=== PATIENT | female | born 1960 | race Caucasian/White ===

== ENCOUNTER 2024-08-03 14:23 | Inpatient (IN) | payer MEDICARE, SELFPAY ==
[2024-08-03] VITALS (33 sets, daily range): BP systolic 65–149; BP diastolic 38–115; PULSE 91–172; RESP 12–332; TEMP 35.8–37.2; O2SAT 78–95; BMI 38.1
--- NOTE | 2024-08-03 14:33 | EKG12_ITS ---
Test Reason : SOB Blood Pressure : */* mmHG Vent. Rate : 177 BPM Atrial Rate : * BPM P-R Int : * ms QRS Dur : 64 ms QT Int : 244 ms P-R-T Axes : * -12 1 degrees QTcB Int : 418 ms Critical Test Result: High HR Atrial fibrillation with rapid ventricular response Septal infarct , age undetermined Marked ST abnormality, possible inferior subendocardial injury Abnormal ECG Confirmed by CAMERON OSBORN, AVERY ([id number]), school photograph editor ANOOP BRONSON ([id number]) on 08/04/2024 8:51:37 AM Referred By: Katie Knott Confirmed By: AVERY BARNES MD
--- NOTE | 2024-08-03 14:47 | EX.ED.DYSGE1 ---
HPI History of Present Illness Chief Complaint: Shortness of Breath Narrative Narrative: Patient is a 64-year-old female past medical history of hypothyroidism on estradiol who presents to the emergency department with chief complaint of shortness of breath via EMS from her primary care physician. Patient states that she has been sick since the end of last week and her has been ill with similar symptoms. States that yesterday she had increasing shortness of breath therefore she called her family physician for an appointment today. She states that her oxygen level is low and they sent her here to the hospital via EMS. Patient denies any history of blood clots denies recent travel history denies any blood thinning medications. PFSH PFSH Medical History no medical history Home Medications ?Medication ?Instructions ?Recorded ?Last Taken ?Type cyclobenzaprine 10 mg tablet 10 mg PO TID PRN PRN muscle spasms 08/03/24 08/01/24 History ergocalciferol (vitamin D2) 1,250 1,250 mcg PO QWEEK 08/03/24 08/01/24 History mcg (50,000 unit) capsule estradiol 2 mg tablet 2 mg PO DAILY 08/03/24 08/01/24 History levothyroxine 100 mcg tablet 100 mcg PO DAILY disorder of 08/03/24 08/01/24 History thyroid gland meclizine 12.5 mg tablet 12.5 mg PO Q6H PRN PRN dizziness 08/03/24 08/01/24 History Allergy/AdvReac Type Severity Reaction Status Date / Time azithromycin Allergy Vomiting Verified 08/03/24 14:47 codeine Allergy Vomiting Verified 08/03/24 14:47 tramadol Allergy Vomiting Verified 08/03/24 14:47 Family History no significant family his Surgical History H/O: hysterectomy Social History Smoking Status: Heavy Smoker (>10/day) ROS ROS ED ROS Narrative Constitutional: Denies any fevers, chills, headaches, lightheadedness Eyes: Denies change in vision double vision blurry vision Cardiovascular: Complains of palpitations denies chest pain Respiratory: Complains of shortness of breath and cough Abdomen: Denies abdominal pain nausea vomit diarrhea : Denies any urinary symptoms Neurological: Denies any numbness, weakness, tingling Musculoskeletal: Denies any back pain Skin: Denies any rashes or lesions EXAM Physical Exam Narrative Exam Narrative: General: Patient lying in bed did appear to be short of breath Head: Atraumatic, normocephalic Eyes: PERRL bilaterally, EOMI bilaterally, no conjunctival injection noted Neck: Soft, supple, trachea midline Cardiovascular: Patient tachycardic with an irregular irregular rhythm no murmurs gallops rubs noted Respiratory: Diminished breath sounds bilaterally Abdomen: Soft, nondistended, nontender to palpation, bowel sounds present x 4 Extremities: +5/5 strength noted in the bilateral upper and lower extremities, radial pulses +2/4 in the bilateral extremities Neurological: Patient following commands knew that she was at [facility] year is 2024 Skin: Warm, dry, intact Const Vital Signs: 08/03/24 14:24 08/03/24 14:28 08/03/24 14:33 Temperature 96.5 F L 96.5 F L Temperature Source Temporal Temporal Pulse Rate 165 H 169 H Respiratory Rate 35 H 35 H Respiratory Pattern Blood Pressure 149/83 H 134/101 H Blood Pressure Mean 105 112 Pulse Ox 89 91 Oxygen Delivery Method Non-Rebreather Non-Rebreather Non-Rebreather Oxygen Flow Rate (L/min) 15 15 15 Fraction of Inspired Oxygen (FIO2) 08/03/24 14:35 08/03/24 14:36 08/03/24 15:21 Temperature Temperature Source Pulse Rate 172 H 148 H Respiratory Rate 38 H 32 H Respiratory Pattern Tachypnea Tachypnea Blood Pressure Blood Pressure Mean Pulse Ox 95 91 Oxygen Delivery Method Bi-pap Oxygen Flow Rate (L/min) Fraction of Inspired Oxygen (FIO2) 80 08/03/24 15:28 08/03/24 15:29 08/03/24 16:00 Temperature 97.4 F L 97.4 F L Temperature Source Axillary Axillary Pulse Rate 148 H 159 H 142 H Respiratory Rate 38 H 37 H Respiratory Pattern Blood Pressure 143/105 H 138/88 H 143/105 H Blood Pressure Mean 117 104 117 Pulse Ox 94 94 Oxygen Delivery Method Bi-pap Bi-pap Oxygen Flow Rate (L/min) Fraction of Inspired Oxygen (FIO2) 08/03/24 16:20 08/03/24 16:28 08/03/24 17:00 Temperature Temperature Source Pulse Rate 135 H 137 H 145 H Respiratory Rate 46 H 42 H Respiratory Pattern Tachypnea Blood Pressure 141/77 H 147/101 H Blood Pressure Mean 98 116 Pulse Ox 94 78 Oxygen Delivery Method High Flow Oxygen Flow Rate (L/min) Fraction of Inspired Oxygen (FIO2) 65 08/03/24 17:19 08/03/24 17:22 08/03/24 17:24 Temperature 97.8 F Temperature Source Pulse Rate 145 H 152 H 150 H Respiratory Rate 332 H 39 H Respiratory Pattern Blood Pressure 147/101 H 147/101 H Blood Pressure Mean 116 116 Pulse Ox 93 94 Oxygen Delivery Method Bi-pap Oxygen Flow Rate (L/min) Fraction of Inspired Oxygen (FIO2) 08/03/24 17:26 Temperature Temperature Source Pulse Rate 144 H Respiratory Rate 41 H Respiratory Pattern Tachypnea Blood Pressure Blood Pressure Mean Pulse Ox 94 Oxygen Delivery Method Oxygen Flow Rate (L/min) Fraction of Inspired Oxygen (FIO2) 80 MDM MDM MDM Narrative Medical decision making narrative: Patient is a 64-year-old female who presents to the emergency department via EMS from her primary care physician office with a chief complaint of hypoxia. Patient's primary care physician called in and I discussed with him and noted that her oxygen level on room air was 64% they placed her on nasal cannula and when EMS arrived they placed on a nonrebreather. They deny any history of COPD or CHF noted that she had been coughing some stuff up over the past week complaint of shortness of breath. On the differential diagnose includes but not limited to ACS, pneumonia, pneumothorax. Once workup is obtained reviewed she will be reevaluated. Patient does have a BMI of greater than 30 therefore she will be given 30 cc/kg bolus based on ideal body weight which was ordered at 1435. Patient be given 2 DuoNeb's to see if this helps with her work of breathing. Patient was tachypneic had increased work of breathing on nonrebreather therefore she will be placed on BiPAP. Patient be given Cardizem bolus followed by Cardizem drip for her A-fib RVR. Patient CBC reviewed and was significant leukocytosis of 25,000, hemoglobin 14.3, platelet count was noted be 342. Patient's INR was normal at 1.2, venous blood gas reviewed by myself which showed a pH 7.3. Patient sodium normal 141, potassium 3.4, creatinine normal at 0.83. Patient does have a lactic acidosis of 2.6, BNP elevated 171, troponin was noted to be 13. Patient TSH normal at 0.99 with a free T4 and free T3 of 2.19 and 1.1 respectively. Patient's urinalysis reviewed and showed no evidence of infection. Patient's CTA of the chest reviewed diffuse patchy consolidative opacity suspicious for infection follow-up to resolution is recommended enlarged mediastinal and perihilar lymph nodes which may be reactive in nature. Patient was given vancomycin and cefepime at 1504. Patient returned from radiology from her CT scan and she was doing well therefore I trialed her off BiPAP however she became tachypneic, tachycardic and hypoxic therefore she was transitioned back onto BiPAP. Patient heart rate has improved while on Cardizem drip however she is still tachycardic to the 120s 130s however we will allow her to receive further IV hydration as she is likely dehydrated as well. Did discuss case with hospitalist Dr. Knott who accept patient for admission to the intensive care unit. Critical care time 47 minutes Lab Data Labs: Laboratory Results - last 24 hr 08/03/24 08/03/24 14:35 15:48 WBC 25.1 H RBC 4.89 Hgb 14.3 Hct 43.8 MCV 89.6 MCH 29.2 MCHC 32.6 RDW Std Deviation 47.3 H RDW Coeff of Emmanuel 14.5 Plt Count 342 MPV 10.0 Immature Gran % (Auto) 0.800 Neut % (Auto) 84.4 H Lymph % (Auto) 7.6 L [place] % (Auto) 6.9 Eos % (Auto) 0.2 Baso % (Auto) 0.1 Absolute Neuts (auto) 21.2 H Absolute Lymphs (auto) 1.92 Nucleated RBC % 0 Differential Comment COMMENT Diff Path Review October foll PT 15.1 H INR 1.2 APTT 28.7 Sodium 141 Potassium 3.4 L Chloride 106 Carbon Dioxide 26.0 Anion Gap 9 BUN 15 Creatinine 0.83 Estim Creat Clear Calc 83.66 Est GFR (MDRD) Af Amer 88 Est GFR (MDRD) Non-Af 73 BUN/Creatinine Ratio 18.0 Glucose 125 H Lactic Acid 2.6 H* Calcium 9.8 Total Bilirubin 1.10 H AST 37 ALT 49 Alkaline Phosphatase 255 H Troponin I High Sens 13 B-Natriuretic Peptide 171.0 H Total Protein 7.5 Albumin 2.5 L Globulin 5.0 H Albumin/Globulin Ratio 0.5 L TSH 0.922 Free T4 2.19 H Free T3 pg/dL 1.1 L Urine Color Yellow Urine Clarity Sl. Cloudy Urine pH 6.0 Ur Specific [place] 1.010 Urine Protein 30 H Urine Glucose (UA) Normal Urine Ketones Negative Urine Occult Blood 10 H Urine Nitrite Negative Urine Bilirubin Negative Urine Urobilinogen 4 H Ur Leukocyte Esterase 25 H Urine RBC 0 SEEN Urine WBC 0-5 SEEN Ur Squamous Epith Cells 0 SEEN Urine Bacteria 1+ Urine Mucus 0 SEEN ABG Data ABG results: ABG 08/03/24 16:01 Specimen Type KASHIF Sample Site Not entered O2 % 80.0 VBG pH 7.30 L VBG pO2 45 H VBG HCO3 25 VBG Total CO2 27 VBG O2 Sat (Calc) 75 H VBG Base Excess -1 POC Mix VBG pCO2 Pt Tmp 51.4 H O2 Delivery Device BiPAP Tidal Volume 350.0 POC PEEP 10 Radiography Diagnostic Testing: Clinical Impression(s) from Imaging Studies Chest CTA 08/03/24 14:48 IMPRESSION: Diffuse patchy consolidative opacities suspicious for infection. Follow-up to resolution is recommended. Enlarged mediastinal and perihilar lymph nodes which may be reactive. One or more dose reduction techniques were used (e.g., Automated exposure control, adjustment of the mA and/or kV according to patient size, use of iterative reconstruction technique). Reading Location: [facility] Discharge Plan Triage Chief Complaint: Shortness of Breath ED Provider: Julio Sotomayor Dx/Rx/DC Orders Clinical Impression: Acute hypoxic respiratory failure, Pneumonia, Acidosis, lactic, Atrial fibrillation with RVR Prescriptions: No Action cyclobenzaprine 10 mg tablet 10 mg PO TID PRN PRN (Reason: muscle spasms) meclizine 12.5 mg tablet 12.5 mg PO Q6H PRN PRN (Reason: dizziness) levothyroxine 100 mcg tablet 100 mcg PO DAILY estradiol 2 mg tablet 2 mg PO DAILY ergocalciferol (vitamin D2) 1,250 mcg (50,000 unit) capsule 1,250 mcg PO QWEEK Primary Care Provider: Arnel Short Referrals: Arnel Short MD [Primary Care Provider] - Print Language: Mosotho Disposition Disposition: Acute Care Hospital [facility]
--- NOTE | 2024-08-03 14:48 | CT_ITS ---
PROCEDURE: CTA CHEST W/WO CONTRAST REASON FOR EXAM: Shortness of breath started yesterday. TECHNIQUE: CTA imaging of the chest with intravenous contrast. 3D reconstructions. COMPARISON: None. FINDINGS: Hardware: None. Lymph nodes: Enlarged mediastinal and perihilar lymph nodes. Heart: Normal heart size. No pericardial effusion. RV/LV Diameter Ratio: N/A Thoracic Aorta: Mild atherosclerosis of a normal caliber thoracic aorta Pulmonary Vessels: No evidence of acute pulmonary emboli through the major subsegmental branches. Most Proximal Level of Embolus (if embolus present): N/A Lungs and Airways: Diffuse patchy consolidative opacities suspicious for infection. Pleura: No pleural effusion. No pneumothorax. Upper Abdomen: Visualized portions of the upper abdominal viscera are unremarkable. Bones: Degenerative changes of the spine. CT/CTA Chest W/WO Contrast IMPRESSION: Diffuse patchy consolidative opacities suspicious for infection. Follow-up to resolution is recommended. Enlarged mediastinal and perihilar lymph nodes which may be reactive. One or more dose reduction techniques were used (e.g., Automated exposure contr ol, adjustment of the mA and/or kV according to patient size, use of iterative reconstruction technique). Reading Location: [id number]
[2024-08-03 14:49] LABS: Absolute Lymphocyte Count 1.92 X10^3/uL (0.83-4.51); Absolute Neutrophil Count 21.2 X10^3/uL (2.0-7.7); Basophil# 0.02 X10^3/uL; Basophil% 0.1 % (0-1); Eosinophil# 0.06 X10^3/uL; Eosinophils% 0.2 % (0-5); Hematocrit 43.8 % (37-47); Hemoglobin 14.3 g/dL (12.0-15.0); Lymphocyte # 1.92 X10^3/ul (0.83-4.51); Lymphocyte % 7.6 % (19-41); Mean Corp Hgb Conc 32.6 g/dL (32-36); Mean Corpuscular Hgb 29.2 pg (27.0-32.0); Mean Corpuscular Volume 89.6 fL (81-99); Monocyte# 1.74 X10^3/uL; Monocyte% 6.9 % (0-10); NRBC Flagged by Analyzer 0 % (0-5); Neutrophil % 84.4 % (47-70); POSITIVE DIFFERENTIAL YES; POSITIVE MORPHOLOGY YES; Platelet Count 342 K/mm3 (150-450); RBC Distribution Width CV 14.5 % (11.6-14.6); RBC Distribution Width SD 47.3 fl (35.1-43.9); Red Blood Count 4.89 M/mm3 (4.2-5.4); White Blood Count 25.1 K/mm3 (4.4-11.0)
[2024-08-03] MEDS: 0.9% Normal Saline (1000mL) 1,000 ML 999 ML IV ×3 (14:49→18:28)
[2024-08-03 14:54] LABS: Differential Indicated SCAN CRITERIA MET
[2024-08-03 14:57] LABS: International Normalized Ratio 1.2; Partial Thromboplast Time 28.7 Seconds (24.1-36.2); Prothrombin Time (Protime)PT. 15.1 SECONDS (11.7-14.9)
[2024-08-03] MEDS: Ipratropium/Albuterol Sulfate 3 ML AMPUL.NEB INHALATION ×2 (15:21)
[2024-08-03 15:27] LABS: ALB/GLOB Ratio 0.5 RATIO (0.9-2.4); AST(SGOT) 37 U/L (15-37); Alanine Aminotransfer ALT/SGPT 49 U/L (13-56); Albumin, Serum 2.5 g/dL (3.2-5.0); Alkaline Phosphatase 255 U/L (45-117); Anion Gap 9 (5-15); BUN 15 mg/dL (7-18); Calcium,Total 9.8 mg/dL (8.5-10.1); Chloride 106 mmol/L (98-107); Creatinine, Serum 0.83 mg/dL (0.55-1.02); EST Glomerular Filtration Rate 73 mL/min (>60); Est Glom Filt Rate - Afr Amer 88 mL/min (>60); Estimated Creatinine Clearance 83.66 ml/min; Glucose 125 mg/dL (74-106); Potassium 3.4 mmol/L (3.5-5.1); Protein, Total 7.5 g/dL (6.4-8.2); Sodium Level 141 mmol/L (136-145); Troponin-I HS 13 pg/mL (3.0-54.0)
[2024-08-03] MEDS: dilTIAZem 25 MG/5 ML Vial IV BOLUS (15:28)
[2024-08-03] MEDS: Diltiazem 125 MG in Dextrose 5%-Water (100mL Bag) 100 ML IV (15:29)
[2024-08-03] MEDS: Cefepime HCl 1 GM in 0.9% Normal Saline (50mL MB+) 50 ML IV (15:29)
[2024-08-03 15:47] LABS: Free T3 1.1 pg/mL (2.18-3.98); T4 Free Direct 2.19 ng/dL (0.76-1.46); Thyroid Stim Hormone (TSH) 0.922 uIU/mL (0.358-3.740)
[2024-08-03 16:00] LABS: Mucous, Urine 0 SEEN /hpf (<or=2+); Red Blood Cells-Urine 0 SEEN /hpf (0-5); Squamous Epithelial Cells - UA 0 SEEN /hpf (5-10)
[2024-08-03 16:05] LABS: Color, Urine Yellow (Yellow); Glucose, Dipstick Normal (Normal); Ketone-Dipstick Negative (Negative); Leukocyte Esterase-Dipstick 25 /ul (Negative); Nitrite-Dipstick Negative (Negative); Occult Blood-Urine 10 /ul (Negative); Protein-Dipstick 30 mg/dl (Negative); Urine Bilirubin Dipstick Negative (Negative); Urine Clarity Sl. Cloudy (Clear); Urine Urobilinogen 4 mg/dl (Normal)
[2024-08-03 16:17] LABS: Blood Gas Specimen Type VEN; O2 Delivery Device BiPAP; PEEP 10; SITE Not entered; VBG BASE EXCESS -1 mmol/L (-1.0-3.5); VBG Bicarbonate 25 mmol/L (22-26); VBG PO2 45 mmHg (25-40); VBG SO2 75 % (50-70); VBG TCO2 27 mmol/L (23-33); VBG pCO2 51.4 mmHg (41-51)
[2024-08-03] MEDS: Vancomycin HCl 1,500 MG in 0.9% Normal Saline (500mL Bag) 500 ML 250 MG IV (16:17)
[2024-08-03 16:24] LABS: Bacteria 1+ /hpf (None Seen); White Blood Cells 0-5 SEEN /hpf (0-5)
[2024-08-03] MEDS: Potassium Chloride 10mEq/100mL 10 MEQ/100 ML IV.SOLN. 100 MEQ IV BOLUS ×4 (16:30→19:48)
[2024-08-03 16:59] LABS: Lactic Acid 2.6 mmol/L (0.4-1.9)
--- NOTE | 2024-08-03 16:59 | ED.RN ---
Critical Lactic Acid 2.6. Dr. Sotomayor notified
--- NOTE | 2024-08-03 17:23 | ED.RN ---
Pt unable to tolerate hi flow, SpO2 dropped to 77%, respiratory rate 44. MD and RT at bedside, pt put back on bipap
[2024-08-03] MEDS: LORazepam 2 MG/ML Syringe 0.5 MG IV (18:41)
[2024-08-03] MEDS: Heparin Injection (Vial) 5,000 UNIT/ML VIAL 4000 UNIT IV (18:42)
[2024-08-03 18:44] LABS: Reflex Lactate? Y
[2024-08-03] MEDS: HEPARIN/D5w 25,000 UNITS 25,000 UNITS/250 ML IV.SOLN. 10 UNITS CONT INF (18:46)
[2024-08-03 19:01] LABS: International Normalized Ratio 1.5; Prothrombin Time (Protime)PT. 18.4 SECONDS (11.7-14.9)
[2024-08-03 19:02] LABS: Partial Thromboplast Time 33.9 Seconds (24.1-36.2)
--- NOTE | 2024-08-03 19:10 | HP.PCM.HOS_ITS ---
HPI - General General Date of Admission: 08/03/24 Date of Service: 08/03/24 Chief Complaint: Shortness of breath HPI Narrative KOBE ALFARO, is a 64-year-old female history of hypothyroidism and on estradiol who presented [facility] ED 08/03/2024 from primary care physician due to increased shortness of breath and hypoxia. She had increased shortness of breath for a week and similarly had been ill, yesterday it worsened further prompting her to call her PCPs office for appointment today, there she was hypoxic so she was sent to ED via EMS. In the ED patient placed on nonrebreather and then ultimately BiPAP due to continued hypoxia, CTA with no PE but did reveal multifocal pneumonia, she is given broad-spectrum antibiotics and is attempted to wean to high flow O2 however patient dropped to 77% was placed back on BiPAP. Additionally patient A-fib with RVR, heart rate 150s to 170s initially and recently started on Cardizem and heparin drip. Hospitalist contacted for admission. Patient evaluated at bedside but patient on BiPAP and having difficulty answering questions, family does report that 2 weeks ago she had some nausea and diarrhea that resolved but then she began to have shortness of breath 1 week ago that is progressed and also has cough with thick sputum. Patient difficulty answering any further focal questions given her distress and that she is on BiPAP, family denies any other specific complaints that had been voiced. PFSH Medical History no medical history Home Medications ?Medication ?Instructions ?Recorded ?Last Taken ?Type cyclobenzaprine 10 mg tablet 10 mg PO TID PRN PRN musc le spasms 08/03/24 08/01/24 History ergocalciferol (vitamin D2) 1,250 1,250 mcg PO QWEEK 0 08/03/24 08/01/24 History mcg (50,000 unit) capsule estradiol 2 mg tablet 2 mg PO DAILY 08/03/2408/01 History levothyroxine 100 mcg tablet 100 mcg PO DAILY disorder of 08/03/24 08/01/24 History thyroid gland meclizine 12.5 mg tablet 12.5 mg PO Q6H PRN PRN dizzi ness 08/03/24 08/01/24 History Allergy/AdvReac Type Severity Reaction Status Date / Time azithromycin Allergy Vomiting Verified 08/03/24 14:47 codeine Allergy Vomiting Verified 08/03/24 14:47 tramadol Allergy Vomiting Verified 08/03/24 14:47 Family History no significant family his Surgical History H/O: hysterectomy Social History Smoking Status: Heavy Smoker (>10/day) ROS ROS Narrative Unable to obtain full ROS given patient's distress and that she is on BiPAP but has had increased productive cough and shortness of breath, did have some nausea and diarrhea 2 weeks ago that resolved 1 week ago. No fevers that have been recorded Vital Signs Vital Signs Vital Signs: 08/03/24 14:24 08/03/24 14:28 08/03/24 14:33 Temperature 96.5 F L 96.5 F L Temperature Source Temporal Temporal Pulse Rate 165 H 169 H Respiratory Rate 35 H 35 H Respiratory Pattern Blood Pressure 149/83 H 134/101 H Blood Pressure Mean 105 112 Pulse Ox 89 91 Oxygen Delivery Method Non-Rebreather Non-Rebreather Non-Rebreather Oxygen Flow Rate (L/min) 15 15 15 Fraction of Inspired Oxygen (FIO2) 08/03/24 14:35 08/03/24 14:36 08/03/24 15:21 Temperature Temperature Source Pulse Rate 172 H 148 H Respiratory Rate 38 H 32 H Respiratory Pattern Tachypnea Tachypnea Blood Pressure Blood Pressure Mean Pulse Ox 95 91 Oxygen Delivery Method Bi-pap Oxygen Flow Rate (L/min) Fraction of Inspired Oxygen (FIO2) 80 08/03/24 15:28 08/03/24 15:29 08/03/24 16:00 Temperature 97.4 F L 97.4 F L Temperature Source Axillary Axillary Pulse Rate 148 H 159 H 142 H Respiratory Rate 38 H 37 H Respiratory Pattern Blood Pressure 143/105 H 138/88 H 143/105 H Blood Pressure Mean 117 104 117 Pulse Ox 94 94 Oxygen Delivery Method Bi-pap Bi-pap Oxygen Flow Rate (L/min) Fraction of Inspired Oxygen (FIO2) 08/03/24 16:20 08/03/24 16:28 08/03/24 17:00 Temperature Temperature Source Pulse Rate 135 H 137 H 145 H Respiratory Rate 46 H 42 H Respiratory Pattern Tachypnea Blood Pressure 141/77 H 147/101 H Blood Pressure Mean 98 116 Pulse Ox 94 78 Oxygen Delivery Method High Flow Oxygen Flow Rate (L/min) Fraction of Inspired Oxygen (FIO2) 65 08/03/24 17:19 08/03/24 17:22 08/03/24 17:24 Temperature 97.8 F Temperature Source Pulse Rate 145 H 152 H 150 H Respiratory Rate 332 H 39 H Respiratory Pattern Blood Pressure 147/101 H 147/101 H Blood Pressure Mean 116 116 Pulse Ox 93 94 Oxygen Delivery Method Bi-pap Oxygen Flow Rate (L/min) Fraction of Inspired Oxygen (FIO2) 08/03/24 17:26 08/03/24 18:00 Temperature 99 F Temperature Source Axillary Pulse Rate 144 H 142 H Respiratory Rate 41 H 35 H Respiratory Pattern Tachypnea Blood Pressure 131/93 H Blood Pressure Mean 105 Pulse Ox 94 93 Oxygen Delivery Method Bi-pap Oxygen Flow Rate (L/min) Fraction of Inspired Oxygen (FIO2) 80 Weight Weight: 107.1 kg Body Mass Index (BMI) 38.1 Physical Exam Narrative General: Alert, appears to be distressed HEENT: Atraumatic, normocephalic Eyes: Anicteric, normal conjunctiva, extraocular movements grossly intact Neck: Supple Respiratory: Increased respiratory effort, diminished bilaterally with poor airflow Cardiovascular: Irregularly irregular, still appears to be A-fib on monitor and is still tachycardic GI: Soft, nontender, nondistended Extremities: No significant pitting edema Musculoskeletal: Moving all extremities Neuro: No overt focal neurological deficits Skin: No rashes appreciated Psych: Attempts to be cooperative Results Lab / Micro Data 08/03/24 14:35 08/03/24 14:35 Labs: Laboratory Results - last 24 hr 08/03/24 14:35: WBC 25.1 H, RBC 4.89, Hgb 14.3, Hct 43.8, MCV 89.6, MCH 29.2, MCHC 32.6, RDW Std Deviation 47.3 H, RDW Coeff of Emmanuel 14.5, Plt Count 342, MPV 10.0, Immature Gran % (Auto) 0.800, Neut % (Auto) 84.4 H, Lymph % (Auto) 7.6 L, [place] % (Auto) 6.9, Eos % (Auto) 0.2, Baso % (Auto) 0.1, Absolute Neuts (auto) 21.2 H, Absolute Lymphs (auto) 1.92, Nucleated RBC % 0, Differential Comment COMMENT, Diff Path Review October foll, PT 15.1 H, INR 1.2, APTT 28.7, Sodium 141, P otassium 3.4 L, Chloride 106, Carbon Dioxide 26.0, Anion Gap 9, BUN 15, Creatinine 0.83, Estim Creat Clear Calc 83.66, Est GFR (MDRD) Af Amer 88, Est GFR (MDRD) Non-Af 73, BUN/Creatinine Ratio 18.0, Glucose 125 H, Lactic Acid 2.6 H*, Calcium 9.8, Total Bilirubin 1.10 H, AST 37, ALT 49, Alkaline Phosphatase 255 H, Troponin I High Sens 13, B-Natriuretic Peptide 171.0 H, Total Protein 7.5, Albumin 2.5 L, Globulin 5.0 H, Albumin/Globulin Ratio 0.5 L, TSH 0.922, F ree T4 2.19 H, Free T3 pg/dL 1.1 L 08/03/24 15:48: Urine Color Yellow, Urine Clarity Sl. Cloudy, Urine pH 6.0, Ur Specific [place] 1.010, Urine Protein 30 H, Urine Glucose (UA) Normal, Urine Ketones Negative, Urine Occult Blood 10 H, Urine Nitrite Negative, Urine Bilirubin Negative, Urine Urobilinogen 4 H, Ur Leukocyte Esterase 25 H, Urine RBC 0 SEEN, Urine WBC 0-5 SEEN, Ur Squamous Epith Cells 0 SEEN, Urine Bacteria 1+, Urine Mucus 0 SEEN 08/03/24 18:20: PT 18.4 H, INR 1.5, APTT 33.9 Micro: Microbiology 08/03/24 14:40 Mucosa - Nose SARS-CoV-2, Influenza & RSV (PCR) - Final ABG Data ABG results: ABG 08/03/24 16:01 Specimen Type KASHIF Sample Site Not entered O2 % 80.0 VBG pH 7.30 L VBG pO2 45 H VBG HCO3 25 VBG Total CO2 27 VBG O2 Sat (Calc) 75 H VBG Base Excess -1 POC Mix VBG pCO2 Pt Tmp 51.4 H O2 Delivery Device BiPAP Tidal Volume 350.0 POC PEEP 10 Imaging Radiology Impression Chest CTA 08/03/24 14:48 IMPRESSION: Diffuse patchy consolidative opacities suspicious for infection. Follow-up to resolution is recommended. Enlarged mediastinal and perihilar lymph nodes which may be reactive. One or more dose reduction techniques were used (e.g., Automated exposure control, adjustment of the mA and/or kV according to patient size, use of iterative reconstruction technique). Reading Location: [id number] Assessment & Plan Assessment/Plan (1) Acute hypoxic respiratory failure: (2) Pneumonia: (3) Atrial fibrillation with RVR: (4) Hypothyroidism: PLAN: Plan # Acute hypoxic respiratory failure secondary to multifocal pneumonia -Patient hypoxic in the ED and was 91% on rebreather with respiratory rate in the 30s, she was placed on BiPAP with sats in mid 90s though does remain tachypneic, trialed off BiPAP and desaturated and patient back on BiPAP -Imaging: CTA with diffuse patchy consolidative opacity suspicious for infection who recommends follow-up resolution, additionally enlarged mediastinal and perihilar lymph nodes which may be reactive in nature -Additionally patient with white blood cell count of 25 with left shift and increased shortness of breath with cough productive sputum -Duonebs -Sputum culture, COVID negative, respiratory panel ordered -Urine antigens -Mucinex, I/S -Given severity will cover with broad-spectrum antibiotics and de-escalate as able -Will consult pulmonology/critical care -BNP elevated at 171 but this is of unclear significance, could be secondary to A-fib RVR, does not appear overtly fluid overloaded at this time -Echo ordered as below # A-fib with RVR -Initial EKG with A-fib with rapid rate of 177, placed on Cardizem drip with heart rate in 140s to 150s -Patient to be admitted to the ICU, additionally started on heparin drip in the ED -Continue Cardizem drip, will add oral beta-nina to work on transitioning to an oral regimen -Check 0.99 with a free T4 of 2.19 -Check magnesium -Order echo #Hypokalemia -Replace -Repeat in the AM #Hypothyroidism -Continue Synthroid -TSH WNL #Tobacco use -Advise cessation -Nicotine replacement available if desired #DVT ppx: Heparin drip Katie Knott MD Charges/Coding Visit Charges Inpatient E&M: 71036 Init Hosp L2
--- NOTE | 2024-08-03 19:36 | CASEMGMT ---
Care Management Face to Face with patient for initial transition planning/care coordination assessment in the ED. This script writer introduced self and role at [facility]. Patient alert and oriented; on BiPAP during assessment. Patient's , Sky, and patient's daughter, Caryn, bedside. Patient's family members helped with answering questions. Care providers, pharmacy, and demographics verified. Admitting Diagnosis: Acute hypoxic respiratory failure, Pneumonia, Atrial fibrillation with RVR, Hypothyroidism Other diagnosis history: hypothyroidism PCP: Arnel Short Specialists: none Preferred Pharmacy: [facility] in [place] Insurance: Medicare A B Prescription Benefit: yes Living Will/HPOA: none and denies needing information LNOK: , Sky. Daughter, Caryn. Living Arrangements: lives with in 2 story home with 2 steps to enter. Bedroom and bathroom upstairs (full flight of stairs). Independent with all ADLs at baseline. Transportation: patient drives. DME: none HHC: none SNF/Rehab: none Community Resources: none Patient goals: Patient wishes to discharge home; patient and patient's both deny need for home health care at this time. Patient states she has no further needs or concerns at this time. Patient's daughter reports patient is stubborn and wants to go home right now. Patient's daughter states that patient will not ask for help despite patient's current condition. Disposition Plan: admission to acute; RN CM/SW to follow for discharge planning needs that may arise. [place], [employer], [employer]
[2024-08-03] MEDS: Etomidate 20 MG/10 ML Vial IV (20:41)
[2024-08-03] MEDS: Succinylcholine Chloride 200 MG/10 ML SYRINGE 100 MG IV (20:42)
[2024-08-03] MEDS: Midazolam 2 MG/2 ML Syringe 4 MG IV (20:51)
[2024-08-03] MEDS: fentaNYL 100 MCG/2 ML Ampul IV (20:51)
--- NOTE | 2024-08-03 20:55 | RAD_ITS ---
PROCEDURE: CHEST 1 VIEW (PORTABLE) REASON FOR EXAM: Post intubation. TECHNIQUE: Frontal view of the chest. COMPARISON: CT chest from 08/03/2024. FINDINGS: There is interval placement of an endotracheal tube and enteric tube. Endotracheal tube tip is 2.7 cm above the preethi. Enteric tube tip is below the diaphragm. Cardiac size is stable. Extensive bilateral pulmonary airspace opacities are identified. No pneumothorax is present. RAD/Chest 1 View (Portable) IMPRESSION: 1. Interval placement of an endotracheal tube and enteric tube. 2. Redemonstration of extensive bilateral airspace opacities likely on an infec tious basis. Reading Location: [facility]
--- NOTE | 2024-08-03 20:55 | RAD_ITS ---
PROCEDURE: ABDOMEN SINGLE VIEW REASON FOR EXAM: Status post nasogastric tube placement. TECHNIQUE: Single view of the upper abdomen. COMPARISON: None FINDINGS: Enteric tube tip is identified within the body of the stomach. No free air seen. Extensive bilateral pulmonary airspace opacities are identified. RAD/Abdomen Single View IMPRESSION: Enteric tube tip within the stomach. Reading Location: [place]
[2024-08-03] MEDS: Propofol 10MG/Ml 1,000 MG/100 ML Bottle 6.4 MG CONT INF (21:01)
--- NOTE | 2024-08-03 21:15 | PN.HOSP_ITS ---
Hospitalist Note Discussed with ED physician as patient continued to be tachycardic and tachypneic and hypoxic in the ED and was worsening and not improving, ED ph ysician discussed with patient and family and ultimately decision was to intubate patient prior to transfer up to the ICU. Patient intubated in the ED prior to transfer up to ICU
--- NOTE | 2024-08-03 21:18 | ED.RN ---
Patient moving arms and attempting to pull at lines. Dr. Sotomayor notified. Bilateral soft restraints to be applied
--- NOTE | 2024-08-03 21:18 | CM.ED ---
Social work During RNCM initial assessment, patient denied having advance directives and denied needing information at this time. [place], [employer], [employer]ING WORKER
[2024-08-03] MEDS: fentaNYL drip 100 ML 5 MCG CONT INF (22:01)
--- NOTE | 2024-08-03 22:57 | ECHOD_ITS ---
Reason For Study: ATRIAL FIBRILLATION Procedure This was a 2D Doppler, Color Flow transthoracic echocardiogram. The study was technically difficult. Limited views were obtained. The patient was scanned supine. Patient was on a ventillator during exam. Exam performed portable in ICU/CCU. Left Ventricle Normal LV size. Left ventricular systolic function is normal. The left ventricular ejection fraction is 55 %. No regional wall motion abnormalities noted. Right Ventricle Normal RV size. Normal systolic function. Atria Normal left atrium. Normal right atrium. Mitral Valve Normal mitral valve. Tricuspid Valve Normal tricuspid valve. Aortic Valve Trisinus/trileaflet aortic valve. Pulmonic Valve The pulmonic valve is not well visualized. Great Vessels Normal aortic root. The pulmonary artery is normal size. Inferior vena cava collapse with respiration. Pericardium/Pleural No pericardial effusion. MMode/2D Measurements & Calculations LVIDd: 4.1 cm IVSd: 1.1 cm LVOT diam: 1.9 cm LVIDs: 2.4 cm LVPWd: 0.97 cm LVOT area: 2.9 cm2 RVDd: 3.7 cm FS: 39.9 % _ LAV(MOD-bp): 38.6 ml LVAd ap4: 22.2 cm2 LVAd ap2: 15.9 cm2 LAV(MOD-bp) Indexed: 18.1 ml/m2 LVLd ap4: 7.0 cm LVLd ap2: 6.2 cm LAV(MOD-sp2): 40.2 ml EDV(MOD-sp4): 58.8 ml EDV(MOD- sp2): 35.1 ml LAV(MOD-sp4): 31.8 ml EDV(sp4-el): 59.8 ml EDV(sp2- el): 34.2 ml LVAs ap4: 11.7 cm2 LVAs ap2: 9.6 cm2 LVLs ap4: 6.0 cm LVLs ap2: 5.4 cm ESV(MOD-sp4): 20.2 ml ESV(MOD- sp2): 15.3 ml ESV(sp4-el): 19.5 ml ESV(sp2- el): 14.5 ml EF(MOD-sp4): 65.6 % EF(MOD- sp2): 56.4 % EF(sp4-el): 67.4 % _ SV(MOD-sp4): 38.6 ml SV(MOD-sp2): 19.8 ml SV(sp4-el): 40.3 ml SI(MOD-sp4): 18.1 ml/m2 SI(MOD-sp2): 9.3 ml/m2 _ Ao sinus diam: 3.0 cm LA A4 area: 14.3 cm2 LA dimension(2D): 3.0 cm _ TAPSE: 1.3 cm RA A4 area: 14.0 cm2 Time Measurements MV dec time: 0.14 sec Doppler Measurements & Calculations MV E max nitish: 90.5 cm/sec Ao V2 max: 139.5 cm/sec LV V1 max: 97.4 cm/sec Ao max P.9 mmHg LV V1 max P.8 mmHg Ao V2 mean: 89.8 cm/sec LV V1 mean P.9 mmHg Ao mean P.8 mmHg LV V1 mean: 63.4 cm/sec Ao V2 VTI: 23.2 cm LV V1 VTI: 14.7 cm AV (velocity ratio): 0.63 LUANNE(I,D): 1.8 cm2 LUANNE(V,D): 2.0 cm2 _ SV(LVOT): 42.9 ml TR max nitish: 245.2 cm/sec TR max P.1 mmHg ECHO/Echo Complete Interpretation Summary Normal LV size. Left ventricular systolic function is normal. The left ventricular ejection fraction is 55 %. Ordering Physician: Katie Knott Referring Physician: MD Deja Arnel Performed By: Chelsea Gresham RDCS
[2024-08-03 23:11] LABS: Magnesium 2.2 mg/dL (1.6-2.6)
--- NOTE | 2024-08-03 23:17 | PCM.HOSP.N ---
Hospitalist Note Patient with recent transition from ED to ICU with persistently low blood pressures with systolics 60s to 70s with maps less than 65 status post 3 L of fluids in the ED. Will initiate on norepinephrine.
[2024-08-03 23:22] LABS: Allen Test Positive; Base Excess -5 mmol/L (-2 to +2); Bicarbonate 22.2 mmol/L (22-26); Blood Gas Specimen Type ART; Mode AC; O2 Delivery Device Adult Vent; PEEP 10; PO2 109 mmHG (75-100); RR 16; SITE L Radial; SO2 97 % (95-99); Total Carbon Dioxide 24 mmol/L; pCO2 51.2 mmHg (35-45); pH 7.25 (7.35-7.45)
[2024-08-03] MEDS: Norepinephrine 8 MG in 0.9% Normal Saline (250mL Bag) 242 ML 9.4 MG CONT INF (23:59)
[2024-08-04] VITALS (53 sets, daily range): BP systolic 61–134; BP diastolic 41–91; PULSE 83–125; RESP 16–28; TEMP 37.6–38.1; O2SAT 94–98; BMI 37.5
[2024-08-04] MEDS: levoFLOXacin IV 750 MG/150 ML BAG 100 MG IV (00:06)
--- NOTE | 2024-08-04 00:16 | PCM.HOSP.N ---
Hospitalist Note Patient with hypotension, as noted started on NEP but was also noted to be on cardizem. Will d/c and transition to amiodarone drip.
--- NOTE | 2024-08-04 00:25 | PCM.RX.CS ---
Consult Antibiotic Management Pharmacy has been consulted to manage selected antibiotic: Vancomycin Type of Intervention Type of Consult: New start Suspected Infection Suspected Infection: Pneumonia Labs Labs: Sodium 141 mmol/L (136-145) 08/03/24 14:35 Potassium 3.4 mmol/L (3.5-5.1) L 08/03/24 14:35 Chloride 106 mmol/L (98-107) 08/03/24 14:35 Carbon Dioxide 26.0 mmol/L (21.0-32.0) 08/03/24 14:35 Anion Gap 9 (5-15) 08/03/24 14:35 BUN 15 mg/dL (7-18) 08/03/24 14:35 Creatinine 0.83 mg/dL (0.55-1.02) 08/03/24 14:35 Est GFR (MDRD) Af Amer 88 mL/min (>60) 08/03/24 14:35 Est GFR (MDRD) Non-Af 73 mL/min (>60) 08/03/24 14:35 BUN/Creatinine Ratio 18.0 RATIO (10-20) 08/03/24 14:35 Glucose 125 mg/dL (74-106) H 08/03/24 14:35 Microbiology Microbiology: Microbiology 08/03/24 14:40 Mucosa - Nose SARS-CoV-2, Influenza & RSV (PCR) - Final Dosing Weight Weight used for dosin kg Estimated Creatinine Clearance Estimated Creatinine Clearance: 84 Goal Trough Goal Trough: 15-20 mcg/mL Pharmacy Plan for Drug Dosing Pharmacy Plan for Drug Dosing: Pharmacy Service will continue to monitor and adjust dosing as required. Follow-Up Labs Follow-Up Labs: Trough: Vancomycin Date/Time Labs Ordered Labs to be done on [date and time ordered]: 08/05/24 @1991
[2024-08-04] MEDS: guaiFENesin 1,200 MG Tablet 1200 MG PO ×2 (00:32→09:27)
[2024-08-04] MEDS: Metoprolol Tartrate 25 MG Tablet PO ×3 (00:32→23:00)
[2024-08-04] MEDS: Chlorhexidine 15 ML PO ×3 (00:33→23:22)
[2024-08-04] MEDS: Ipratropium/Albuterol Sulfate 3 ML AMPUL.NEB INHALATION ×6 (02:35→22:55)
--- NOTE | 2024-08-04 03:25 | RAD_ITS ---
PROCEDURE: AP PORTABLE SEMI ERECT REASON FOR EXAM: Chest x-ray for line placement. TECHNIQUE: Frontal view(s) of chest. COMPARISON: 08/03/2024, 2105 hours. FINDINGS: Tip of a right central venous catheter projects just proximal to the cavoatrial junction. Tip of an endotracheal tube approximately 3 cm above the preethi. Nasogastric tube courses through the stomach. Bilateral lung airspace opacities are again noted with improved aeration of the bilateral lungs. Heart and mediastinum are stable. Atherosclerotic aorta. No pleural effusions or pneumothorax. Bones and soft tissues are unremarkable. RAD/CXR for Line Placement IMPRESSION: 1. Decrease in the bilateral lung airspace opacities since the previous study. Improved aeration in the bilateral lungs. 2. Interval insertion of a right central venous catheter. 3. Endotracheal and nasogastric tubes maintain their positions. Reading Location: [facility]
[2024-08-04] MEDS: Propofol 10MG/Ml 1,000 MG/100 ML Bottle 12.9 MG CONT INF (03:40)
--- NOTE | 2024-08-04 04:08 | PCM.HOSP.N ---
Hospitalist Note Central Line note: Patient with ongoing hypotension despite aggressive IVF administration attempts, maxed out on norepinephrine peripherally, per ICU staff report. Consent obtained for placement of central line. R neck region prepped and draped in standard fashion. US guidance used to obtain access to the R IJ, guidewire threaded without issue, central line catheter placed over guidewire and wire removed w/ cap placed. Lines again drawn and flushed without difficulty. Central line sutured in place. CXR ordered and preliminary appearance in appropriate position but awaiting final read. Procedures Hospitalists Procedures: [id number] Insert Non-tunnel CV Cath
[2024-08-04 04:25] LABS: Absolute Lymphocyte Count 2.18 X10^3/uL (0.83-4.51); Absolute Neutrophil Count 18.3 X10^3/uL (2.0-7.7); Basophil# 0.19 X10^3/uL; Basophil% 0.8 % (0-1); Eosinophil# 0.07 X10^3/uL; Eosinophils% 0.3 % (0-5); Hematocrit 35.7 % (37-47); Hemoglobin 11.2 g/dL (12.0-15.0); Lymphocyte # 2.18 X10^3/ul (0.83-4.51); Lymphocyte % 9.6 % (19-41); Mean Corp Hgb Conc 31.4 g/dL (32-36); Mean Corpuscular Hgb 28.8 pg (27.0-32.0); Mean Corpuscular Volume 91.8 fL (81-99); Mean Platelet Vol. 9.9 fl (6.2-12.0); Monocyte# 1.64 X10^3/uL; Monocyte% 7.3 % (0-10); NRBC Flagged by Analyzer 0.1 % (0-5); Neutrophil # 18.34 X10^3/uL (2.7-7.7); Neutrophil % 81.2 % (47-70); POSITIVE DIFFERENTIAL YES; POSITIVE MORPHOLOGY YES; Platelet Count 273 K/mm3 (150-450); RBC Distribution Width CV 14.9 % (11.6-14.6); RBC Distribution Width SD 49.8 fl (35.1-43.9); Red Blood Count 3.89 M/mm3 (4.2-5.4); White Blood Count 22.6 K/mm3 (4.4-11.0)
[2024-08-04 04:43] LABS: Anion Gap 7 (5-15); BUN 19 mg/dL (7-18); BUN/Creat Ratio 15.7 RATIO (10-20); Chloride 112 mmol/L (98-107); Cholesterol 52 mg/dL (200); Creatinine, Serum 1.21 mg/dL (0.55-1.02); EST Glomerular Filtration Rate 47 mL/min (>60); Est Glom Filt Rate - Afr Amer 57 mL/min (>60); Estimated Creatinine Clearance 56.84 ml/min; Glucose 127 mg/dL (74-106); High Density Lipoprotein 22 mg/dL; Potassium 4.6 mmol/L (3.5-5.1); Sodium Level 141 mmol/L (136-145); Triglycerides 115 mg/dL; Very Low Density Lipoprotein 23 mg/dL (5-40)
[2024-08-04 04:48] LABS: Differential Indicated SCAN CRITERIA MET
[2024-08-04 04:51] LABS: Partial Thromboplast Time 35.8 Seconds (24.1-36.2)
[2024-08-04] MEDS: Vancomycin HCl 1,750 MG in 0.9% Normal Saline (500mL Bag) 500 ML 250 MG IV ×2 (05:13→17:10)
[2024-08-04] MEDS: Heparin Injection (Vial) 5,000 UNIT/ML VIAL IV (05:13)
[2024-08-04] MEDS: Levothyroxine 100 MCG Tablet PO (05:14)
[2024-08-04] MEDS: Vasopressin 20 UNITS in 0.9% Normal Saline (50mL Bag) 24 ML 3 UNITS CONT INF ×2 (05:59→09:24)
[2024-08-04 06:38] LABS: Differential Comment SCANNED
--- NOTE | 2024-08-04 07:16 | PN.HOSP_ITS ---
Reason for Visit Reason for Visit: Diagnoses Hypothyroidism, unspecified (08/03/24) Unspecified atrial fibrillation (08/03/24) Pneumonia, unspecified organism (08/03/24) Acute respiratory failure with hypoxia (08/03/24) Subjective Subjective Patient is a 64-year-old lady who presented with shortness of breath diagnosed with acute hypoxic respiratory failure and sepsis secondary to multifocal pneumonia patient clinical condition deteriorated while in the emergency department necessitating patient being intubated and admitted to the intensive care unit Objective Data Objective Data Vital Signs: Vital Signs Temp Pulse Resp BP Pulse Ox O2 Del Method O2 Flow Rate 99 F 94 21 H 82/56 L 95 Mechanical Ventilator 15 08/03/24 22:57 08/04/24 04:45 08/04/24 04:45 08/04/24 06:00 08/04/24 04:45 08/04/24 02:00 08/03/24 14:33 FiO2 70 08/04/24 02:00 Oxygen Flow Rate (L/min) 15 Oxygen Delivery Method Mechanical Ventilator Weight: 105.415 kg Body Mass Index (BMI) 37.5 Intake & Output: Intake and Output for Last 24 Hours 08/02/24 08/03/24 08/04/24 23:59 23:59 23:59 Intake Total 4021.49 / 4031.13 627.65 / 627.65 Balance 4021.49 / 4031.13 627.65 / 627.65 Lab / Micro Data 08/04/24 04:15 08/04/24 04:15 Labs: Laboratory Results - last 24 hr 08/03/24 14:35: WBC 25.1 H, RBC 4.89, Hgb 14.3, Hct 43.8, MCV 89.6, MCH 29.2, MCHC 32.6, RDW Std Deviation 47.3 H, RDW Coeff of Emmanuel 14.5, Plt Count 342, MPV 10.0, Immature Gran % (Auto) 0.800, Neut % (Auto) 84.4 H, Lymph % (Auto) 7.6 L, [place] % (Auto) 6.9, Eos % (Auto) 0.2, Baso % (Auto) 0.1, Absolute Neuts (auto) 21.2 H, Absolute Lymphs (auto) 1.92, Nucleated RBC % 0, Differential Comment COMMENT, Diff Path Review May foll, PT 15.1 H, INR 1.2, APTT 28.7, Sodium 141, P otassium 3.4 L, Chloride 106, Carbon Dioxide 26.0, Anion Gap 9, BUN 15, Creatinine 0.83, Estim Creat Clear Calc 83.66, Est GFR (MDRD) Af Amer 88, Est GFR (MDRD) Non-Af 73, BUN/Creatinine Ratio 18.0, Glucose 125 H, Lactic Acid 2.6 H*, Calcium 9.8, Magnesium 2.2, Total Bilirubin 1.10 H, AST 37, ALT 49, Alkaline Phosphatase 255 H, Troponin I High Sens 13, B-Natriuretic Peptide 171.0 H, Total Protein 7.5, Albumin 2.5 L, Globulin 5.0 H, Albumin/Globulin Ratio 0.5 L, TSH 0.922, Free T4 2.19 H, Free T3 pg/dL 1.1 L 08/03/24 15:48: Urine Color Yellow, Urine Clarity Sl. Cloudy, Urine pH 6.0, Ur Specific [place] 1.010, Urine Protein 30 H, Urine Glucose (UA) Normal, Urine Ketones Negative, Urine Occult Blood 10 H, Urine Nitrite Negative, Urine Bilirubin Negative, Urine Urobilinogen 4 H, Ur Leukocyte Esterase 25 H, Urine RBC 0 SEEN, Urine WBC 0-5 SEEN, Ur Squamous Epith Cells 0 SEEN, Urine Bacteria 1+, Urine Mucus 0 SEEN 08/03/24 18:20: PT 18.4 H, INR 1.5, APTT 33.9 08/04/24 04:15: WBC 22.6 H, RBC 3.89 L, Hgb 11.2 L, Hct 35.7 L, MCV 91.8, MCH 28.8, MCHC 31.4 L, RDW Std Deviation 49.8 H, RDW Coeff of Emmanuel 14.9 H, Plt Count 273, MPV 9.9, Immature Gran % (Auto) 0.800, Neut % (Auto) 81.2 H, Lymph % (Auto) 9.6 L, [place] % (Auto) 7.3, Eos % (Auto) 0.3, Baso % (Auto) 0.8, Absolute Neuts (auto) 18.3 H, Absolute Lymphs (auto) 2.18, Nucleated RBC % 0.1, Differential Comment SCANNED, Diff Path Review May foll, APTT 35.8, Sodium 141, Potassium 4.6, Chloride 112 H, Carbon Dioxide 22.0, Anion Gap 7, BUN 19 H, Creatinine 1.21 H, Estim Creat Clear Calc 56.84, Est GFR (MDRD) Af Amer 57 L, Est GFR (MDRD) Non-Af 47 L, BUN/Creatinine Ratio 15.7, Glucose 127 H, Calcium 8.0 L, Triglycerides 115, Cholesterol 52, LDL Cholesterol 7, VLDL Cholesterol 23, HDL Cholesterol 22 L Micro: Microbiology 08/03/24 23:20 Mucosa - Nasopharyngeal Respiratory Panel (PCR) - Final 08/03/24 14:40 Mucosa - Nose SARS-CoV-2, Influenza & RSV (PCR) - Final ABG Data ABG results: ABG 08/03/24 08/03/24 16:01 23:15 Specimen Type KASHIF ART Sample Site Not entered L Radial pH 7.25 L Bicarbonate Actual 22.2 Total CO2 24 Base Excess -5 L O2 Saturation 97 O2 % 80.0 100.0 ABG pCO2 51.2 H ABG pO2 109 H Manoj Test Positive VBG pH 7.30 L VBG pO2 45 H VBG HCO3 25 VBG Total CO2 27 VBG O2 Sat (Calc) 75 H VBG Base Excess -1 POC Mix VBG pCO2 Pt Tmp 51.4 H Respiration Rate 16 O2 Delivery Device BiPAP Adult Vent Vent Mode AC Tidal Volume 350.0 450.0 POC PEEP 10 10 Radiography Diagnostic Testing: Radiology Impression Chest CTA 08/03/24 14:48 IMPRESSION: Diffuse patchy consolidative opacities suspicious for infection. Follow-up to resolution is recommended. Enlarged mediastinal and perihilar lymph nodes which may be reactive. One or more dose reduction techniques were used (e.g., Automated exposure control, adjustment of the mA and/or kV according to patient size, use of iterative reconstruction technique). Reading Location: [id number] Chest X-Ray 08/03/24 20:55 IMPRESSION: 1. Interval placement of an endotracheal tube and enteric tube. 2. Redemonstration of extensive bilateral airspace opacities likely on an infectious basis. Reading Location: [facility] X-Ray 08/03/24 20:55 IMPRESSION: Enteric tube tip within the stomach. Reading Location: [place] Chest X-Ray 08/04/24 03:25 IMPRESSION: 1. Decrease in the bilateral lung airspace opacities since the previous study. Improved aeration in the bilateral lungs. 2. Interval insertion of a right central venous catheter. 3. Endotracheal and nasogastric tubes maintain their positions. Reading Location: [facility] Physical Exam Narrative GENERAL: Patient on the vent HEENT: Atraumatic; normocephalic EYES; Anicteric, Normal Conjunctiva NECK; supple, normal thyroid, RESPIRATORY: Diminished to auscultation CARDIOVASCULAR: Regular S1 S2, GI: soft, normoactive bowel sounds, : No Renal angle tenderness; EXTREMITIES: No edema, no clubbing, MUSCULOSKELETAL: no muscle wasting NEURO: Patient on the vent SKIN: No Rash Assessment & Plan Assessment/Plan (1) Acute hypoxic respiratory failure: (2) Pneumonia: (3) Atrial fibrillation with RVR: (4) Hypothyroidism: PLAN: Plan Patient is a 64-year-old lady who presented with shortness of breath diagnosed with acute hypoxic respiratory failure and sepsis secondary to multifocal pneumonia patient clinical condition deteriorated while in the emergency department necessitating patient being intubated and admitted to the intensive care unit 1. Acute hypoxic respiratory failure secondary to multifocal pneumonia ? Treatment was initiated with BiPAP patient clinical condition however deteriorated resulting in patient being intubated and admitted to the intensive care unit. Patient was started on broad-spectrum antibiotic therapy with Zosyn and vancomycin cultures sent 2. Septic shock ? Patient did receive IV fluid resuscitation per protocol she however did not respond to fluid necessitating patient being started on pressors 3. A-fib with RVR ? Patient heart rate upon presentation was 177 patient was started on Cardizem drip which had to be discontinued given her persistent hypotension patient was subsequently started on amiodarone drip 4. Hypokalemia ? Corrected for protocol repeat labs ordered for monitoring 5. Hypothyroidism ? Patient is on levothyroxine home dose continued 6. Acute kidney injury ? Suspected to be secondary to ATN from sepsis monitoring with daily BMPs 7 DVT prophylaxis ? Patient is on heparin drip Time spent in the patient's overall evaluation,decision-making process, review of diagnostic data, adjustment of management, discussion with other providers, nursing nursing and ancillary staff involved in patient's care documentation, 50 Minutes Charges/Coding Visit Charges Inpatient E&M: 52588 Subs Hosp L3
--- NOTE | 2024-08-04 07:46 | CON.PCM.CC_ITS ---
Assessment & Plan Assessment/Plan (1) Acute hypoxic respiratory failure: PLAN: Plan RECOMMENDATIONS: 1. Continue assist-control mode of mechanical ventilation. Wean FiO2 and PEEP as tolerated. 2. Obtain follow-up ABG. 3. Amiodarone for rate/rhythm control. 4. Continue empiric broad-spectrum antimicrobials. 5. Continue scheduled bronchodilators. 6. Continue Levophed. Plan to initiate vasopressin and stress dose steroids. 7. Continue appropriate DVT and GI prophylaxis. 8. Await results of echocardiogram. IMPRESSIONS: 1. Septic shock The patient presented to the hospital with sepsis due to suspected pneumonia with acute sepsis related organ dysfunction as evidenced by lactic acidemia, fluid refractory hypotension requiring vasopressor support and acute respiratory failure requiring invasive mechanical ventilation. The patient has been adequately volume resuscitated. She will be continued on Levophed, with plans to initiate vasopressin and stress dose steroids, given ongoing hypotension. Plan to continue empiric broad-spectrum antimicrobials as ordered. 2. Atrial fibrillation with RVR Continue amiodarone as ordered. Await results of echocardiogram. 3. Acute hypoxemic respiratory failure Clinical suspicion for possible underlying obstructive lung disease in a state of exacerbation due to multifocal pneumonia. The patient was subsequently intubated in the emergency department. Plan to continue assist-control mode of mechanical ventilation. FiO2 and PEEP will be weaned as tolerated. Antimicrobials and scheduled bronchodilators will be continued. 4. History of hypothyroidism/chronic tobacco dependency/anemia Complicates care, management, recovery and prognosis. Continue home Synthroid regimen as ordered. Tube feeding can be initiated tomorrow. TIME: 37 minutes of critical care time, independent of procedures, was spent addressing the patient's septic shock, atrial fibrillation with RVR, acute hypoxemic respiratory failure, review of all data and collaboration with the care team. HPI Consult Data Date of Consult: 08/04/24 HPI Narrative Reason for Consultation: Respiratory failure HPI Narrative: The patient is a 64-year-old female, with a history as outlined below, who presented to the emergency department via EMS on August 03 with progressive shortness of breath. History was obtained from the patient's , who was present at the bedside. Although the patient does have a current smoking history, he reported that she has never been formally diagnosed with COPD. She does have a history of hypothyroidism. She is not currently on supplemental oxygen at her baseline. He did report that she has been struggling with the aforementioned symptoms for approximately 2 to 3 weeks. On presentation to the emergency department, the patient was documented to be afebrile but was notably tachycardic and tachypneic. Laboratory evaluation was notable for an elevated white blood cell count of 25,000. Chemistry profile was notable for a potassium of 3.4. Creatinine was within normal limits. Lactate was elevated at 2.6. Total bilirubin was increased to 1.1. BNP was elevated at 171. TSH was within normal limits. CTA chest showed no evidence for pulmonary embolism, but did demonstrate diffuse bilateral airspace opacities. In the emergency department, the patient was noted to be in atrial fibrillation with RVR. During her emergency department course, the patient developed worsening tachycardia and tachypnea and was subsequently intubated. She was placed on antimicrobial therapy and admitted to the hospital for further management. Overnight, the patient developed refractory hypotension, for which a central line was placed and Levophed was initiated. The patient has been maintained on scheduled bronchodilators. This morning, the patient's hypotension continued to worsen. Therefore, she was placed on vasopressin and stress dose steroids. Amiodarone was utilized for rate control of her atrial fibrillation. [facility] Medical History no medical history Home Medications ?Medication ?Instructions ?Recorded ?Last Taken ?Type cyclobenzaprine 10 mg tablet 10 mg PO TID PRN PRN musc le spasms 08/03/24 08/01/24 History ergocalciferol (vitamin D2) 1,250 1,250 mcg PO QWEEK 0 08/03/24 08/01/24 History mcg (50,000 unit) capsule estradiol 2 mg tablet 2 mg PO DAILY 08/03/2408/01 History levothyroxine 100 mcg tablet 100 mcg PO DAILY disorder of 08/03/24 08/01/24 History thyroid gland meclizine 12.5 mg tablet 12.5 mg PO Q6H PRN PRN dizzi ness 08/03/24 08/01/24 History Allergy/AdvReac Type Severity Reaction Status Date / Time azithromycin Allergy Vomiting Verified 08/03/24 14:47 codeine Allergy Vomiting Verified 08/03/24 14:47 tramadol Allergy Vomiting Verified 08/03/24 14:47 Family History no significant family his Surgical History H/O: hysterectomy Social History Smoking Status: Heavy Smoker (>10/day) ROS Review of Systems ROS Unobtainable: due to endotracheal tube Physical Exam Const Constitutional Narrative: Intubated, sedated and mechanically ventilated. General Appearance: ill appearing and patient mechanically ventilated HEENT normocephalic and head/scalp atraumatic Mouth: endotracheal tube in place and OG tube in place Eyes PERRL, EOMs intact bilaterally and conjunctivae normal Neck supple General: trachea midline Chest inspection of chest normal Resp Effort and Inspection: tachypneic Auscultation: rhonchi and diminished lung sounds Cardio S1 normal heart sound and S2 normal heart sound Rate: tachycardic Rhythm: abnormal rhythm GI normal to inspection, nondistended, normoactive bowel sounds Extremity General Extremity: edema; Negative for clubbing Skin No no rashes or lesions noted Neuro Sensorium / Orientation: sedated on vent Lab / Micro Data 08/04/24 04:15 08/04/24 04:15 Labs: Laboratory Results - last 24 hr 08/03/24 14:35: WBC 25.1 H, RBC 4.89, Hgb 14.3, Hct 43.8, MCV 89.6, MCH 29.2, MCHC 32.6, RDW Std Deviation 47.3 H, RDW Coeff of Emmanuel 14.5, Plt Count 342, MPV 10.0, Immature Gran % (Auto) 0.800, Neut % (Auto) 84.4 H, Lymph % (Auto) 7.6 L, [place] % (Auto) 6.9, Eos % (Auto) 0.2, Baso % (Auto) 0.1, Absolute Neuts (auto) 21.2 H, Absolute Lymphs (auto) 1.92, Nucleated RBC % 0, Differential Comment COMMENT, Diff Path Review October foll, PT 15.1 H, INR 1.2, APTT 28.7, Sodium 141, P otassium 3.4 L, Chloride 106, Carbon Dioxide 26.0, Anion Gap 9, BUN 15, Creatinine 0.83, Estim Creat Clear Calc 83.66, Est GFR (MDRD) Af Amer 88, Est GFR (MDRD) Non-Af 73, BUN/Creatinine Ratio 18.0, Glucose 125 H, Lactic Acid 2.6 H*, Calcium 9.8, Magnesium 2.2, Total Bilirubin 1.10 H, AST 37, ALT 49, Alkaline Phosphatase 255 H, Troponin I High Sens 13, B-Natriuretic Peptide 171.0 H, Total Protein 7.5, Albumin 2.5 L, Globulin 5.0 H, Albumin/Globulin Ratio 0.5 L, TSH 0.922, Free T4 2.19 H, Free T3 pg/dL 1.1 L 08/03/24 15:48: Urine Color Yellow, Urine Clarity Sl. Cloudy, Urine pH 6.0, Ur Specific [place] 1.010, Urine Protein 30 H, Urine Glucose (UA) Normal, Urine Ketones Negative, Urine Occult Blood 10 H, Urine Nitrite Negative, Urine Bilirubin Negative, Urine Urobilinogen 4 H, Ur Leukocyte Esterase 25 H, Urine RBC 0 SEEN, Urine WBC 0-5 SEEN, Ur Squamous Epith Cells 0 SEEN, Urine Bacteria 1+, Urine Mucus 0 SEEN 08/03/24 18:20: PT 18.4 H, INR 1.5, APTT 33.9 08/04/24 04:15: WBC 22.6 H, RBC 3.89 L, Hgb 11.2 L, Hct 35.7 L, MCV 91.8, MCH 28.8, MCHC 31.4 L, RDW Std Deviation 49.8 H, RDW Coeff of Emmanuel 14.9 H, Plt Count 273, MPV 9.9, Immature Gran % (Auto) 0.800, Neut % (Auto) 81.2 H, Lymph % (Auto) 9.6 L, [place] % (Auto) 7.3, Eos % (Auto) 0.3, Baso % (Auto) 0.8, Absolute Neuts (auto) 18.3 H, Absolute Lymphs (auto) 2.18, Nucleated RBC % 0.1, Differential Comment SCANNED, Diff Path Review October, APTT 35.8, Sodium 141, Potassium 4.6, Chloride 112 H, Carbon Dioxide 22.0, Anion Gap 7, BUN 19 H, Creatinine 1.21 H, Estim Creat Clear Calc 56.84, Est GFR (MDRD) Af Amer 57 L, Est GFR (MDRD) Non-Af 47 L, BUN/Creatinine Ratio 15.7, Glucose 127 H, Calcium 8.0 L, Triglycerides 115, Cholesterol 52, LDL Cholesterol 7, VLDL Cholesterol 23, HDL Cholesterol 22 L Micro: Microbiology 08/03/24 23:20 Mucosa - Nasopharyngeal Respiratory Panel (PCR) - Final 08/03/24 14:40 Mucosa - Nose SARS-CoV-2, Influenza & RSV (PCR) - Final ABG Data ABG results: ABG 08/03/24 08/03/24 16:01 23:15 Specimen Type KASHIF ART Sample Site Not entered L Radial pH 7.25 L Bicarbonate Actual 22.2 Total CO2 24 Base Excess -5 L O2 Saturation 97 O2 % 80.0 100.0 ABG pCO2 51.2 H ABG pO2 109 H Manoj Test Positive VBG pH 7.30 L VBG pO2 45 H VBG HCO3 25 VBG Total CO2 27 VBG O2 Sat (Calc) 75 H VBG Base Excess -1 POC Mix VBG pCO2 Pt Tmp 51.4 H Respiration Rate 16 O2 Delivery Device BiPAP Adult Vent Vent Mode AC Tidal Volume 350.0 450.0 POC PEEP 10 10 Imaging Radiology Impression Chest CTA 08/03/24 14:48 IMPRESSION: Diffuse patchy consolidative opacities suspicious for infection. Follow-up to resolution is recommended. Enlarged mediastinal and perihilar lymph nodes which may be reactive. One or more dose reduction techniques were used (e.g., Automated exposure control, adjustment of the mA and/or kV according to patient size, use of iterative reconstruction technique). Reading Location: [facility] Chest X-Ray 08/03/24 20:55 IMPRESSION: 1. Interval placement of an endotracheal tube and enteric tube. 2. Redemonstration of extensive bilateral airspace opacities likely on an infectious basis. Reading Location: [facility] X-Ray 08/03/24 20:55 IMPRESSION: Enteric tube tip within the stomach. Reading Location[facility] Chest X-Ray 08/04/24 03:25 IMPRESSION: 1. Decrease in the bilateral lung airspace opacities since the previous study. Improved aeration in the bilateral lungs. 2. Interval insertion of a right central venous catheter. 3. Endotracheal and nasogastric tubes maintain their positions. Reading Location: [facility] Charges/Coding Procedures Hospitalists Procedures: 79774 Critical Care 1st Hr
[2024-08-04] MEDS: fentaNYL drip 100 ML 10 MCG CONT INF ×2 (08:23→17:07)
[2024-08-04] MEDS: Norepinephrine 8 MG in 0.9% Normal Saline (250mL Bag) 242 ML 56.3 MG CONT INF ×2 (08:23→13:59)
[2024-08-04] MEDS: Amiodarone 150 MG in Dextrose 5%-Water (100mL Bag) 100 ML 600 MG IV BOLUS (08:55)
[2024-08-04 09:09] LABS: Allen Test Positive; Base Excess -6 mmol/L (-2 to +2); Bicarbonate 21.1 mmol/L (22-26); Blood Gas Specimen Type ART; Mode SIMV(PRVC)+PS; O2 Delivery Device Adult Vent; PEEP 10; PO2 74 mmHG (75-100); RR 16; SITE R Radial; SO2 92 % (95-99); Total Carbon Dioxide 23 mmol/L; pCO2 49.6 mmHg (35-45); pH 7.24 (7.35-7.45)
[2024-08-04] MEDS: Amiodarone 360 MG in Dextrose 5% Viaflo Bag 192.8 ML 16.7 MG CONT INF ×2 (09:11→21:07)
[2024-08-04] MEDS: Pantoprazole Sodium 40 MG in 0.9% Normal Saline (100mL MB+) 100 ML 330 MG IV (09:24)
[2024-08-04] MEDS: Estradiol 1 MG Tablet 2 MG PO (09:27)
[2024-08-04 09:31] LABS: CPK Total, Creatine Kinase 26 U/L (26-192); Triglycerides 114 mg/dL
[2024-08-04] MEDS: Piperacil/Tazobactam 3.375 GM in 0.9% Normal Saline (50mL MB+) 50 ML IV ×3 (10:39→21:35)
[2024-08-04] MEDS: Hydrocortisone Sod Succinate 100 MG/2 ML Vial 50 MG IV ×3 (11:42→23:46)
[2024-08-04] MEDS: Propofol 10MG/Ml 1,000 MG/100 ML Bottle 6.4 MG CONT INF (12:01)
[2024-08-04 14:17] LABS: Pathologist Review Reviewed
[2024-08-04 14:20] LABS: Pathologist Review Reviewed
[2024-08-04] MEDS: HEPARIN/D5w 25,000 UNITS 25,000 UNITS/250 ML IV.SOLN. 13 UNITS CONT INF (17:04)
[2024-08-04 19:21] LABS: Partial Thromboplast Time 43.8 Seconds (24.1-36.2)
[2024-08-04] MEDS: Propofol 10MG/Ml 1,000 MG/100 ML Bottle 9.6 MG CONT INF (22:23)
[2024-08-05] VITALS (48 sets, daily range): BP systolic 77–148; BP diastolic 53–99; PULSE 85–130; RESP 16–23; TEMP 37–37.4; O2SAT 84–98; BMI 37.7
[2024-08-05] MEDS: Propofol 10MG/Ml 1,000 MG/100 ML Bottle 9.6 MG CONT INF (01:00)
[2024-08-05] MEDS: fentaNYL drip 100 ML 10 MCG CONT INF ×3 (02:35→21:58)
[2024-08-05 03:04] LABS: Partial Thromboplast Time 52.3 Seconds (24.1-36.2)
[2024-08-05] MEDS: Ipratropium/Albuterol Sulfate 3 ML AMPUL.NEB INHALATION ×4 (03:15→15:44)
[2024-08-05] MEDS: Vancomycin Trough/Random Due 1 LAB MC (04:35)
[2024-08-05] MEDS: Vancomycin HCl 1,750 MG in 0.9% Normal Saline (500mL Bag) 500 ML 250 MG IV ×2 (05:06→16:02)
--- NOTE | 2024-08-05 05:07 | PCM.RX.CS ---
Consult Antibiotic Management Pharmacy has been consulted to manage selected antibiotic: Vancomycin Type of Intervention Type of Consult: Follow-up Suspected Infection Suspected Infection: Pneumonia Labs Labs: Sodium 141 mmol/L (136-145) 08/04/24 04:15 Potassium 4.6 mmol/L (3.5-5.1) 08/04/24 04:15 Chloride 112 mmol/L (98-107) H 08/04/24 04:15 Carbon Dioxide 22.0 mmol/L (21.0-32.0) 08/04/24 04:15 Anion Gap 7 (5-15) 08/04/24 04:15 BUN 19 mg/dL (7-18) H 08/04/24 04:15 Creatinine 1.21 mg/dL (0.55-1.02) H 08/04/24 04:15 Est GFR (MDRD) Af Amer 57 mL/min (>60) L 08/04/24 04:15 Est GFR (MDRD) Non-Af 47 mL/min (>60) L 08/04/24 04:15 BUN/Creatinine Ratio 15.7 RATIO (10-20) 08/04/24 04:15 Glucose 127 mg/dL (74-106) H 08/04/24 04:15 Vancomycin Trough 20.0 ug/mL (5.0-15.0) H 08/05/24 04:10 Microbiology Microbiology: Microbiology 08/03/24 22:43 Sputum, Induced/Lukens Gram Stain - Final 08/03/24 15:48 Urine Catheter - Catheter Urine Culture - Preliminary Culture exhibits no growth. 08/04/24 07:45 Urine Catheter - Erickson Legionella Antigen - Final 08/04/24 07:45 Urine Catheter - Erickson Streptococcus pneumoniae Antigen (M - Final 08/03/24 23:20 Mucosa - Nasopharyngeal Respiratory Panel (PCR) - Final 08/03/24 14:40 Mucosa - Nose SARS-CoV-2, Influenza & RSV (PCR) - Final Dosing Weight Weight used for dosin kg Estimated Creatinine Clearance Estimated Creatinine Clearance: 57 Goal Trough Goal Trough: 15-20 mcg/mL Pharmacy Plan for Drug Dosing Pharmacy Plan for Drug Dosing: Vancomycin trough level of 20.0, drawn 11hrs post-dose, was within the target range of 15-20. Will continue dosing at 1750mg q12h, and will draw another trough level in two days. Pharmacy Service will continue to monitor and adjust dosing as required. Follow-Up Labs Follow-Up Labs: Trough: Vancomycin Date/Time Labs Ordered Labs to be done on [date and time ordered]: 08/07/24 @7926
[2024-08-05] MEDS: Hydrocortisone Sod Succinate 100 MG/2 ML Vial 50 MG IV ×3 (06:26→18:07)
[2024-08-05] MEDS: Levothyroxine 100 MCG Tablet PO (06:26)
[2024-08-05] MEDS: Piperacil/Tazobactam 3.375 GM in 0.9% Normal Saline (50mL MB+) 50 ML IV ×3 (06:26→21:58)
--- NOTE | 2024-08-05 07:06 | PN.HOSP_ITS ---
Reason for Visit Reason for Visit: Diagnoses Hypothyroidism, unspecified (08/03/24) Unspecified atrial fibrillation (08/03/24) Pneumonia, unspecified organism (08/03/24) Acute respiratory failure with hypoxia (08/03/24) Subjective Subjective Patient seen remains on the vent Tmax over the past 24 hours 100.4. Objective Data Objective Data Vital Signs: Vital Signs Temp Pulse Resp BP Pulse Ox O2 Del Method O2 Flow Rate 98.6 F 90 16 95/71 95 Mechanical Ventilator 7 08/05/24 07:00 08/05/24 07:00 08/05/24 07:00 08/05/24 07:00 08/05/24 07:00 08/05/24 07:00 08/05/24 05:00 FiO2 50 08/05/24 07:00 Oxygen Flow Rate (L/min) 7 Oxygen Delivery Method Mechanical Ventilator Weight: 106.005 kg Body Mass Index (BMI) 37.7 Intake & Output: Intake and Output for Last 24 Hours 08/03/24 08/04/24 08/05/24 23:59 23:59 23:59 Intake Total 4021.49 / 4031.13 3192.56 / 3260.31 620.36 / 620.36 Output Total 1500 / 1575 400 / 400 Balance 4021.49 / 4031.13 1692.56 / 1685.31 220.36 / 220.36 Lab / Micro Data 08/05/24 07:41 08/05/24 07:41 Labs: Laboratory Results - last 24 hr 08/03/24 14:35: Diff Path Review Reviewed 08/04/24 04:15: Diff Path Review Reviewed, Total Creatine Kinase 26, Triglycerides 114 08/04/24 12:15: APTT 48.0 H 08/04/24 18:20: APTT 43.8 H 08/05/24 02:46: APTT 52.3 H 08/05/24 04:10: Vancomycin Trough 20.0 H Micro: Microbiology 08/03/24 22:43 Sputum, Induced/Lukens Gram Stain - Final 08/03/24 15:48 Urine Catheter - Catheter Urine Culture - Preliminary Culture exhibits no growth. 08/04/24 07:45 Urine Catheter - Erickson Legionella Antigen - Final 08/04/24 07:45 Urine Catheter - Erickson Streptococcus pneumoniae Antigen (M - Final 08/03/24 23:20 Mucosa - Nasopharyngeal Respiratory Panel (PCR) - Final 08/03/24 14:40 Mucosa - Nose SARS-CoV-2, Influenza & RSV (PCR) - Final ABG Data ABG results: ABG 08/04/24 09:06 Specimen Type ART Sample Site R Radial pH 7.24 L Bicarbonate Actual 21.1 L Total CO2 23 Base Excess -6 L O2 Saturation 92 L O2 % 70.0 ABG pCO2 49.6 H ABG pO2 74 L Manoj Test Positive Respiration Rate 16 O2 Delivery Device Adult Vent Vent Mode SIMV(PRVC)+PS Tidal Volume 450.0 POC PEEP 10 Radiography Diagnostic Testing: Radiology Impression Echocardiogram 08/03/24 22:57 Interpretation Summary Normal LV size. Left ventricular systolic function is normal. The left ventricular ejection fraction is 55 %. Ordering Physician: Katie Knott Referring Physician: MD Deja Arnel Performed By: Chelsea Gresham RDCS Physical Exam Narrative GENERAL: Patient on the vent HEENT: Atraumatic; normocephalic EYES; Anicteric, Normal Conjunctiva NECK; supple, normal thyroid, RESPIRATORY: Diminished to auscultation CARDIOVASCULAR: Regular S1 S2, GI: soft, normoactive bowel sounds, : No Renal angle tenderness; EXTREMITIES: No edema, no clubbing, MUSCULOSKELETAL: no muscle wasting NEURO: Patient on the vent SKIN: No Rash Assessment & Plan Assessment/Plan (1) Acute hypoxic respiratory failure: (2) Pneumonia: (3) Atrial fibrillation with RVR: (4) Hypothyroidism: PLAN: Plan Patient is a 64-year-old lady who presented with shortness of breath diagnosed with acute hypoxic respiratory failure and sepsis secondary to multifocal pneumonia patient clinical condition deteriorated while in the emergency department necessitating patient being intubated and admitted to the intensive care unit 1. Acute hypoxic respiratory failure secondary to multifocal pneumonia ? Treatment was initiated with BiPAP patient clinical condition however deteriorated resulting in patient being intubated and admitted to the intensive care unit. Patient was started on broad-spectrum antibiotic therapy with Zosyn and vancomycin cultures sent ? 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 Septic shock ? Patient did receive IV fluid resuscitation per protocol she however did not respond to fluid necessitating patient being started on pressors -08/05/2024; patient seen remains on the vent Tmax over the past 24 hours 100.4. WBC count remains elevated 3. A-fib with RVR ? Patient heart rate upon presentation was 177 patient was started on Cardizem drip which had to be discontinued given her persistent hypotension patient was subsequently started on amiodarone drip ? 08/05/2024; heart rate control still not optimal patient remains on amiodarone drip 4. Hypokalemia ? Corrected for protocol repeat labs ordered for monitoring ? 08/05/2024 hypokalemia corrected 5. Hypothyroidism ? Patient is on levothyroxine home dose continued 6. Acute kidney injury ? Suspected to be secondary to ATN from sepsis monitoring with daily BMPs 7 DVT prophylaxis ? Patient is on heparin drip Time spent in the patient's overall evaluation,decision-making process, review of diagnostic data, adjustment of management, discussion with other providers, nursing nursing and ancillary staff involved in patient's care documentation, 50 Minutes Charges/Coding Visit Charges Inpatient E&M: [id number] [place] [id number]
--- NOTE | 2024-08-05 07:44 | PCM.PN.INT ---
Assessment & Plan Assessment/Plan (1) Acute hypoxic respiratory failure: PLAN: Plan RECOMMENDATIONS: 1. Continue assist-control mode of mechanical ventilation. Wean FiO2 and PEEP as tolerated. 2. Continue empiric broad-spectrum antimicrobials. 3. Continue scheduled bronchodilators. 4. Continue Levophed along with stress dose steroids. 5. Continue appropriate DVT and GI prophylaxis. 6. Okay to initiate tube feeding today from my perspective. IMPRESSIONS: 1. Septic shock The patient presented to the hospital with sepsis due to suspected pneumonia with acute sepsis related organ dysfunction as evidenced by lactic acidemia, fluid refractory hypotension requiring vasopressor support and acute respiratory failure requiring invasive mechanical ventilation. The patient has been adequately volume resuscitated. She will be continued on Levophed and stress dose steroids, as ordered. Empiric antibiotics will be continued. 2. Atrial fibrillation with RVR Continue amiodarone as ordered. Echocardiogram revealed intact systolic function. 3. Acute hypoxemic respiratory failure Clinical suspicion for possible underlying obstructive lung disease in a state of exacerbation due to multifocal pneumonia. The patient was subsequently intubated in the emergency department. Plan to continue assist-control mode of mechanical ventilation. FiO2 and PEEP will be weaned as tolerated. Antimicrobials and bronchodilators will be continued. 4. History of hypothyroidism/chronic tobacco dependency/anemia Complicates care, management, recovery and prognosis. Continue home Synthroid regimen as ordered. Tube feeding can be initiated today from my perspective. TIME: 33 minutes of critical care time, independent of procedures, was spent addressing the patient's septic shock, atrial fibrillation with RVR, acute hypoxemic respiratory failure, review of all data and collaboration with the care team. Subjective Subjective The patient was seen and examined at the bedside this morning. Events from the last 24 hours have been reviewed. The patient is afebrile and remains on assist-control mode of mechanical ventilation with an FiO2 requirement of 50% and PEEP of 8. The patient remains on Levophed to maintain hemodynamic stability. She is currently documented to be overall net +6.4 L for the hospitalization. White blood cell count is elevated to 21,000. Creatinine is stable at 1.14. The patient remains on propofol and fentanyl for sedation. She continues to receive stress dose steroids. Objective Data Objective Data The patient's most recent lab work, culture data and imaging studies have all been personally reviewed. Surface echocardiogram demonstrated normal LV size and function with an ejection fraction of 55%. Blood, urine and sputum cultures are pending. Vital Signs: Vital Signs Temp Pulse Resp BP Pulse Ox O2 Del Method O2 Flow Rate 98.6 F 90 16 95/71 95 Mechanical Ventilator 7 08/05/24 07:00 08/05/24 07:00 08/05/24 07:00 08/05/24 07:00 08/05/24 07:00 08/05/24 07:00 08/05/24 05:00 FiO2 50 08/05/24 07:00 Oxygen Flow Rate (L/min) 7 Oxygen Delivery Method Mechanical Ventilator Weight: 233 lb 11.2 oz Body Mass Index (BMI) 37.7 Intake & Output: Intake and Output for Last 24 Hours 08/03/24 08/04/24 08/05/24 23:59 23:59 23:59 Intake Total 4021.49 / 4031.13 3192.56 / 3260.31 1155.36 / 1155.36 Output Total 1500 / 1575 400 / 400 Balance 4021.49 / 4031.13 1692.56 / 1685.31 755.36 / 755.36 Lab / Micro Data Attestation: I reviewed the patient's lab results. 08/05/24 07:41 08/05/24 07:41 Labs: Laboratory Results - last 24 hr 08/03/24 14:35: Diff Path Review Reviewed 08/04/24 04:15: Diff Path Review Reviewed, Total Creatine Kinase 26, Triglycerides 114 08/04/24 12:15: APTT 48.0 H 08/04/24 18:20: APTT 43.8 H 08/05/24 02:46: APTT 52.3 H 08/05/24 04:10: Vancomycin Trough 20.0 H Micro: Microbiology 08/03/24 22:43 Sputum, Induced/Lukens Gram Stain - Final 08/03/24 15:48 Urine Catheter - Catheter Urine Culture - Preliminary Culture exhibits no growth. 08/04/24 07:45 Urine Catheter - Erickson Legionella Antigen - Final 08/04/24 07:45 Urine Catheter - Erickson Streptococcus pneumoniae Antigen (M - Final 08/03/24 23:20 Mucosa - Nasopharyngeal Respiratory Panel (PCR) - Final 08/03/24 14:40 Mucosa - Nose SARS-CoV-2, Influenza & RSV (PCR) - Final ABG Data ABG results: ABG 08/04/24 09:06 Specimen Type ART Sample Site R Radial pH 7.24 L Bicarbonate Actual 21.1 L Total CO2 23 Base Excess -6 L O2 Saturation 92 L O2 % 70.0 ABG pCO2 49.6 H ABG pO2 74 L Manoj Test Positive Respiration Rate 16 O2 Delivery Device Adult Vent Vent Mode SIMV(PRVC)+PS Tidal Volume 450.0 POC PEEP 10 Radiography Diagnostic Testing: Radiology Impression Echocardiogram 08/03/24 22:57 Interpretation Summary Normal LV size. Left ventricular systolic function is normal. The left ventricular ejection fraction is 55 %. Ordering Physician: Katie Knott Referring Physician: MD Deja Arnel Performed By: Chelsea Gresham RDCS Physical Exam Const Constitutional Narrative: Intubated, sedated and mechanically ventilated. Family is present at the bedside. General Appearance: ill appearing and patient mechanically ventilated HEENT normocephalic and head/scalp atraumatic Mouth: endotracheal tube in place and OG tube in place Eyes PERRL, EOMs intact bilaterally and conjunctivae normal Neck supple General: trachea midline Chest inspection of chest normal Resp no use of accessory muscles Auscultation: wheezes and diminished lung sounds Cardio regular rate, regular rhythm, S1 normal heart sound and S2 normal heart sound GI normal to inspection, nondistended, normoactive bowel sounds Extremity General Extremity: edema; Negative for clubbing Skin No no rashes or lesions noted Neuro Sensorium / Orientation: sedated on vent Charges/Coding Procedures Hospitalists Procedures: 54151 Critical Care 1st Hr
[2024-08-05 07:49] LABS: Absolute Lymphocyte Count 2.49 X10^3/uL (0.83-4.51); Absolute Neutrophil Count 16.2 X10^3/uL (2.0-7.7); Basophil# 0.15 X10^3/uL; Basophil% 0.7 % (0-1); Eosinophil# 0.05 X10^3/uL; Eosinophils% 0.2 % (0-5); Hematocrit 34.3 % (37-47); Hemoglobin 10.7 g/dL (12.0-15.0); Lymphocyte # 2.49 X10^3/ul (0.83-4.51); Mean Corp Hgb Conc 31.2 g/dL (32-36); Mean Corpuscular Hgb 29.1 pg (27.0-32.0); Mean Corpuscular Volume 93.2 fL (81-99); Mean Platelet Vol. 9.7 fl (6.2-12.0); Monocyte# 1.17 X10^3/uL; Monocyte% 5.6 % (0-10); NRBC Flagged by Analyzer 0 % (0-5); Neutrophil # 16.22 X10^3/uL (2.7-7.7); Neutrophil % 78.2 % (47-70); Platelet Count 323 K/mm3 (150-450); RBC Distribution Width CV 15.2 % (11.6-14.6); RBC Distribution Width SD 52.4 fl (35.1-43.9); Red Blood Count 3.68 M/mm3 (4.2-5.4); White Blood Count 20.8 K/mm3 (4.4-11.0)
[2024-08-05] MEDS: Propofol 10MG/Ml 1,000 MG/100 ML Bottle 12.9 MG CONT INF (07:55)
[2024-08-05 08:10] LABS: AST(SGOT) 23 U/L (15-37); Alanine Aminotransfer ALT/SGPT 31 U/L (13-56); Albumin, Serum 1.7 g/dL (3.2-5.0); Alkaline Phosphatase 172 U/L (45-117); Anion Gap 6 (5-15); BUN 40 mg/dL (7-18); BUN/Creat Ratio 35.1 RATIO (10-20); Bilirubin, Direct 0.58 mg/dL (0.00-0.30); Calcium,Total 8.3 mg/dL (8.5-10.1); Chloride 112 mmol/L (98-107); Creatinine, Serum 1.14 mg/dL (0.55-1.02); EST Glomerular Filtration Rate 51 mL/min (>60); Est Glom Filt Rate - Afr Amer 62 mL/min (>60); Estimated Creatinine Clearance 60.57 ml/min; Globulin 4.4 g/dL (2.2-4.2); Glucose 157 mg/dL (74-106); Magnesium 2.5 mg/dL (1.6-2.6); Phosphorus 4.7 mg/dL (2.5-4.9); Potassium 4.6 mmol/L (3.5-5.1); Protein, Total 6.1 g/dL (6.4-8.2); Sodium Level 140 mmol/L (136-145)
[2024-08-05] MEDS: Amiodarone 360 MG in Dextrose 5% Viaflo Bag 192.8 ML 16.7 MG CONT INF ×2 (09:08→21:57)
[2024-08-05] MEDS: Norepinephrine 8 MG in 0.9% Normal Saline (250mL Bag) 242 ML 18.8 MG CONT INF (09:08)
[2024-08-05] MEDS: Chlorhexidine 15 ML PO ×2 (09:11→22:00)
[2024-08-05 09:46] LABS: Partial Thromboplast Time 48.2 Seconds (24.1-36.2)
[2024-08-05] MEDS: HEPARIN/D5w 25,000 UNITS 25,000 UNITS/250 ML IV.SOLN. 16 UNITS CONT INF (10:42)
[2024-08-05] MEDS: Pantoprazole Sodium 40 MG in 0.9% Normal Saline (100mL MB+) 100 ML 330 MG IV (10:46)
[2024-08-05] MEDS: Vital AF 1.2 Cal Liquid 1,000 ML 20 ML GT (13:19)
[2024-08-05] MEDS: Propofol 10MG/Ml 1,000 MG/100 ML Bottle 6.4 MG CONT INF (14:10)
[2024-08-05] MEDS: guaiFENesin 1,200 MG Tablet 1200 MG PO (21:59)
[2024-08-05 23:51] LABS: Partial Thromboplast Time 56.7 Seconds (24.1-36.2)
[2024-08-06] VITALS (37 sets, daily range): BP systolic 87–130; BP diastolic 58–84; PULSE 87–130; RESP 15–31; TEMP 37.1–37.8; O2SAT 91–98; BMI 38.3
[2024-08-06] MEDS: Hydrocortisone Sod Succinate 100 MG/2 ML Vial 50 MG IV ×3 (00:06→22:02)
[2024-08-06] MEDS: CHLORHEXIDINE GLUC 2% CLOTH 1 EACH TOWELETTE TOPICAL (02:15)
[2024-08-06] MEDS: HEPARIN/D5w 25,000 UNITS 25,000 UNITS/250 ML IV.SOLN. 17 UNITS CONT INF ×2 (02:17→16:14)
[2024-08-06] MEDS: Propofol 10MG/Ml 1,000 MG/100 ML Bottle 9.6 MG CONT INF (02:17)
[2024-08-06] MEDS: Ipratropium/Albuterol Sulfate 3 ML AMPUL.NEB INHALATION ×5 (04:03→22:35)
[2024-08-06] MEDS: Vancomycin HCl 1,750 MG in 0.9% Normal Saline (500mL Bag) 500 ML 250 MG IV ×2 (04:08→16:28)
[2024-08-06] MEDS: Piperacil/Tazobactam 3.375 GM in 0.9% Normal Saline (50mL MB+) 50 ML IV ×3 (06:00→22:03)
[2024-08-06] MEDS: Levothyroxine 100 MCG Tablet PO (06:01)
[2024-08-06 06:20] LABS: Absolute Lymphocyte Count 1.82 X10^3/uL (0.83-4.51); Absolute Neutrophil Count 11.6 X10^3/uL (2.0-7.7); Basophil# 0.07 X10^3/uL; Basophil% 0.5 % (0-1); Eosinophil# 0.02 X10^3/uL; Eosinophils% 0.1 % (0-5); Hematocrit 30.9 % (37-47); Hemoglobin 9.6 g/dL (12.0-15.0); Lymphocyte # 1.82 X10^3/ul (0.83-4.51); Mean Corp Hgb Conc 31.1 g/dL (32-36); Mean Corpuscular Hgb 28.7 pg (27.0-32.0); Mean Corpuscular Volume 92.2 fL (81-99); Mean Platelet Vol. 9.9 fl (6.2-12.0); Monocyte# 0.89 X10^3/uL; Monocyte% 5.9 % (0-10); NRBC Flagged by Analyzer 0.2 % (0-5); Neutrophil # 11.58 X10^3/uL (2.7-7.7); Neutrophil % 76.7 % (47-70); Platelet Count 236 K/mm3 (150-450); RBC Distribution Width CV 15.4 % (11.6-14.6); RBC Distribution Width SD 51.8 fl (35.1-43.9); Red Blood Count 3.35 M/mm3 (4.2-5.4); White Blood Count 15.1 K/mm3 (4.4-11.0)
[2024-08-06 06:36] LABS: ALB/GLOB Ratio 0.4 RATIO (0.9-2.4); AST(SGOT) 26 U/L (15-37); Alanine Aminotransfer ALT/SGPT 28 U/L (13-56); Albumin, Serum 1.7 g/dL (3.2-5.0); Alkaline Phosphatase 159 U/L (45-117); Anion Gap 4 (5-15); BUN 49 mg/dL (7-18); BUN/Creat Ratio 42.2 RATIO (10-20); Calcium,Total 8.4 mg/dL (8.5-10.1); Chloride 112 mmol/L (98-107); Creatinine, Serum 1.16 mg/dL (0.55-1.02); EST Glomerular Filtration Rate 50 mL/min (>60); Est Glom Filt Rate - Afr Amer 60 mL/min (>60); Estimated Creatinine Clearance 60.19 ml/min; Glucose 171 mg/dL (74-106); Magnesium 3.1 mg/dL (1.6-2.6); Phosphorus 3.9 mg/dL (2.5-4.9); Potassium 4.6 mmol/L (3.5-5.1); Protein, Total 5.7 g/dL (6.4-8.2); Sodium Level 142 mmol/L (136-145)
[2024-08-06 06:52] LABS: Partial Thromboplast Time 63.3 Seconds (24.1-36.2)
--- NOTE | 2024-08-06 07:35 | PCM.PN.INT ---
Assessment & Plan Assessment/Plan (1) Acute hypoxic respiratory failure: PLAN: Plan RECOMMENDATIONS: 1. Continue assist-control mode of mechanical ventilation. Wean FiO2 and PEEP as tolerated. 2. Start scheduled diuretics today as tolerated by hemodynamics and renal function. 3. Continue antibiotics to complete 7 days of therapy. 4. Continue scheduled bronchodilators. 5. Decrease stress dose steroids dosing to twice daily. 6. Continue tube feeding as tolerated. 7. Continue appropriate DVT and GI prophylaxis. IMPRESSIONS: 1. Septic shock The patient presented to the hospital with sepsis due to suspected pneumonia with acute sepsis related organ dysfunction as evidenced by lactic acidemia, fluid refractory hypotension requiring vasopressor support and acute respiratory failure requiring invasive mechanical ventilation. The patient has been adequately volume resuscitated. The patient has been successfully weaned from vasopressor support and remains hemodynamically stable. Will plan to decrease stress dose steroid dosing to twice daily today. Antimicrobials will be continued to complete 7 days of therapy. 2. Atrial fibrillation with RVR Continue amiodarone as ordered. Echocardiogram revealed intact systolic function. 3. Acute hypoxemic respiratory failure Clinical suspicion for possible underlying obstructive lung disease in a state of exacerbation due to multifocal pneumonia. The patient was subsequently intubated in the emergency department. Plan to continue assist-control mode of mechanical ventilation. FiO2 and PEEP will be weaned as tolerated. Antimicrobials and bronchodilators will be continued. Will attempt gentle diuresis today, as tolerated by hemodynamics and renal function. 4. History of hypothyroidism/chronic tobacco dependency/anemia Complicates care, management, recovery and prognosis. Continue home Synthroid regimen as ordered. Continue tube feeding as tolerated. TIME: 35 minutes of critical care time, independent of procedures, was spent addressing the patient's septic shock, atrial fibrillation with RVR, acute hypoxemic respiratory failure, review of all data and collaboration with the care team. Subjective Subjective The patient was seen and examined at the bedside this morning. Events from the last 24 hours have been reviewed. The patient is currently afebrile, hemodynamically stable and maintaining appropriate oxygen saturations on assist-control mode mechanical ventilation with an FiO2 requirement of 50% and PEEP of 5. The patient is currently documented to be overall net +7.8 L for the hospitalization. White blood cell count is elevated at 15,000 with a hemoglobin of 9.6 g/dL. Creatinine is stable at 1.16. The patient has been tolerant of tube feeding. Objective Data Objective Data The patient's most recent lab work, culture data and imaging studies have all been personally reviewed. Surface echocardiogram demonstrated normal LV size and function with an ejection fraction of 55%. Blood, urine and sputum cultures have not demonstrated any growth to date. Vital Signs: Vital Signs Temp Pulse Resp BP Pulse Ox O2 Del Method O2 Flow Rate 98.9 F 106 H 16 109/60 91 Mechanical Ventilator 7 08/06/24 07:00 08/06/24 07:00 08/06/24 07:00 08/06/24 07:00 08/06/24 07:00 08/06/24 07:00 08/05/24 05:00 FiO2 50 08/06/24 07:00 Oxygen Flow Rate (L/min) 7 Oxygen Delivery Method Mechanical Ventilator Weight: 238 lb 8 oz Body Mass Index (BMI) 38.3 Intake & Output: Intake and Output for Last 24 Hours 08/04/24 08/05/24 08/06/24 23:59 23:59 23:59 Intake Total 3192.56 / 3260.31 3159.26 / 3263.86 1030.22 / 1030.22 Output Total 1500 / 1575 1440 / 1740 750 / 750 Balance 1692.56 / 1685.31 1719.26 / 1523.86 280.22 / 280.22 Lab / Micro Data Attestation: I reviewed the patient's lab results. 08/06/24 05:55 08/06/24 05:55 Labs: Laboratory Results - last 24 hr 08/05/24 07:41: WBC 20.8 H, RBC 3.68 L, Hgb 10.7 L, Hct 34.3 L, MCV 93.2, MCH 29.1, MCHC 31.2 L, RDW Std Deviation 52.4 H, RDW Coeff of Emmanuel 15.2 H, Plt Count 323, MPV 9.7, Immature Gran % (Auto) 3.300 H, Neut % (Auto) 78.2 H, Lymph % (Auto) 12.0 L, [place] % (Auto) 5.6, Eos % (Auto) 0.2, Baso % (Auto) 0.7, Absolute Neuts (auto) 16.2 H, Absolute Lymphs (auto) 2.49, Nucleated RBC % 0, Sodium 140, Potassium 4.6, Chloride 112 H, Carbon Dioxide 23.0, Anion Gap 6, BUN 40 H, Creatinine 1.14 H, Estim Creat Clear Calc 60.57, Est GFR (MDRD) Af Amer 62, Est GFR (MDRD) Non-Af 51 L, BUN/Creatinine Ratio 35.1 H, Glucose 157 H, Calcium 8.3 L, Phosphorus 4.7, Magnesium 2.5, Total Bilirubin 0.80, Direct Bilirubin 0.58 H, AST 23, ALT 31, Alkaline Phosphatase 172 H, Total Protein 6.1 L, Albumin 1.7 L, Globulin 4.4 H 08/05/24 09:20: APTT 48.2 H 08/05/24 16:10: APTT 45.0 H 08/05/24 23:33: APTT 56.7 H 08/06/24 05:55: WBC 15.1 H, RBC 3.35 L, Hgb 9.6 L, Hct 30.9 L, MCV 92.2, MCH 28.7, MCHC 31.1 L, RDW Std Deviation 51.8 H, RDW Coeff of Emmanuel 15.4 H, Plt Count 236, MPV 9.9, Immature Gran % (Auto) 4.800 H, Neut % (Auto) 76.7 H, Lymph % (Auto) 12.0 L, [place] % (Auto) 5.9, Eos % (Auto) 0.1, Baso % (Auto) 0.5, Absolute Neuts (auto) 11.6 H, Absolute Lymphs (auto) 1.82, Nucleated RBC % 0.2, APTT 63.3 H, Sodium 142, Potassium 4.6, Chloride 112 H, Carbon Dioxide 25.0, Anion Gap 4 L, BUN 49 H, Creatinine 1.16 H, Estim Creat Clear Calc 60.19, Est GFR (MDRD) Af Amer 60, Est GFR (MDRD) Non-Af 50 L, BUN/Creatinine Ratio 42.2 H, Glucose 171 H, Calcium 8.4 L, Phosphorus 3.9, Magnesium 3.1 H, Total Bilirubin 0.60, AST 26, ALT 28, Alkaline Phosphatase 159 H, Total Protein 5.7 L, Albumin 1.7 L, Globulin 4.0, Albumin/Globulin Ratio 0.4 L Micro: Microbiology 08/03/24 15:30 Blood Culture (Wb) - Anticubital Right Blood Culture - Preliminary No growth in 48 hours. 08/03/24 14:35 Blood Culture (Wb) - Right Forearm Blood Culture - Preliminary No growth in 48 hours. 08/03/24 22:43 Sputum, Induced/Lukens Gram Stain - Final 08/03/24 15:48 Urine Catheter - Catheter Urine Culture - Preliminary Culture exhibits no growth. 08/04/24 07:45 Urine Catheter - Erickson Legionella Antigen - Final 08/04/24 07:45 Urine Catheter - Erickson Streptococcus pneumoniae Antigen (M - Final 08/03/24 23:20 Mucosa - Nasopharyngeal Respiratory Panel (PCR) - Final 08/03/24 14:40 Mucosa - Nose SARS-CoV-2, Influenza & RSV (PCR) - Final ABG Data ABG results: ABG 08/04/24 09:06 Specimen Type ART Sample Site R Radial pH 7.24 L Bicarbonate Actual 21.1 L Total CO2 23 Base Excess -6 L O2 Saturation 92 L O2 % 70.0 ABG pCO2 49.6 H ABG pO2 74 L Manoj Test Positive Respiration Rate 16 O2 Delivery Device Adult Vent Vent Mode SIMV(PRVC)+PS Tidal Volume 450.0 POC PEEP 10 Radiography Diagnostic Testing: Radiology Impression Echocardiogram 08/03/24 22:57 Interpretation Summary Normal LV size. Left ventricular systolic function is normal. The left ventricular ejection fraction is 55 %. Ordering Physician: Katie Knott Referring Physician: MD Deja Arnel Performed By: Chelsea Gresham RDCS Physical Exam Const Constitutional Narrative: Intubated, sedated and mechanically ventilated. Family is present at the bedside. General Appearance: ill appearing and patient mechanically ventilated HEENT normocephalic and head/scalp atraumatic Mouth: endotracheal tube in place and OG tube in place Eyes PERRL, EOMs intact bilaterally and conjunctivae normal Neck supple General: trachea midline Chest inspection of chest normal Resp no use of accessory muscles Auscultation: rhonchi, wheezes and diminished lung sounds Cardio regular rate, regular rhythm, S1 normal heart sound and S2 normal heart sound GI normal to inspection, nondistended, normoactive bowel sounds Extremity General Extremity: edema; Negative for clubbing Skin No no rashes or lesions noted Neuro Sensorium / Orientation: sedated on vent Charges/Coding Procedures Hospitalists Procedures: 71241 Critical Care 1st Hr
[2024-08-06] MEDS: fentaNYL drip 100 ML 10 MCG CONT INF ×2 (08:27→18:42)
[2024-08-06] MEDS: 0.9% Saline Lock 10 ML Syringe IV ×4 (08:33→18:42)
--- NOTE | 2024-08-06 10:06 | PCM.PN.HOSP ---
Reason for Visit Reason for Visit: Diagnoses Hypothyroidism, unspecified (08/03/24) Unspecified atrial fibrillation (08/03/24) Pneumonia, unspecified organism (08/03/24) Acute respiratory failure with hypoxia (08/03/24) Subjective Subjective Patient seen remains sedated on the vent. Patient not a candidate for weaning this a.m. Case discussed with Dr. Aquino with intensive care plan is have a trial of diuretic therapy. Objective Data Objective Data Vital Signs: Vital Signs Temp Pulse Resp BP Pulse Ox O2 Del Method O2 Flow Rate 99.1 F 120 H 17 115/80 98 Mechanical Ventilator 7 08/06/24 09:00 08/06/24 09:17 08/06/24 09:17 08/06/24 09:00 08/06/24 09:17 08/06/24 09:00 08/05/24 05:00 FiO2 50 08/06/24 09:00 Oxygen Flow Rate (L/min) 7 Oxygen Delivery Method Mechanical Ventilator Weight: 108.182 kg Body Mass Index (BMI) 38.3 Intake & Output: Intake and Output for Last 24 Hours 08/04/24 08/05/24 08/06/24 23:59 23:59 23:59 Intake Total 3192.56 / 3260.31 3159.26 / 3263.86 1134.59 / 1134.59 Output Total 1500 / 1575 1440 / 1740 750 / 750 Balance 1692.56 / 1685.31 1719.26 / 1523.86 384.59 / 384.59 Lab / Micro Data 08/06/24 05:55 08/06/24 05:55 Labs: Laboratory Results - last 24 hr 08/05/24 16:10: APTT 45.0 H 08/05/24 23:33: APTT 56.7 H 08/06/24 05:55: WBC 15.1 H, RBC 3.35 L, Hgb 9.6 L, Hct 30.9 L, MCV 92.2, MCH 28.7, MCHC 31.1 L, RDW Std Deviation 51.8 H, RDW Coeff of Emmanuel 15.4 H, Plt Count 236, MPV 9.9, Immature Gran % (Auto) 4.800 H, Neut % (Auto) 76.7 H, Lymph % (Auto) 12.0 L, [place] % (Auto) 5.9, Eos % (Auto) 0.1, Baso % (Auto) 0.5, Absolute Neuts (auto) 11.6 H, Absolute Lymphs (auto) 1.82, Nucleated RBC % 0.2, APTT 63.3 H, Sodium 142, Potassium 4.6, Chloride 112 H, Carbon Dioxide 25.0, Anion Gap 4 L, BUN 49 H, Creatinine 1.16 H, Estim Creat Clear Calc 60.19, Est GFR (MDRD) Af Amer 60, Est GFR (MDRD) Non-Af 50 L, BUN/Creatinine Ratio 42.2 H, Glucose 171 H, Calcium 8.4 L, Phosphorus 3.9, Magnesium 3.1 H, Total Bilirubin 0.60, AST 26, ALT 28, Alkaline Phosphatase 159 H, Total Protein 5.7 L, Albumin 1.7 L, Globulin 4.0, Albumin/Globulin Ratio 0.4 L Micro: Microbiology 08/03/24 15:48 Urine Catheter - Catheter Urine Culture - Final Culture exhibits no growth. 08/03/24 15:30 Blood Culture (Wb) - Anticubital Right Blood Culture - Preliminary No growth in 48 hours. 08/03/24 14:35 Blood Culture (Wb) - Right Forearm Blood Culture - Preliminary No growth in 48 hours. 08/03/24 22:43 Sputum, Induced/Lukens Gram Stain - Final 08/04/24 07:45 Urine Catheter - Erickson Legionella Antigen - Final 08/04/24 07:45 Urine Catheter - Erickson Streptococcus pneumoniae Antigen (M - Final 08/03/24 23:20 Mucosa - Nasopharyngeal Respiratory Panel (PCR) - Final 08/03/24 14:40 Mucosa - Nose SARS-CoV-2, Influenza & RSV (PCR) - Final Physical Exam Narrative GENERAL: Patient on the vent HEENT: Atraumatic; normocephalic EYES; Anicteric, Normal Conjunctiva NECK; supple, normal thyroid, RESPIRATORY: Diminished to auscultation CARDIOVASCULAR: Regular S1 S2, GI: soft, normoactive bowel sounds, : No Renal angle tenderness; EXTREMITIES: No edema, no clubbing, MUSCULOSKELETAL: no muscle wasting NEURO: Patient on the vent SKIN: No Rash Assessment & Plan Assessment/Plan (1) Acute hypoxic respiratory failure: (2) Pneumonia: (3) Atrial fibrillation with RVR: (4) Hypothyroidism: PLAN: Plan Patient is a 64-year-old lady who presented with shortness of breath diagnosed with acute hypoxic respiratory failure and sepsis secondary to multifocal pneumonia patient clinical condition deteriorated while in the emergency department necessitating patient being intubated and admitted to the intensive care unit 1. Acute hypoxic respiratory failure secondary to multifocal pneumonia ? Treatment was initiated with BiPAP patient clinical condition however deteriorated resulting in patient being intubated and admitted to the intensive care unit. Patient was started on broad-spectrum antibiotic therapy with Zosyn and vancomycin cultures sent ? 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 08/06/2024;Patient seen remains sedated on the vent. Patient not a candidate for weaning this a.m. Case discussed with Dr. Aquino with intensive care plan is have a trial of diuretic therapy. 2. Septic shock ? Patient did receive IV fluid resuscitation per protocol she however did not respond to fluid necessitating patient being started on pressors -08/05/2024; patient seen remains on the vent Tmax over the past 24 hours 100.4. WBC count remains elevated 3. A-fib with RVR ? Patient heart rate upon presentation was 177 patient was started on Cardizem drip which had to be discontinued given her persistent hypotension patient was subsequently started on amiodarone drip ? 08/05/2024; heart rate control still not optimal patient remains on amiodarone drip 4. Hypokalemia ? Corrected for protocol repeat labs ordered for monitoring ? 08/05/2024 hypokalemia corrected 5. Hypothyroidism ? Patient is on levothyroxine home dose continued 6. Acute kidney injury ? Suspected to be secondary to ATN from sepsis monitoring with daily BMPs 7 DVT prophylaxis ? Patient is on heparin drip Time spent in the patient's overall evaluation,decision-making process, review of diagnostic data, adjustment of management, discussion with other providers, nursing nursing and ancillary staff involved in patient's care documentation, 50 Minutes Charges/Coding Visit Charges Inpatient E&M: [id number] [place] [id number]
[2024-08-06] MEDS: Estradiol 1 MG Tablet 2 MG GT (10:10)
[2024-08-06] MEDS: Chlorhexidine 15 ML PO ×2 (10:11→22:00)
[2024-08-06] MEDS: Senna/Docusate Sodium 1 Tablet 2 TABLET GT ×2 (10:17→22:01)
[2024-08-06] MEDS: Pantoprazole Sodium 40 MG in 0.9% Normal Saline (100mL MB+) 100 ML 330 MG IV (10:17)
[2024-08-06] MEDS: Amiodarone 360 MG in Dextrose 5% Viaflo Bag 192.8 ML 16.7 MG CONT INF ×2 (10:48→22:57)
[2024-08-06] MEDS: Furosemide 40 MG/4 ML Vial IV ×2 (10:48→18:42)
[2024-08-06] MEDS: Propofol 10MG/Ml 1,000 MG/100 ML Bottle 9.7 MG CONT INF ×2 (11:55→21:57)
[2024-08-06] MEDS: Metoprolol Tartrate 25 MG Tablet GT ×2 (13:03→22:01)
[2024-08-06] MEDS: Vital AF 1.2 Cal Liquid 1,000 ML 45 ML GT (17:11)
[2024-08-07] VITALS (40 sets, daily range): BP systolic 103–157; BP diastolic 46–78; PULSE 18–122; RESP 16–22; TEMP 37.1–37.8; O2SAT 90–97; BMI 38.3
[2024-08-07] MEDS: Ipratropium/Albuterol Sulfate 3 ML AMPUL.NEB INHALATION ×6 (03:55→23:25)
[2024-08-07] MEDS: CHLORHEXIDINE GLUC 2% CLOTH 1 EACH TOWELETTE TOPICAL (04:07)
[2024-08-07 04:11] LABS: Hematocrit 33.1 % (37-47); Hemoglobin 10.5 g/dL (12.0-15.0); Mean Corp Hgb Conc 31.7 g/dL (32-36); Mean Corpuscular Hgb 29.1 pg (27.0-32.0); Mean Corpuscular Volume 91.7 fL (81-99); Mean Platelet Vol. 10.3 fl (6.2-12.0); POSITIVE COUNT YES; POSITIVE MORPHOLOGY YES; Platelet Count 286 K/mm3 (150-450); RBC Distribution Width CV 15.4 % (11.6-14.6); RBC Distribution Width SD 51.6 fl (35.1-43.9); Red Blood Count 3.61 M/mm3 (4.2-5.4); White Blood Count 19.1 K/mm3 (4.4-11.0)
[2024-08-07 04:35] LABS: Vancomycin, Trough Level 35.5 ug/mL (5.0-15.0)
[2024-08-07 04:37] LABS: ALB/GLOB Ratio 0.4 RATIO (0.9-2.4); AST(SGOT) 82 U/L (15-37); Alanine Aminotransfer ALT/SGPT 59 U/L (13-56); Albumin, Serum 1.8 g/dL (3.2-5.0); Alkaline Phosphatase 189 U/L (45-117); Anion Gap 4 (5-15); BUN 58 mg/dL (7-18); BUN/Creat Ratio 39.2 RATIO (10-20); Calcium,Total 8.6 mg/dL (8.5-10.1); Chloride 109 mmol/L (98-107); Creatinine, Serum 1.48 mg/dL (0.55-1.02); EST Glomerular Filtration Rate 38 mL/min (>60); Est Glom Filt Rate - Afr Amer 46 mL/min (>60); Estimated Creatinine Clearance 47.17 ml/min; Globulin 4.3 g/dL (2.2-4.2); Glucose 175 mg/dL (74-106); Potassium 4.4 mmol/L (3.5-5.1); Protein, Total 6.1 g/dL (6.4-8.2); Sodium Level 142 mmol/L (136-145)
[2024-08-07] MEDS: Piperacil/Tazobactam 3.375 GM in 0.9% Normal Saline (50mL MB+) 50 ML IV ×3 (04:47→20:55)
[2024-08-07] MEDS: 0.9% Saline Lock 10 ML Syringe IV ×4 (04:47→23:10)
[2024-08-07 04:48] LABS: Partial Thromboplast Time 51.5 Seconds (24.1-36.2)
[2024-08-07] MEDS: fentaNYL drip 100 ML 10 MCG CONT INF ×2 (04:51→15:57)
[2024-08-07] MEDS: Levothyroxine 100 MCG Tablet GT (04:52)
--- NOTE | 2024-08-07 04:56 | PCM.RX.CS ---
Consult Antibiotic Management Pharmacy has been consulted to manage selected antibiotic: Vancomycin Type of Intervention Type of Consult: Follow-up Labs Labs: Sodium 142 mmol/L (136-145) 08/07/24 04:03 Potassium 4.4 mmol/L (3.5-5.1) 08/07/24 04:03 Chloride 109 mmol/L (98-107) H 08/07/24 04:03 Carbon Dioxide 29.0 mmol/L (21.0-32.0) 08/07/24 04:03 Anion Gap 4 (5-15) L 08/07/24 04:03 BUN 58 mg/dL (7-18) H 08/07/24 04:03 Creatinine 1.48 mg/dL (0.55-1.02) H 08/07/24 04:03 Est GFR (MDRD) Af Amer 46 mL/min (>60) L 08/07/24 04:03 Est GFR (MDRD) Non-Af 38 mL/min (>60) L 08/07/24 04:03 BUN/Creatinine Ratio 39.2 RATIO (10-20) H 08/07/24 04:03 Glucose 175 mg/dL (74-106) H 08/07/24 04:03 Vancomycin Trough 35.5 ug/mL (5.0-15.0) H 08/07/24 04:03 Microbiology Microbiology: Microbiology 08/03/24 22:43 Sputum, Induced/Lukens Gram Stain - Final 08/03/24 22:43 Sputum, Induced/Lukens Respiratory Culture - Final Haemophilus influenzae 08/03/24 15:48 Urine Catheter - Catheter Urine Culture - Final Culture exhibits no growth. 08/03/24 15:30 Blood Culture (Wb) - Anticubital Right Blood Culture - Preliminary No growth in 48 hours. 08/03/24 14:35 Blood Culture (Wb) - Right Forearm Blood Culture - Preliminary No growth in 48 hours. 08/04/24 07:45 Urine Catheter - Erickson Legionella Antigen - Final 08/04/24 07:45 Urine Catheter - Erickson Streptococcus pneumoniae Antigen (M - Final 08/03/24 23:20 Mucosa - Nasopharyngeal Respiratory Panel (PCR) - Final 08/03/24 14:40 Mucosa - Nose SARS-CoV-2, Influenza & RSV (PCR) - Final Goal Trough Goal Trough: 15-20 mcg/mL Pharmacy Plan for Drug Dosing Pharmacy Plan for Drug Dosing: Pharmacy Service will continue to monitor and adjust dosing as required. TROUGH 35.5 @ 11.5 HOURS. SCr INCREASED FROM 1.16 TO 1.48. HOLD DOSE AND DRAW RANDOM LEVEL IN 18 HOURS Follow-Up Labs Follow-Up Labs: Trough: Vancomycin Date/Time Labs Ordered Labs to be done on [date and time ordered]: 08/07 @ 2200
[2024-08-07 05:29] LABS: Differential Indicated MANUAL DIFF
[2024-08-07] MEDS: HEPARIN/D5w 25,000 UNITS 25,000 UNITS/250 ML IV.SOLN. 18 UNITS CONT INF (06:55)
[2024-08-07] MEDS: Propofol 10MG/Ml 1,000 MG/100 ML Bottle 9.7 MG CONT INF ×2 (06:56→22:36)
--- NOTE | 2024-08-07 07:07 | PN.CC_ITS ---
Assessment & Plan Assessment/Plan (1) Acute hypoxic respiratory failure: PLAN: Plan RECOMMENDATIONS: 1. Continue assist-control mode of mechanical ventilation. Wean FiO2 and PEEP as tolerated. 2. Hold diuretics today, given interval increase in creatinine. 3. Continue antibiotics to complete 7 days of therapy. 4. Continue scheduled bronchodilators. 5. Decrease stress dose steroids dosing to once daily. 6. Continue tube feeding as tolerated. 7. Continue appropriate DVT and GI prophylaxis. IMPRESSIONS: 1. Septic shock The patient presented to the hospital with sepsis due to haemophilus influenza pneumonia with acute sepsis related organ dysfunction as evidenced by lactic acidemia, fluid refractory hypotension requiring vasopressor support and acute respiratory failure requiring invasive mechanical ventilation. The patient has been adequately volume resuscitated. The patient has been successfully weaned from vasopressor support and remains hemodynamically stable. Will plan to decrease stress dose steroid dosing to once daily today. Antimicrobials will be continued to complete 7 days of therapy. 2. Atrial fibrillation with RVR Continue amiodarone as ordered. Echocardiogram revealed intact systolic function. 3. Acute hypoxemic respiratory failure Clinical suspicion for possible underlying obstructive lung disease in a state of exacerbation due to multifocal pneumonia. The patient was subsequently intubated in the emergency department. Plan to continue assist-control mode of mechanical ventilation. FiO2 and PEEP will be weaned as tolerated. Antimicrobials and bronchodilators will be continued. Plan to hold diuretics today, given interval increasing creatinine. 4. History of hypothyroidism/chronic tobacco dependency/anemia Complicates care, management, recovery and prognosis. Continue home Synthroid regimen as ordered. Continue tube feeding as tolerated. TIME: 33 minutes of critical care time, independent of procedures, was spent addressing the patient's septic shock, atrial fibrillation with RVR, acute hypoxemic respiratory failure, review of all data and collaboration with the care team. Subjective Subjective The patient was seen and examined at the bedside this morning. Events from the last 24 hours have been reviewed. The patient currently has a low-grade fever, but remains otherwise hemodynamically stable on assist-control mode of mechanical ventilation with an FiO2 requirement of 50% and PEEP of 5. The patient is currently documented to be overall net +6.9 L for the hospitalization. She was diuresed yesterday, with an increase in creatinine noted this morning to 1.48. She has been tolerant of tube feeding. Objective Data Objective Data The patient's most recent lab work, culture data and imaging studies have all been personally reviewed. Surface echocardiogram demonstrated normal LV size and function with an ejection fraction of 55%. Sputum culture was positive for haemophilus influenza. Vital Signs: Vital Signs Temp Pulse Resp BP Pulse Ox O2 Del Method O2 Flow Rate 99.4 F H 100 16 104/53 L 94 Mechanical Ventilator 7 08/07/24 06:00 08/07/24 06:00 08/07/24 06:00 08/07/24 06:00 08/07/24 06:00 08/07/24 06:00 08/05/24 05:00 FiO2 50 08/07/24 06:00 Oxygen Flow Rate (L/min) 7 Oxygen Delivery Method Mechanical Ventilator Weight: 238 lb 12.8 oz Body Mass Index (BMI) 38.3 Intake & Output: Intake and Output for Last 24 Hours 08/05/24 08/06/24 08/07/24 23:59 23:59 23:59 Intake Total 3159.26 / 3477.53 3676.26 / 3780.96 365.45 / 365.45 Output Total 1440 / 1740 4225 / 4225 500 / 500 Balance 1719.26 / 1737.53 -548.74 / -444.04 -134.55 / -134.55 Lab / Micro Data Attestation: I reviewed the patient's lab results. 08/07/24 04:03 08/07/24 04:03 Labs: Laboratory Results - last 24 hr 08/07/24 04:03: WBC 19.1 H, RBC 3.61 L, Hgb 10.5 L, Hct 33.1 L, MCV 91.7, MCH 29.1, MCHC 31.7 L, RDW Std Deviation 51.6 H, RDW Coeff of Emmanuel 15.4 H, Plt Count 286, MPV 10.3, Neut % (Auto) Not Reportable, APTT 51.5 H, Sodium 142, Potassium 4.4, Chloride 109 H, Carbon Dioxide 29.0, Anion Gap 4 L, BUN 58 H, Creatinine 1.48 H, Estim Creat Clear Calc 47.17, Est GFR (MDRD) Af Amer 46 L, Est GFR (MDRD) Non-Af 38 L, BUN/Creatinine Ratio 39.2 H, Glucose 175 H, Calcium 8.6, Total Bilirubin 0.70, AST 82 H, ALT 59 H, Alkaline Phosphatase 189 H, Total Protein 6.1 L, Albumin 1.8 L, Globulin 4.3 H, Albumin/Globulin Ratio 0.4 L, V ancomycin Trough 35.5 H Micro: Microbiology 08/03/24 22:43 Sputum, Induced/Lukens Gram Stain - Final 08/03/24 22:43 Sputum, Induced/Lukens Respiratory Culture - Final Haemophilus influenzae 08/03/24 15:48 Urine Catheter - Catheter Urine Culture - Final Culture exhibits no growth. 08/03/24 15:30 Blood Culture (Wb) - Anticubital Right Blood Culture - Preliminary No growth in 48 hours. 08/03/24 14:35 Blood Culture (Wb) - Right Forearm Blood Culture - Preliminary No growth in 48 hours. 08/04/24 07:45 Urine Catheter - Erickson Legionella Antigen - Final 08/04/24 07:45 Urine Catheter - Erickson Streptococcus pneumoniae Antigen (M - Final 08/03/24 23:20 Mucosa - Nasopharyngeal Respiratory Panel (PCR) - Final 08/03/24 14:40 Mucosa - Nose SARS-CoV-2, Influenza & RSV (PCR) - Final ABG Data ABG results: ABG 08/04/24 09:06 Specimen Type ART Sample Site R Radial pH 7.24 L Bicarbonate Actual 21.1 L Total CO2 23 Base Excess -6 L O2 Saturation 92 L O2 % 70.0 ABG pCO2 49.6 H ABG pO2 74 L Manoj Test Positive Respiration Rate 16 O2 Delivery Device Adult Vent Vent Mode SIMV(PRVC)+PS Tidal Volume 450.0 POC PEEP 10 Radiography Diagnostic Testing: Radiology Impression Echocardiogram 08/03/24 22:57 Interpretation Summary Normal LV size. Left ventricular systolic function is normal. The left ventricular ejection fraction is 55 %. Ordering Physician: Katie Knott Referring Physician: MD Deja Arnel Performed By: Chelsea Gresham RDCS Physical Exam Const Constitutional Narrative: Intubated, sedated and mechanically ventilated. Obese. General Appearance: ill appearing and patient mechanically ventilated HEENT normocephalic and head/scalp atraumatic Mouth: endotracheal tube in place and OG tube in place Eyes PERRL, EOMs intact bilaterally and conjunctivae normal Neck supple General: trachea midline Chest inspection of chest normal Resp no use of accessory muscles Auscultation: rales, wheezes and diminished lung sounds Cardio regular rate, regular rhythm, S1 normal heart sound and S2 normal heart sound GI normal to inspection, nondistended, normoactive bowel sounds Extremity General Extremity: edema; Negative for clubbing Skin No no rashes or lesions noted Neuro Sensorium / Orientation: sedated on vent Charges/Coding Procedures Hospitalists Procedures: [id number] Critical Care 1st Hr
--- NOTE | 2024-08-07 07:51 | PN.HOSP_ITS ---
Reason for Visit Reason for Visit: Diagnoses Hypothyroidism, unspecified (08/03/24) Unspecified atrial fibrillation (08/03/24) Pneumonia, unspecified organism (08/03/24) Acute respiratory failure with hypoxia (08/03/24) Subjective Subjective Patient seen remains on the vent. Sedation has been turned off. Patient still has copious secretions. Patient had a good response to diuretic therapy administered the day prior. Objective Data Objective Data Vital Signs: Vital Signs Temp Pulse Resp BP Pulse Ox O2 Del Method O2 Flow Rate 99.4 F H 107 H 16 124/66 H 97 Mechanical Ventilator 7 08/07/24 07:00 08/07/24 07:00 08/07/24 07:00 08/07/24 07:00 08/07/24 07:00 08/07/24 07:00 08/05/24 05:00 FiO2 50 08/07/24 07:00 Oxygen Flow Rate (L/min) 7 Oxygen Delivery Method Mechanical Ventilator Weight: 108.318 kg Body Mass Index (BMI) 38.3 Intake & Output: Intake and Output for Last 24 Hours 08/05/24 08/06/24 08/07/24 23:59 23:59 23:59 Intake Total 3159.26 / 3477.53 3676.26 / 3780.96 385.95 / 385.95 Output Total 1440 / 1740 4225 / 4225 500 / 500 Balance 1719.26 / 1737.53 -548.74 / -444.04 -114.05 / -114.05 Lab / Micro Data 08/07/24 04:03 08/07/24 04:03 Labs: Laboratory Results - last 24 hr 08/07/24 04:03: WBC 19.1 H, RBC 3.61 L, Hgb 10.5 L, Hct 33.1 L, MCV 91.7, MCH 29.1, MCHC 31.7 L, RDW Std Deviation 51.6 H, RDW Coeff of Emmanuel 15.4 H, Plt Count 286, MPV 10.3, Neut % (Auto) Not Reportable, APTT 51.5 H, Sodium 142, Potassium 4.4, Chloride 109 H, Carbon Dioxide 29.0, Anion Gap 4 L, BUN 58 H, Creatinine 1.48 H, Estim Creat Clear Calc 47.17, Est GFR (MDRD) Af Amer 46 L, Est GFR (MDRD) Non-Af 38 L, BUN/Creatinine Ratio 39.2 H, Glucose 175 H, Calcium 8.6, Total Bilirubin 0.70, AST 82 H, ALT 59 H, Alkaline Phosphatase 189 H, Total Protein 6.1 L, Albumin 1.8 L, Globulin 4.3 H, Albumin/Globulin Ratio 0.4 L, V ancomycin Trough 35.5 H Micro: Microbiology 08/03/24 22:43 Sputum, Induced/Lukens Gram Stain - Final 08/03/24 22:43 Sputum, Induced/Lukens Respiratory Culture - Final Haemophilus influenzae 08/03/24 15:48 Urine Catheter - Catheter Urine Culture - Final Culture exhibits no growth. 08/03/24 15:30 Blood Culture (Wb) - Anticubital Right Blood Culture - Preliminary No growth in 48 hours. 08/03/24 14:35 Blood Culture (Wb) - Right Forearm Blood Culture - Preliminary No growth in 48 hours. 08/04/24 07:45 Urine Catheter - Erickson Legionella Antigen - Final 08/04/24 07:45 Urine Catheter - Erickson Streptococcus pneumoniae Antigen (M - Final 08/03/24 23:20 Mucosa - Nasopharyngeal Respiratory Panel (PCR) - Final 08/03/24 14:40 Mucosa - Nose SARS-CoV-2, Influenza & RSV (PCR) - Final Physical Exam Narrative GENERAL: Patient on the vent HEENT: Atraumatic; normocephalic EYES; Anicteric, Normal Conjunctiva NECK; supple, normal thyroid, RESPIRATORY: Diminished to auscultation CARDIOVASCULAR: Regular S1 S2, GI: soft, normoactive bowel sounds, : No Renal angle tenderness; EXTREMITIES: No edema, no clubbing, MUSCULOSKELETAL: no muscle wasting NEURO: Patient on the vent SKIN: No Rash Assessment & Plan Assessment/Plan (1) Acute hypoxic respiratory failure: (2) Pneumonia: (3) Atrial fibrillation with RVR: (4) Hypothyroidism: PLAN: Plan Patient is a 64-year-old lady who presented with shortness of breath diagnosed with acute hypoxic respiratory failure and sepsis secondary to multifocal pneumonia patient clinical condition deteriorated while in the emergency department necessitating patient being intubated and admitted to the intensive care unit 1. Acute hypoxic respiratory failure secondary to multifocal pneumonia with haemophilus influenza ? Treatment was initiated with BiPAP patient clinical condition however deteriorated resulting in patient being intubated and admitted to the intensive care unit. Patient was started on broad-spectrum antibiotic therapy with Zosyn and vancomycin cultures sent ? 08/05/2024; patient remains on the vent; vent management as per [employer] ? 08/06/2024;Patient seen remains sedated on the vent. Patient not a candidate for weaning this a.m. Case discussed with Dr. Aquino with intensive care plan is have a trial of diuretic therapy. ? 08/07/2023;Patient seen remains on the vent. Sedation has been turned off. Patient still has copious secretions. Patient had a good response to diuretic therapy administered the day prior. 2. Septic shock ? Patient did receive IV fluid resuscitation per protocol she however did not respond to fluid necessitating patient being started on pressors -08/05/2024; patient seen remains on the vent Tmax over the past 24 hours 100.4. WBC count remains elevated ? 08/07/2024; patient presents to the end of the day prior. Patient sputum cultures came back positive for haemophilus influenza 3. A-fib with RVR ? Patient heart rate upon presentation was 177 patient was started on Cardizem drip which had to be discontinued given her persistent hypotension patient was subsequently started on amiodarone drip ? 08/05/2024; heart rate control still not optimal patient remains on amiodarone drip 4. Hypokalemia ? Corrected for protocol repeat labs ordered for monitoring ? 08/05/2024 hypokalemia corrected 5. Hypothyroidism ? Patient is on levothyroxine home dose continued 6. Acute kidney injury ? Suspected to be secondary to ATN from sepsis monitoring with daily BMPs ? 08/07/2024; patient kidney function continues to worsen will monitor 7 DVT prophylaxis ? Patient is on heparin drip Time spent in the patient's overall evaluation,decision-making process, review of diagnostic data, adjustment of management, discussion with other providers, nursing nursing and ancillary staff involved in patient's care documentation, 50 Minutes Charges/Coding Visit Charges Inpatient E&M: 12349 [facility] L3
[2024-08-07 09:23] LABS: Lymphocyte 10 % (19-41); Metamyelocyte 3 % (0-1); Monocyte 4 % (0-10); Myelocyte 1 % (0-0); Neutrophil-Segmented 82 % (47-70); Total Cells Counted 100 (MANUAL DIFF)
[2024-08-07 09:24] LABS: Platelet Estimate ADEQUATE (ADEQ); Polychromasia 1+; Schistocytes RARE; Toxic Granulation 1+; Vacuolated Cells 1+
[2024-08-07 09:25] LABS: Absolute Lymphocyte Count 1.91 X10^3/uL (0.83-4.51); Absolute Neutrophil Count 15.7 X10^3/uL (2.0-7.7)
[2024-08-07] MEDS: Chlorhexidine 15 ML PO ×2 (09:38→20:56)
[2024-08-07] MEDS: guaiFENesin 1,200 MG Tablet 1200 MG PO (09:52)
[2024-08-07] MEDS: Senna/Docusate Sodium 1 Tablet 2 TABLET GT ×2 (09:53→20:56)
[2024-08-07] MEDS: Metoprolol Tartrate 25 MG Tablet GT ×2 (09:53→20:56)
[2024-08-07] MEDS: Estradiol 1 MG Tablet 2 MG GT (09:54)
[2024-08-07] MEDS: Pantoprazole Sodium 40 MG in 0.9% Normal Saline (100mL MB+) 100 ML 330 MG IV (10:15)
[2024-08-07] MEDS: Hydrocortisone Sod Succinate 100 MG/2 ML Vial 50 MG IV (10:17)
[2024-08-07] MEDS: Amiodarone 360 MG in Dextrose 5% Viaflo Bag 192.8 ML 16.7 MG CONT INF ×2 (11:22→23:10)
[2024-08-07] MEDS: Propofol 10MG/Ml 1,000 MG/100 ML Bottle 6.5 MG CONT INF (11:32)
[2024-08-07 12:32] LABS: Partial Thromboplast Time 53.5 Seconds (24.1-36.2)
[2024-08-07] MEDS: Vital AF 1.2 Cal Liquid 1,000 ML 45 ML GT (13:58)
[2024-08-07] MEDS: HEPARIN/D5w 25,000 UNITS 25,000 UNITS/250 ML IV.SOLN. 19 UNITS CONT INF (20:55)
[2024-08-07 22:29] LABS: Vancomycin, Random Level 20.4 ug/mL (0.0-15.0)
--- NOTE | 2024-08-07 22:43 | PCM.RX.CS ---
Consult Antibiotic Management Pharmacy has been consulted to manage selected antibiotic: Vancomycin Type of Intervention Type of Consult: Follow-up Labs Labs: Sodium 142 mmol/L (136-145) 08/07/24 04:03 Potassium 4.4 mmol/L (3.5-5.1) 08/07/24 04:03 Chloride 109 mmol/L (98-107) H 08/07/24 04:03 Carbon Dioxide 29.0 mmol/L (21.0-32.0) 08/07/24 04:03 Anion Gap 4 (5-15) L 08/07/24 04:03 BUN 58 mg/dL (7-18) H 08/07/24 04:03 Creatinine 1.48 mg/dL (0.55-1.02) H 08/07/24 04:03 Est GFR (MDRD) Af Amer 46 mL/min (>60) L 08/07/24 04:03 Est GFR (MDRD) Non-Af 38 mL/min (>60) L 08/07/24 04:03 BUN/Creatinine Ratio 39.2 RATIO (10-20) H 08/07/24 04:03 Glucose 175 mg/dL (74-106) H 08/07/24 04:03 Vancomycin Trough 35.5 ug/mL (5.0-15.0) H 08/07/24 04:03 Random Vancomycin 20.4 ug/mL (0.0-15.0) H 08/07/24 22:09 Microbiology Microbiology: Microbiology 08/03/24 22:43 Sputum, Induced/Lukens Gram Stain - Final 08/03/24 22:43 Sputum, Induced/Lukens Respiratory Culture - Final Haemophilus influenzae 08/03/24 15:48 Urine Catheter - Catheter Urine Culture - Final Culture exhibits no growth. 08/03/24 15:30 Blood Culture (Wb) - Anticubital Right Blood Culture - Preliminary No growth in 48 hours. 08/03/24 14:35 Blood Culture (Wb) - Right Forearm Blood Culture - Preliminary No growth in 48 hours. 08/04/24 07:45 Urine Catheter - Erickson Legionella Antigen - Final 08/04/24 07:45 Urine Catheter - Erickson Streptococcus pneumoniae Antigen (M - Final 08/03/24 23:20 Mucosa - Nasopharyngeal Respiratory Panel (PCR) - Final 08/03/24 14:40 Mucosa - Nose SARS-CoV-2, Influenza & RSV (PCR) - Final Pharmacy Plan for Drug Dosing Pharmacy Plan for Drug Dosing: Pharmacy Service will continue to monitor and adjust dosing as required. RANDOM LEVEL 20.4. CONTINUE TO HOLD AND DRAW RANDOM LEVEL IN 6 HOURS Follow-Up Labs Follow-Up Labs: Trough: Vancomycin Date/Time Labs Ordered Labs to be done on [date and time ordered]: 08/08 @ 0500
[2024-08-08] VITALS (41 sets, daily range): BP systolic 109–178; BP diastolic 54–114; PULSE 86–135; RESP 16–22; TEMP 37.7–38.4; O2SAT 88–96; BMI 38.0
[2024-08-08 00:42] LABS: Partial Thromboplast Time 60.3 Seconds (24.1-36.2)
[2024-08-08] MEDS: fentaNYL drip 100 ML 10 MCG CONT INF (02:00)
[2024-08-08] MEDS: Ipratropium/Albuterol Sulfate 3 ML AMPUL.NEB INHALATION ×4 (03:25→14:29)
[2024-08-08] MEDS: Levothyroxine 100 MCG Tablet GT (04:58)
[2024-08-08] MEDS: Piperacil/Tazobactam 3.375 GM in 0.9% Normal Saline (50mL MB+) 50 ML IV ×3 (04:59→20:33)
[2024-08-08 05:16] LABS: Hematocrit 34.5 % (37-47); Hemoglobin 10.9 g/dL (12.0-15.0); Mean Corp Hgb Conc 31.6 g/dL (32-36); Mean Corpuscular Hgb 28.7 pg (27.0-32.0); Mean Corpuscular Volume 90.8 fL (81-99); Mean Platelet Vol. 10.1 fl (6.2-12.0); POSITIVE COUNT YES; POSITIVE MORPHOLOGY YES; Platelet Count 271 K/mm3 (150-450); RBC Distribution Width CV 15.5 % (11.6-14.6); RBC Distribution Width SD 50.9 fl (35.1-43.9); White Blood Count 20.6 K/mm3 (4.4-11.0)
[2024-08-08] MEDS: Metoprolol Tartrate 25 MG Tablet GT ×2 (05:18→20:37)
[2024-08-08 05:21] LABS: Differential Indicated MANUAL DIFF
[2024-08-08 05:28] LABS: Partial Thromboplast Time 55.5 Seconds (24.1-36.2)
[2024-08-08 05:38] LABS: ALB/GLOB Ratio 0.4 RATIO (0.9-2.4); AST(SGOT) 72 U/L (15-37); Alanine Aminotransfer ALT/SGPT 70 U/L (13-56); Albumin, Serum 1.9 g/dL (3.2-5.0); Alkaline Phosphatase 169 U/L (45-117); Anion Gap 5 (5-15); BUN 52 mg/dL (7-18); BUN/Creat Ratio 48.6 RATIO (10-20); Calcium,Total 8.9 mg/dL (8.5-10.1); Chloride 109 mmol/L (98-107); Creatinine, Serum 1.07 mg/dL (0.55-1.02); EST Glomerular Filtration Rate 55 mL/min (>60); Est Glom Filt Rate - Afr Amer 66 mL/min (>60); Estimated Creatinine Clearance 64.92 ml/min; Globulin 4.3 g/dL (2.2-4.2); Glucose 140 mg/dL (74-106); Protein, Total 6.2 g/dL (6.4-8.2); Sodium Level 145 mmol/L (136-145)
[2024-08-08 05:40] LABS: Vancomycin, Random Level 16.7 ug/mL (0.0-15.0)
--- NOTE | 2024-08-08 06:30 | PCM.RX.CS ---
Consult Antibiotic Management Pharmacy has been consulted to manage selected antibiotic: Vancomycin Type of Intervention Type of Consult: Follow-up Labs Labs: Sodium 145 mmol/L (136-145) 08/08/24 05:04 Potassium 4.0 mmol/L (3.5-5.1) 08/08/24 05:04 Chloride 109 mmol/L (98-107) H 08/08/24 05:04 Carbon Dioxide 31.0 mmol/L (21.0-32.0) 08/08/24 05:04 Anion Gap 5 (5-15) 08/08/24 05:04 BUN 52 mg/dL (7-18) H 08/08/24 05:04 Creatinine 1.07 mg/dL (0.55-1.02) H 08/08/24 05:04 Est GFR (MDRD) Af Amer 66 mL/min (>60) 08/08/24 05:04 Est GFR (MDRD) Non-Af 55 mL/min (>60) L 08/08/24 05:04 BUN/Creatinine Ratio 48.6 RATIO (10-20) H 08/08/24 05:04 Glucose 140 mg/dL (74-106) H 08/08/24 05:04 Vancomycin Trough 35.5 ug/mL (5.0-15.0) H 08/07/24 04:03 Random Vancomycin 16.7 ug/mL (0.0-15.0) H 08/08/24 05:04 Microbiology Microbiology: Microbiology 08/03/24 22:43 Sputum, Induced/Lukens Gram Stain - Final 08/03/24 22:43 Sputum, Induced/Lukens Respiratory Culture - Final Haemophilus influenzae 08/03/24 15:48 Urine Catheter - Catheter Urine Culture - Final Culture exhibits no growth. 08/03/24 15:30 Blood Culture (Wb) - Anticubital Right Blood Culture - Preliminary No growth in 48 hours. 08/03/24 14:35 Blood Culture (Wb) - Right Forearm Blood Culture - Preliminary No growth in 48 hours. 08/04/24 07:45 Urine Catheter - Erickson Legionella Antigen - Final 08/04/24 07:45 Urine Catheter - Erickson Streptococcus pneumoniae Antigen (M - Final 08/03/24 23:20 Mucosa - Nasopharyngeal Respiratory Panel (PCR) - Final 08/03/24 14:40 Mucosa - Nose SARS-CoV-2, Influenza & RSV (PCR) - Final Pharmacy Plan for Drug Dosing Pharmacy Plan for Drug Dosing: Pharmacy Service will continue to monitor and adjust dosing as required. RANDOM LEVEL 16.7. SCr DECREASED TO 1.07. 1GM Q12H TROUGH PRIOR TO 4TH DOSE Follow-Up Labs Follow-Up Labs: Trough: Vancomycin Date/Time Labs Ordered Labs to be done on [date and time ordered]: 08/09 @ 7344
[2024-08-08] MEDS: Propofol 10MG/Ml 1,000 MG/100 ML Bottle 9.6 MG CONT INF (06:45)
[2024-08-08] MEDS: Vancomycin IV 1,000 MG/200 ML BAG 200 MG IV ×2 (06:47→18:26)
[2024-08-08 07:02] LABS: Eosinophil 2 % (0-5); Lymphocyte 23 % (19-41); Monocyte 6 % (0-10); Myelocyte 1 % (0-0); Neutrophil-Band 11 % (0-5); Neutrophil-Segmented 56 % (47-70); Promyelocyte 1 % (0-0); Total Cells Counted 100 (MANUAL DIFF)
[2024-08-08 07:04] LABS: Absolute Lymphocyte Count 4.74 X10^3/uL (0.83-4.51); Absolute Neutrophil Count 11.6 X10^3/uL (2.0-7.7)
--- NOTE | 2024-08-08 07:19 | PCM.PN.HOSP ---
Reason for Visit Reason for Visit: Diagnoses Hypothyroidism, unspecified (08/03/24) Unspecified atrial fibrillation (08/03/24) Pneumonia, unspecified organism (08/03/24) Acute respiratory failure with hypoxia (08/03/24) Subjective Subjective Patient seen remains on the vent. FiO2 was increased to 55%. Objective Data Objective Data Vital Signs: Vital Signs Temp Pulse Resp BP Pulse Ox O2 Del Method O2 Flow Rate 100.2 F H 114 H 18 118/67 93 Mechanical Ventilator 7 08/08/24 07:00 08/08/24 07:00 08/08/24 07:00 08/08/24 07:00 08/08/24 07:00 08/08/24 07:00 08/05/24 05:00 FiO2 55 08/08/24 07:00 Oxygen Flow Rate (L/min) 7 Oxygen Delivery Method Mechanical Ventilator Weight: 107.184 kg Body Mass Index (BMI) 38.0 Intake & Output: Intake and Output for Last 24 Hours 08/06/24 08/07/24 08/08/24 23:59 23:59 23:59 Intake Total 3676.26 / 3780.96 3104.29 / 3208.99 548.89 / 548.89 Output Total 4225 / 4225 2225 / 2225 550 / 550 Balance -548.74 / -444.04 879.29 / 983.99 -1.11 / -1.11 Lab / Micro Data 08/08/24 05:04 08/08/24 05:04 Labs: Laboratory Results - last 24 hr 08/07/24 04:03: Absolute Neuts (auto) 15.7 H, Absolute Lymphs (auto) 1.91, Total Counted 100, Neutrophils % (Manual) 82 H, Lymphocytes % (Manual) 10 L, Monocytes % (Manual) 4, Metamyelocytes % 3 H, Myelocytes % 1 H, Diff Path Review May foll, Toxic Granulation 1+, Toxic Vacuolation 1+, Platelet Estimate ADEQUATE, Polychromasia 1+, Schistocytes RARE 08/07/24 11:30: APTT 53.5 H 08/07/24 18:38: APTT 61.0 H 08/07/24 22:09: Random Vancomycin 20.4 H 08/08/24 00:26: APTT 60.3 H 08/08/24 05:04: WBC 20.6 H, RBC 3.80 L, Hgb 10.9 L, Hct 34.5 L, MCV 90.8, MCH 28.7, MCHC 31.6 L, RDW Std Deviation 50.9 H, RDW Coeff of Emmanuel 15.5 H, Plt Count 271, MPV 10.1, Neut % (Auto) Not Reportable, Absolute Neuts (auto) 11.6 H, Absolute Lymphs (auto) 4.74 H, Total Counted 100, Neutrophils % (Manual) 56, Band Neutrophils % 11 H, Lymphocytes % (Manual) 23, Monocytes % (Manual) 6, Eosinophils % (Manual) 2, Myelocytes % 1 H, Promyelocytes % 1 H, Diff Path Review October, APTT 55.5 H, Sodium 145, Potassium 4.0, Chloride 109 H, Carbon Dioxide 31.0, Anion Gap 5, BUN 52 H, Creatinine 1.07 H, Estim Creat Clear Calc 64.92, Est GFR (MDRD) Af Amer 66, Est GFR (MDRD) Non-Af 55 L, BUN/Creatinine Ratio 48.6 H, Glucose 140 H, Calcium 8.9, Total Bilirubin 0.90, AST 72 H, ALT 70 H, Alkaline Phosphatase 169 H, Total Protein 6.2 L, Albumin 1.9 L, Globulin 4.3 H, Albumin/Globulin Ratio 0.4 L, Random Vancomycin 16.7 H Micro: Microbiology 08/03/24 22:43 Sputum, Induced/Lukens Gram Stain - Final 08/03/24 22:43 Sputum, Induced/Lukens Respiratory Culture - Final Haemophilus influenzae 08/03/24 15:48 Urine Catheter - Catheter Urine Culture - Final Culture exhibits no growth. 08/03/24 15:30 Blood Culture (Wb) - Anticubital Right Blood Culture - Preliminary No growth in 48 hours. 08/03/24 14:35 Blood Culture (Wb) - Right Forearm Blood Culture - Preliminary No growth in 48 hours. 08/04/24 07:45 Urine Catheter - Erickson Legionella Antigen - Final 08/04/24 07:45 Urine Catheter - Erickson Streptococcus pneumoniae Antigen (M - Final 08/03/24 23:20 Mucosa - Nasopharyngeal Respiratory Panel (PCR) - Final 08/03/24 14:40 Mucosa - Nose SARS-CoV-2, Influenza & RSV (PCR) - Final Physical Exam Narrative GENERAL: Patient on the vent HEENT: Atraumatic; normocephalic EYES; Anicteric, Normal Conjunctiva NECK; supple, normal thyroid, RESPIRATORY: Diminished to auscultation CARDIOVASCULAR: Regular S1 S2, GI: soft, normoactive bowel sounds, : No Renal angle tenderness; EXTREMITIES: edema, no clubbing, MUSCULOSKELETAL: no muscle wasting NEURO: Patient on the vent SKIN: No Rash Assessment & Plan Assessment/Plan (1) Acute hypoxic respiratory failure: (2) Pneumonia: (3) Atrial fibrillation with RVR: (4) Hypothyroidism: PLAN: Plan Patient is a 64-year-old lady who presented with shortness of breath diagnosed with acute hypoxic respiratory failure and sepsis secondary to multifocal pneumonia patient clinical condition deteriorated while in the emergency department necessitating patient being intubated and admitted to the intensive care unit 1. Acute hypoxic respiratory failure secondary to multifocal pneumonia with haemophilus influenza ? Treatment was initiated with BiPAP patient clinical condition however deteriorated resulting in patient being intubated and admitted to the intensive care unit. Patient was started on broad-spectrum antibiotic therapy with Zosyn and vancomycin cultures sent ? 08/05/2024; patient remains on the vent; vent management as per [employer] ? 08/06/2024;Patient seen remains sedated on the vent. Patient not a candidate for weaning this a.m. Case discussed with Dr. Aquino with intensive care plan is have a trial of diuretic therapy. ? 08/07/2023;Patient seen remains on the vent. Sedation has been turned off. Patient still has copious secretions. Patient had a good response to diuretic therapy administered the day prior. ? 08/08/2027 ; Patient seen remains on the vent. FiO2 was increased to 55%. 2. Septic shock ? Patient did receive IV fluid resuscitation per protocol she however did not respond to fluid necessitating patient being started on pressors -08/05/2024; patient seen remains on the vent Tmax over the past 24 hours 100.4. WBC count remains elevated ? 08/07/2024; patient presents to the end of the day prior. Patient sputum cultures came back positive for haemophilus influenza 3. A-fib with RVR ? Patient heart rate upon presentation was 177 patient was started on Cardizem drip which had to be discontinued given her persistent hypotension patient was subsequently started on amiodarone drip ? 08/05/2024; heart rate control still not optimal patient remains on amiodarone drip 4. Hypokalemia ? Corrected for protocol repeat labs ordered for monitoring ? 08/05/2024 hypokalemia corrected 5. Hypothyroidism ? Patient is on levothyroxine home dose continued 6. Acute kidney injury ? Suspected to be secondary to ATN from sepsis monitoring with daily BMPs ? 08/07/2024; patient kidney function continues to worsen will monitor 7 DVT prophylaxis ? Patient is on heparin drip Time spent in the patient's overall evaluation,decision-making process, review of diagnostic data, adjustment of management, discussion with other providers, nursing nursing and ancillary staff involved in patient's care documentation, 50 Minutes Charges/Coding Visit Charges Inpatient E&M: [id number] [place] [id number]
[2024-08-08] MEDS: CHLORHEXIDINE GLUC 2% CLOTH 1 EACH TOWELETTE TOPICAL (09:57)
[2024-08-08] MEDS: Estradiol 1 MG Tablet 2 MG GT (09:57)
[2024-08-08] MEDS: guaiFENesin 1,200 MG Tablet 1200 MG PO ×2 (09:59→20:36)
[2024-08-08] MEDS: Senna/Docusate Sodium 1 Tablet 2 TABLET GT ×2 (10:00→20:37)
[2024-08-08] MEDS: HEPARIN/D5w 25,000 UNITS 25,000 UNITS/250 ML IV.SOLN. 19 UNITS CONT INF (10:02)
[2024-08-08] MEDS: Hydrocortisone Sod Succinate 100 MG/2 ML Vial 50 MG IV (10:03)
[2024-08-08] MEDS: Pantoprazole Sodium 40 MG in 0.9% Normal Saline (100mL MB+) 100 ML 330 MG IV (10:32)
[2024-08-08] MEDS: Chlorhexidine 15 ML PO ×2 (10:36→20:35)
[2024-08-08] MEDS: fentaNYL drip 100 ML 7.5 MCG CONT INF (12:56)
[2024-08-08] MEDS: Amiodarone 360 MG in Dextrose 5% Viaflo Bag 192.8 ML 16.7 MG CONT INF (12:56)
--- NOTE | 2024-08-08 13:17 | PCM.PN.TICU ---
Objective Data Objective Data Vital Signs: Vital Signs Last response Temperature 37.9 C H 08/08/24 08:00 Temperature Source Core 08/08/24 08:00 Pulse Rate 122 H 08/08/24 12:56 Pulse Strength Normal (2+) 08/07/24 20:05 Respiratory Rate 19 H 08/08/24 11:44 Respiratory Effort Mechanically Ventilated 08/08/24 08:00 Respiratory Depth Normal 08/08/24 08:00 Respiratory Pattern Normal 08/08/24 11:44 Blood Pressure 122/76 H 08/08/24 12:56 Blood Pressure Mean 91 08/08/24 12:56 Blood Pressure Source Monitor 08/08/24 11:00 Blood Pressure Position Semi-Fowlers 08/08/24 11:00 Blood Pressure Location Left Arm 08/08/24 11:00 Pulse Ox 94 08/08/24 11:44 Oxygen Delivery Method Mechanical Ventilator 08/08/24 11:00 Oxygen Flow Rate (L/min) 7 08/05/24 05:00 Fraction of Inspired Oxygen (FIO2) 55 08/08/24 11:00 I&O: I&O Last 24 Hours 08/07/24 08/08/24 08/08/24 23:59 11:59 23:59 Intake Total 1380.02 / 3208.99 1918.43 / 1930.78 12.35 / 1930.78 Output Total 1725 / 2225 550 / 550 Balance -344.98 / 983.99 1368.43 / 1380.78 12.35 / 1380.78 I&O: Total Stay 08/03/24 14:23 thru 08/08/24 12:56 Intake Total 30395.64 Output Total 9940 Balance 9144.64 Current Meds Ordered / Administered: Current meds ordered / Administered Generic Name Dose Route Start Last Admin Trade Name Freq PRN Reason Stop Dose Admin Acetaminophen 650 mg 08/03/24 22:57 Acetaminophen 325 Mg Tablet PO Q6H PRN PRN Pain 1-10 Or Fever >100.7 Acetaminophen 650 mg 08/06/24 10:32 Acetaminophen 650 Mg/20 Ml Udc GT Q6H PRN PRN Pain 1-10 Or Fever >100.7 Albuterol Sulfate 2.5 mg 08/03/24 22:57 Albuterol 2.5 Mg/3 Ml Vial.Neb. INHALATION Q2H PRN PRN SOB &/OR WHEEZING Albuterol/Ipratropium 3 ml 08/04/24 00:00 08/08/24 11:44 Ipratropium/Albuterol Sulfate 3 Ml Ampul.Neb INHALATION 3 ml Q4H.RT TIMMY Administration Chlorhexidine Gluconate 15 ml 08/03/24 22:57 08/08/24 10:36 Chlorhexidine 15 Ml PO 15 ml BID TIMMY Administration Chlorhexidine Gluconate 1 each 08/06/24 10:00 08/08/24 09:57 Chlorhexidine Gluc 2% Cloth 1 Each Towelette TOPICAL 1 each DAILY TIMMY Administration Estradiol 2 mg 08/06/24 10:00 08/08/24 09:57 Estradiol 1 Mg Tablet GT 2 mg DAILY TIMMY Administration Guaifenesin 1,200 mg 08/03/24 22:57 08/08/24 09:59 Guaifenesin 1,200 Mg Tablet PO 1,200 mg BID TIMMY Administration Heparin Sodium (Porcine) 0 unit 08/03/24 18:00 08/04/24 05:13 Heparin Injection (Vial) 5,000 Unit/Ml Vial IV 1,000 unit UD PRN Administration dose adjustment Protocol Hydrocortisone Sodium Succinate 50 mg 08/08/24 10:00 08/08/24 10:03 Hydrocortisone Sod Succinate 100 Mg/2 Ml Vial IV 50 mg DAILY TIMMY Administration Heparin Sodium/Dextrose 25,000 units in 250 mls @ 10 mls/hr 08/03/24 17:55 08/08/24 10:02 CONT INF 1,900 units/hr .Q25H TIMMY 19 mls/hr Administration Protocol As Directed Propofol 1,000 mg in 100 mls @ 6.426 mls/hr 08/03/24 20:25 08/08/24 12:00 Diprivan CONT INF 10 mcg/kg/min .Q12H TIMMY 6.4 mls/hr Titration Protocol 10 MCG/KG/MIN Fentanyl 100 mls @ 5 mls/hr 08/03/24 21:55 08/08/24 12:56 CONT INF 75 mcg/hr UD TIMMY 7.5 mls/hr Administration Protocol 50 MCG/HR Vancomycin IV-PHARMACY TO DOSE 500 mls @ 250 mls/hr 08/03/24 22:57 1 each/ Sodium Chloride IV PRN PRN Rx to Dose Protocol Pantoprazole Sodium 40 mg/ 110 mls @ 330 mls/hr 08/04/24 10:00 08/08/24 11:03 Sodium Chloride IV Infused Q24 TIMMY Infusion Amiodarone HCl 360 mg/ 200 mls @ 16.667 mls/hr 08/04/24 00:30 08/08/24 12:56 Dextrose CONT INF 0.5 mg/min .Q12H TIMMY 16.7 mls/hr Administration 0.5 MG/MIN Piperacillin Sod/Tazobactam 50 mls @ 12.5 mls/hr 08/04/24 09:00 08/08/24 12:57 Sod 3.375 gm/ Sodium Chloride IV 12.5 mls/hr Q8 TIMMY Administration Enteral Nutritional Formula 1,000 mls @ 45 mls/hr 08/05/24 12:15 08/08/24 07:59 Vital Af 1.2 Tera Liquid GT 45 mls/hr .[id number] TIMMY Infusion Sodium Chloride 100 mls @ 15 mls/hr 08/06/24 06:30 IV .Q6H40M PRN Saline Flush Sodium Chloride 100 mls @ 15 mls/hr 08/06/24 06:30 IV .Q6H40M PRN Additional IVPB Infusion Vancomycin HCl 1,000 mg in 200 mls @ 200 mls/hr 08/08/24 06:00 08/08/24 07:58 Vancomycin IV Infused Q12H TIMMY Infusion Levothyroxine Sodium 100 mcg 08/07/24 06:00 08/08/24 04:58 Levothyroxine 100 Mcg Tablet GT 100 mcg DAILY@0600 TIMMY Administration Metoprolol Tartrate 25 mg 08/06/24 10:00 08/08/24 05:18 Metoprolol Tartrate 25 Mg Tablet GT 25 mg BID TIMMY Administration Ondansetron HCl 4 mg 08/03/24 22:57 Ondansetron 4 Mg/2 Ml Vial IV Q8H PRN PRN NAUSEA/VOMITING Senna/Docusate Sodium 2 tablet 08/06/24 10:00 08/08/24 10:00 Senna/Docusate Sodium 1 Tablet GT 2 tablet BID TIMMY Administration Senna/Docusate Sodium 2 tablet 08/06/24 09:41 Senna/Docusate Sodium 1 Tablet GT BID PRN PRN Constipation Sodium Chloride 10 - 40 ml 08/06/24 06:30 08/07/24 23:10 0.9% Saline Lock 10 Ml Syringe IV 10 ml UD PRN Administration SALINE FLUSH Vancomycin Protocol 1 lab 08/09/24 15:30 Vancomycin Trough/Random Due [facility] 08/09/24 19:30 DAILY [facility] Lab / Micro Data Attestation: I reviewed the patient's lab results. 08/08/24 05:04 08/08/24 05:04 Labs: Laboratory Results - last 24 hr 08/07/24 18:38: APTT 61.0 H 08/07/24 22:09: Random Vancomycin 20.4 H 08/08/24 00:26: APTT 60.3 H 08/08/24 05:04: WBC 20.6 H, RBC 3.80 L, Hgb 10.9 L, Hct 34.5 L, MCV 90.8, MCH 28.7, MCHC 31.6 L, RDW Std Deviation 50.9 H, RDW Coeff of Emmanuel 15.5 H, Plt Count 271, MPV 10.1, Neut % (Auto) Not Reportable, Absolute Neuts (auto) 11.6 H, Absolute Lymphs (auto) 4.74 H, Total Counted 100, Neutrophils % (Manual) 56, Band Neutrophils % 11 H, Lymphocytes % (Manual) 23, Monocytes % (Manual) 6, Eosinophils % (Manual) 2, Myelocytes % 1 H, Promyelocytes % 1 H, Diff Path Review October, APTT 55.5 H, Sodium 145, Potassium 4.0, Chloride 109 H, Carbon Dioxide 31.0, Anion Gap 5, BUN 52 H, Creatinine 1.07 H, Estim Creat Clear Calc 64.92, Est GFR (MDRD) Af Amer 66, Est GFR (MDRD) Non-Af 55 L, BUN/Creatinine Ratio 48.6 H, Glucose 140 H, Calcium 8.9, Total Bilirubin 0.90, AST 72 H, ALT 70 H, Alkaline Phosphatase 169 H, Total Protein 6.2 L, Albumin 1.9 L, Globulin 4.3 H, Albumin/Globulin Ratio 0.4 L, Random Vancomycin 16.7 H Assessment and Plan . Assessment and plan: IMPRESSIONS: 1. Septic shock The patient presented to the hospital with sepsis due to suspected pneumonia with acute sepsis related organ dysfunction as evidenced by lactic acidemia, fluid refractory hypotension requiring vasopressor support and acute respiratory failure requiring invasive mechanical ventilation. The patient has been adequately volume resuscitated. She will be continued on Levophed and stress dose steroids, as ordered. Empiric antibiotics will be continued. 2. Atrial fibrillation with RVR Continue amiodarone and IV heparin. 3. Acute hypoxemic respiratory failure pneumonia plus underlying COPD, not ready for weaning based on high Fi)2 55% plus mental status not yet appropriate. Continue full support in AC mode 4. History of hypothyroidism/chronic tobacco dependency/anemia Complicates care, management, recovery and prognosis. Continue home Synthroid regimen as ordered. Tube feeding can be initiated today from my perspective. RECOMMENDATIONS: 1. Continue assist-control mode of mechanical ventilation. Wean FiO2 and PEEP as tolerated. 2. Continue empiric broad-spectrum antimicrobials. 3. Continue scheduled bronchodilators. 4. Continue Levophed along with stress dose steroids. 5. Continue appropriate DVT and GI prophylaxis. 6. Continue tube feeding. Critical Care Time:50 minutes The entirety of this encounter was done via Telemedicine Physical Exam Const General Appearance: lethargic and patient mechanically ventilated Orientation / Consciousness: obtunded Exam Limitations: behavioral limitations HEENT normocephalic Nose: external nose normal Eyes PERRL Neck full ROM Resp Effort and Inspection: symmetric chest movement and mechanically ventilated Cardio Rhythm: abnormal rhythm GI normal to inspection, nondistended, normoactive bowel sounds Subjective Subjective Events reviewed, smooth interface with vent. Not following or responding to commands
[2024-08-08] MEDS: Vital AF 1.2 Cal Liquid 1,000 ML 45 ML GT (14:24)
[2024-08-08] MEDS: Furosemide 20 MG/2 ML VIAL IV (14:24)
[2024-08-08] MEDS: 0.9% Saline Lock 10 ML Syringe IV (16:12)
[2024-08-08] MEDS: dilTIAZem 25 MG/5 ML Vial 20 MG IV BOLUS (16:12)
[2024-08-08] MEDS: Acetaminophen 650 MG/20 ML UDC GT (18:26)
[2024-08-08] MEDS: Propofol 10MG/Ml 1,000 MG/100 ML Bottle 6.4 MG CONT INF (20:35)
[2024-08-08] MEDS: Ipratropium 0.5 MG/2.5 ML SOLUTION INHALATION (23:19)
[2024-08-09] VITALS (38 sets, daily range): BP systolic 104–145; BP diastolic 61–89; PULSE 100–140; RESP 17–28; TEMP 38.1–38.4; O2SAT 90–96; BMI 38.5
[2024-08-09] MEDS: Acetaminophen 650 MG/20 ML UDC GT ×2 (00:39→15:03)
[2024-08-09] MEDS: Amiodarone 360 MG in Dextrose 5% Viaflo Bag 192.8 ML 16.7 MG CONT INF ×2 (00:40→13:45)
[2024-08-09] MEDS: CHLORHEXIDINE GLUC 2% CLOTH 1 EACH TOWELETTE TOPICAL (00:40)
[2024-08-09] MEDS: HEPARIN/D5w 25,000 UNITS 25,000 UNITS/250 ML IV.SOLN. 19 UNITS CONT INF (00:40)
[2024-08-09] MEDS: fentaNYL drip 100 ML 7.5 MCG CONT INF ×2 (03:33→17:27)
[2024-08-09 03:36] LABS: Hematocrit 32.1 % (37-47); Hemoglobin 10.2 g/dL (12.0-15.0); Mean Corp Hgb Conc 31.8 g/dL (32-36); Mean Corpuscular Hgb 28.8 pg (27.0-32.0); Mean Corpuscular Volume 90.7 fL (81-99); Mean Platelet Vol. 10.2 fl (6.2-12.0); POSITIVE COUNT YES; POSITIVE MORPHOLOGY YES; Platelet Count 207 K/mm3 (150-450); RBC Distribution Width CV 15.3 % (11.6-14.6); RBC Distribution Width SD 50.7 fl (35.1-43.9); Red Blood Count 3.54 M/mm3 (4.2-5.4); White Blood Count 20.4 K/mm3 (4.4-11.0)
[2024-08-09 03:39] LABS: Differential Indicated MANUAL DIFF
[2024-08-09 03:49] LABS: Partial Thromboplast Time 77.9 Seconds (24.1-36.2)
[2024-08-09 03:56] LABS: Anion Gap 5 (5-15); BUN 51 mg/dL (7-18); BUN/Creat Ratio 45.1 RATIO (10-20); Calcium,Total 9.1 mg/dL (8.5-10.1); Chloride 109 mmol/L (98-107); Creatinine, Serum 1.13 mg/dL (0.55-1.02); EST Glomerular Filtration Rate 51 mL/min (>60); Est Glom Filt Rate - Afr Amer 62 mL/min (>60); Estimated Creatinine Clearance 61.47 ml/min; Glucose 167 mg/dL (74-106); Potassium 3.5 mmol/L (3.5-5.1); Sodium Level 146 mmol/L (136-145)
[2024-08-09 04:30] LABS: Lymphocyte 22 % (19-41); Metamyelocyte 2 % (0-1); Monocyte 4 % (0-10); Myelocyte 7 % (0-0); Neutrophil-Segmented 65 % (47-70); Total Cells Counted 100 (MANUAL DIFF)
[2024-08-09 04:31] LABS: Absolute Neutrophil Count 13.3 X10^3/uL (2.0-7.7)
[2024-08-09 04:32] LABS: Platelet Estimate ADEQUATE (ADEQ)
[2024-08-09 04:34] LABS: Macrocytosis RARE; Polychromasia RARE; Red Cell Morphology N CHROM NORMAL (NORM C&C); Tear Drop Cell RARE
[2024-08-09] MEDS: Piperacil/Tazobactam 3.375 GM in 0.9% Normal Saline (50mL MB+) 50 ML IV ×3 (05:32→21:55)
[2024-08-09] MEDS: Vancomycin IV 1,000 MG/200 ML BAG 200 MG IV (05:33)
[2024-08-09] MEDS: Propofol 10MG/Ml 1,000 MG/100 ML Bottle 9.6 MG CONT INF ×2 (05:34→15:02)
[2024-08-09] MEDS: Levothyroxine 100 MCG Tablet GT (05:36)
[2024-08-09] MEDS: Ipratropium 0.5 MG/2.5 ML SOLUTION INHALATION ×5 (07:20→23:23)
--- NOTE | 2024-08-09 07:23 | PN.HOSP_ITS ---
Reason for Visit Reason for Visit: Diagnoses Hypothyroidism, unspecified (08/03/24) Unspecified atrial fibrillation (08/03/24) Pneumonia, unspecified organism (08/03/24) Acute respiratory failure with hypoxia (08/03/24) Subjective Subjective Patient seen remains on the vent FiO2 down to 45%. With patient remaining persistently hypoxic and tachycardic repeated CTA of the chest to rule out pulmonary emboli Objective Data Objective Data Vital Signs: Vital Signs Temp Pulse Resp BP Pulse Ox O2 Del Method O2 Flow Rate 100.6 F H 114 H 20 H 135/72 H 94 Mechanical Ventilator 7 08/09/24 04:00 08/09/24 07:00 08/09/24 07:00 08/09/24 07:00 08/09/24 07:00 08/09/24 07:00 08/05/24 05:00 FiO2 45 08/09/24 07:00 Oxygen Flow Rate (L/min) 7 Oxygen Delivery Method Mechanical Ventilator Weight: 108.59 kg Body Mass Index (BMI) 38.5 Intake & Output: Intake and Output for Last 24 Hours 08/07/24 08/08/24 08/09/24 23:59 23:59 23:59 Intake Total 3104.29 / 3208.99 2850.50 / 2944.40 852.16 / 852.16 Output Total 2225 / 2225 2225 / 2675 900 / 900 Balance 879.29 / 983.99 625.50 / 269.40 -47.84 / -47.84 Lab / Micro Data 08/09/24 03:30 08/09/24 03:30 Labs: Laboratory Results - last 24 hr 08/09/24 03:30: WBC 20.4 H, RBC 3.54 L, Hgb 10.2 L, Hct 32.1 L, MCV 90.7, MCH 28.8, MCHC 31.8 L, RDW Std Deviation 50.7 H, RDW Coeff of Emmanuel 15.3 H, Plt Count 207, MPV 10.2, Neut % (Auto) Not Reportable, Absolute Neuts (auto) 13.3 H, Absolute Lymphs (auto) 4.50, Total Counted 100, Neutrophils % (Manual) 65, Lymphocytes % (Manual) 22, Monocytes % (Manual) 4, Metamyelocytes % 2 H, M yelocytes % 7 H, Diff Path Review October, Platelet Estimate ADEQUATE, RBC Morphology N CHROM, Polychromasia RARE, Macrocytosis RARE, Tear Drop Cells RARE, APTT 77.9 H, Sodium 146 H, Potassium 3.5, Chloride 109 H, Carbon Dioxide 32.0, Anion Gap 5, BUN 51 H, Creatinine 1.13 H, Estim Creat Clear Calc 61.47, Est GFR (MDRD) Af Amer 62, Est GFR (MDRD) Non-Af 51 L, BUN/Creatinine Ratio 45.1 H, G lucose 167 H, Calcium 9.1 Micro: Microbiology 08/03/24 15:30 Blood Culture (Wb) - Anticubital Right Blood Culture - Final No growth in 5 days. 08/03/24 14:35 Blood Culture (Wb) - Right Forearm Blood Culture - Final No growth in 5 days. 08/03/24 22:43 Sputum, Induced/Lukens Gram Stain - Final 08/03/24 22:43 Sputum, Induced/Lukens Respiratory Culture - Final Haemophilus influenzae 08/03/24 15:48 Urine Catheter - Catheter Urine Culture - Final Culture exhibits no growth. 08/04/24 07:45 Urine Catheter - Erickson Legionella Antigen - Final 08/04/24 07:45 Urine Catheter - Erickson Streptococcus pneumoniae Antigen (M - Final 08/03/24 23:20 Mucosa - Nasopharyngeal Respiratory Panel (PCR) - Final 08/03/24 14:40 Mucosa - Nose SARS-CoV-2, Influenza & RSV (PCR) - Final Physical Exam Narrative GENERAL: Patient on the vent HEENT: Atraumatic; normocephalic EYES; Anicteric, Normal Conjunctiva NECK; supple, normal thyroid, RESPIRATORY: Diminished to auscultation CARDIOVASCULAR: Regular S1 S2, GI: soft, normoactive bowel sounds, : No Renal angle tenderness; EXTREMITIES: edema, no clubbing, MUSCULOSKELETAL: no muscle wasting NEURO: Patient on the vent SKIN: No Rash Assessment & Plan Assessment/Plan (1) Acute hypoxic respiratory failure: (2) Pneumonia: (3) Atrial fibrillation with RVR: (4) Hypothyroidism: PLAN: Plan Patient is a 64-year-old lady who presented with shortness of breath diagnosed with acute hypoxic respiratory failure and sepsis secondary to multifocal pneumonia patient clinical condition deteriorated while in the emergency department necessitating patient being intubated and admitted to the intensive care unit 1. Acute hypoxic respiratory failure secondary to multifocal pneumonia with haemophilus influenza ? Treatment was initiated with BiPAP patient clinical condition however deteriorated resulting in patient being intubated and admitted to the intensive care unit. Patient was started on broad-spectrum antibiotic therapy with Zosyn and vancomycin cultures sent ? 08/05/2024; patient remains on the vent; vent management as per Food And Bever[employer] Order Clerk ? 08/06/2024;Patient seen remains sedated on the vent. Patient not a candidate for weaning this a.m. Case discussed with Dr. Aquino with intensive care plan is have a trial of diuretic therapy. ? 08/07/2023;Patient seen remains on the vent. Sedation has been turned off. Patient still has copious secretions. Patient had a good response to diuretic therapy administered the day prior. ? 08/08/2027 ; Patient seen remains on the vent. FiO2 was increased to 55%. ? 08/09/2027;Patient seen remains on the vent FiO2 down to 45%. With patient remaining persistently hypoxic and tachycardic repeated CTA of the chest to rule out pulmonary emboli 2. Septic shock ? Patient did receive IV fluid resuscitation per protocol she however did not respond to fluid necessitating patient being started on pressors -08/05/2024; patient seen remains on the vent Tmax over the past 24 hours 100.4. WBC count remains elevated ? 08/07/2024; patient presents to the end of the day prior. Patient sputum cultures came back positive for haemophilus influenza 3. A-fib with RVR ? Patient heart rate upon presentation was 177 patient was started on Cardizem drip which had to be discontinued given her persistent hypotension patient was subsequently started on amiodarone drip ? 08/05/2024; heart rate control still not optimal patient remains on amiodarone drip ? 08/05/2024; remains on amiodarone drip and heparin 4. Hypokalemia ? Corrected for protocol repeat labs ordered for monitoring ? 08/05/2024 hypokalemia corrected 5. Hypothyroidism ? Patient is on levothyroxine home dose continued 6. Acute kidney injury ? Suspected to be secondary to ATN from sepsis monitoring with daily BMPs ? 08/07/2024; patient kidney function continues to worsen will monitor 7 DVT prophylaxis ? Patient is on heparin drip Time spent in the patient's overall evaluation,decision-making process, review of diagnostic data, adjustment of management, discussion with other providers, nursing nursing and ancillary staff involved in patient's care documentation, 50 Minutes
--- NOTE | 2024-08-09 07:23 | CT_ITS ---
PROCEDURE: CTA CHEST W/WO CONTRAST REASON FOR EXAM: Short of breath TECHNIQUE: CTA imaging of the chest with intravenous contrast. 3D reconstructions. COMPARISON: None. FINDINGS: Hardware: None. Heart: Normal heart size. No pericardial effusion. Moderate coronary artery calcifications are seen. RV/LV Diameter Ratio: N/A Thoracic Aorta: No thoracic aortic aneurysm or dissection. Pulmonary Vessels: No evidence of acute pulmonary emboli through the major subsegmental branches. Most Proximal Level of Embolus (if embolus present): N/A Patient is intubated. Mildly prominent mediastinal Lymph nodes. Patchy multifocal bilateral airspace consolidations with small underlying pleural effusions. Airspace disease extent to the biapical lung sarmiento. Upper Abdomen: Visualized portions of the upper abdominal viscera are unremarkable. Bones: Bone windows are unremarkable. CT/CTA Chest W/WO Contrast IMPRESSION: No acute thromboembolic disease. Extensive multifocal bilateral parenchymal airspace opacities with mildly promi nent mediastinal lymphadenopathy. One or more dose reduction techniques were used (e.g., Automated exposure contr ol, adjustment of the mA and/or kV according to patient size, use of iterative reconstruction technique). Reading Location: [facility]
[2024-08-09] MEDS: Pantoprazole Sodium 40 MG in 0.9% Normal Saline (100mL MB+) 100 ML 330 MG IV (10:52)
[2024-08-09] MEDS: Estradiol 1 MG Tablet 2 MG GT (10:53)
[2024-08-09] MEDS: Furosemide 20 MG/2 ML VIAL IV ×2 (10:53→18:43)
[2024-08-09] MEDS: Metoprolol Tartrate 25 MG Tablet GT ×4 (10:53→21:52)
[2024-08-09] MEDS: guaiFENesin 1,200 MG Tablet 1200 MG PO ×2 (10:54→21:52)
[2024-08-09] MEDS: Hydrocortisone Sod Succinate 100 MG/2 ML Vial 50 MG IV (10:54)
[2024-08-09] MEDS: Senna/Docusate Sodium 1 Tablet 2 TABLET GT ×2 (10:54→21:52)
[2024-08-09] MEDS: Chlorhexidine 15 ML PO ×2 (10:55→22:13)
[2024-08-09] MEDS: 0.9% Saline Lock 10 ML Syringe IV (11:15)
[2024-08-09 11:47] LABS: Partial Thromboplast Time 87.2 Seconds (24.1-36.2)
--- NOTE | 2024-08-09 13:02 | PCM.PN.TICU ---
Objective Data Objective Data Vital Signs: Vital Signs Last response Temperature 38.2 C H 08/09/24 10:00 Temperature Source Core 08/09/24 10:00 Pulse Rate 105 H 08/09/24 12:00 Pulse Strength Normal (2+) 08/07/24 20:05 Respiratory Rate 19 H 08/09/24 12:00 Respiratory Effort Normal, Non-Labored, Mechanically Ventilated 08/09/24 04:00 Respiratory Depth Normal 08/09/24 04:00 Respiratory Pattern Normal 08/09/24 11:36 Blood Pressure 124/82 H 08/09/24 12:00 Blood Pressure Mean 96 08/09/24 12:00 Blood Pressure Source Monitor 08/09/24 12:00 Blood Pressure Position Semi-Fowlers 08/09/24 12:00 Blood Pressure Location Left Arm 08/09/24 12:00 Pulse Ox 93 08/09/24 12:15 Oxygen Delivery Method Mechanical Ventilator 08/09/24 12:00 Oxygen Flow Rate (L/min) 7 08/05/24 05:00 Fraction of Inspired Oxygen (FIO2) 45 08/09/24 12:00 I&O: I&O Last 24 Hours 08/08/24 08/09/24 08/09/24 23:59 11:59 23:59 Intake Total 932.07 / 2944.40 1849.76 / 2116.96 267.2 / 2116.96 Output Total 1675 / 2675 900 / 900 Balance -742.93 / 269.40 949.76 / 1216.96 267.2 / 1216.96 I&O: Total Stay 08/03/24 14:23 thru 08/09/24 12:15 Intake Total 17369.32 Output Total 24919 Balance 9606.32 Current Meds Ordered / Administered: Current meds ordered / Administered Generic Name Dose Route Start Last Admin Trade Name Freq PRN Reason Stop Dose Admin Acetaminophen 650 mg 08/03/24 22:57 Acetaminophen 325 Mg Tablet PO Q6H PRN PRN Pain 1-10 Or Fever >100.7 Acetaminophen 650 mg 08/06/24 10:32 08/09/24 00:39 Acetaminophen 650 Mg/20 Ml Udc GT 650 mg Q6H PRN PRN Administration Pain 1-10 Or Fever >100.7 Albuterol Sulfate 2.5 mg 08/03/24 22:57 Albuterol 2.5 Mg/3 Ml Vial.Neb. INHALATION Q2H PRN PRN SOB &/OR WHEEZING Chlorhexidine Gluconate 15 ml 08/03/24 22:57 08/09/24 10:55 Chlorhexidine 15 Ml PO 15 ml BID TIMMY Administration Chlorhexidine Gluconate 1 each 08/06/24 10:00 08/09/24 00:40 Chlorhexidine Gluc 2% Cloth 1 Each Towelette TOPICAL 1 each DAILY TIMMY Administration Estradiol 2 mg 08/06/24 10:00 08/09/24 10:53 Estradiol 1 Mg Tablet GT 2 mg DAILY TIMMY Administration Furosemide 20 mg 08/08/24 18:00 08/09/24 10:53 Furosemide 20 Mg/2 Ml Vial IV 20 mg BIDLX TIMMY Administration Protocol Guaifenesin 1,200 mg 08/03/24 22:57 08/09/24 10:54 Guaifenesin 1,200 Mg Tablet PO 1,200 mg BID TIMMY Administration Heparin Sodium (Porcine) 0 unit 08/03/24 18:00 08/04/24 05:13 Heparin Injection (Vial) 5,000 Unit/Ml Vial IV 1,000 unit UD PRN Administration dose adjustment Protocol Hydrocortisone Sodium Succinate 50 mg 08/08/24 10:00 08/09/24 10:54 Hydrocortisone Sod Succinate 100 Mg/2 Ml Vial IV 50 mg DAILY TIMMY Administration Heparin Sodium/Dextrose 25,000 units in 250 mls @ 10 mls/hr 08/03/24 17:55 08/09/24 12:14 CONT INF 0 units/hr .Q25H TIMMY 0 mls/hr Titration Protocol As Directed Propofol 1,000 mg in 100 mls @ 6.426 mls/hr 08/03/24 20:25 08/09/24 10:11 Diprivan CONT INF Not Given .Q12H TIMMY Protocol 10 MCG/KG/MIN Fentanyl 100 mls @ 5 mls/hr 08/03/24 21:55 08/09/24 10:00 CONT INF 75 mcg/hr UD TIMMY 7.5 mls/hr Titration Protocol 50 MCG/HR Vancomycin IV-PHARMACY TO DOSE 500 mls @ 250 mls/hr 08/03/24 22:57 1 each/ Sodium Chloride IV PRN PRN Rx to Dose Protocol Pantoprazole Sodium 40 mg/ 110 mls @ 330 mls/hr 08/04/24 10:00 08/09/24 12:15 Sodium Chloride IV Infused Q24 TIMMY Infusion Amiodarone HCl 360 mg/ 200 mls @ 16.667 mls/hr 08/04/24 00:30 08/09/24 11:18 Dextrose CONT INF Not Given .Q12H TIMMY 0.5 MG/MIN Piperacillin Sod/Tazobactam 50 mls @ 12.5 mls/hr 08/04/24 09:00 08/09/24 10:12 Sod 3.375 gm/ Sodium Chloride IV Infused Q8 TIMMY Infusion Enteral Nutritional Formula 1,000 mls @ 45 mls/hr 08/05/24 12:15 08/09/24 08:00 Vital Af 1.2 Tera Liquid GT 45 mls/hr .[id number] TIMMY Infusion Sodium Chloride 100 mls @ 15 mls/hr 08/06/24 06:30 IV .Q6H40M PRN Saline Flush Sodium Chloride 100 mls @ 15 mls/hr 08/06/24 06:30 IV .Q6H40M PRN Additional IVPB Infusion Vancomycin HCl 1,000 mg in 200 mls @ 200 mls/hr 08/08/24 06:00 08/09/24 06:33 Vancomycin IV Infused Q12H TIMMY Infusion Ipratropium Prosser 0.5 mg 08/08/24 16:00 08/09/24 11:35 Ipratropium 0.5 Mg/2.5 Ml Solution INHALATION 0.5 mg Q4H.RT TIMMY Administration Levothyroxine Sodium 100 mcg 08/07/24 06:00 08/09/24 05:36 Levothyroxine 100 Mcg Tablet GT 100 mcg DAILY@0600 TIMMY Administration Metoprolol Tartrate 25 mg 08/09/24 10:00 08/09/24 10:53 Metoprolol Tartrate 25 Mg Tablet GT 25 mg 4X/DAY TIMMY Administration Ondansetron HCl 4 mg 08/03/24 22:57 Ondansetron 4 Mg/2 Ml Vial IV Q8H PRN PRN NAUSEA/VOMITING Senna/Docusate Sodium 2 tablet 08/06/24 10:00 08/09/24 10:54 Senna/Docusate Sodium 1 Tablet GT 2 tablet BID TIMMY Administration Senna/Docusate Sodium 2 tablet 08/06/24 09:41 Senna/Docusate Sodium 1 Tablet GT BID PRN PRN Constipation Sodium Chloride 10 - 40 ml 08/06/24 06:30 08/09/24 11:15 0.9% Saline Lock 10 Ml Syringe IV 20 ml UD PRN Administration SALINE FLUSH Vancomycin Protocol 1 lab 08/09/24 15:30 Vancomycin Trough/Random Due MC 08/09/24 19:30 DAILY [facility] Lab / Micro Data Attestation: I reviewed the patient's lab results. 08/09/24 03:30 08/09/24 03:30 Labs: Laboratory Results - last 24 hr 08/09/24 03:30: WBC 20.4 H, RBC 3.54 L, Hgb 10.2 L, Hct 32.1 L, MCV 90.7, MCH 28.8, MCHC 31.8 L, RDW Std Deviation 50.7 H, RDW Coeff of Emmanuel 15.3 H, Plt Count 207, MPV 10.2, Neut % (Auto) Not Reportable, Absolute Neuts (auto) 13.3 H, Absolute Lymphs (auto) 4.50, Total Counted 100, Neutrophils % (Manual) 65, Lymphocytes % (Manual) 22, Monocytes % (Manual) 4, Metamyelocytes % 2 H, Myelocytes % 7 H, Diff Path Review May foll, Platelet Estimate ADEQUATE, RBC Morphology N CHROM, Polychromasia RARE, Macrocytosis RARE, Tear Drop Cells RARE, APTT 77.9 H, Sodium 146 H, Potassium 3.5, Chloride 109 H, Carbon Dioxide 32.0, Anion Gap 5, BUN 51 H, Creatinine 1.13 H, Estim Creat Clear Calc 61.47, Est GFR (MDRD) Af Amer 62, Est GFR (MDRD) Non-Af 51 L, BUN/Creatinine Ratio 45.1 H, Glucose 167 H, Calcium 9.1 08/09/24 11:20: APTT 87.2 H Micro: Microbiology 08/03/24 15:30 Blood Culture (Wb) - Anticubital Right Blood Culture - Final No growth in 5 days. 08/03/24 14:35 Blood Culture (Wb) - Right Forearm Blood Culture - Final No growth in 5 days. Imaging Radiology Impression Chest CTA 08/09/24 07:23 IMPRESSION: No acute thromboembolic disease. Extensive multifocal bilateral parenchymal airspace opacities with mildly prominent mediastinal lymphadenopathy. One or more dose reduction techniques were used (e.g., Automated exposure control, adjustment of the mA and/or kV according to patient size, use of iterative reconstruction technique). [facility] Assessment and Plan . Assessment and plan: IMPRESSIONS: 1. Septic shock The patient presented to the hospital with sepsis due to suspected pneumonia with acute sepsis related organ dysfunction as evidenced by lactic acidemia, fluid refractory hypotension requiring vasopressor support and acute respiratory failure requiring invasive mechanical ventilation. The patient has been adequately volume resuscitated. She will be continued on Levophed and stress dose steroids, as ordered. Empiric antibiotics will be continued. 2. Atrial fibrillation with RVR Continue amiodarone and IV heparin. 3. Acute hypoxemic respiratory failure pneumonia plus underlying COPD, not ready for weaning based on high Fi)2 55% plus mental status not yet appropriate. Continue full support in AC mode 4. History of hypothyroidism/chronic tobacco dependency/anemia Complicates care, management, recovery and prognosis. Continue home Synthroid regimen as ordered. Tube feeding can be initiated today from my perspective. RECOMMENDATIONS: 1. Continue assist-control mode of mechanical ventilation. Not yet ready for SAT/ SBT but hopefully soon. 2. Continue empiric broad-spectrum antimicrobials. 3. Continue scheduled bronchodilators. 4. Continue Levophed along with stress dose steroids. 5. Continue appropriate DVT and GI prophylaxis. 6. Continue tube feeding. Critical Care Time: 50 minutes The entirety of this encounter was done via Telemedicine Physical Exam Const General Appearance: lethargic, intubated and patient mechanically ventilated HEENT Mouth: endotracheal tube in place and OG tube in place Eyes PERRL and EOMs intact bilaterally Neck full ROM Subjective Subjective Reportedly sat EOOB with PT yesterday, still not following commands. Troubles with RVR noted.
[2024-08-09] MEDS: Vital AF 1.2 Cal Liquid 1,000 ML 45 ML GT (15:02)
[2024-08-09] MEDS: HEPARIN/D5w 25,000 UNITS 25,000 UNITS/250 ML IV.SOLN. 17 UNITS CONT INF (15:24)
--- NOTE | 2024-08-09 18:41 | PCM.RX.CS ---
Consult Antibiotic Management Pharmacy has been consulted to manage selected antibiotic: Vancomycin Type of Intervention Type of Consult: Follow-up Suspected Infection Suspected Infection: Pneumonia Labs Labs: Sodium 146 mmol/L (136-145) H 08/09/24 03:30 Potassium 3.5 mmol/L (3.5-5.1) 08/09/24 03:30 Chloride 109 mmol/L (98-107) H 08/09/24 03:30 Carbon Dioxide 32.0 mmol/L (21.0-32.0) 08/09/24 03:30 Anion Gap 5 (5-15) 08/09/24 03:30 BUN 51 mg/dL (7-18) H 08/09/24 03:30 Creatinine 1.13 mg/dL (0.55-1.02) H 08/09/24 03:30 Est GFR (MDRD) Af Amer 62 mL/min (>60) 08/09/24 03:30 Est GFR (MDRD) Non-Af 51 mL/min (>60) L 08/09/24 03:30 BUN/Creatinine Ratio 45.1 RATIO (10-20) H 08/09/24 03:30 Glucose 167 mg/dL (74-106) H 08/09/24 03:30 Vancomycin Trough 20.0 ug/mL (5.0-15.0) H 08/09/24 17:00 Random Vancomycin 16.7 ug/mL (0.0-15.0) H 08/08/24 05:04 Microbiology Microbiology: Microbiology 08/03/24 15:30 Blood Culture (Wb) - Anticubital Right Blood Culture - Final No growth in 5 days. 08/03/24 14:35 Blood Culture (Wb) - Right Forearm Blood Culture - Final No growth in 5 days. 08/03/24 22:43 Sputum, Induced/Lukens Gram Stain - Final 08/03/24 22:43 Sputum, Induced/Lukens Respiratory Culture - Final Haemophilus influenzae 08/03/24 15:48 Urine Catheter - Catheter Urine Culture - Final Culture exhibits no growth. 08/04/24 07:45 Urine Catheter - Erickson Legionella Antigen - Final 08/04/24 07:45 Urine Catheter - Erickson Streptococcus pneumoniae Antigen (M - Final 08/03/24 23:20 Mucosa - Nasopharyngeal Respiratory Panel (PCR) - Final 08/03/24 14:40 Mucosa - Nose SARS-CoV-2, Influenza & RSV (PCR) - Final Pharmacy Plan for Drug Dosing Pharmacy Plan for Drug Dosing: VANCOMYCIN LEVEL RECEIVED Current Vancomycin Dose: 1000mg q12h () Number of Doses Received: x3 of current dose Vancomycin Level: 20.0 (drawn 08/09 at 1700) Hours Since Last Dose: 11.5 hours since last 1000mg dose Renal Function: SrCr 1.13 Renal Function Trend: SrCr increasing from 08/07 when it was 1.07 Lab/Micro: Vancomycin Plan/Comments: recommend holding dose for approx 3 hours to allow more of the previous dose to clear. re-start at a dose of 750mg q12h () Pending Level: 08/11/24 at 0830 Pharmacy Service will continue to monitor and adjust dosing as required. Follow-Up Labs Follow-Up Labs: Trough: Vancomycin (08/11/24 at 0830)
[2024-08-09 19:18] LABS: Partial Thromboplast Time 81.4 Seconds (24.1-36.2)
[2024-08-09] MEDS: Acetaminophen 325 MG Tablet 650 MG PO (21:52)
[2024-08-09] MEDS: Vancomycin HCl 750 MG in 0.9% Normal Saline (250mL Bag) 250 ML 250 MG IV (21:53)
[2024-08-10] VITALS (39 sets, daily range): BP systolic 106–170; BP diastolic 65–108; PULSE 90–146; RESP 16–30; TEMP 37.9–38.8; O2SAT 87–98; BMI 84.9; BMI 38.5
[2024-08-10] MEDS: Propofol 10MG/Ml 1,000 MG/100 ML Bottle 6.4 MG CONT INF ×2 (00:35→19:37)
[2024-08-10] MEDS: Amiodarone 360 MG in Dextrose 5% Viaflo Bag 192.8 ML 16.7 MG CONT INF ×2 (02:45→15:40)
[2024-08-10] MEDS: Ipratropium 0.5 MG/2.5 ML SOLUTION INHALATION ×6 (02:50→23:15)
[2024-08-10 03:07] LABS: Partial Thromboplast Time 54.2 Seconds (24.1-36.2)
[2024-08-10] MEDS: Piperacil/Tazobactam 3.375 GM in 0.9% Normal Saline (50mL MB+) 50 ML IV (05:24)
[2024-08-10] MEDS: Levothyroxine 100 MCG Tablet GT (05:25)
[2024-08-10] MEDS: fentaNYL drip 100 ML 5 MCG CONT INF (05:27)
[2024-08-10] MEDS: HEPARIN/D5w 25,000 UNITS 25,000 UNITS/250 ML IV.SOLN. 17 UNITS CONT INF ×2 (05:28→19:48)
[2024-08-10] MEDS: Chlorhexidine 15 ML PO ×2 (07:49→21:00)
[2024-08-10] MEDS: CHLORHEXIDINE GLUC 2% CLOTH 1 EACH TOWELETTE TOPICAL ×2 (07:49→22:39)
[2024-08-10] MEDS: Furosemide 20 MG/2 ML VIAL IV ×2 (07:50→15:49)
[2024-08-10] MEDS: Estradiol 1 MG Tablet 2 MG GT (07:50)
[2024-08-10] MEDS: Metoprolol Tartrate 25 MG Tablet GT (07:50)
[2024-08-10] MEDS: Senna/Docusate Sodium 1 Tablet 2 TABLET GT (07:51)
[2024-08-10] MEDS: guaiFENesin 1,200 MG Tablet 1200 MG PO (07:51)
[2024-08-10] MEDS: Hydrocortisone Sod Succinate 100 MG/2 ML Vial 50 MG IV (07:52)
[2024-08-10] MEDS: Pantoprazole Sodium 40 MG in 0.9% Normal Saline (100mL MB+) 100 ML 330 MG IV (08:07)
--- NOTE | 2024-08-10 08:16 | PCM.PN.INT ---
Assessment & Plan Assessment/Plan (1) Acute hypoxic respiratory failure: PLAN: Plan RECOMMENDATIONS: 1. Continue assist-control mode of mechanical ventilation. Wean FiO2 and PEEP as tolerated. 2. Attempt repeat spontaneous breathing trial tomorrow. 3. Increase beta-nina dosing. 4. Continue antimicrobials to complete 7 days of therapy. 5. Continue amiodarone as ordered. 6. Propofol and fentanyl for sedation. 7. Gentle diuresis as tolerated by hemodynamics and renal function. 8. Continue tube feeding as tolerated. 9. Stop stress dose steroids. 10. Continue appropriate DVT and GI prophylaxis. IMPRESSIONS: 1. Septic shock The patient presented to the hospital with sepsis due to haemophilus influenza pneumonia with acute sepsis related organ dysfunction as evidenced by lactic acidemia, fluid refractory hypotension requiring vasopressor support and acute respiratory failure requiring invasive mechanical ventilation. The patient has been adequately volume resuscitated. The patient has been successfully weaned from vasopressor support and remains hemodynamically stable. Stress dose steroids will be discontinued today. Antimicrobials will be continued to complete 7 days of therapy. Given elevated white blood cell count this morning, will obtain repeat blood cultures. 2. Atrial fibrillation with RVR Continue amiodarone as ordered. Echocardiogram revealed intact systolic function. Plan to increase beta-nina regimen, as ordered. 3. Acute hypoxemic respiratory failure Clinical suspicion for possible underlying obstructive lung disease in a state of exacerbation due to multifocal pneumonia. The patient was subsequently intubated in the emergency department. Plan to continue assist-control mode of mechanical ventilation. FiO2 and PEEP will be weaned as tolerated. Antimicrobials and bronchodilators will be continued. Continue ongoing attempts of gentle diuresis as tolerated by hemodynamics and renal function. 4. History of hypothyroidism/chronic tobacco dependency/anemia Complicates care, management, recovery and prognosis. Continue home Synthroid regimen as ordered. Continue tube feeding as tolerated. TIME: 36 minutes of critical care time, independent of procedures, was spent addressing the patient's septic shock, atrial fibrillation with RVR, acute hypoxemic respiratory failure, review of all data and collaboration with the care team. Subjective Subjective The patient was seen and examined at the bedside this morning. Events from the last 24 hours have been reviewed. The patient currently has low-grade fevers and remains tachycardic. She is otherwise hemodynamically stable on assist-control mode of mechanical ventilation with an FiO2 requirement of 45% and PEEP of 5. The patient is currently documented to be overall net positive a liter for the hospitalization. She remains on a continuous amiodarone infusion and has been tolerant of tube feeding. She is currently sedated on low-dose propofol and fentanyl. White blood cell count is elevated at 32,000. Creatinine is stable at 1.19. The patient was only able to tolerate approximately 30 minutes of a spontaneous breathing trial this morning. Objective Data Objective Data The patient's most recent lab work, culture data and imaging studies have all been personally reviewed. Surface echocardiogram demonstrated normal LV size and function with an ejection fraction of 55%. Sputum culture was positive for haemophilus influenza. Vital Signs: Vital Signs Temp Pulse Resp BP Pulse Ox O2 Del Method O2 Flow Rate 100.6 F H 142 H 20 H 143/86 H 90 Mechanical Ventilator 7 08/10/24 06:00 08/10/24 07:50 08/10/24 07:00 08/10/24 07:50 08/10/24 07:00 08/10/24 07:00 08/05/24 05:00 FiO2 45 08/10/24 07:00 Oxygen Flow Rate (L/min) 7 Oxygen Delivery Method Mechanical Ventilator Weight: 528 lb 3.641 oz Body Mass Index (BMI) 84.9 Intake & Output: Intake and Output for Last 24 Hours 08/08/24 08/09/24 08/10/24 23:59 23:59 23:59 Intake Total 2850.50 / 2944.40 3299.41 / 3310.11 391.80 / 391.80 Output Total 2225 / 2675 3400 / 3400 600 / 600 Balance 625.50 / 269.40 -100.59 / -89.89 -208.20 / -208.20 Lab / Micro Data Attestation: I reviewed the patient's lab results. 08/10/24 08:45 08/10/24 08:45 Labs: Laboratory Results - last 24 hr 08/09/24 11:20: APTT 87.2 H 08/09/24 17:00: Vancomycin Trough 20.0 H 08/09/24 18:45: APTT 81.4 H 08/10/24 02:45: APTT 54.2 H Micro: Microbiology 08/03/24 15:30 Blood Culture (Wb) - Anticubital Right Blood Culture - Final No growth in 5 days. 08/03/24 14:35 Blood Culture (Wb) - Right Forearm Blood Culture - Final No growth in 5 days. 08/03/24 22:43 Sputum, Induced/Lukens Gram Stain - Final 08/03/24 22:43 Sputum, Induced/Lukens Respiratory Culture - Final Haemophilus influenzae 08/03/24 15:48 Urine Catheter - Catheter Urine Culture - Final Culture exhibits no growth. 08/04/24 07:45 Urine Catheter - Erickson Legionella Antigen - Final 08/04/24 07:45 Urine Catheter - Erickson Streptococcus pneumoniae Antigen (M - Final 08/03/24 23:20 Mucosa - Nasopharyngeal Respiratory Panel (PCR) - Final 08/03/24 14:40 Mucosa - Nose SARS-CoV-2, Influenza & RSV (PCR) - Final ABG Data ABG results: ABG 08/04/24 09:06 Specimen Type ART Sample Site R Radial pH 7.24 L Bicarbonate Actual 21.1 L Total CO2 23 Base Excess -6 L O2 Saturation 92 L O2 % 70.0 ABG pCO2 49.6 H ABG pO2 74 L Manoj Test Positive Respiration Rate 16 O2 Delivery Device Adult Vent Vent Mode SIMV(PRVC)+PS Tidal Volume 450.0 POC PEEP 10 Radiography Diagnostic Testing: Radiology Impression Chest CTA 08/09/24 07:23 IMPRESSION: No acute thromboembolic disease. Extensive multifocal bilateral parenchymal airspace opacities with mildly prominent mediastinal lymphadenopathy. One or more dose reduction techniques were used (e.g., Automated exposure control, adjustment of the mA and/or kV according to patient size, use of iterative reconstruction technique). Reading Location: [facility] [place] Physical Exam Const Constitutional Narrative: Intubated, sedated and mechanically ventilated. Obese. General Appearance: ill appearing and patient mechanically ventilated HEENT normocephalic and head/scalp atraumatic Mouth: endotracheal tube in place and OG tube in place Eyes PERRL, EOMs intact bilaterally and conjunctivae normal Neck supple General: trachea midline Chest inspection of chest normal Resp no use of accessory muscles Auscultation: rhonchi and diminished lung sounds Cardio S1 normal heart sound and S2 normal heart sound Rate: tachycardic Rhythm: abnormal rhythm GI normal to inspection, nondistended, normoactive bowel sounds Extremity General Extremity: edema; Negative for clubbing Skin No no rashes or lesions noted Neuro Sensorium / Orientation: sedated on vent Charges/Coding Procedures Hospitalists Procedures: 45701 Critical Care 1st Hr
[2024-08-10 09:12] LABS: Hematocrit 37.4 % (37-47); Hemoglobin 11.8 g/dL (12.0-15.0); Mean Corp Hgb Conc 31.6 g/dL (32-36); Mean Corpuscular Volume 91.9 fL (81-99); Mean Platelet Vol. 10.9 fl (6.2-12.0); POSITIVE COUNT YES; POSITIVE DIFFERENTIAL YES; POSITIVE MORPHOLOGY YES; Platelet Count 310 K/mm3 (150-450); RBC Distribution Width CV 15.6 % (11.6-14.6); RBC Distribution Width SD 49.8 fl (35.1-43.9); Red Blood Count 4.07 M/mm3 (4.2-5.4); White Blood Count 31.8 K/mm3 (4.4-11.0)
[2024-08-10 09:14] LABS: Differential Indicated MANUAL DIFF
[2024-08-10 09:31] LABS: ALB/GLOB Ratio 0.4 RATIO (0.9-2.4); AST(SGOT) 43 U/L (15-37); Alanine Aminotransfer ALT/SGPT 61 U/L (13-56); Albumin, Serum 1.9 g/dL (3.2-5.0); Alkaline Phosphatase 139 U/L (45-117); Anion Gap 7 (5-15); BUN 47 mg/dL (7-18); BUN/Creat Ratio 39.5 RATIO (10-20); Calcium,Total 9.3 mg/dL (8.5-10.1); Chloride 106 mmol/L (98-107); Creatinine, Serum 1.19 mg/dL (0.55-1.02); EST Glomerular Filtration Rate 48 mL/min (>60); Est Glom Filt Rate - Afr Amer 59 mL/min (>60); Estimated Creatinine Clearance 97.78 ml/min; Globulin 5.2 g/dL (2.2-4.2); Glucose 181 mg/dL (74-106); Magnesium 2.4 mg/dL (1.6-2.6); Phosphorus 4.6 mg/dL (2.5-4.9); Potassium 3.6 mmol/L (3.5-5.1); Protein, Total 7.1 g/dL (6.4-8.2); Sodium Level 146 mmol/L (136-145)
[2024-08-10 10:17] LABS: Eosinophil 2 % (0-5); Lymphocyte 26 % (19-41); Metamyelocyte 4 % (0-1); Monocyte 3 % (0-10); Neutrophil-Band 2 % (0-5); Neutrophil-Segmented 63 % (47-70); Total Cells Counted 100 (MANUAL DIFF)
[2024-08-10 10:22] LABS: Platelet Estimate ADEQUATE (ADEQ)
[2024-08-10 10:23] LABS: Red Cell Morphology NORM C+C NORMAL (NORM C&C)
[2024-08-10 10:24] LABS: Absolute Neutrophil Count 20.6 X10^3/uL (2.0-7.7)
[2024-08-10 10:25] LABS: Absolute Lymphocyte Count 8.27 X10^3/uL (0.83-4.51)
[2024-08-10] MEDS: Ceftriaxone 2 GM in 0.9% Normal Saline (50mL MB+) 50 ML IV (11:11)
[2024-08-10] MEDS: Metoprolol Tartrate 50 MG Tablet GT ×2 (11:12→20:59)
[2024-08-10 13:29] LABS: Pathologist Review Reviewed
[2024-08-10 13:38] LABS: Pathologist Review Reviewed
[2024-08-10 13:42] LABS: Pathologist Review Reviewed
[2024-08-10] MEDS: Vital AF 1.2 Cal Liquid 1,000 ML 45 ML GT (15:40)
[2024-08-10 18:17] LABS: Partial Thromboplast Time 72.8 Seconds (24.1-36.2)
--- NOTE | 2024-08-10 18:22 | PCM.PN.HOSP ---
Reason for Visit Reason for Visit: Diagnoses Hypothyroidism, unspecified (08/03/24) Unspecified atrial fibrillation (08/03/24) Pneumonia, unspecified organism (08/03/24) Acute respiratory failure with hypoxia (08/03/24) Subjective Subjective Patient was seen and examined today, I talked briefly with her who is at the bedside today. Patient remains on the ventilator, she failed a weaning trial today. I talked briefly with pulmonary medicine about her care Objective Data Objective Data Vital Signs: Vital Signs Temp Pulse Resp BP Pulse Ox O2 Del Method O2 Flow Rate 101.1 F H 126 H 18 141/81 H 88 Mechanical Ventilator 7 08/10/24 17:00 08/10/24 17:30 08/10/24 17:30 08/10/24 17:00 08/10/24 17:30 08/10/24 17:00 08/05/24 05:00 FiO2 45 08/10/24 17:00 Oxygen Flow Rate (L/min) 7 Oxygen Delivery Method Mechanical Ventilator Weight: 108.9 kg Body Mass Index (BMI) 38.5 Intake & Output: Intake and Output for Last 24 Hours 08/08/24 08/09/24 08/10/24 23:59 23:59 23:59 Intake Total 2850.50 / 2944.40 3299.41 / 3310.11 1701.74 / 1701.74 Output Total 2225 / 2675 3400 / 3400 2600 / 2600 Balance 625.50 / 269.40 -100.59 / -89.89 -898.26 / -898.26 Lab / Micro Data 08/10/24 08:45 08/10/24 08:45 Labs: Laboratory Results - last 24 hr 08/07/24 04:03: Diff Path Review Reviewed 08/08/24 05:04: Diff Path Review Reviewed 08/09/24 03:30: Diff Path Review Reviewed 08/09/24 18:45: APTT 81.4 H 08/10/24 02:45: APTT 54.2 H 08/10/24 08:45: WBC 31.8 H*, RBC 4.07 L, Hgb 11.8 L, Hct 37.4, MCV 91.9, MCH 29.0, MCHC 31.6 L, RDW Std Deviation 49.8 H, RDW Coeff of Emmanuel 15.6 H, Plt Count 310, MPV 10.9, Neut % (Auto) Not Reportable, Absolute Neuts (auto) 20.6 H, Absolute Lymphs (auto) 8.27 H, Total Counted 100, Neutrophils % (Manual) 63, Band Neutrophils % 2, Lymphocytes % (Manual) 26, Monocytes % (Manual) 3, Eosinophils % (Manual) 2, Metamyelocytes % 4 H, Diff Path Review October, Platelet Estimate ADEQUATE, RBC Morphology NORM C+C, APTT 50.0 H, Sodium 146 H, Potassium 3.6, Chloride 106, Carbon Dioxide 33.0 H, Anion Gap 7, BUN 47 H, Creatinine 1.19 H, Estim Creat Clear Calc 97.78, Est GFR (MDRD) Af Amer 59 L, Est GFR (MDRD) Non-Af 48 L, BUN/Creatinine Ratio 39.5 H, Glucose 181 H, Calcium 9.3, Phosphorus 4.6, Magnesium 2.4, Total Bilirubin 0.80, AST 43 H, ALT 61 H, Alkaline Phosphatase 139 H, Total Protein 7.1, Albumin 1.9 L, Globulin 5.2 H, Albumin/Globulin Ratio 0.4 L 08/10/24 17:25: APTT 72.8 H Micro: Microbiology 08/03/24 15:30 Blood Culture (Wb) - Anticubital Right Blood Culture - Final No growth in 5 days. 08/03/24 14:35 Blood Culture (Wb) - Right Forearm Blood Culture - Final No growth in 5 days. 08/03/24 22:43 Sputum, Induced/Lukens Gram Stain - Final 08/03/24 22:43 Sputum, Induced/Lukens Respiratory Culture - Final Haemophilus influenzae 08/03/24 15:48 Urine Catheter - Catheter Urine Culture - Final Culture exhibits no growth. 08/04/24 07:45 Urine Catheter - Erickson Legionella Antigen - Final 08/04/24 07:45 Urine Catheter - Erickson Streptococcus pneumoniae Antigen (M - Final 08/03/24 23:20 Mucosa - Nasopharyngeal Respiratory Panel (PCR) - Final 08/03/24 14:40 Mucosa - Nose SARS-CoV-2, Influenza & RSV (PCR) - Final Physical Exam Const Constitutional Narrative: Patient is sedated and on the ventilator HEENT normocephalic, head/scalp atraumatic and moist oral mucous membranes Eyes conjunctivae normal Neck supple, no JVD and thyroid normal General: trachea midline Resp clear to auscultation bilaterally Resp Narrative: Scattered expiratory rhonchi are noted bilaterally Auscultation: rhonchi; Negative for rales or wheezes Cardio S1 normal heart sound, S2 normal heart sound, no murmurs, no rub and no gallops Cardio Narrative: Heart rate and rhythm is irregular GI normal to inspection, nondistended, normoactive bowel sounds, soft to palpation, non-tender and non-distended Extremity no clubbing, cyanosis or edema Skin no rashes or lesions noted Neuro CN's II-XII intact bilaterally Neuro Narrative: Patient is sedated and on the ventilator Psych Psych Narrative: Patient is sedated and on a ventilator Assessment & Plan Assessment/Plan (1) Acute hypoxic respiratory failure: PLAN: Plan 1. Septic shock-secondary to haemophilus influenza pneumonia, patient is currently off pressor agents at this time, critical care discontinued her corticosteroids today, she remains on IV antibiotics at this time #2 acute hypoxic respiratory failure-again patient failed her weaning trial today, critical care will likely try another trial tomorrow #3 atrial fibrillation with RVR-patient is currently on amiodarone and a beta-nina #4 hypothyroidism-patient is currently on Synthroid Total clinical time spent by myself addressing the patient's medical issues, reviewing all of her data, and collaborating with patient's care team: 35 minutes Charges/Coding Visit Charges Inpatient E&M: 31344 Subs Hosp L2
[2024-08-10] MEDS: fentaNYL drip 100 ML 7.5 MCG CONT INF (19:49)
[2024-08-10] MEDS: Acetaminophen 650 MG/20 ML UDC GT (21:02)
[2024-08-11] VITALS (37 sets, daily range): BP systolic 106–182; BP diastolic 57–103; PULSE 62–144; RESP 16–91; TEMP 36.6–38.8; O2SAT 20–99; BMI 37.5
[2024-08-11 00:28] LABS: Partial Thromboplast Time 77.5 Seconds (24.1-36.2)
[2024-08-11] MEDS: Ipratropium 0.5 MG/2.5 ML SOLUTION INHALATION ×6 (03:35→23:13)
[2024-08-11] MEDS: Amiodarone 360 MG in Dextrose 5% Viaflo Bag 192.8 ML 16.7 MG CONT INF ×2 (04:00→16:35)
[2024-08-11] MEDS: 0.9% Saline Lock 10 ML Syringe IV ×2 (04:01→20:41)
[2024-08-11] MEDS: Levothyroxine 100 MCG Tablet GT (05:03)
[2024-08-11 06:23] LABS: Hematocrit 33.1 % (37-47); Hemoglobin 10.6 g/dL (12.0-15.0); Mean Corpuscular Volume 90.4 fL (81-99); Mean Platelet Vol. 10.6 fl (6.2-12.0); POSITIVE COUNT YES; POSITIVE MORPHOLOGY YES; Platelet Count 201 K/mm3 (150-450); RBC Distribution Width CV 15.7 % (11.6-14.6); RBC Distribution Width SD 50.3 fl (35.1-43.9); Red Blood Count 3.66 M/mm3 (4.2-5.4); White Blood Count 18.2 K/mm3 (4.4-11.0)
[2024-08-11 06:47] LABS: Anion Gap 5 (5-15); BUN 46 mg/dL (7-18); Calcium,Total 8.8 mg/dL (8.5-10.1); Chloride 106 mmol/L (98-107); Creatinine, Serum 1.07 mg/dL (0.55-1.02); EST Glomerular Filtration Rate 55 mL/min (>60); Est Glom Filt Rate - Afr Amer 66 mL/min (>60); Estimated Creatinine Clearance 64.45 ml/min; Glucose 160 mg/dL (74-106); Sodium Level 147 mmol/L (136-145)
[2024-08-11 06:55] LABS: Triglycerides 240 mg/dL
[2024-08-11 06:56] LABS: CPK Total, Creatine Kinase 48 U/L (26-192)
[2024-08-11 07:10] LABS: Partial Thromboplast Time 62.1 Seconds (24.1-36.2)
[2024-08-11 07:12] LABS: Differential Indicated MANUAL DIFF
--- NOTE | 2024-08-11 07:56 | PN.CC_ITS ---
Assessment & Plan Assessment/Plan (1) Acute hypoxic respiratory failure: PLAN: Plan RECOMMENDATIONS: 1. Continue assist-control mode of mechanical ventilation. Wean FiO2 and PEEP as tolerated. 2. Reattempt pressure support trial today. 3. Increase beta-nina regimen as ordered. 4. Continue attempts at diuresis as tolerated by hemodynamics and renal function. 5. Continue antimicrobial therapy. 6. Continue amiodarone and weight-based heparin infusion. 7. Continue propofol and fentanyl for sedation. 8. Continue tube feeding as tolerated. 9. Continue appropriate ICU prophylaxis. IMPRESSIONS: 1. Septic shock The patient presented to the hospital with sepsis due to haemophilus influenza pneumonia with acute sepsis related organ dysfunction as evidenced by lactic acidemia, fluid refractory hypotension requiring vasopressor support and acute respiratory failure requiring invasive mechanical ventilation. The patient has been adequately volume resuscitated. The patient has been successfully weaned from vasopressor support and remains hemodynamically stable. The patient was subsequently weaned from stress dose steroids. Antimicrobials will be continued. Repeat blood cultures are currently pending. 2. Atrial fibrillation with RVR Continue amiodarone as ordered. Echocardiogram revealed intact systolic function. Plan to increase beta-nina regimen, as ordered. Continue aggressive electrolyte repletion. 3. Acute hypoxemic respiratory failure Clinical suspicion for possible underlying obstructive lung disease in a state of exacerbation due to multifocal pneumonia. The patient was subsequently intubated in the emergency department. Plan to continue assist-control mode of mechanical ventilation. FiO2 and PEEP will be weaned as tolerated. Antimicrobials and bronchodilators will be continued. Continue ongoing attempts of gentle diuresis as tolerated by hemodynamics and renal function. 4. History of hypothyroidism/chronic tobacco dependency/anemia Complicates care, management, recovery and prognosis. Continue home Synthroid regimen as ordered. Continue tube feeding as tolerated. Physical therapy to work with the patient. TIME: 34 minutes of critical care time, independent of procedures, was spent addressing the patient's septic shock, atrial fibrillation with RVR, acute hypoxemic respiratory failure, review of all data and collaboration with the care team. Subjective Subjective The patient was seen and examined at the bedside this morning. Events from the last 24 hours have been reviewed. The patient continues to have low-grade fevers and remains tachycardic. She is otherwise hemodynamically stable. The patient remains on assist-control mode mechanical ventilation with an FiO2 requirement of 50% and PEEP of 5. She is currently documented to be overall net +7 L for the hospitalization. White blood cell count has improved to 18,000 with a hemoglobin of 10.6 g/dL and platelet count of 201,000. Sodium this morning was noted to be 147 with a potassium of 3.0, bicarbonate of 36 and creatinine of 1.07. Objective Data Objective Data The patient's most recent lab work, culture data and imaging studies have all been personally reviewed. Surface echocardiogram demonstrated normal LV size and function with an ejection fraction of 55%. Sputum culture was positive for haemophilus influenza. Repeat blood cultures are currently pending. Vital Signs: Vital Signs Temp Pulse Resp BP Pulse Ox O2 Del Method O2 Flow Rate 100.5 F H 120 H 18 140/71 H 91 Mechanical Ventilator 7 08/11/24 07:00 08/11/24 07:00 08/11/24 07:00 08/11/24 07:00 08/11/24 07:00 08/11/24 07:00 08/05/24 05:00 FiO2 50 08/11/24 07:00 Oxygen Flow Rate (L/min) 7 Oxygen Delivery Method Mechanical Ventilator Weight: 233 lb 3.2 oz Body Mass Index (BMI) 37.5 Intake & Output: Intake and Output for Last 24 Hours 08/09/24 08/10/24 08/11/24 23:59 23:59 23:59 Intake Total 3299.41 / 3310.11 2039.82 / 2133.72 552.98 / 552.98 Output Total 3400 / 3400 3350 / 3350 500 / 500 Balance -100.59 / -89.89 -1310.18 / -1216.28 52.98 / 52.98 Lab / Micro Data Attestation: I reviewed the patient's lab results. 08/11/24 06:16 08/11/24 06:16 Labs: Laboratory Results - last 24 hr 08/07/24 04:03: Diff Path Review Reviewed 08/08/24 05:04: Diff Path Review Reviewed 08/09/24 03:30: Diff Path Review Reviewed 08/10/24 08:45: WBC 31.8 H*, RBC 4.07 L, Hgb 11.8 L, Hct 37.4, MCV 91.9, MCH 29.0, MCHC 31.6 L, RDW Std Deviation 49.8 H, RDW Coeff of Emmanuel 15.6 H, Plt Count 310, MPV 10.9, Neut % (Auto) Not Reportable, Absolute Neuts (auto) 20.6 H, A bsolute Lymphs (auto) 8.27 H, Total Counted 100, Neutrophils % (Manual) 63, Band Neutrophils % 2, Lymphocytes % (Manual) 26, Monocytes % (Manual) 3, Eosinophils % (Manual) 2, Metamyelocytes % 4 H, Diff Path Review October, Platelet Estimate ADEQUATE, RBC Morphology NORM C+C, APTT 50.0 H, Sodium 146 H, Potassium 3.6, Chloride 106, Carbon Dioxide 33.0 H, Anion Gap 7, BUN 47 H, Creatinine 1.19 H, Estim Creat Clear Calc 97.78, Est GFR (MDRD) Af Amer 59 L, Est GFR (MDRD) Non-Af 48 L, BUN/Creatinine Ratio 39.5 H, Glucose 181 H, Calcium 9.3, Phosphorus 4.6, Magnesium 2.4, Total Bilirubin 0.80, AST 43 H, ALT 61 H, Alkaline Phosphatase 139 H, Total Protein 7.1, Albumin 1.9 L, Globulin 5.2 H, Albumin/Globulin Ratio 0.4 L 08/10/24 17:25: APTT 72.8 H 08/11/24 00:00: APTT 77.5 H 08/11/24 06:16: WBC 18.2 H, RBC 3.66 L, Hgb 10.6 L, Hct 33.1 L, MCV 90.4, MCH 29.0, MCHC 32.0, RDW Std Deviation 50.3 H, RDW Coeff of Emmanuel 15.7 H, Plt Count 201, MPV 10.6, Neut % (Auto) Not Reportable, APTT 62.1 H, Sodium 147 H, P otassium 3.0 L, Chloride 106, Carbon Dioxide 36.0 H, Anion Gap 5, BUN 46 H, C reatinine 1.07 H, Estim Creat Clear Calc 64.45, Est GFR (MDRD) Af Amer 66, Est GFR (MDRD) Non-Af 55 L, BUN/Creatinine Ratio 43.0 H, Glucose 160 H, Calcium 8.8, Total Creatine Kinase 48, Triglycerides 240 H Micro: Microbiology 08/03/24 15:30 Blood Culture (Wb) - Anticubital Right Blood Culture - Final No growth in 5 days. 08/03/24 14:35 Blood Culture (Wb) - Right Forearm Blood Culture - Final No growth in 5 days. 08/03/24 22:43 Sputum, Induced/Lukens Gram Stain - Final 08/03/24 22:43 Sputum, Induced/Lukens Respiratory Culture - Final Haemophilus influenzae 08/03/24 15:48 Urine Catheter - Catheter Urine Culture - Final Culture exhibits no growth. 08/04/24 07:45 Urine Catheter - Erickson Legionella Antigen - Final 08/04/24 07:45 Urine Catheter - Erickson Streptococcus pneumoniae Antigen (M - Final 08/03/24 23:20 Mucosa - Nasopharyngeal Respiratory Panel (PCR) - Final 08/03/24 14:40 Mucosa - Nose SARS-CoV-2, Influenza & RSV (PCR) - Final ABG Data ABG results: ABG 08/04/24 09:06 Specimen Type ART Sample Site R Radial pH 7.24 L Bicarbonate Actual 21.1 L Total CO2 23 Base Excess -6 L O2 Saturation 92 L O2 % 70.0 ABG pCO2 49.6 H ABG pO2 74 L Manoj Test Positive Respiration Rate 16 O2 Delivery Device Adult Vent Vent Mode SIMV(PRVC)+PS Tidal Volume 450.0 POC PEEP 10 Radiography Diagnostic Testing: Radiology Impression Chest CTA 08/09/24 07:23 IMPRESSION: No acute thromboembolic disease. Extensive multifocal bilateral parenchymal airspace opacities with mildly prominent mediastinal lymphadenopathy. One or more dose reduction techniques were used (e.g., Automated exposure control, adjustment of the mA and/or kV according to patient size, use of iterative reconstruction technique). Reading Location: [facility] Physical Exam Const Constitutional Narrative: Intubated, sedated and mechanically ventilated. Obese. General Appearance: ill appearing and patient mechanically ventilated HEENT normocephalic and head/scalp atraumatic Mouth: endotracheal tube in place and OG tube in place Eyes PERRL, EOMs intact bilaterally and conjunctivae normal Neck supple General: trachea midline Chest inspection of chest normal Resp no use of accessory muscles Auscultation: diminished lung sounds; Negative for rales, rhonchi or wheezes Cardio S1 normal heart sound and S2 normal heart sound Rate: tachycardic Rhythm: abnormal rhythm GI normal to inspection, nondistended, normoactive bowel sounds Extremity General Extremity: edema; Negative for clubbing Skin No no rashes or lesions noted Neuro Sensorium / Orientation: sedated on vent Charges/Coding Procedures Hospitalists Procedures: [id number] Critical Care 1st Hr
[2024-08-11] MEDS: Propofol 10MG/Ml 1,000 MG/100 ML Bottle 6.3 MG CONT INF (08:10)
[2024-08-11 08:27] LABS: Lymphocyte 18 % (19-41); Monocyte 6 % (0-10); Myelocyte 1 % (0-0); Neutrophil-Segmented 75 % (47-70); Nucleated Red Bld Cells,Manual 2 % (0-5); Total Cells Counted 100 (MANUAL DIFF)
[2024-08-11 08:30] LABS: Absolute Neutrophil Count 13.6 X10^3/uL (2.0-7.7)
[2024-08-11] MEDS: Furosemide 40 MG/4 ML Vial IV ×2 (08:56→16:36)
[2024-08-11] MEDS: Metoprolol Tartrate 100 MG Tablet GT ×2 (08:56→20:33)
[2024-08-11] MEDS: guaiFENesin 1,200 MG Tablet 1200 MG PO ×2 (08:57→20:33)
[2024-08-11] MEDS: Estradiol 1 MG Tablet 2 MG GT (08:57)
[2024-08-11] MEDS: Potassium Chloride 20mEq/100mL 20 MEQ/100 ML IV.SOLN. 100 MEQ IV BOLUS ×2 (09:20→12:01)
[2024-08-11] MEDS: fentaNYL drip 100 ML 7.5 MCG CONT INF ×2 (09:20→23:37)
[2024-08-11] MEDS: Ceftriaxone 2 GM in 0.9% Normal Saline (50mL MB+) 50 ML IV (09:21)
[2024-08-11] MEDS: Chlorhexidine 15 ML PO ×2 (09:22→20:34)
[2024-08-11] MEDS: Pantoprazole Sodium 40 MG in 0.9% Normal Saline (100mL MB+) 100 ML 330 MG IV (09:23)
[2024-08-11] MEDS: AcetaZOLAMIDE 500 MG/10 ML Vial 250 MG IV (10:10)
[2024-08-11] MEDS: HEPARIN/D5w 25,000 UNITS 25,000 UNITS/250 ML IV.SOLN. 16 UNITS CONT INF (11:59)
[2024-08-11 12:46] LABS: Partial Thromboplast Time 56.5 Seconds (24.1-36.2)
[2024-08-11] MEDS: Vital AF 1.2 Cal Liquid 1,000 ML 50 ML GT (13:41)
[2024-08-11 14:44] LABS: Pathologist Review Reviewed
[2024-08-11] MEDS: Digoxin 250 MCG/ML Ampul 500 MCG IV (14:49)
[2024-08-11] MEDS: Acetaminophen 650 MG/20 ML UDC GT (18:18)
--- NOTE | 2024-08-11 19:58 | PN.HOSP_ITS ---
Reason for Visit Reason for Visit: Diagnoses Hypothyroidism, unspecified (08/03/24) Unspecified atrial fibrillation (08/03/24) Pneumonia, unspecified organism (08/03/24) Acute respiratory failure with hypoxia (08/03/24) Subjective Subjective Patient was seen and examined today, she remains on the ventilator at this time under light sedation. Patient is still in atrial fibrillation with a rapid ventricular response, elected to place the patient on digoxin today, she is already on a beta-nina. Objective Data Objective Data Vital Signs: Vital Signs Temp Pulse Resp BP Pulse Ox O2 Del Method O2 Flow Rate 102 F H 112 H 19 H 150/71 H 94 Mechanical Ventilator 7 08/11/24 19:00 08/11/24 19:00 08/11/24 19:00 08/11/24 19:00 08/11/24 19:00 08/11/24 19:40 08/05/24 05:00 FiO2 50 08/11/24 19:40 Oxygen Flow Rate (L/min) 7 Oxygen Delivery Method Mechanical Ventilator Weight: 105.778 kg Body Mass Index (BMI) 37.5 Intake & Output: Intake and Output for Last 24 Hours 08/09/24 08/10/24 08/11/24 23:59 23:59 23:59 Intake Total 3299.41 / 3310.11 2039.82 / 2133.72 2672.59 / 2672.59 Output Total 3400 / 3400 3350 / 3350 4300 / 4300 Balance -100.59 / -89.89 -1310.18 / -1216.28 -1627.41 / -1627.41 Lab / Micro Data 08/11/24 06:16 08/11/24 06:16 Labs: Laboratory Results - last 24 hr 08/10/24 08:45: Diff Path Review Reviewed 08/11/24 00:00: APTT 77.5 H 08/11/24 06:16: WBC 18.2 H, RBC 3.66 L, Hgb 10.6 L, Hct 33.1 L, MCV 90.4, MCH 29.0, MCHC 32.0, RDW Std Deviation 50.3 H, RDW Coeff of Emmanuel 15.7 H, Plt Count 201, MPV 10.6, Neut % (Auto) Not Reportable, Absolute Neuts (auto) 13.6 H, Absolute Lymphs (auto) 3.30, Total Counted 100, Neutrophils % (Manual) 75 H, L ymphocytes % (Manual) 18 L, Monocytes % (Manual) 6, Myelocytes % 1 H, Nucleated RBCs/100 WBC 2, Diff Path Review October, APTT 62.1 H, Sodium 147 H, Potassium 3.0 L, Chloride 106, Carbon Dioxide 36.0 H, Anion Gap 5, BUN 46 H, Creatinine 1.07 H, Estim Creat Clear Calc 64.45, Est GFR (MDRD) Af Amer 66, Est GFR (MDRD) Non-Af 55 L, BUN/Creatinine Ratio 43.0 H, Glucose 160 H, Calcium 8.8, Total Creatine Kinase 48, Triglycerides 240 H 08/11/24 12:05: APTT 56.5 H Micro: Microbiology 08/03/24 15:30 Blood Culture (Wb) - Anticubital Right Blood Culture - Final No growth in 5 days. 08/03/24 14:35 Blood Culture (Wb) - Right Forearm Blood Culture - Final No growth in 5 days. 08/03/24 22:43 Sputum, Induced/Lukens Gram Stain - Final 08/03/24 22:43 Sputum, Induced/Lukens Respiratory Culture - Final Haemophilus influenzae 08/03/24 15:48 Urine Catheter - Catheter Urine Culture - Final Culture exhibits no growth. 08/04/24 07:45 Urine Catheter - Erickson Legionella Antigen - Final 08/04/24 07:45 Urine Catheter - Erickson Streptococcus pneumoniae Antigen (M - Final 08/03/24 23:20 Mucosa - Nasopharyngeal Respiratory Panel (PCR) - Final 08/03/24 14:40 Mucosa - Nose SARS-CoV-2, Influenza & RSV (PCR) - Final Physical Exam Narrative Constitutional Narrative: Patient is sedated and on the ventilator HEENT normocephalic, head/scalp atraumatic and moist oral mucous membranes Eyes conjunctivae normal Neck supple, no JVD and thyroid normal General: trachea midline Resp clear to auscultation bilaterally Resp Narrative: Scattered expiratory rhonchi are noted bilaterally Auscultation: rhonchi; Negative for rales or wheezes Cardio S1 normal heart sound, S2 normal heart sound, no murmurs, no rub and no gallops Cardio Narrative: Heart rate and rhythm is irregular GI normal to inspection, nondistended, normoactive bowel sounds, soft to palpation, non-tender and non-distended Extremity no clubbing, cyanosis or edema Skin no rashes or lesions noted Neuro CN's II-XII intact bilaterally Neuro Narrative: Patient is sedated and on the ventilator Psych Psych Narrative: Patient is sedated and on a ventilator Assessment & Plan Assessment/Plan (1) Pneumonia: (2) Acute hypoxic respiratory failure: PLAN: Plan 1. Septic shock-secondary to haemophilus influenza pneumonia, patient is currently off pressor agents at this time, critical care discontinued her corticosteroids , she remains on IV antibiotics at this time #2 acute hypoxic respiratory failure-again patient failed her weaning trial today, critical care will likely try another trial tomorrow #3 atrial fibrillation with RVR-patient is currently on amiodarone and a beta- nina, I have added digoxin to her medications today #4 hypothyroidism-patient is currently on Synthroid Total clinical time spent by myself addressing the patient's medical issues, reviewing all of her data, and collaborating with patient's care team: 35 minutes Charges/Coding Visit Charges Inpatient E&M: 33557 Subs Hosp L2
[2024-08-11] MEDS: Digoxin 250 MCG/ML Ampul IV (20:39)
[2024-08-12] VITALS (42 sets, daily range): BP systolic 97–185; BP diastolic 58–91; PULSE 84–137; RESP 17–30; TEMP 38–38.7; O2SAT 90–99; BMI 37.0
[2024-08-12] MEDS: HEPARIN/D5w 25,000 UNITS 25,000 UNITS/250 ML IV.SOLN. 16 UNITS CONT INF (04:13)
[2024-08-12] MEDS: Propofol 10MG/Ml 1,000 MG/100 ML Bottle 3.2 MG CONT INF ×2 (04:24→18:49)
[2024-08-12 04:45] LABS: Absolute Lymphocyte Count 4.03 X10^3/uL (0.83-4.51); Basophil# 0.06 X10^3/uL; Basophil% 0.3 % (0-1); Eosinophil# 0.23 X10^3/uL; Eosinophils% 1.2 % (0-5); Hematocrit 34.9 % (37-47); Hemoglobin 10.7 g/dL (12.0-15.0); Lymphocyte # 4.03 X10^3/ul (0.83-4.51); Lymphocyte % 20.9 % (19-41); Mean Corp Hgb Conc 30.7 g/dL (32-36); Mean Corpuscular Hgb 28.3 pg (27.0-32.0); Mean Corpuscular Volume 92.3 fL (81-99); Mean Platelet Vol. 11.3 fl (6.2-12.0); Monocyte# 1.07 X10^3/uL; Monocyte% 5.6 % (0-10); NRBC Flagged by Analyzer 0 % (0-5); Neutrophil # 13.01 X10^3/uL (2.7-7.7); Neutrophil % 67.6 % (47-70); Platelet Count 219 K/mm3 (150-450); RBC Distribution Width CV 15.7 % (11.6-14.6); RBC Distribution Width SD 51.6 fl (35.1-43.9); Red Blood Count 3.78 M/mm3 (4.2-5.4); White Blood Count 19.2 K/mm3 (4.4-11.0)
[2024-08-12 05:00] LABS: Anion Gap 5 (5-15); BUN 47 mg/dL (7-18); BUN/Creat Ratio 40.5 RATIO (10-20); Calcium,Total 8.9 mg/dL (8.5-10.1); Chloride 104 mmol/L (98-107); Creatinine, Serum 1.16 mg/dL (0.55-1.02); EST Glomerular Filtration Rate 50 mL/min (>60); Est Glom Filt Rate - Afr Amer 60 mL/min (>60); Estimated Creatinine Clearance 59.45 ml/min; Glucose 140 mg/dL (74-106); Potassium 3.1 mmol/L (3.5-5.1); Sodium Level 145 mmol/L (136-145)
[2024-08-12 05:02] LABS: Partial Thromboplast Time 53.6 Seconds (24.1-36.2)
[2024-08-12] MEDS: Levothyroxine 100 MCG Tablet GT (06:10)
[2024-08-12] MEDS: Ipratropium 0.5 MG/2.5 ML SOLUTION INHALATION ×5 (07:35→23:45)
--- NOTE | 2024-08-12 07:49 | PN.CC_ITS ---
Assessment & Plan Assessment/Plan (1) Acute hypoxic respiratory failure: PLAN: Plan RECOMMENDATIONS: 1. Continue assist-control mode of mechanical ventilation. Wean FiO2 and PEEP as tolerated. 2. Continue pressure support trial as tolerated throughout the day and placed back on full ventilatory support for night. 3. Awaiting improvement in endotracheal tube secretions prior to possible extubation. 4. Continue amiodarone, digoxin and beta-nina. 5. Diuresis as tolerated. 6. Continue antimicrobial therapy. 7. Attempt to minimize sedation as tolerated. 8. Continue tube feeding as tolerated. 9. Continue appropriate ICU prophylaxis. IMPRESSIONS: 1. Septic shock The patient presented to the hospital with sepsis due to haemophilus influenza pneumonia with acute sepsis related organ dysfunction as evidenced by lactic acidemia, fluid refractory hypotension requiring vasopressor support and acute respiratory failure requiring invasive mechanical ventilation. The patient has been adequately volume resuscitated. The patient has been successfully weaned from vasopressor support and remains hemodynamically stable. The patient was subsequently weaned from stress dose steroids. Antimicrobials will be continued. Repeat blood cultures are currently pending. 2. Atrial fibrillation with RVR Continue amiodarone as ordered. Echocardiogram revealed intact systolic function. Continue amiodarone, digoxin and beta-nina as ordered. 3. Acute hypoxemic respiratory failure Clinical suspicion for possible underlying obstructive lung disease in a state of exacerbation due to multifocal pneumonia. The patient was subsequently intubated in the emergency department. Plan to continue assist-control mode of mechanical ventilation. FiO2 and PEEP will be weaned as tolerated. Antimicrobials and bronchodilators will be continued. Continue ongoing attempts of gentle diuresis as tolerated by hemodynamics and renal function. Awaiting improvement in endotracheal tube secretion output prior to consideration for extubation. 4. History of hypothyroidism/chronic tobacco dependency/anemia Complicates care, management, recovery and prognosis. Continue home Synthroid regimen as ordered. Continue tube feeding as tolerated. Physical therapy to work with the patient. TIME: 38 minutes of critical care time, independent of procedures, was spent addressing the patient's septic shock, atrial fibrillation with RVR, acute hypoxemic respiratory failure, review of all data and collaboration with the care team. Subjective Subjective The patient was seen and examined at the bedside this morning. Events from the last 24 hours have been reviewed. The patient continues to have a low-grade fever but remains otherwise hemodynamically stable on assist-control mode of mechanical ventilation with an FiO2 requirement of 40% and PEEP of 5. Unfortunately, the patient continues to have thick endotracheal tube secretions. In addition, she remains in atrial fibrillation with RVR. The patient did receive digoxin yesterday. She is documented to be overall net +4.3 L for the hospitalization. White blood cell count remains elevated at 19,000 with a hemoglobin of 10.7 g/dL and platelet count of 219,000. Potassium is low at 3.1 with a bicarbonate of 36 and creatinine of 1.16. She continues to tolerate tube feeding. Objective Data Objective Data The patient's most recent lab work, culture data and imaging studies have all been personally reviewed. Surface echocardiogram demonstrated normal LV size and function with an ejection fraction of 55%. Sputum culture was positive for haemophilus influenza. Repeat blood cultures are currently pending. Vital Signs: Vital Signs Temp Pulse Resp BP Pulse Ox O2 Del Method O2 Flow Rate 100.7 F H 113 H 20 H 165/84 H 99 Mechanical Ventilator 7 08/12/24 04:00 08/12/24 07:37 08/12/24 07:37 08/12/24 07:00 08/12/24 07:37 08/12/24 07:00 08/05/24 05:00 FiO2 50 08/12/24 07:00 Oxygen Flow Rate (L/min) 7 Oxygen Delivery Method Mechanical Ventilator Weight: 230 lb 12.8 oz Body Mass Index (BMI) 37.0 Intake & Output: Intake and Output for Last 24 Hours 08/10/24 08/11/24 08/12/24 23:59 23:59 23:59 Intake Total 2039.82 / 2133.72 2712.89 / 2798.96 301.64 / 301.64 Output Total 3350 / 3350 4300 / 4800 850 / 850 Balance -1310.18 / -1216.28 -1587.11 / -2001.04 -548.36 / -548.36 Lab / Micro Data Attestation: I reviewed the patient's lab results. 08/12/24 03:20 08/12/24 03:20 Labs: Laboratory Results - last 24 hr 08/10/24 08:45: Diff Path Review Reviewed 08/11/24 06:16: Absolute Neuts (auto) 13.6 H, Absolute Lymphs (auto) 3.30, Total Counted 100, Neutrophils % (Manual) 75 H, Lymphocytes % (Manual) 18 L, Monocytes % (Manual) 6, Myelocytes % 1 H, Nucleated RBCs/100 WBC 2, Diff Path Review October08/11/24 12:05: APTT 56.5 H 08/12/24 03:20: WBC 19.2 H, RBC 3.78 L, Hgb 10.7 L, Hct 34.9 L, MCV 92.3, MCH 28.3, MCHC 30.7 L, RDW Std Deviation 51.6 H, RDW Coeff of Emmanuel 15.7 H, Plt Count 219, MPV 11.3, Immature Gran % (Auto) 4.400 H, Neut % (Auto) 67.6, Lymph % (Auto) 20.9, [place] % (Auto) 5.6, Eos % (Auto) 1.2, Baso % (Auto) 0.3, Absolute Neuts (auto) 13.0 H, Absolute Lymphs (auto) 4.03, Nucleated RBC % 0, APTT 53.6 H , Sodium 145, Potassium 3.1 L, Chloride 104, Carbon Dioxide 36.0 H, Anion Gap 5, BUN 47 H, Creatinine 1.16 H, Estim Creat Clear Calc 59.45, Est GFR (MDRD) Af Amer 60, Est GFR (MDRD) Non-Af 50 L, BUN/Creatinine Ratio 40.5 H, Glucose 140 H, Calcium 8.9 Micro: Microbiology 08/03/24 15:30 Blood Culture (Wb) - Anticubital Right Blood Culture - Final No growth in 5 days. 08/03/24 14:35 Blood Culture (Wb) - Right Forearm Blood Culture - Final No growth in 5 days. 08/03/24 22:43 Sputum, Induced/Lukens Gram Stain - Final 08/03/24 22:43 Sputum, Induced/Lukens Respiratory Culture - Final Haemophilus influenzae 08/03/24 15:48 Urine Catheter - Catheter Urine Culture - Final Culture exhibits no growth. 08/04/24 07:45 Urine Catheter - Erickson Legionella Antigen - Final 08/04/24 07:45 Urine Catheter - Erickson Streptococcus pneumoniae Antigen (M - Final 08/03/24 23:20 Mucosa - Nasopharyngeal Respiratory Panel (PCR) - Final 08/03/24 14:40 Mucosa - Nose SARS-CoV-2, Influenza & RSV (PCR) - Final ABG Data ABG results: ABG 08/04/24 09:06 Specimen Type ART Sample Site R Radial pH 7.24 L Bicarbonate Actual 21.1 L Total CO2 23 Base Excess -6 L O2 Saturation 92 L O2 % 70.0 ABG pCO2 49.6 H ABG pO2 74 L Manoj Test Positive Respiration Rate 16 O2 Delivery Device Adult Vent Vent Mode SIMV(PRVC)+PS Tidal Volume 450.0 POC PEEP 10 Radiography Diagnostic Testing: Radiology Impression Chest CTA 08/09/24 07:23 IMPRESSION: No acute thromboembolic disease. Extensive multifocal bilateral parenchymal airspace opacities with mildly prominent mediastinal lymphadenopathy. One or more dose reduction techniques were used (e.g., Automated exposure control, adjustment of the mA and/or kV according to patient size, use of iterative reconstruction technique). Reading Location: [facility] Physical Exam Const alert Constitutional Narrative: Intubated, sedated and mechanically ventilated. Obese. General Appearance: ill appearing and patient mechanically ventilated HEENT normocephalic and head/scalp atraumatic Mouth: endotracheal tube in place and OG tube in place Eyes PERRL, EOMs intact bilaterally and conjunctivae normal Neck supple General: trachea midline Chest inspection of chest normal Resp no use of accessory muscles Auscultation: diminished lung sounds; Negative for rales, rhonchi or wheezes Cardio S1 normal heart sound and S2 normal heart sound Rate: tachycardic Rhythm: abnormal rhythm GI normal to inspection, nondistended, normoactive bowel sounds Extremity General Extremity: edema; Negative for clubbing Skin No no rashes or lesions noted Neuro Neuro Narrative: The patient is able to follow simple commands. Sensorium / Orientation: sedated on vent Charges/Coding Procedures Hospitalists Procedures: [id number] Critical Care 1st Hr
[2024-08-12] MEDS: Pantoprazole Sodium 40 MG in 0.9% Normal Saline (100mL MB+) 100 ML 330 MG IV (07:51)
[2024-08-12] MEDS: Furosemide 40 MG/4 ML Vial IV ×2 (07:52→16:31)
[2024-08-12] MEDS: Chlorhexidine 15 ML PO ×2 (07:52→20:44)
[2024-08-12] MEDS: Amiodarone 360 MG in Dextrose 5% Viaflo Bag 192.8 ML 16.7 MG CONT INF ×2 (07:52→20:43)
[2024-08-12] MEDS: guaiFENesin 1,200 MG Tablet 1200 MG PO ×2 (07:52→20:45)
[2024-08-12] MEDS: Estradiol 1 MG Tablet 2 MG GT (07:53)
[2024-08-12] MEDS: Ceftriaxone 2 GM in 0.9% Normal Saline (50mL MB+) 50 ML IV (07:53)
[2024-08-12] MEDS: Vital AF 1.2 Cal Liquid 1,000 ML 50 ML GT (07:53)
[2024-08-12] MEDS: 0.9% Saline Lock 10 ML Syringe IV ×3 (08:21→20:51)
[2024-08-12] MEDS: Digoxin 250 MCG/ML Ampul IV (08:21)
[2024-08-12] MEDS: Potassium Chloride 20mEq/100mL 20 MEQ/100 ML IV.SOLN. 100 MEQ IV BOLUS ×2 (08:22→10:02)
[2024-08-12] MEDS: CHLORHEXIDINE GLUC 2% CLOTH 1 EACH TOWELETTE TOPICAL (08:22)
[2024-08-12] MEDS: Metoprolol Tartrate 100 MG Tablet GT ×2 (10:03→20:45)
--- NOTE | 2024-08-12 10:38 | CASEMGMT ---
Social Work SW met with pt's spouse Ryan and dgt Caryn. Introduced self and role of SW and offered support as pt continues on vent at this time. SW also explained discharge process and that SW/RNCM will assist with dc planning when time is appropriate. GITA Wadsworth
[2024-08-12] MEDS: AcetaZOLAMIDE 500 MG/10 ML Vial 250 MG IV (11:13)
[2024-08-12] MEDS: Acetaminophen 650 MG/20 ML UDC GT ×2 (13:49→20:50)
[2024-08-12] MEDS: dilTIAZem 30 MG Tablet NG ×2 (14:57→20:45)
[2024-08-12] MEDS: fentaNYL drip 100 ML 5 MCG CONT INF (14:57)
[2024-08-12 15:29] LABS: Pathologist Review Reviewed
--- NOTE | 2024-08-12 16:25 | PN.HOSP_ITS ---
Reason for Visit Reason for Visit: Diagnoses Hypothyroidism, unspecified (08/03/24) Unspecified atrial fibrillation (08/03/24) Pneumonia, unspecified organism (08/03/24) Acute respiratory failure with hypoxia (08/03/24) Subjective Subjective Patient was seen and examined today, I gave her another dose of Lanoxin earlier this morning, due to elevated blood pressure have decided to place her on Cardizem-I will hold further doses of Lanoxin at this time. Patient remains on the ventilator, pulse rate is better. Objective Data Objective Data Vital Signs: Vital Signs Temp Pulse Resp BP Pulse Ox O2 Del Method O2 Flow Rate 101.0 F H 99 26 H 133/75 H 92 Mechanical Ventilator 7 08/12/24 16:00 08/12/24 16:00 08/12/24 16:00 08/12/24 16:00 08/12/24 16:00 08/12/24 16:00 08/05/24 05:00 FiO2 40 08/12/24 16:00 Oxygen Flow Rate (L/min) 7 Oxygen Delivery Method Mechanical Ventilator Weight: 104.689 kg Body Mass Index (BMI) 37.0 Intake & Output: Intake and Output for Last 24 Hours 08/10/24 08/11/24 08/12/24 23:59 23:59 23:59 Intake Total 2039.82 / 2133.72 2712.89 / 2798.96 1980.62 / 1980.62 Output Total 3350 / 3350 4300 / 4800 2650 / 2650 Balance -1310.18 / -1216.28 -1587.11 / -2001.04 -669.38 / -669.38 Lab / Micro Data 08/12/24 03:20 08/12/24 03:20 Labs: Laboratory Results - last 24 hr 08/11/24 06:16: Diff Path Review Reviewed 08/12/24 03:20: WBC 19.2 H, RBC 3.78 L, Hgb 10.7 L, Hct 34.9 L, MCV 92.3, MCH 28.3, MCHC 30.7 L, RDW Std Deviation 51.6 H, RDW Coeff of Emmanuel 15.7 H, Plt Count 219, MPV 11.3, Immature Gran % (Auto) 4.400 H, Neut % (Auto) 67.6, Lymph % (Auto) 20.9, [place] % (Auto) 5.6, Eos % (Auto) 1.2, Baso % (Auto) 0.3, Absolute Neuts (auto) 13.0 H, Absolute Lymphs (auto) 4.03, Nucleated RBC % 0, APTT 53.6 H , Sodium 145, Potassium 3.1 L, Chloride 104, Carbon Dioxide 36.0 H, Anion Gap 5, BUN 47 H, Creatinine 1.16 H, Estim Creat Clear Calc 59.45, Est GFR (MDRD) Af Amer 60, Est GFR (MDRD) Non-Af 50 L, BUN/Creatinine Ratio 40.5 H, Glucose 140 H, Calcium 8.9 08/12/24 13:50: APTT 56.0 H Micro: Microbiology 08/10/24 14:30 Blood Culture (Wb) - Central Line Blood Culture - Preliminary No growth in 48 hours. 08/03/24 15:30 Blood Culture (Wb) - Anticubital Right Blood Culture - Final No growth in 5 days. 08/03/24 14:35 Blood Culture (Wb) - Right Forearm Blood Culture - Final No growth in 5 days. 08/03/24 22:43 Sputum, Induced/Lukens Gram Stain - Final 08/03/24 22:43 Sputum, Induced/Lukens Respiratory Culture - Final Haemophilus influenzae 08/03/24 15:48 Urine Catheter - Catheter Urine Culture - Final Culture exhibits no growth. 08/04/24 07:45 Urine Catheter - Erickson Legionella Antigen - Final 08/04/24 07:45 Urine Catheter - Erickson Streptococcus pneumoniae Antigen (M - Final 08/03/24 23:20 Mucosa - Nasopharyngeal Respiratory Panel (PCR) - Final 08/03/24 14:40 Mucosa - Nose SARS-CoV-2, Influenza & RSV (PCR) - Final Physical Exam Narrative Constitutional Narrative: Patient is sedated and on the ventilator HEENT normocephalic, head/scalp atraumatic and moist oral mucous membranes Eyes conjunctivae normal Neck supple, no JVD and thyroid normal General: trachea midline Resp clear to auscultation bilaterally Resp Narrative: Scattered expiratory rhonchi are noted bilaterally Auscultation: rhonchi; Negative for rales or wheezes Cardio S1 normal heart sound, S2 normal heart sound, no murmurs, no rub and no gallops Cardio Narrative: Heart rate and rhythm is irregular GI normal to inspection, nondistended, normoactive bowel sounds, soft to palpation, non-tender and non-distended Extremity no clubbing, cyanosis or edema Skin no rashes or lesions noted Neuro CN's II-XII intact bilaterally Neuro Narrative: Patient is sedated and on the ventilator Psych Psych Narrative: Patient is sedated and on a ventilator Assessment & Plan Assessment/Plan (1) Pneumonia: (2) Acute hypoxic respiratory failure: PLAN: Plan 1. Septic shock-secondary to haemophilus influenza pneumonia, patient is currently off pressor agents at this time, critical care discontinued her corticosteroids , she remains on IV antibiotics at this time #2 acute hypoxic respiratory failure-again patient failed her weaning trial today, critical care will likely try another trial tomorrow #3 atrial fibrillation with RVR-patient is currently on amiodarone and a beta- nina, I have added Cardizem for better control and possibly better rate control #4 hypothyroidism-patient is currently on Synthroid #5 essential hypertension-patient is on metoprolol and Cardizem Total clinical time spent by myself addressing the patient's medical issues, reviewing all of her data, and collaborating with patient's care team: 35 minutes Charges/Coding Visit Charges Inpatient E&M: 74548 Subs Hosp L2
[2024-08-12] MEDS: HEPARIN/D5w 25,000 UNITS 25,000 UNITS/250 ML IV.SOLN. 17 UNITS CONT INF (17:15)
[2024-08-12 21:15] LABS: Partial Thromboplast Time 76.6 Seconds (24.1-36.2)
[2024-08-13] VITALS (43 sets, daily range): BP systolic 105–166; BP diastolic 56–96; PULSE 86–118; RESP 14–34; TEMP 37.2–38.3; O2SAT 84–99; BMI 36.5
[2024-08-13] MEDS: Ipratropium 0.5 MG/2.5 ML SOLUTION INHALATION ×6 (02:50→23:50)
[2024-08-13 04:29] LABS: Partial Thromboplast Time 67.8 Seconds (24.1-36.2)
[2024-08-13] MEDS: 0.9% Saline Lock 10 ML Syringe IV ×2 (05:12→09:53)
[2024-08-13] MEDS: Levothyroxine 100 MCG Tablet GT (05:12)
[2024-08-13] MEDS: dilTIAZem 30 MG Tablet NG (05:12)
--- NOTE | 2024-08-13 07:23 | PCM.PN.INT ---
Assessment & Plan Assessment/Plan (1) Acute hypoxic respiratory failure: PLAN: Plan RECOMMENDATIONS: 1. Proceed with a trial of extubation, with transition to BiPAP. 2. If the patient does not do well with extubation and requires reintubation, we will proceed with tracheostomy and PEG tube. 3. Continue amiodarone, Cardizem and beta-nina. 4. Antimicrobials to complete therapy today. 5. Continue appropriate ICU prophylaxis. 6. Physical therapy to work with the patient. 7. Aggressive electrolyte repletion. IMPRESSIONS: 1. Septic shock The patient presented to the hospital with sepsis due to haemophilus influenza pneumonia with acute sepsis related organ dysfunction as evidenced by lactic acidemia, fluid refractory hypotension requiring vasopressor support and acute respiratory failure requiring invasive mechanical ventilation. The patient has been adequately volume resuscitated. The patient has been successfully weaned from vasopressor support and remains hemodynamically stable. The patient was subsequently weaned from stress dose steroids. Antimicrobials will be continued with plans to complete treatment course today. Repeat blood cultures have not demonstrated any growth to date. 2. Atrial fibrillation with RVR Continue amiodarone, along with Cardizem and beta-nina as ordered. Echocardiogram revealed intact systolic function. 3. Acute hypoxemic respiratory failure Clinical suspicion for possible underlying obstructive lung disease in a state of exacerbation due to multifocal pneumonia. The patient was subsequently intubated in the emergency department. With supportive care, the patient has slowly improved from a respiratory perspective. She is a candidate for a trial of extubation this morning. Plan to proceed with extubation directly to BiPAP. If the patient does not do well following extubation, the is requesting that the patient be reintubated, after which time, would proceed with tracheostomy and PEG tube placement. Continue ongoing attempts of gentle diuresis as tolerated by hemodynamics and renal function. 4. History of hypothyroidism/chronic tobacco dependency/anemia Complicates care, management, recovery and prognosis. Continue home Synthroid regimen as ordered. Physical therapy to work with the patient. TIME: 37 minutes of critical care time, independent of procedures, was spent addressing the patient's septic shock, atrial fibrillation with RVR, acute hypoxemic respiratory failure, review of all data and collaboration with the care team. Subjective Subjective The patient was seen and examined at the bedside this morning. Events from the last 24 hours have been reviewed. The patient continues to have low-grade fevers but remains otherwise hemodynamically stable on assist-control mode mechanical ventilation with an FiO2 requirement of 40% and PEEP of 5. The patient's endotracheal tube secretion output has improved. She is documented to be overall net +3.8 L for the hospitalization. White blood cell count is elevated at 20,000. Hemoglobin is stable at 10.6 g/dL with a platelet count of 246,000. Potassium is low at 3.1 with a bicarbonate of 34 and creatinine of 1.05. The patient did well this morning on a spontaneous breathing trial. Therefore, she was subsequently extubated. I did have a galina discussion with the patient's at the bedside prior to extubation, and explained to him that if the patient did not do well postextubation and required reintubation that we would then proceed with tracheostomy and PEG tube placement. He was in agreement with this plan. Objective Data Objective Data The patient's most recent lab work, culture data and imaging studies have all been personally reviewed. Surface echocardiogram demonstrated normal LV size and function with an ejection fraction of 55%. Sputum culture was positive for haemophilus influenza. Repeat blood cultures have not demonstrated any growth to date. Vital Signs: Vital Signs Temp Pulse Resp BP Pulse Ox O2 Del Method O2 Flow Rate 100.7 F H 109 H 24 H 119/90 H 92 Mechanical Ventilator 7 08/13/24 07:00 08/13/24 07:00 08/13/24 07:00 08/13/24 07:00 08/13/24 07:00 08/13/24 07:00 08/05/24 05:00 FiO2 40 08/13/24 07:00 Oxygen Flow Rate (L/min) 7 Oxygen Delivery Method Mechanical Ventilator Weight: 227 lb 4.8 oz Body Mass Index (BMI) 36.5 Intake & Output: Intake and Output for Last 24 Hours 08/11/24 08/12/24 08/13/24 23:59 23:59 23:59 Intake Total 2712.89 / 2798.96 2401.19 / 2489.39 1340.33 / 1340.33 Output Total 4300 / 4800 5100 / 5100 550 / 550 Balance -1587.11 / -2000.2698.81 / -2610.61 790.33 / 790.33 Lab / Micro Data Attestation: I reviewed the patient's lab results. 08/13/24 04:00 08/13/24 04:00 Labs: Laboratory Results - last 24 hr 08/11/24 06:16: Diff Path Review Reviewed 08/12/24 13:50: APTT 56.0 H 08/12/24 20:37: APTT 76.6 H 08/13/24 04:00: APTT 67.8 H Micro: Microbiology 08/10/24 14:30 Blood Culture (Wb) - Central Line Blood Culture - Preliminary No growth in 48 hours. 08/03/24 15:30 Blood Culture (Wb) - Anticubital Right Blood Culture - Final No growth in 5 days. 08/03/24 14:35 Blood Culture (Wb) - Right Forearm Blood Culture - Final No growth in 5 days. 08/03/24 22:43 Sputum, Induced/Lukens Gram Stain - Final 08/03/24 22:43 Sputum, Induced/Lukens Respiratory Culture - Final Haemophilus influenzae 08/03/24 15:48 Urine Catheter - Catheter Urine Culture - Final Culture exhibits no growth. 08/04/24 07:45 Urine Catheter - Erickson Legionella Antigen - Final 08/04/24 07:45 Urine Catheter - Erickson Streptococcus pneumoniae Antigen (M - Final 08/03/24 23:20 Mucosa - Nasopharyngeal Respiratory Panel (PCR) - Final 08/03/24 14:40 Mucosa - Nose SARS-CoV-2, Influenza & RSV (PCR) - Final ABG Data ABG results: ABG 08/04/24 09:06 Specimen Type ART Sample Site R Radial pH 7.24 L Bicarbonate Actual 21.1 L Total CO2 23 Base Excess -6 L O2 Saturation 92 L O2 % 70.0 ABG pCO2 49.6 H ABG pO2 74 L Manoj Test Positive Respiration Rate 16 O2 Delivery Device Adult Vent Vent Mode SIMV(PRVC)+PS Tidal Volume 450.0 POC PEEP 10 Radiography Diagnostic Testing: Radiology Impression Chest CTA 08/09/24 07:23 IMPRESSION: No acute thromboembolic disease. Extensive multifocal bilateral parenchymal airspace opacities with mildly prominent mediastinal lymphadenopathy. One or more dose reduction techniques were used (e.g., Automated exposure control, adjustment of the mA and/or kV according to patient size, use of iterative reconstruction technique). Reading Location: [facility] Physical Exam Const alert Constitutional Narrative: Remains intubated and mechanically ventilated. Tolerating pressure support trial currently. General Appearance: ill appearing and patient mechanically ventilated HEENT normocephalic and head/scalp atraumatic Mouth: endotracheal tube in place and OG tube in place Eyes PERRL, EOMs intact bilaterally and conjunctivae normal Neck supple General: trachea midline Chest inspection of chest normal Resp no use of accessory muscles Auscultation: diminished lung sounds; Negative for rales, rhonchi or wheezes Cardio S1 normal heart sound and S2 normal heart sound Rate: tachycardic Rhythm: abnormal rhythm GI normal to inspection, nondistended, normoactive bowel sounds Extremity General Extremity: edema; Negative for clubbing Skin No no rashes or lesions noted Neuro Neuro Narrative: The patient is able to follow simple commands. Sensorium / Orientation: sedated on vent Charges/Coding Procedures Hospitalists Procedures: 60286 Critical Care 1st Hr
[2024-08-13 08:03] LABS: Absolute Lymphocyte Count 4.68 X10^3/uL (0.83-4.51); Absolute Neutrophil Count 13.6 X10^3/uL (2.0-7.7); Basophil# 0.07 X10^3/uL; Basophil% 0.3 % (0-1); Eosinophil# 0.28 X10^3/uL; Eosinophils% 1.4 % (0-5); Hemoglobin 10.6 g/dL (12.0-15.0); Lymphocyte # 4.68 X10^3/ul (0.83-4.51); Lymphocyte % 23.3 % (19-41); Mean Corp Hgb Conc 31.2 g/dL (32-36); Mean Corpuscular Hgb 29.4 pg (27.0-32.0); Mean Corpuscular Volume 94.4 fL (81-99); Mean Platelet Vol. 12.1 fl (6.2-12.0); Monocyte# 1.02 X10^3/uL; Monocyte% 5.1 % (0-10); NRBC Flagged by Analyzer 0.1 % (0-5); Neutrophil # 13.64 X10^3/uL (2.7-7.7); Platelet Count 246 K/mm3 (150-450); RBC Distribution Width CV 15.8 % (11.6-14.6); White Blood Count 20.1 K/mm3 (4.4-11.0)
[2024-08-13] MEDS: Metoprolol Tartrate 100 MG Tablet GT (08:35)
[2024-08-13 08:45] LABS: Anion Gap 7 (5-15); BUN 46 mg/dL (7-18); BUN/Creat Ratio 43.8 RATIO (10-20); Calcium,Total 9.2 mg/dL (8.5-10.1); Chloride 104 mmol/L (98-107); Creatinine, Serum 1.05 mg/dL (0.55-1.02); EST Glomerular Filtration Rate 56 mL/min (>60); Est Glom Filt Rate - Afr Amer 68 mL/min (>60); Estimated Creatinine Clearance 64.78 ml/min; Glucose 139 mg/dL (74-106); Potassium 3.1 mmol/L (3.5-5.1); Sodium Level 145 mmol/L (136-145)
[2024-08-13] MEDS: HEPARIN/D5w 25,000 UNITS 25,000 UNITS/250 ML IV.SOLN. 15 UNITS CONT INF (09:50)
[2024-08-13] MEDS: Ceftriaxone 2 GM in 0.9% Normal Saline (50mL MB+) 50 ML IV (09:50)
[2024-08-13] MEDS: Amiodarone 360 MG in Dextrose 5% Viaflo Bag 192.8 ML 16.7 MG CONT INF ×2 (09:50→21:35)
[2024-08-13] MEDS: CHLORHEXIDINE GLUC 2% CLOTH 1 EACH TOWELETTE TOPICAL (09:51)
[2024-08-13] MEDS: Furosemide 40 MG/4 ML Vial IV ×2 (09:52→18:01)
[2024-08-13 10:31] LABS: Allen Test Positive; Base Excess 10 mmol/L (-2 to +2); Bicarbonate 34.2 mmol/L (22-26); Blood Gas Specimen Type ART; Mode Not entered; O2 Delivery Device BiPAP; PEEP 14; PO2 89 mmHG (75-100); RR 14; SITE R Radial; SO2 97 % (95-99); Total Carbon Dioxide 36 mmol/L; pH 7.44 (7.35-7.45)
[2024-08-13] MEDS: Pantoprazole Sodium 40 MG in 0.9% Normal Saline (100mL MB+) 100 ML 330 MG IV (11:28)
[2024-08-13] MEDS: Potassium Chloride 20mEq/100mL 20 MEQ/100 ML IV.SOLN. 100 MEQ IV BOLUS ×3 (11:28→13:42)
--- NOTE | 2024-08-13 11:58 | CASEMGMT ---
Discharge Planning A list of SNF providers including quality and resource use data and consistent with the patient's preferred geographic region, medical needs, and insurance network was created in [facility] Guide.? This list was provided to the SW. Ariella Bentley Discharge Planning Asst.
[2024-08-13 12:10] LABS: Partial Thromboplast Time 58.9 Seconds (24.1-36.2)
--- NOTE | 2024-08-13 15:16 | CPS ---
Rt was called into room for desat. Increased o2 on pt at this time, Pt 91%
[2024-08-13] MEDS: fentaNYL 100 MCG/2 ML Ampul 25 MCG IV (15:38)
[2024-08-13 18:32] LABS: Partial Thromboplast Time 61.7 Seconds (24.1-36.2)
--- NOTE | 2024-08-13 19:15 | PCM.PN.HOSP ---
Reason for Visit Reason for Visit: Diagnoses Hypothyroidism, unspecified (08/03/24) Unspecified atrial fibrillation (08/03/24) Pneumonia, unspecified organism (08/03/24) Acute respiratory failure with hypoxia (08/03/24) Subjective Subjective Patient was seen and examined today, I talked briefly with critical care about her care, she was eventually extubated today and is currently on BiPAP, her vitals appear to be stable, she is still slightly tachycardic but her blood pressure is better. I talked briefly with the patient's who is at the bedside this morning during the time my examination when she was on the ventilator Objective Data Objective Data Vital Signs: Vital Signs Temp Pulse Resp BP Pulse Ox O2 Del Method O2 Flow Rate 99.4 F H 103 H 26 H 130/83 H 98 Bi-pap 60 08/13/24 19:00 08/13/24 19:00 08/13/24 19:00 08/13/24 19:00 08/13/24 19:00 08/13/24 19:00 08/13/24 15:00 FiO2 45 08/13/24 19:00 Oxygen Flow Rate (L/min) 60 Oxygen Delivery Method Bi-pap Weight: 103.102 kg Body Mass Index (BMI) 36.5 Intake & Output: Intake and Output for Last 24 Hours 08/11/24 08/12/24 08/13/24 23:59 23:59 23:59 Intake Total 2712.89 / 2798.96 2401.19 / 2489.39 2177.00 / 2177.00 Output Total 4300 / 4800 5100 / 5100 2950 / 2950 Balance -1587.11 / -2000.04 -2698.81 / -2610.61 -773.00 / -773.00 Lab / Micro Data 08/13/24 04:00 08/13/24 04:00 Labs: Laboratory Results - last 24 hr 08/12/24 20:37: APTT 76.6 H 08/13/24 04:00: WBC 20.1 H, RBC 3.60 L, Hgb 10.6 L, Hct 34.0 L, MCV 94.4, MCH 29.4, MCHC 31.2 L, RDW Std Deviation 53.0 H, RDW Coeff of Emmanuel 15.8 H, Plt Count 246, MPV 12.1 H, Immature Gran % (Auto) 1.900 H, Neut % (Auto) 68.0, Lymph % (Auto) 23.3, Cassia % (Auto) 5.1, Eos % (Auto) 1.4, Baso % (Auto) 0.3, Absolute Neuts (auto) 13.6 H, Absolute Lymphs (auto) 4.68 H, Nucleated RBC % 0.1, APTT 67.8 H, Sodium 145, Potassium 3.1 L, Chloride 104, Carbon Dioxide 34.0 H, Anion Gap 7, BUN 46 H, Creatinine 1.05 H, Estim Creat Clear Calc 64.78, Est GFR (MDRD) Af Amer 68, Est GFR (MDRD) Non-Af 56 L, BUN/Creatinine Ratio 43.8 H, Glucose 139 H, Calcium 9.2 08/13/24 11:40: APTT 58.9 H 08/13/24 18:05: APTT 61.7 H Micro: Microbiology 08/10/24 14:30 Blood Culture (Wb) - Central Line Blood Culture - Preliminary No growth in 48 hours. 08/03/24 15:30 Blood Culture (Wb) - Anticubital Right Blood Culture - Final No growth in 5 days. 08/03/24 14:35 Blood Culture (Wb) - Right Forearm Blood Culture - Final No growth in 5 days. 08/03/24 22:43 Sputum, Induced/Lukens Gram Stain - Final 08/03/24 22:43 Sputum, Induced/Lukens Respiratory Culture - Final Haemophilus influenzae 08/03/24 15:48 Urine Catheter - Catheter Urine Culture - Final Culture exhibits no growth. 08/04/24 07:45 Urine Catheter - Erickson Legionella Antigen - Final 08/04/24 07:45 Urine Catheter - Erickson Streptococcus pneumoniae Antigen (M - Final 08/03/24 23:20 Mucosa - Nasopharyngeal Respiratory Panel (PCR) - Final 08/03/24 14:40 Mucosa - Nose SARS-CoV-2, Influenza & RSV (PCR) - Final ABG Data ABG results: ABG 08/13/24 10:27 Specimen Type ART Sample Site R Radial pH 7.44 Bicarbonate Actual 34.2 H Total CO2 36 Base Excess 10 H O2 Saturation 97 O2 % 60.0 ABG pCO2 50.0 H ABG pO2 89 Manoj Test Positive Respiration Rate 14 O2 Delivery Device BiPAP Vent Mode Not entered Tidal Volume 500.0 POC PEEP 14 Physical Exam Narrative Constitutional Narrative: Patient is sedated and on the ventilator HEENT normocephalic, head/scalp atraumatic and moist oral mucous membranes Eyes conjunctivae normal Neck supple, no JVD and thyroid normal General: trachea midline Resp clear to auscultation bilaterally Resp Narrative: Scattered expiratory rhonchi are noted bilaterally Auscultation: rhonchi; Negative for rales or wheezes Cardio S1 normal heart sound, S2 normal heart sound, no murmurs, no rub and no gallops Cardio Narrative: Heart rate and rhythm is irregular GI normal to inspection, nondistended, normoactive bowel sounds, soft to palpation, non-tender and non-distended Extremity no clubbing, cyanosis or edema Skin no rashes or lesions noted Neuro CN's II-XII intact bilaterally Neuro Narrative: Patient is sedated and on the ventilator Psych Psych Narrative: Patient is sedated and on a ventilator Assessment & Plan Assessment/Plan (1) Atrial fibrillation with RVR: (2) Pneumonia: (3) Acute hypoxic respiratory failure: PLAN: Plan 1. Septic shock-secondary to haemophilus influenza pneumonia, patient is currently off pressor agents at this time, critical care discontinued her corticosteroids , she remains on IV antibiotics at this time #2 acute hypoxic respiratory failure-patient was extubated later on today after the time my examination, at the time of this dictation she appears to be doing okay on BiPAP. #3 atrial fibrillation with RVR-patient is currently on amiodarone and a beta-nina, I have added Cardizem for better control and possibly better rate control #4 hypothyroidism-patient is currently on Synthroid #5 essential hypertension-patient is on metoprolol and Cardizem Total clinical time spent by myself addressing the patient's medical issues, reviewing all of her data, and collaborating with patient's care team: 35 minutes Charges/Coding Visit Charges Inpatient E&M: 22940 Subs Hosp L2
[2024-08-14] VITALS (40 sets, daily range): BP systolic 111–148; BP diastolic 51–99; PULSE 51–126; RESP 14–31; TEMP 36.5–37.1; O2SAT 92–100; BMI 35.4
[2024-08-14] MEDS: HEPARIN/D5w 25,000 UNITS 25,000 UNITS/250 ML IV.SOLN. 15 UNITS CONT INF (02:30)
[2024-08-14] MEDS: Ipratropium 0.5 MG/2.5 ML SOLUTION INHALATION ×6 (02:38→22:59)
[2024-08-14] MEDS: 0.9% Saline Lock 10 ML Syringe IV ×4 (05:28→13:04)
[2024-08-14 06:10] LABS: Partial Thromboplast Time 68.9 Seconds (24.1-36.2)
--- NOTE | 2024-08-14 08:04 | PN.CC_ITS ---
Assessment & Plan Assessment/Plan (1) Acute hypoxic respiratory failure: PLAN: Plan RECOMMENDATIONS: 1. Continue to wean FiO2 to maintain oxygen saturations at or above 90%. 2. Await speech therapy evaluation prior to consideration for advancement of diet. 3. Potassium repletion as ordered. 4. Continue amiodarone, Cardizem and beta-nina. 5. Continue appropriate DVT prophylaxis. 6. Aggressive physical therapy. IMPRESSIONS: 1. Septic shock Resolved. The patient presented to the hospital with sepsis due to haemophilus influenza pneumonia with acute sepsis related organ dysfunction as evidenced by lactic acidemia, fluid refractory hypotension requiring vasopressor support and acute respiratory failure requiring invasive mechanical ventilation. The patient has been adequately volume resuscitated. The patient has been successfully weaned from vasopressor support and remains hemodynamically stable. The patient was subsequently weaned from stress dose steroids. Antimicrobial treatment course has been completed at this time. 2. Atrial fibrillation with RVR Continue amiodarone, along with Cardizem and beta-nina as ordered. Echocardiogram revealed intact systolic function. 3. Acute hypoxemic respiratory failure Clinical suspicion for possible underlying obstructive lung disease in a state of exacerbation due to multifocal haemophilus influenza pneumonia. The patient was subsequently intubated in the emergency department. With supportive care, the patient has slowly improved from a respiratory perspective. Ultimately, the patient was able to be extubated on August 13 after completing a treatment course of antimicrobials. Recommend continuing to wean supplemental oxygen to maintain saturations at or above 90%. Speech therapy will need to reevaluate the patient today prior to advancing diet. 4. History of hypothyroidism/chronic tobacco dependency/anemia Complicates care, management, recovery and prognosis. Continue home Synthroid regimen as ordered. Physical therapy to work with the patient. This note was generated with [employer] dictation software. It may contain incorrect words, spelling, and punctuation that were not noted in checking the note before signing. Subjective Subjective The patient was seen and examined at the bedside this morning. Events from the last 24 hours have been reviewed. The patient has done relatively well following extubation yesterday. While she was initially extubated to PAP therapy, the patient has been subsequently weaned to heated high flow oxygen. She is alert, although somewhat delirious. The patient is currently afebrile and hemodynamically stable. FiO2 requirement is currently 60%. White blood cell count remains elevated at 20,000 with a hemoglobin of 10.7 g/dL and platelet count of 263,000. Potassium is low at 3.4. Creatinine is within normal limits. The patient is awaiting reevaluation by speech therapy prior to advancement of diet. Objective Data Objective Data The patient's most recent lab work, culture data and imaging studies have all been personally reviewed. Surface echocardiogram demonstrated normal LV size and function with an ejection fraction of 55%. Sputum culture was positive for haemophilus influenza. Repeat blood cultures have not demonstrated any growth to date. Vital Signs: Vital Signs Temp Pulse Resp BP Pulse Ox O2 Del Method O2 Flow Rate 98.6 F 97 28 H 118/58 L 100 Airvo 60 08/14/24 04:00 08/14/24 07:36 08/14/24 07:36 08/14/24 07:00 08/14/24 07:36 08/14/24 07:00 08/14/24 07:00 FiO2 85 08/14/24 07:36 Oxygen Flow Rate (L/min) 60 Oxygen Delivery Method Airvo Weight: 219 lb 12.8 oz Body Mass Index (BMI) 35.4 Intake & Output: Intake and Output for Last 24 Hours 08/12/24 08/13/24 08/14/24 23:59 23:59 23:59 Intake Total 2401.19 / 2489.39 2373.23 / 2373.23 273.25 / 273.25 Output Total 5100 / 5100 2950 / 4150 1600 / 1600 Balance -2698.81 / -2610.61 -576.77 / -1776.77 -1326.75 / -1326.75 Lab / Micro Data Attestation: I reviewed the patient's lab results. 08/14/24 05:35 08/14/24 05:35 Labs: Laboratory Results - last 24 hr 08/13/24 04:00: WBC 20.1 H, RBC 3.60 L, Hgb 10.6 L, Hct 34.0 L, MCV 94.4, MCH 29.4, MCHC 31.2 L, RDW Std Deviation 53.0 H, RDW Coeff of Emmanuel 15.8 H, Plt Count 246, MPV 12.1 H, Immature Gran % (Auto) 1.900 H, Neut % (Auto) 68.0, Lymph % (Auto) 23.3, Winston % (Auto) 5.1, Eos % (Auto) 1.4, Baso % (Auto) 0.3, Absolute Neuts (auto) 13.6 H, Absolute Lymphs (auto) 4.68 H, Nucleated RBC % 0.1, Sodium 145, Potassium 3.1 L, Chloride 104, Carbon Dioxide 34.0 H, Anion Gap 7, BUN 46 H , Creatinine 1.05 H, Estim Creat Clear Calc 64.78, Est GFR (MDRD) Af Amer 68, E st GFR (MDRD) Non-Af 56 L, BUN/Creatinine Ratio 43.8 H, Glucose 139 H, Calcium 9.2 08/13/24 11:40: APTT 58.9 H 08/13/24 18:05: APTT 61.7 H 08/14/24 05:35: APTT 68.9 H Micro: Microbiology 08/10/24 14:30 Blood Culture (Wb) - Central Line Blood Culture - Preliminary No growth in 48 hours. 08/03/24 15:30 Blood Culture (Wb) - Anticubital Right Blood Culture - Final No growth in 5 days. 08/03/24 14:35 Blood Culture (Wb) - Right Forearm Blood Culture - Final No growth in 5 days. 08/03/24 22:43 Sputum, Induced/Lukens Gram Stain - Final 08/03/24 22:43 Sputum, Induced/Lukens Respiratory Culture - Final Haemophilus influenzae 08/03/24 15:48 Urine Catheter - Catheter Urine Culture - Final Culture exhibits no growth. 08/04/24 07:45 Urine Catheter - Erickson Legionella Antigen - Final 08/04/24 07:45 Urine Catheter - Erickson Streptococcus pneumoniae Antigen (M - Final 08/03/24 23:20 Mucosa - Nasopharyngeal Respiratory Panel (PCR) - Final 08/03/24 14:40 Mucosa - Nose SARS-CoV-2, Influenza & RSV (PCR) - Final ABG Data ABG results: ABG 08/13/24 10:27 Specimen Type ART Sample Site R Radial pH 7.44 Bicarbonate Actual 34.2 H Total CO2 36 Base Excess 10 H O2 Saturation 97 O2 % 60.0 ABG pCO2 50.0 H ABG pO2 89 Manoj Test Positive Respiration Rate 14 O2 Delivery Device BiPAP Vent Mode Not entered Tidal Volume 500.0 POC PEEP 14 Radiography Diagnostic Testing: Radiology Impression Chest CTA 08/09/24 07:23 IMPRESSION: No acute thromboembolic disease. Extensive multifocal bilateral parenchymal airspace opacities with mildly prominent mediastinal lymphadenopathy. One or more dose reduction techniques were used (e.g., Automated exposure control, adjustment of the mA and/or kV according to patient size, use of iterative reconstruction technique). Reading Location: [facility] Physical Exam Const alert and no apparent distress General Appearance: cooperative and ill appearing HEENT normocephalic and head/scalp atraumatic HEENT Narrative: Dry mucous membranes. Eyes PERRL, EOMs intact bilaterally and conjunctivae normal Neck supple General: trachea midline Chest inspection of chest normal Resp no use of accessory muscles Auscultation: diminished lung sounds; Negative for rales, rhonchi or wheezes Cardio S1 normal heart sound and S2 normal heart sound Rate: tachycardic Rhythm: abnormal rhythm GI normal to inspection, nondistended, normoactive bowel sounds Extremity General Extremity: edema; Negative for clubbing Skin No no rashes or lesions noted Neuro moves all extremities and no focal motor deficits Psych Mood & Affect: flat affect Charges/Coding Visit Charges Inpatient E&M: 74157 Subs Hosp L3
[2024-08-14 09:03] LABS: Absolute Lymphocyte Count 2.96 X10^3/uL (0.83-4.51); Absolute Neutrophil Count 15.7 X10^3/uL (2.0-7.7); Basophil# 0.04 X10^3/uL; Basophil% 0.2 % (0-1); Eosinophil# 0.09 X10^3/uL; Eosinophils% 0.5 % (0-5); Hematocrit 34.9 % (37-47); Hemoglobin 10.7 g/dL (12.0-15.0); Lymphocyte # 2.96 X10^3/ul (0.83-4.51); Lymphocyte % 14.8 % (19-41); Mean Corp Hgb Conc 30.7 g/dL (32-36); Mean Corpuscular Hgb 29.1 pg (27.0-32.0); Mean Corpuscular Volume 94.8 fL (81-99); Mean Platelet Vol. 12.1 fl (6.2-12.0); Monocyte# 1.02 X10^3/uL; Monocyte% 5.1 % (0-10); NRBC Flagged by Analyzer 0 % (0-5); Neutrophil # 15.71 X10^3/uL (2.7-7.7); Neutrophil % 78.6 % (47-70); Platelet Count 263 K/mm3 (150-450); RBC Distribution Width CV 15.7 % (11.6-14.6); RBC Distribution Width SD 52.6 fl (35.1-43.9); Red Blood Count 3.68 M/mm3 (4.2-5.4)
[2024-08-14 09:14] LABS: Magnesium 2.6 mg/dL (1.6-2.6); Phosphorus 4.3 mg/dL (2.5-4.9)
[2024-08-14] MEDS: Pantoprazole Sodium 40 MG in 0.9% Normal Saline (100mL MB+) 100 ML 330 MG IV (09:24)
[2024-08-14] MEDS: Furosemide 40 MG/4 ML Vial IV (09:24)
[2024-08-14 09:36] LABS: Anion Gap 7 (5-15); BUN 46 mg/dL (7-18); BUN/Creat Ratio 47.9 RATIO (10-20); Calcium,Total 9.3 mg/dL (8.5-10.1); Chloride 104 mmol/L (98-107); Creatinine, Serum 0.96 mg/dL (0.55-1.02); EST Glomerular Filtration Rate 62 mL/min (>60); Est Glom Filt Rate - Afr Amer 75 mL/min (>60); Glucose 114 mg/dL (74-106); Potassium 3.4 mmol/L (3.5-5.1); Sodium Level 146 mmol/L (136-145)
--- NOTE | 2024-08-14 09:57 | CASEMGMT ---
Social Work SW met with pt and spouse to discuss discharge plan. SW explained likely need for a SNF placement at discharge. Pt spouse is understanding that pt may need SNF, pt stating that she wants to go home. Spouse inquiring about home health and SW explained this level of care and why pt may need SNF at time of discharge. A list of SNF providers including quality and resource use data and consistent with the patient?s preferred geographic region, medical needs, and insurance network were provided from the [employer] Guide. Pt's spouse appreciative of information and will consider options. Pt is not medically ready for discharge at this time. SW will follow up with pt and spouse on Saturday for dc planning. GITA Wadsworth
[2024-08-14] MEDS: Amiodarone 360 MG in Dextrose 5% Viaflo Bag 192.8 ML 16.7 MG CONT INF (10:04)
[2024-08-14] MEDS: Potassium Chloride 20mEq/100mL 20 MEQ/100 ML IV.SOLN. 100 MEQ IV BOLUS ×2 (10:38→11:37)
[2024-08-14] MEDS: Metoprolol Tartrate 100 MG Tablet PO ×2 (11:33→21:04)
[2024-08-14] MEDS: guaiFENesin 1,200 MG Tablet 1200 MG PO ×2 (11:33→21:04)
[2024-08-14 13:23] LABS: Partial Thromboplast Time 51.7 Seconds (24.1-36.2)
--- NOTE | 2024-08-14 17:00 | PN.HOSP_ITS ---
Reason for Visit Reason for Visit: Diagnoses Hypothyroidism, unspecified (08/03/24) Unspecified atrial fibrillation (08/03/24) Pneumonia, unspecified organism (08/03/24) Acute respiratory failure with hypoxia (08/03/24) Subjective Subjective Patient was seen and examined today, her was at the bedside during the time of my examination. Patient is currently on oxygen at 8 L/min. Objective Data Objective Data Vital Signs: Vital Signs Temp Pulse Resp BP Pulse Ox O2 Del Method O2 Flow Rate 97.9 F 67 18 111/99 H 92 High Flow 8 08/14/24 16:00 08/14/24 16:00 08/14/24 16:00 08/14/24 16:00 08/14/24 16:00 08/14/24 16:00 08/14/24 16:00 FiO2 60 08/14/24 12:00 Oxygen Flow Rate (L/min) 8 Oxygen Delivery Method High Flow Weight: 99.7 kg Body Mass Index (BMI) 35.4 Intake & Output: Intake and Output for Last 24 Hours 08/12/24 08/13/24 08/14/24 23:59 23:59 23:59 Intake Total 2401.19 / 2489.39 2373.23 / 2373.23 925.14 / 925.14 Output Total 5100 / 5100 2950 / 4150 2550 / 2550 Balance -2698.81 / -2610.61 -576.77 / -1776.77 -1624.86 / -1624.86 Lab / Micro Data 08/14/24 05:35 08/14/24 05:35 Labs: Laboratory Results - last 24 hr 08/13/24 18:05: APTT 61.7 H 08/14/24 05:35: WBC 20.0 H, RBC 3.68 L, Hgb 10.7 L, Hct 34.9 L, MCV 94.8, MCH 29.1, MCHC 30.7 L, RDW Std Deviation 52.6 H, RDW Coeff of Emmanuel 15.7 H, Plt Count 263, MPV 12.1 H, Immature Gran % (Auto) 0.800, Neut % (Auto) 78.6 H, Lymph % (Auto) 14.8 L, [place] % (Auto) 5.1, Eos % (Auto) 0.5, Baso % (Auto) 0.2, Absolute Neuts (auto) 15.7 H, Absolute Lymphs (auto) 2.96, Nucleated RBC % 0, APTT 68.9 H , Sodium 146 H, Potassium 3.4 L, Chloride 104, Carbon Dioxide 35.0 H, Anion Gap 7, BUN 46 H, Creatinine 0.96, Estim Creat Clear Calc 69.60, Est GFR (MDRD) Af Amer 75, Est GFR (MDRD) Non-Af 62, BUN/Creatinine Ratio 47.9 H, Glucose 114 H, Calcium 9.3, Phosphorus 4.3, Magnesium 2.6 08/14/24 13:00: APTT 51.7 H Micro: Microbiology 08/10/24 14:30 Blood Culture (Wb) - Central Line Blood Culture - Preliminary No growth in 48 hours. 08/03/24 15:30 Blood Culture (Wb) - Anticubital Right Blood Culture - Final No growth in 5 days. 08/03/24 14:35 Blood Culture (Wb) - Right Forearm Blood Culture - Final No growth in 5 days. 08/03/24 22:43 Sputum, Induced/Lukens Gram Stain - Final 08/03/24 22:43 Sputum, Induced/Lukens Respiratory Culture - Final Haemophilus influenzae 08/03/24 15:48 Urine Catheter - Catheter Urine Culture - Final Culture exhibits no growth. 08/04/24 07:45 Urine Catheter - Erickson Legionella Antigen - Final 08/04/24 07:45 Urine Catheter - Erickson Streptococcus pneumoniae Antigen (M - Final 08/03/24 23:20 Mucosa - Nasopharyngeal Respiratory Panel (PCR) - Final 08/03/24 14:40 Mucosa - Nose SARS-CoV-2, Influenza & RSV (PCR) - Final Physical Exam Const alert, no apparent distress and healthy appearing General Appearance: cooperative, well kempt and well developed Orientation / Consciousness: awake, oriented to person and oriented to place HEENT normocephalic, head/scalp atraumatic and moist oral mucous membranes Eyes PERRL, EOMs intact bilaterally and conjunctivae normal Neck supple, no JVD, thyroid normal and no carotid bruits General: trachea midline Resp normal respiratory effort, no retractions, no use of accessory muscles and clear to auscultation bilaterally Auscultation: Negative for rales, rhonchi or wheezes Cardio regular rate, regular rhythm, S1 normal heart sound, S2 normal heart sound, no murmurs, no rub and no gallops GI normal to inspection, nondistended, normoactive bowel sounds, soft to palpation, non-tender and non-distended Extremity no clubbing, cyanosis or edema Skin no rashes or lesions noted General Skin Exam: no breakdown Neuro CN's II-XII intact bilaterally, moves all extremities, no focal motor deficits and no sensory deficits noted Sensorium / Orientation: awake, alert, oriented to person and oriented to place Speech: speech normal Psych affect normal Assessment & Plan Assessment/Plan (1) Atrial fibrillation with RVR: (2) Pneumonia: (3) Acute hypoxic respiratory failure: PLAN: Plan 1. Septic shock-secondary to haemophilus influenza pneumonia, patient is currently off pressor agents at this time, critical care discontinued her corticosteroids , she has finished her course of IV antibiotics #2 acute hypoxic respiratory failure-patient was extubated later on today after the time my examination, at the time of this dictation she appears to be doing well on nasal cannula oxygen #3 atrial fibrillation with RVR-converted to sinus rhythm-patient is currently on a beta-nina #4 hypothyroidism-patient is currently on Synthroid #5 essential hypertension-patient is on metoprolol Total clinical time spent by myself addressing the patient's medical issues, reviewing all of her data, and collaborating with patient's care team: 35 minutes Charges/Coding Visit Charges Inpatient E&M: 66652 Subs Hosp L2
[2024-08-14 19:40] LABS: Partial Thromboplast Time 64.2 Seconds (24.1-36.2)
[2024-08-15] VITALS (25 sets, daily range): BP systolic 110–170; BP diastolic 55–89; PULSE 52–78; RESP 14–26; TEMP 36.4–36.9; O2SAT 91–99; BMI 35.4
[2024-08-15] MEDS: HEPARIN/D5w 25,000 UNITS 25,000 UNITS/250 ML IV.SOLN. 15 UNITS CONT INF (00:05)
[2024-08-15] MEDS: Ipratropium 0.5 MG/2.5 ML SOLUTION INHALATION ×5 (02:21→20:04)
[2024-08-15 02:50] LABS: Partial Thromboplast Time 79.2 Seconds (24.1-36.2)
[2024-08-15] MEDS: Levothyroxine 100 MCG Tablet PO (05:02)
[2024-08-15 09:24] LABS: Partial Thromboplast Time 63.2 Seconds (24.1-36.2)
--- NOTE | 2024-08-15 09:39 | PN.CC_ITS ---
Objective Data Objective Data Vital Signs: Vital Signs Last response 3 Temperature 36.6 C 08/15/24 08:00 Temperature Source Temporal 08/15/24 08:00 Pulse Rate 69 08/15/24 08:00 Pulse Strength Normal (2+) 08/14/24 19:49 Respiratory Rate 21 H 08/15/24 08:00 Respiratory Effort Normal, Non-Labored 08/15/24 08:00 Respiratory Depth Normal 08/15/24 08:00 Respiratory Pattern Normal 08/15/24 08:00 Blood Pressure 147/69 H 08/15/24 08:00 Blood Pressure Mean 95 08/15/24 08:00 Blood Pressure Source Monitor 08/15/24 08:00 Blood Pressure Position Semi-Fowlers 08/15/24 08:00 Blood Pressure Location Left Arm 08/15/24 08:00 Pulse Ox 92 08/15/24 08:00 Oxygen Delivery Method Nasal Cannula 08/15/24 08:00 Oxygen Flow Rate (L/min) 8 08/15/24 08:00 Fraction of Inspired Oxygen (FIO2) 45 08/15/24 04:50 I&O: I&O Last 24 Hours 3 08/14/24 08/14/24 08/15/24 11:59 23:59 11:59 Intake Total 681.58 / 1476.42 794.84 / 1476.42 721.75 / 721.75 Output Total 2550 / 3000 450 / 3000 600 / 600 Balance -1868.42 / -1523.58 344.84 / -1523.58 121.75 / 121.75 I&O: Total Stay 3 08/03/24 14:23 thru 08/15/24 05:03 Intake Total 22579.07 Output Total 96525 Balance 714.07 Current Meds Ordered / Administered: Current meds ordered / Administered 3 Generic Name Dose Route Start Last Admin Trade Name Freq PRN Reason Stop Dose Admin Acetaminophen 650 mg 08/03/24 22:57 08/09/24 21:52 Acetaminophen 325 Mg Tablet PO 650 mg Q6H PRN PRN Administration Pain 1-10 Or Fever >100.7 Albuterol Sulfate 2.5 mg 08/03/24 22:57 Albuterol 2.5 Mg/3 Ml Vial.Neb. INHALATION Q2H PRN PRN SOB &/OR WHEEZING Chlorhexidine Gluconate 1 each 08/06/24 10:00 08/15/24 09:25 Chlorhexidine Gluc 2% Cloth 1 Each [place] TOPICAL Not Given DAILY [facility] Estradiol 2 mg 08/15/24 10:00 Estradiol 1 Mg Tablet PO DAILY [facility] Fentanyl Citrate 25 mcg 08/13/24 17:09 Fentanyl 100 Mcg/2 Ml Ampul IV Q4H PRN Pain Score 6-10 Guaifenesin 1,200 mg 08/03/24 22:57 08/14/24 21:04 Guaifenesin 1,200 Mg Tablet PO 1,200 mg BID TIMMY Administration Heparin Sodium (Porcine) 0 unit 08/03/24 18:00 08/04/24 05:13 Heparin Injection (Vial) 5,000 Unit/Ml Vial IV 1,000 unit UD PRN Administration dose adjustment Protocol Heparin Sodium/Dextrose 25,000 units in 250 mls @ 10 mls/hr 08/03/24 17:55 08/15/24 02:52 CONT INF 1,400 units/hr .Q25H TIMMY 14 mls/hr Titration Protocol As Directed Sodium Chloride 100 mls @ 15 mls/hr 08/06/24 06:30 IV .Q6H40M PRN Saline Flush Sodium Chloride 100 mls @ 15 mls/hr 08/06/24 06:30 IV .Q6H40M PRN Additional IVPB Infusion Ipratropium [place] 0.5 mg 08/08/24 16:00 08/15/24 07:39 Ipratropium 0.5 Mg/2.5 Ml Solution INHALATION 0.5 mg Q4H.RT TIMMY Administration Levothyroxine Sodium 100 mcg 08/15/24 06:00 08/15/24 05:02 Levothyroxine 100 Mcg Tablet PO 100 mcg DAILY@0600 TIMMY Administration Metoprolol Tartrate 100 mg 08/14/24 22:00 08/14/24 21:04 Metoprolol Tartrate 100 Mg Tablet PO 100 mg BID TIMMY Administration Ondansetron HCl 4 mg 08/03/24 22:57 Ondansetron 4 Mg/2 Ml Vial IV Q8H PRN PRN NAUSEA/VOMITING Senna/Docusate Sodium 2 tablet 08/14/24 11:22 Senna/Docusate Sodium 1 Tablet PO BID PRN PRN Constipation Sodium Chloride 10 - 40 ml 08/06/24 06:30 08/14/24 13:04 0.9% Saline Lock 10 Ml Syringe IV 20 ml UD PRN Administration SALINE FLUSH Lab / Micro Data 08/14/24 05:35 08/14/24 05:35 Labs: Laboratory Results - last 24 hr 08/14/24 13:00: APTT 51.7 H 08/14/24 19:23: APTT 64.2 H 08/15/24 02:27: APTT 79.2 H 08/15/24 09:00: APTT 63.2 H Assessment and Plan . Assessment and plan: HPI Patient seen and examined Chart and data reviewed She is breathing 7 LPM O2 She appears ill, but NAD IV UFH infusing HD stable Imaging reviewed No new data today EXAM GEN NAD VS as above HEENT O2 N/C NECK obese COR irreg CHEST coarse ABD soft EXT minimal edema SKIN w/d KESHAV NF, awake and responsive IMP 1. Acute hypoxemic respiratory failure 2. Bilateral infiltrates, presumed infectious PNA 3. Chronic AF 4. Obesity 5. 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
--- NOTE | 2024-08-15 10:29 | CASEMGMT ---
Social Work SW met w/pt and , pt's daughter Caryn on the phone. SW spoke w/pt and about discharge plan, inquired if they had reviewed the list for senior living facility. Pt and explained to SW that pt's daughter Caryn will stop in daily to see pt, and pt's friend from [place] is going to come stay w/pt and help her at discharge. Pt's states he will not put pt in SNF, he will take her home. They may be open to home health care. CM/SW will continue to follow. JOE Mueller
[2024-08-15] MEDS: guaiFENesin 1,200 MG Tablet 1200 MG PO ×2 (10:30→21:22)
[2024-08-15] MEDS: Metoprolol Tartrate 100 MG Tablet PO ×2 (10:30→21:22)
[2024-08-15] MEDS: Estradiol 1 MG Tablet 2 MG PO (10:31)
[2024-08-15] MEDS: APIXABAN 5 MG TABLET PO ×2 (13:30→21:22)
--- NOTE | 2024-08-15 15:08 | PCM.PN.HOSP ---
Reason for Visit Reason for Visit: Diagnoses Hypothyroidism, unspecified (08/03/24) Unspecified atrial fibrillation (08/03/24) Pneumonia, unspecified organism (08/03/24) Acute respiratory failure with hypoxia (08/03/24) Subjective Subjective Patient was seen and examined today, she appears to be in sinus rhythm with what appears to be a wandering atrial pacemaker. Patient is currently on 6 L via nasal cannula. She was cleared by speech therapy to have oral intake. Objective Data Objective Data Vital Signs: Vital Signs Temp Pulse Resp BP Pulse Ox O2 Del Method O2 Flow Rate 98.5 F 63 22 H 137/59 H 93 Nasal Cannula 93 08/15/24 12:00 08/15/24 12:10 08/15/24 12:10 08/15/24 12:00 08/15/24 12:11 08/15/24 12:11 08/15/24 12:42 FiO2 45 08/15/24 04:50 Oxygen Flow Rate (L/min) 93 Oxygen Delivery Method Nasal Cannula Weight: 99.7 kg Body Mass Index (BMI) 35.4 Intake & Output: Intake and Output for Last 24 Hours 08/13/24 08/14/24 08/15/24 23:59 23:59 23:59 Intake Total 2373.23 / 2373.23 1476.42 / 1476.42 1354.28 / 1354.28 Output Total 2950 / 4150 3000 / 3000 900 / 900 Balance -576.77 / -1776.77 -1523.58 / -1523.58 454.28 / 454.28 Lab / Micro Data 08/14/24 05:35 08/14/24 05:35 Labs: Laboratory Results - last 24 hr 08/14/24 19:23: APTT 64.2 H 08/15/24 02:27: APTT 79.2 H 08/15/24 09:00: APTT 63.2 H Micro: Microbiology 08/10/24 14:30 Blood Culture (Wb) - Central Line Blood Culture - Preliminary No growth in 48 hours. 08/03/24 15:30 Blood Culture (Wb) - Anticubital Right Blood Culture - Final No growth in 5 days. 08/03/24 14:35 Blood Culture (Wb) - Right Forearm Blood Culture - Final No growth in 5 days. 08/03/24 22:43 Sputum, Induced/Lukens Gram Stain - Final 08/03/24 22:43 Sputum, Induced/Lukens Respiratory Culture - Final Haemophilus influenzae 08/03/24 15:48 Urine Catheter - Catheter Urine Culture - Final Culture exhibits no growth. 08/04/24 07:45 Urine Catheter - Erickson Legionella Antigen - Final 08/04/24 07:45 Urine Catheter - Erickson Streptococcus pneumoniae Antigen (M - Final 08/03/24 23:20 Mucosa - Nasopharyngeal Respiratory Panel (PCR) - Final 08/03/24 14:40 Mucosa - Nose SARS-CoV-2, Influenza & RSV (PCR) - Final Physical Exam Narrative alert, no apparent distress and healthy appearing General Appearance: cooperative, well kempt and well developed Orientation / Consciousness: awake, oriented to person and oriented to place HEENT normocephalic, head/scalp atraumatic and moist oral mucous membranes Eyes PERRL, EOMs intact bilaterally and conjunctivae normal Neck supple, no JVD, thyroid normal and no carotid bruits General: trachea midline Resp normal respiratory effort, no retractions, no use of accessory muscles and clear to auscultation bilaterally Auscultation: Negative for rales, rhonchi or wheezes Cardio regular rate, regular rhythm, S1 normal heart sound, S2 normal heart sound, no murmurs, no rub and no gallops GI normal to inspection, nondistended, normoactive bowel sounds, soft to palpation, non-tender and non-distended Extremity no clubbing, cyanosis or edema Skin no rashes or lesions noted General Skin Exam: no breakdown Neuro CN's II-XII intact bilaterally, moves all extremities, no focal motor deficits and no sensory deficits noted Sensorium / Orientation: awake, alert, oriented to person and oriented to place Speech: speech normal Psych affect normal Assessment & Plan Assessment/Plan (1) Pneumonia: (2) Atrial fibrillation with RVR: (3) Acute hypoxic respiratory failure: PLAN: Plan 1. Septic shock-secondary to haemophilus influenza pneumonia, patient is currently off pressor agents at this time, critical care discontinued her corticosteroids , she has finished her course of IV antibiotics, patient appears stable for transfer to PCU for further care #2 acute hypoxic respiratory failure-patient is currently on nasal cannula oxygen #3 atrial fibrillation with RVR-converted to sinus rhythm-patient is currently on a beta-nina #4 hypothyroidism-patient is currently on Synthroid #5 essential hypertension-patient is on metoprolol Total clinical time spent by myself addressing the patient's medical issues, reviewing all of her data, and collaborating with patient's care team: 35 minutes Charges/Coding Visit Charges Inpatient E&M: 07693 Subs Hosp L2
[2024-08-16] VITALS (12 sets, daily range): BP systolic 127–146; BP diastolic 60–76; PULSE 56–70; RESP 18–24; TEMP 35.7–36.7; O2SAT 91–97; BMI 36.1
[2024-08-16] MEDS: Ipratropium 0.5 MG/2.5 ML SOLUTION INHALATION ×4 (00:06→20:09)
[2024-08-16] MEDS: Levothyroxine 100 MCG Tablet PO (06:11)
[2024-08-16] MEDS: guaiFENesin 1,200 MG Tablet 1200 MG PO ×2 (08:58→20:55)
[2024-08-16] MEDS: Metoprolol Tartrate 100 MG Tablet PO ×2 (08:59→20:55)
[2024-08-16] MEDS: Estradiol 1 MG Tablet 2 MG PO ×2 (08:59→09:00)
[2024-08-16] MEDS: APIXABAN 5 MG TABLET PO ×2 (08:59→20:54)
--- NOTE | 2024-08-16 16:58 | PCM.PN.TICU ---
Objective Data Objective Data Vital Signs: Vital Signs Last response Temperature 36.7 C 08/16/24 15:00 Temperature Source Temporal 08/16/24 15:00 Pulse Rate 68 08/16/24 15:00 Pulse Strength Normal (2+) 08/15/24 10:00 Respiratory Rate 20 H 08/16/24 15:00 Respiratory Effort Non-Labored 08/16/24 07:45 Respiratory Depth Normal 08/15/24 23:00 Respiratory Pattern Normal 08/16/24 10:02 Blood Pressure 143/76 H 08/16/24 15:00 Blood Pressure Mean 98 08/16/24 15:00 Blood Pressure Source Monitor 08/16/24 15:00 Blood Pressure Position Semi-Fowlers 08/16/24 15:00 Blood Pressure Location Left Arm 08/16/24 15:00 Pulse Ox 93 08/16/24 15:16 Oxygen Delivery Method High Flow 08/16/24 15:00 Oxygen Flow Rate (L/min) 8 08/16/24 15:17 Fraction of Inspired Oxygen (FIO2) 45 08/15/24 04:50 I&O: I&O Last 24 Hours 08/15/24 08/16/24 08/16/24 23:59 11:59 23:59 Intake Total 655.23 / 1474.28 300 / 300 Output Total 751 / 1851 850 / 1250 400 / 1250 Balance -95.77 / -376.72 -850 / -950 -100 / -950 I&O: Total Stay 08/03/24 14:23 thru 08/16/24 12:00 Intake Total 56844.60 Output Total 20063 Balance -234.40 Current Meds Ordered / Administered: Current meds ordered / Administered Generic Name Dose Route Start Last Admin Trade Name Freq PRN Reason Stop Dose Admin Acetaminophen 650 mg 08/03/24 22:57 08/09/24 21:52 Acetaminophen 325 Mg Tablet PO 650 mg Q6H PRN PRN Administration Pain 1-10 Or Fever >100.7 Albuterol Sulfate 2.5 mg 08/03/24 22:57 Albuterol 2.5 Mg/3 Ml Vial.Neb. INHALATION Q2H PRN PRN SOB &/OR WHEEZING Apixaban 5 mg 08/15/24 11:50 08/16/24 08:59 Apixaban 5 Mg Tablet PO 5 mg BID TIMMY Administration Chlorhexidine Gluconate 1 each 08/06/24 10:00 08/16/24 09:06 Chlorhexidine Gluc 2% Cloth 1 Each [place] TOPICAL Not Given DAILY TIMMY Estradiol 2 mg 08/15/24 10:00 08/16/24 09:00 Estradiol 1 Mg Tablet PO 2 mg DAILY TIMMY Administration Guaifenesin 1,200 mg 08/03/24 22:57 08/16/24 08:58 Guaifenesin 1,200 Mg Tablet PO 1,200 mg BID TIMMY Administration Sodium Chloride 100 mls @ 15 mls/hr 08/06/24 06:30 IV .Q6H40M PRN Saline Flush Sodium Chloride 100 mls @ 15 mls/hr 08/06/24 06:30 IV .Q6H40M PRN Additional IVPB Infusion Ipratropium [place] 0.5 mg 08/08/24 16:00 08/16/24 10:01 Ipratropium 0.5 Mg/2.5 Ml Solution INHALATION 0.5 mg Q4H.RT TIMMY Administration Levothyroxine Sodium 100 mcg 08/15/24 06:00 08/16/24 06:11 Levothyroxine 100 Mcg Tablet PO 100 mcg DAILY@0600 TIMMY Administration Metoprolol Tartrate 100 mg 08/14/24 22:00 08/16/24 08:59 Metoprolol Tartrate 100 Mg Tablet PO 100 mg BID TIMMY Administration Ondansetron HCl 4 mg 08/03/24 22:57 Ondansetron 4 Mg/2 Ml Vial IV Q8H PRN PRN NAUSEA/VOMITING Senna/Docusate Sodium 2 tablet 08/14/24 11:22 Senna/Docusate Sodium 1 Tablet PO BID PRN PRN Constipation Sodium Chloride 10 - 40 ml 08/06/24 06:30 08/14/24 13:04 0.9% Saline Lock 10 Ml Syringe IV 20 ml UD PRN Administration SALINE FLUSH Lab / Micro Data 08/14/24 05:35 08/14/24 05:35 Micro: Microbiology 08/10/24 14:30 Blood Culture (Wb) - Central Line Blood Culture - Final No growth in 5 days. Assessment and Plan . Assessment and plan: HPI Patient seen and examined Chart and data reviewed She is breathing 8 LPM O2 She appears ill, but NAD HD stable Imaging reviewed EXAM GEN NAD VS as above HEENT O2 N/C NECK obese COR irreg CHEST coarse ABD soft EXT minimal edema SKIN w/d KESHAV NF, awake and responsive IMP 1. Acute hypoxemic respiratory failure 2. Bilateral infiltrates, presumed infectious PNA 3. Chronic AF 4. Obesity 5. Metabolic encephalopathy PLAN -supplemental O2 -NIV support w/ sleep as tolerated -completed ABX -systemic A/C for AF -follow [employer]OR [employer]BI[employer] clinically -advance po -mobilize as able -repeat pCXR and check p-BNP The entirety of this encounter was done via Telemedicine
--- NOTE | 2024-08-16 18:00 | RAD_ITS ---
PROCEDURE: CHEST 1 VIEW (PORTABLE) REASON FOR EXAM: Hypoxemia TECHNIQUE: Frontal view of the chest. COMPARISON: 08/04/2024; 08/09/2024 FINDINGS: Patchy multifocal pulmonary airspace and interstitial opacities are present, mildly improved since the previous exam. Small bilateral pleural effusions are likely. The cardiomediastinal silhouette is unremarkable. A right central venous catheter is present with the catheter tip in the superior vena cava. Atherosclerotic calcifications are present in the aortic arch. No acute osseous or soft tissue abnormality. RAD/Chest 1 View (Portable) IMPRESSION: 1. Patchy multifocal pulmonary opacities, mildly improved since the previous ex am. 2. Small bilateral pleural effusions suspected. Reading Location: [facility]
--- NOTE | 2024-08-16 18:10 | PCM.PN.HOSP ---
Reason for Visit Reason for Visit: Diagnoses Hypothyroidism, unspecified (08/03/24) Unspecified atrial fibrillation (08/03/24) Pneumonia, unspecified organism (08/03/24) Acute respiratory failure with hypoxia (08/03/24) Subjective Subjective Patient was seen and examined today, she is on 8 L of oxygen at rest currently, I talked to her briefly about going to a skilled care facility and she was not happy with this but she told me she would consider it. Her family was in the room at the time of my visit. Objective Data Objective Data Vital Signs: Vital Signs Temp Pulse Resp BP Pulse Ox O2 Del Method O2 Flow Rate 98.0 F 68 20 H 143/76 H 93 Airvo 8 08/16/24 15:00 08/16/24 15:00 08/16/24 15:00 08/16/24 15:00 08/16/24 15:16 08/16/24 15:00 08/16/24 15:17 FiO2 45 08/15/24 04:50 Oxygen Flow Rate (L/min) 8 Oxygen Delivery Method Airvo Weight: 101.7 kg Body Mass Index (BMI) 36.1 Intake & Output: Intake and Output for Last 24 Hours 08/14/24 08/15/24 08/16/24 23:59 23:59 23:59 Intake Total 1476.42 / 1476.42 1474.28 / 1474.28 300 / 300 Output Total 3000 / 3000 1351 / 1851 1250 / 1250 Balance -1523.58 / -1523.58 123.28 / -376.72 -950 / -950 Lab / Micro Data 08/14/24 05:35 08/14/24 05:35 Micro: Microbiology 08/10/24 14:30 Blood Culture (Wb) - Central Line Blood Culture - Final No growth in 5 days. 08/03/24 15:30 Blood Culture (Wb) - Anticubital Right Blood Culture - Final No growth in 5 days. 08/03/24 14:35 Blood Culture (Wb) - Right Forearm Blood Culture - Final No growth in 5 days. 08/03/24 22:43 Sputum, Induced/Lukens Gram Stain - Final 08/03/24 22:43 Sputum, Induced/Lukens Respiratory Culture - Final Haemophilus influenzae 08/03/24 15:48 Urine Catheter - Catheter Urine Culture - Final Culture exhibits no growth. 08/04/24 07:45 Urine Catheter - Erickson Legionella Antigen - Final 08/04/24 07:45 Urine Catheter - Erickson Streptococcus pneumoniae Antigen (M - Final 08/03/24 23:20 Mucosa - Nasopharyngeal Respiratory Panel (PCR) - Final 08/03/24 14:40 Mucosa - Nose SARS-CoV-2, Influenza & RSV (PCR) - Final Physical Exam Narrative alert, no apparent distress and healthy appearing General Appearance: cooperative, well kempt and well developed Orientation / Consciousness: awake, oriented to person and oriented to place HEENT normocephalic, head/scalp atraumatic and moist oral mucous membranes Eyes PERRL, EOMs intact bilaterally and conjunctivae normal Neck supple, no JVD, thyroid normal and no carotid bruits General: trachea midline Resp normal respiratory effort, no retractions, no use of accessory muscles and clear to auscultation bilaterally Auscultation: Negative for rales, rhonchi or wheezes Cardio regular rate, regular rhythm, S1 normal heart sound, S2 normal heart sound, no murmurs, no rub and no gallops GI normal to inspection, nondistended, normoactive bowel sounds, soft to palpation, non-tender and non-distended Extremity no clubbing, cyanosis or edema Skin no rashes or lesions noted General Skin Exam: no breakdown Neuro CN's II-XII intact bilaterally, moves all extremities, no focal motor deficits and no sensory deficits noted Sensorium / Orientation: awake, alert, oriented to person and oriented to place Speech: speech normal Psych affect normal Assessment & Plan Assessment/Plan (1) Pneumonia: (2) Atrial fibrillation with RVR: (3) Acute hypoxic respiratory failure: PLAN: Plan 1. Septic shock-secondary to haemophilus influenza pneumonia, patient has completed her course of antibiotics #2 acute hypoxic respiratory failure-patient is currently on nasal cannula oxygen #3 atrial fibrillation with RVR-converted to sinus rhythm-patient is currently on a beta-nina and Eliquis #4 hypothyroidism-patient is currently on Synthroid #5 essential hypertension-patient is on metoprolol #6 acute debility secondary to septic shock and acute hypoxic respiratory failure-PT and OT are seeing patient, I have encouraged her to consider going to a skilled care facility such as TCU. Patient states that she will think about it. Total clinical time spent by myself addressing the patient's medical issues, reviewing all of her data, and collaborating with patient's care team: 35 minutes Charges/Coding Visit Charges Inpatient E&M: 33832 Subs Hosp L2
[2024-08-17] VITALS (13 sets, daily range): BP systolic 103–136; BP diastolic 59–89; PULSE 55–70; RESP 16–24; TEMP 36.2–37.1; O2SAT 91–100; BMI 36.0
--- NOTE | 2024-08-17 04:08 | CT_ITS ---
PROCEDURE: CTA CHEST W/WO CONTRAST REASON FOR EXAM: PE and pneumonia TECHNIQUE: CTA imaging of the chest with intravenous contrast. 3D reconstructions. CONTRAST: COMPARISON: 08/09/2024 FINDINGS: Hardware: None. Lymph nodes: Subcarinal lymph node measuring 12 mm in short axis. Heart: Normal heart size. No pericardial effusion. RV/LV Diameter Ratio: N/A Thoracic Aorta: No thoracic aortic aneurysm or dissection. Pulmonary Vessels: No evidence of acute pulmonary emboli through the major subsegmental branches. Most Proximal Level of Embolus (if embolus present): N/A Lungs and Airways: Scattered patchy and nodular opacities bilaterally. . Pleura: Mild bilateral pleural effusions, [id number]-right, with compressive consolidation. No pneumothorax. Upper Abdomen: Visualized portions of the upper abdominal viscera are unremarkable. Bones: Bone windows are unremarkable. CT/CTA Chest W/WO Contrast IMPRESSION: 1. No CT evidence of acute pulmonary embolism. 2. Bilateral airspace disease with mild bilateral pleural effusions, left-grea [id number]-[id number] with compressive consolidation. 3. Mediastinal lymphadenopathy One or more dose reduction techniques were used (e.g., Automated exposure contr ol, adjustment of the mA and/or kV according to patient size, use of iterative reconstruction technique). Reading Location: [facility]
[2024-08-17] MEDS: 0.9% Saline Lock 10 ML Syringe IV ×3 (05:04→23:08)
[2024-08-17] MEDS: Piperacil/Tazobactam 3.375 GM in 0.9% Normal Saline (50mL MB+) 50 ML IV (05:04)
[2024-08-17 05:44] LABS: Allen Test Positive; Base Excess 10 mmol/L (-2 to +2); Bicarbonate 33.9 mmol/L (22-26); Blood Gas Specimen Type ART; Mode Not entered; O2 Delivery Device HFNC; PO2 56 mmHG (75-100); SITE L Radial; SO2 90 % (95-99); Total Carbon Dioxide 35 mmol/L; pCO2 46.4 mmHg (35-45); pH 7.47 (7.35-7.45)
[2024-08-17] MEDS: Levothyroxine 100 MCG Tablet PO (05:54)
[2024-08-17 05:55] LABS: Lactic Acid 1.4 mmol/L (0.4-1.9)
[2024-08-17 06:08] LABS: ALB/GLOB Ratio 0.5 RATIO (0.9-2.4); AST(SGOT) 53 U/L (15-37); Alanine Aminotransfer ALT/SGPT 56 U/L (13-56); Albumin, Serum 2.2 g/dL (3.2-5.0); Alkaline Phosphatase 99 U/L (45-117); Anion Gap 8 (5-15); BUN 25 mg/dL (7-18); BUN/Creat Ratio 35.2 RATIO (10-20); Calcium,Total 9.2 mg/dL (8.5-10.1); Chloride 103 mmol/L (98-107); Creatinine, Serum 0.71 mg/dL (0.55-1.02); EST Glomerular Filtration Rate 88 mL/min (>60); Est Glom Filt Rate - Afr Amer 106 mL/min (>60); Estimated Creatinine Clearance 84.18 ml/min; Globulin 4.4 g/dL (2.2-4.2); Glucose 76 mg/dL (74-106); Magnesium 2.6 mg/dL (1.6-2.6); Protein, Total 6.6 g/dL (6.4-8.2); Sodium Level 139 mmol/L (136-145)
[2024-08-17 06:34] LABS: Absolute Neutrophil Count 8.2 X10^3/uL (2.0-7.7); Basophil# 0.02 X10^3/uL; Basophil% 0.2 % (0-1); Eosinophil# 0.16 X10^3/uL; Eosinophils% 1.4 % (0-5); Hematocrit 29.9 % (37-47); Hemoglobin 9.5 g/dL (12.0-15.0); Lymphocyte % 18.9 % (19-41); Mean Corp Hgb Conc 31.8 g/dL (32-36); Mean Corpuscular Hgb 29.1 pg (27.0-32.0); Mean Corpuscular Volume 91.7 fL (81-99); Mean Platelet Vol. 10.6 fl (6.2-12.0); Monocyte# 0.56 X10^3/uL; NRBC Flagged by Analyzer 0 % (0-5); Neutrophil # 8.21 X10^3/uL (2.7-7.7); Platelet Count 254 K/mm3 (150-450); RBC Distribution Width CV 15.9 % (11.6-14.6); RBC Distribution Width SD 50.4 fl (35.1-43.9); Red Blood Count 3.26 M/mm3 (4.2-5.4); White Blood Count 11.1 K/mm3 (4.4-11.0)
[2024-08-17 06:53] LABS: D-Dimer Quantitative (DVT/PE) 3.62 FEU/ug/m (0.27-0.49)
[2024-08-17 08:13] LABS: BNP,B-Type NATRIURETIC PEPTIDE 213.2 pg/mL (0-100)
[2024-08-17] MEDS: Metoprolol Tartrate 100 MG Tablet PO ×2 (09:05→18:53)
[2024-08-17] MEDS: APIXABAN 5 MG TABLET PO ×2 (09:05→18:53)
[2024-08-17] MEDS: guaiFENesin 1,200 MG Tablet 1200 MG PO ×2 (09:06→18:53)
[2024-08-17] MEDS: Potassium Chloride Oral Tablet 20 MEQ 60 MEQ PO (09:07)
--- NOTE | 2024-08-17 09:36 | PCM.PN.HOSP ---
Reason for Visit Reason for Visit: Diagnoses Hypothyroidism, unspecified (08/03/24) Unspecified atrial fibrillation (08/03/24) Pneumonia, unspecified organism (08/03/24) Acute respiratory failure with hypoxia (08/03/24) Objective Data Objective Data Vital Signs: Vital Signs Temp Pulse Resp BP Pulse Ox O2 Del Method O2 Flow Rate 98.3 F 65 19 H 136/66 H 100 Airvo 60 08/17/24 09:00 08/17/24 09:05 08/17/24 09:00 08/17/24 09:00 08/17/24 09:00 08/17/24 09:17 08/17/24 09:17 FiO2 80 08/17/24 09:17 Oxygen Flow Rate (L/min) 60 Oxygen Delivery Method Airvo Weight: 223 lb 1.725 oz Body Mass Index (BMI) 36.0 Intake & Output: Intake and Output for Last 24 Hours 08/15/24 08/16/24 08/17/24 23:59 23:59 23:59 Intake Total 1474.28 / 1474.28 300 / 300 Output Total 1351 / 1851 1800 / 1800 500 / 500 Balance 123.28 / -376.72 -1500 / -1500 -500 / -500 Lab / Micro Data 08/17/24 06:19 08/17/24 05:30 Labs: Laboratory Results - last 24 hr 08/17/24 05:15: Lactic Acid 1.4 08/17/24 05:30: Sodium 139, Potassium 3.0 L, Chloride 103, Carbon Dioxide 28.0, Anion Gap 8, BUN 25 H, Creatinine 0.71, Estim Creat Clear Calc 84.18, Est GFR (MDRD) Af Amer 106, Est GFR (MDRD) Non-Af 88, BUN/Creatinine Ratio 35.2 H, Glucose 76, Calcium 9.2, Magnesium 2.6, Total Bilirubin 0.60, AST 53 H, ALT 56, Alkaline Phosphatase 99, Total Protein 6.6, Albumin 2.2 L, Globulin 4.4 H, Albumin/Globulin Ratio 0.5 L 08/17/24 06:19: WBC 11.1 H, RBC 3.26 L, Hgb 9.5 L, Hct 29.9 L, MCV 91.7, MCH 29.1, MCHC 31.8 L, RDW Std Deviation 50.4 H, RDW Coeff of Emmanuel 15.9 H, Plt Count 254, MPV 10.6, Immature Gran % (Auto) 0.500, Neut % (Auto) 74.0 H, Lymph % (Auto) 18.9 L, Placer % (Auto) 5.0, Eos % (Auto) 1.4, Baso % (Auto) 0.2, Absolute Neuts (auto) 8.2 H, Absolute Lymphs (auto) 2.10, Nucleated RBC % 0, D-Dimer Quant (PE/DVT) 3.62 H*, B-Natriuretic Peptide 213.2 H Micro: Microbiology 08/10/24 14:30 Blood Culture (Wb) - Central Line Blood Culture - Final No growth in 5 days. 08/03/24 15:30 Blood Culture (Wb) - Anticubital Right Blood Culture - Final No growth in 5 days. 08/03/24 14:35 Blood Culture (Wb) - Right Forearm Blood Culture - Final No growth in 5 days. 08/03/24 22:43 Sputum, Induced/Lukens Gram Stain - Final 08/03/24 22:43 Sputum, Induced/Lukens Respiratory Culture - Final Haemophilus influenzae 08/03/24 15:48 Urine Catheter - Catheter Urine Culture - Final Culture exhibits no growth. 08/04/24 07:45 Urine Catheter - Erickson Legionella Antigen - Final 08/04/24 07:45 Urine Catheter - Erickson Streptococcus pneumoniae Antigen (M - Final 08/03/24 23:20 Mucosa - Nasopharyngeal Respiratory Panel (PCR) - Final 08/03/24 14:40 Mucosa - Nose SARS-CoV-2, Influenza & RSV (PCR) - Final ABG Data ABG results: ABG 08/17/24 05:42 Specimen Type ART Sample Site L Radial pH 7.47 H Bicarbonate Actual 33.9 H Total CO2 35 Base Excess 10 H O2 Saturation 90 L O2 % 9.0 ABG pCO2 46.4 H ABG pO2 56 L Manoj Test Positive O2 Delivery Device HFNC Vent Mode Not entered Radiography Diagnostic Testing: Radiology Impression Chest X-Ray 08/16/24 18:00 IMPRESSION: 1. Patchy multifocal pulmonary opacities, mildly improved since the previous exam. 2. Small bilateral pleural effusions suspected. Reading Location: [facility] Chest CTA 08/17/24 04:08 IMPRESSION: 1. No CT evidence of acute pulmonary embolism. 2. Bilateral airspace disease with mild bilateral pleural effusions, [id number]-right with compressive consolidation. 3. Mediastinal lymphadenopathy One or more dose reduction techniques were used (e.g., Automated exposure control, adjustment of the mA and/or kV according to patient size, use of iterative reconstruction technique). Reading [facility] Physical Exam Narrative Seen and examined. Patient still on Airvo, 80% FiO2, 60 liter per minute Physical exam General: Alert, Oriented x3, Cooperative, intermittent confusion HEENT: Atraumatic, PERRLA, EOMI, Normocephalic Oral: Oral mucosa dry Neck: Supple, No JVD, Negative Carotid Bruits Chest wall/Lungs: Air entry diminished in bilateral lung bases. No crepitation/rhonchi Cardiovascular: Regular rate, Regular Rhythm, Normal S1, Normal S2, No M/G/R Abdomen: Bowel Sounds Present, Soft, Non Tender, Non-Distended : Erickson catheter no dysuria. No renal angle tenderness. No suprapubic tenderness. Extremities: Mild 1+ pitting edema, Capillary Refill Less than 3 Seconds Skin: Left upper extremity more swollen than right. Tenderness present with mild redness along medial arm side of LUE Musculoskeletal: No Tenderness to Palpation of Joints or Extremities Neurological: Cranial nerves II-XII grossly intact, DTR 2+/4. No acute focal neurological deficit. Psych/Mental Status: Flat affect Assessment & Plan Assessment/Plan (1) Pneumonia: (2) Atrial fibrillation with RVR: (3) Acute hypoxic respiratory failure: PLAN: Plan 1. Septic shock-secondary to haemophilus influenza pneumonia, patient has completed her course of antibiotics She has been on antibiotics since 08/03 with cefepime, vancomycin and Zosyn. ID consulted for further review 08/17: Discussed with ID. He reviewed the chart. Patient is doing well off antibiotic. No further need of antibiotic. Cultures have so far been negative. #2 acute hypoxic respiratory failure-patient is currently on nasal cannula oxygen Chest x-ray and CTA reviewed. Negative for PE. Atelectasis and mild bilateral pleural effusion. Completed antibiotic for pneumonia Echo on 09/17/2024 report Interpretation Summary Normal LV size. Left ventricular systolic function is normal. The left ventricular ejection fraction is 55 %. 08/17: Lasix 40 mg IV given. BP in afternoon 103/89. Continue diuretics as per tolerated by hemodynamics. Mild hypokalemia, potassium replaced. #3 atrial fibrillation with RVR-converted to sinus rhythm-patient is currently on a beta-nina and Eliquis #4 hypothyroidism-patient is currently on Synthroid #5 essential hypertension-patient is on metoprolol #6 acute debility secondary to septic shock and acute hypoxic respiratory failure-PT and OT are seeing patient, I have encouraged her to consider going to a skilled care facility such as TCU. Patient states that she will think about it. Microbiology Past 72 Hours 08/10/24 14:30 Blood Culture (Wb) - Central Line Blood Culture - Final No growth in 5 days. Laboratory Results 08/17/24 05:15: Lactic Acid 1.4 08/17/24 05:30: Sodium 139, Potassium 3.0 L, Chloride 103, Carbon Dioxide 28.0, Anion Gap 8, BUN 25 H, Creatinine 0.71, Estim Creat Clear Calc 84.18, Est GFR (MDRD) Af Amer 106, Est GFR (MDRD) Non-Af 88, BUN/Creatinine Ratio 35.2 H, Glucose 76, Calcium 9.2, Magnesium 2.6, Total Bilirubin 0.60, AST 53 H, ALT 56, Alkaline Phosphatase 99, Total Protein 6.6, Albumin 2.2 L, Globulin 4.4 H, Albumin/Globulin Ratio 0.5 L 08/17/24 05:42: Specimen Type ART, Sample Site L Radial, pH 7.47 H, Bicarbonate Actual 33.9 H, Total CO2 35, Base Excess 10 H, O2 Saturation 90 L, O2 % 9.0, ABG pCO2 46.4 H, ABG pO2 56 L, Manoj Test Positive, O2 Delivery Device HFNC, Vent Mode Not entered 08/17/24 06:19: WBC 11.1 H, RBC 3.26 L, Hgb 9.5 L, Hct 29.9 L, MCV 91.7, MCH 29.1, MCHC 31.8 L, RDW Std Deviation 50.4 H, RDW Coeff of Emmanuel 15.9 H, Plt Count 254, MPV 10.6, Immature Gran % (Auto) 0.500, Neut % (Auto) 74.0 H, Lymph % (Auto) 18.9 L, Placer % (Auto) 5.0, Eos % (Auto) 1.4, Baso % (Auto) 0.2, Absolute Neuts (auto) 8.2 H, Absolute Lymphs (auto) 2.10, Nucleated RBC % 0, D-Dimer Quant (PE/DVT) 3.62 H*, B-Natriuretic Peptide 213.2 H Charges/Coding Visit Charges Inpatient E&M: 64097 Subs Hosp L2
--- NOTE | 2024-08-17 09:39 | VDUE_ITS ---
Reason For Study Reason For Study: PAIN Right Proximal Left Proximal Right IJV not visualized due to IV placement. Left jugular vein is spontaneous, widely patent, Right subclavian vein is spontaneous, widely patent, phasic, with no intraluminal echogenicity noted. phasic, with no intraluminal echogenicity noted. Left subclavian vein is spontaneous, widely patent, Right Lower Arm phasic, with no intraluminal echogenicity noted. Right radial vein is compressible. Left Arm Right ulnar vein is compressible. Left axillary vein is spontaneous, patent, phasic, Right Arm competent, compressible and demonstrates Right axillary vein is spontaneous, patent, phasic, augmentation. competent, compressible and demonstrates Left brachial vein is compressible. augmentation. Left Cepahlic Vein dilated, NONCOMPRESSIBLE at mid Right brachial vein is compressible. forearm. Vessel appears compressible at origin. Right Cepahlic Vein dilated NONCOMPRESSIBLE at mid Left basilic vein is compressible. bicep. Vessel appears compressible at origin. Left Lower Arm Right basilic vein is compressible. Left radial vein is compressible. Left ulnar vein is compressible. Procedure This was a bilateral upper extremity venous doppler examination. Exam performed portable in patient room. A preliminary report was called and/or faxed to [employer]. Exam limited due to IV placement and patient/medical equipment position. VL/Venous Duplex US - Jameel Extrem Interpretation Summary Acute superficial vein thrombosis noted in the right cephalic vein. Acute superficial vein thrombosis noted in the left cephalic vein. Deep veins of the bilateral upper extremities are patent and compressible segme ntally. There is no evidence of deep vein thrombosis. Ordering Physician: Justin Wells Referring Physician: MD Deja Arnel Performed By: Juan David Haynes RVT and Student ???
[2024-08-17] MEDS: Furosemide 40 MG/4 ML Vial IV (10:21)
[2024-08-17] MEDS: Fluticasone 0.05% 1 SPRAY NASAL.SRY NASAL ×2 (10:22→18:53)
[2024-08-17] MEDS: Ipratropium 0.5 MG/2.5 ML SOLUTION INHALATION ×3 (11:00→23:35)
[2024-08-17] MEDS: Sodium Chloride 0.65% 1 SPRAY SPRAY.BTL 2 SPRAY NASAL ×2 (15:26→18:53)
--- NOTE | 2024-08-17 15:51 | SP.FEES_ITS ---
FEES Patient Information Date of Evaluation: 08/17/24 Time of Evaluation: 14:00 Diagnosis: PNA J18.9 Referring Physician: Justin Wells Staff Providing this Care/Treatment:: CASI Direct Billable Minutes: 120 History: Past Medical History:: Orin Zhao a 64-year-old female with a history of hypothyroidism, presented to [facility] ED on 08/03/2024 after being referred by her primary care physician due to worsening shortness of breath and hypoxia. In the ED, she remained tachycardic, tachypneic, and hypoxic, with her condition deteriorating despite initial management. After discussion between the ED physician, the patient, and her family, the decision was made to proceed with intubation prior to transfer to the ICU. She was intub ated in the ED on 08/02/2024 and subsequently transferred to the ICU. Extubation was performed on 08/13/2024, and speech Therapy was consulted post-extubation. BSE 08/14/2024 recommended NPO. Pt's diet advanced to Easy to Chew textures / Thin liquids this past weekend w/ recommendation for instrumental assessment of swallow function to assess risk for aspiration. Current Diet: Drinks/Liquids:: Thin Foods:: Easy to chew Comment:: Feeding assistance, meds whole in Respiratory Status Observation:: Airvo Vocal Quality: Observations:: Hoarse Cognition: Observations:: WFL Position During FEES: Position During FEES:: Upright Location: In Bed Fiberoptic Endoscope: Size: 3.4 mm Nare Used:: Right Anatomical Findings: Anatomical Findings:: Mild edema throughout the oropharynx and hypopharynx. White excrescence in the inter-arytenoid space (R side) and on the posterior portion of the L vocal folds likely post-extubation trauma. Adduction of false vocal folds w/ sustained ee. Incomplete adduction of true vocal folds w/ other phonation tasks. Penetration-Aspiration Scale Penetration-Aspiration Scale Thin Liquids by Teaspoon Food/Drink Provided:: Green-colored water Swallow Onset Location:: Pyriform Sinuses PAS Score: PAS Score *5 Visual Analysis of Swallowing Efficiency and Safety (VASES) after the swallow: Oropharynx and Hypopharynx VASES Comments:: 10% pyriforms bilaterally, 10% vallecula, <5% aryepiglottic folds, <5% on the granulomatous tissue on the true vocal folds and inter- arytenoid space, <5% laryngeal vestibule Additional Comments:: residues spilled to the glottis after the swallow w/ reflexive cough Thin Liquids by Single Cup Food/Drink Provided:: Green-colored water Swallow Onset Location:: Pyriform Sinuses PAS Score: PAS Score *4 Comments:: <5% in bilateral pyriforms, <5% in vallecula Additional Comments:: Reflexive cough. Thin Liquids by Single Straw Food/Drink Provided:: Green-colored water Swallow Onset Location:: Pyriform Sinuses PAS Score: PAS Score *7 Visual Analysis of Swallowing Efficiency and Safety (VASES) after the swallow: Oropharynx, Hypopharynx and Laryngeal Vestibule Comments:: 10% pyriform sinuses bilaterally, 5% vallecula, <5% laryngeal vestibule Strategies Trialed:: Effortful = somewhat effective Additional Comments:: Aspiration after the swallow w/ no strategies, laryngeal penetration to the vocal folds after the swallow w/ effortful swallow. Reflexive cough w/ laryngeal penetration and aspiration. Mildly Thick Liquids by Teaspoon Food/Drink Provided:: green colored mildly thick apple juice Swallow Onset Location:: Pyriform Sinuses PAS Score: PAS Score *1 Visual Analysis of Swallowing Efficiency and Safety (VASES) after the swallow: Oropharynx and Hypopharynx Comments:: <5% pyriform sinuses, 5% vallecula Mildly Thick Liquids by Single Cup Food/Drink Provided:: green colored mildly thick apple juice Swallow Onset Location:: Laryngeal Vestibule PAS Score: PAS Score *5 Visual Analysis of Swallowing Efficiency and Safety (VASES) after the swallow: Oropharynx, Hypopharynx and Laryngeal Vestibule Comments:: <5% laryngeal vestibule, 15% pyriform sinuses, 10% aryepiglottic folds, 10% vallecula Additional Comments:: reflexive cough, cannot definitively rule out aspiration Puree Textures Food/Drink Provided:: Green-colored applesauce Swallow Onset Location:: Tongue Base and Vallecula PAS Score: PAS Score *5 Visual Analysis of Swallowing Efficiency and Safety (VASES) after the swallow: Oropharynx, Hypopharynx and Epiglottis Comments:: <5% epiglottis, 15% vallecula, 10% L pyriform sinus, <5% L aryepiglottic fold, 5% tongue base Additional Comments:: PAS 1 during the swallow. While chewing cookie, trace residue of green-colored pudding spilled to the vocal folds. Regular Textures Food/Drink Provided:: Eva Doone Swallow Onset Location:: Aryepiglottic Folds Comments:: Piece of unchewed cookie spilled to R aryepiglottic fold and L arytenoid PAS Score: PAS Score *3 Visual Analysis of Swallowing Efficiency and Safety (VASES) after the swallow: Oropharynx, Hypopharynx and Epiglottis Comments:: 20% on posterior pharyngeal wall, 10% vallecula, 10% tongue base, 10% pyriforms, 5% epiglottis, <5% ventricular folds Strategies Trialed:: Double, effortful swallow = not effective. Liquid wash = somewhat effective. Diagnosis/Impressions Diagnosis: Moderate oropharyngeal dysphagia R13.12 Impressions: The oral phase is marked by... -Decreased bolus control w/ posterior loss of un-chewed cookie to the aryepiglottic folds and arytenoid prior to swallow onset, placing pt at increased risk for choking. -Decreased mastication w/ portion of cookie appearing un-chewed. The pharyngeal phase is marked by... -Delayed swallow onset. -Decreased pharyngeal contraction w/ moderate residues of cookie and applesauce in pharynx after the swallow, especially in the vallecula. -Residues of liquids were seen spilling to the laryngeal vestibule after the swallow. -Pt aspirated thin liquids via straw. Deep laryngeal penetration of thin liquids via tsp and cup w/ reflexive cough. Could not definitively rule out aspiration. Recommendations Diet: Soft and Bite Sized Textures and Mildly Thick Liquids Medication Administration:: Whole in puree Comments: Direct staff supervision at meals, alternate bites and sips 1:1 ratio Compensatory Strategies: Small Bites, Liquid by Teaspoon Only, Slow Rate, Alternate bites/solids and sips/liquids, Sitting upright and Remain sitting upright for 30 minutes after PO intake Supervision: 1:1 Direct Supervision Recommend Repeat Instrumental Swallow Assessment: Yes Comments: Recommend MBSS/FEES in 1-3 weeks to re-assess swallow function and aspiration risk to determine appropriateness for diet advancement. Need for Skilled Speech Therapy Services: Yes Comments: OP ENT consult Recommended Referrals: ENT Consult Education Completed: 1. Described result of evaluation., 2. Pt understands evaluation & agrees with goals and treatment plan., 4. Family/caregivers understand evaluation & agree w/ goals & tx plan., 7. Pt requires further education on strategies & risks. and 8. Family/caregivers require further education on strategies & risks.
[2024-08-17] MEDS: Potassium Chloride Oral Tablet 20 MEQ 40 MEQ PO (18:51)
[2024-08-17] MEDS: Ensure Plus High Protein 120 ML LIQUID PO (18:51)
[2024-08-18] VITALS (11 sets, daily range): BP systolic 109–119; BP diastolic 51–65; PULSE 57–67; RESP 18–20; TEMP 36.3–36.8; O2SAT 92–99; BMI 35.4
[2024-08-18] MEDS: Ipratropium 0.5 MG/2.5 ML SOLUTION INHALATION (03:15)
[2024-08-18] MEDS: Levothyroxine 100 MCG Tablet PO (05:06)
[2024-08-18] MEDS: Sodium Chloride 0.65% 1 SPRAY SPRAY.BTL 2 SPRAY NASAL (05:06)
[2024-08-18 07:14] LABS: Absolute Lymphocyte Count 2.21 X10^3/uL (0.83-4.51); Absolute Neutrophil Count 8.1 X10^3/uL (2.0-7.7); Basophil# 0.04 X10^3/uL; Basophil% 0.4 % (0-1); Eosinophils% 1.8 % (0-5); Hematocrit 29.1 % (37-47); Hemoglobin 9.3 g/dL (12.0-15.0); Lymphocyte # 2.21 X10^3/ul (0.83-4.51); Lymphocyte % 19.8 % (19-41); Mean Corpuscular Hgb 29.3 pg (27.0-32.0); Mean Corpuscular Volume 91.8 fL (81-99); Mean Platelet Vol. 10.7 fl (6.2-12.0); Monocyte# 0.56 X10^3/uL; NRBC Flagged by Analyzer 0 % (0-5); Neutrophil % 72.4 % (47-70); Platelet Count 238 K/mm3 (150-450); RBC Distribution Width CV 16.5 % (11.6-14.6); RBC Distribution Width SD 52.4 fl (35.1-43.9); Red Blood Count 3.17 M/mm3 (4.2-5.4); White Blood Count 11.2 K/mm3 (4.4-11.0)
[2024-08-18 08:41] LABS: Anion Gap 4 (5-15); BUN 26 mg/dL (7-18); BUN/Creat Ratio 35.4 RATIO (10-20); Chloride 104 mmol/L (98-107); Creatinine, Serum 0.74 mg/dL (0.55-1.02); EST Glomerular Filtration Rate 84 mL/min (>60); Est Glom Filt Rate - Afr Amer 102 mL/min (>60); Estimated Creatinine Clearance 83.46 ml/min; Glucose 86 mg/dL (74-106); Potassium 3.4 mmol/L (3.5-5.1); Sodium Level 141 mmol/L (136-145)
[2024-08-18] MEDS: Ensure Plus High Protein 120 ML LIQUID PO (09:08)
[2024-08-18] MEDS: Fluticasone 0.05% 1 SPRAY NASAL.SRY NASAL (09:09)
[2024-08-18] MEDS: Potassium Chloride Oral Tablet 20 MEQ 40 MEQ PO ×2 (09:09→18:22)
[2024-08-18] MEDS: Estradiol 1 MG Tablet 2 MG PO (09:09)
[2024-08-18] MEDS: Metoprolol Tartrate 100 MG Tablet PO ×2 (09:09→20:43)
[2024-08-18] MEDS: APIXABAN 5 MG TABLET PO ×2 (09:09→20:43)
[2024-08-18] MEDS: guaiFENesin 1,200 MG Tablet 1200 MG PO ×2 (09:09→20:43)
[2024-08-18] MEDS: 0.9% Saline Lock 10 ML Syringe IV ×2 (10:38→19:36)
[2024-08-18] MEDS: Furosemide 20 MG/2 ML VIAL IV (10:38)
--- NOTE | 2024-08-18 13:12 | PCM.PN.HOSP ---
Reason for Visit Reason for Visit: Diagnoses Hypothyroidism, unspecified (08/03/24) Unspecified atrial fibrillation (08/03/24) Pneumonia, unspecified organism (08/03/24) Acute respiratory failure with hypoxia (08/03/24) Objective Data Objective Data Vital Signs: Vital Signs Temp Pulse Resp BP Pulse Ox O2 Del Method O2 Flow Rate 97.4 F L 66 20 H 115/51 L 99 High Flow 6 08/18/24 05:44 08/18/24 09:09 08/18/24 07:54 08/18/24 05:44 08/18/24 11:11 08/18/24 11:11 08/18/24 11:11 FiO2 45 08/18/24 09:00 Oxygen Flow Rate (L/min) 6 Oxygen Delivery Method High Flow Weight: 219 lb 8.16 oz Body Mass Index (BMI) 35.4 Intake & Output: Intake and Output for Last 24 Hours 08/16/24 08/17/24 08/18/24 23:59 23:59 23:59 Intake Total 300 / 300 290 / 290 Output Total 1800 / 1800 2650 / 2650 200 / 200 Balance -1500 / -1500 -2360 / -2360 -200 / -200 Lab / Micro Data 08/18/24 06:48 08/18/24 06:48 Labs: Laboratory Results - last 24 hr 08/18/24 06:48: WBC 11.2 H, RBC 3.17 L, Hgb 9.3 L, Hct 29.1 L, MCV 91.8, MCH 29.3, MCHC 32.0, RDW Std Deviation 52.4 H, RDW Coeff of Emmanuel 16.5 H, Plt Count 238, MPV 10.7, Immature Gran % (Auto) 0.600, Neut % (Auto) 72.4 H, Lymph % (Auto) 19.8, [place] % (Auto) 5.0, Eos % (Auto) 1.8, Baso % (Auto) 0.4, Absolute Neuts (auto) 8.1 H, Absolute Lymphs (auto) 2.21, Nucleated RBC % 0, Sodium 141, Potassium 3.4 L, Chloride 104, Carbon Dioxide 33.0 H, Anion Gap 4 L, BUN 26 H, Creatinine 0.74, Estim Creat Clear Calc 83.46, Est GFR (MDRD) Af Amer 102, Est GFR (MDRD) Non-Af 84, BUN/Creatinine Ratio 35.4 H, Glucose 86, Calcium 9.0 Micro: Microbiology 08/10/24 14:30 Blood Culture (Wb) - Central Line Blood Culture - Final No growth in 5 days. 08/03/24 15:30 Blood Culture (Wb) - Anticubital Right Blood Culture - Final No growth in 5 days. 08/03/24 14:35 Blood Culture (Wb) - Right Forearm Blood Culture - Final No growth in 5 days. 08/03/24 22:43 Sputum, Induced/Lukens Gram Stain - Final 08/03/24 22:43 Sputum, Induced/Lukens Respiratory Culture - Final Haemophilus influenzae 08/03/24 15:48 Urine Catheter - Catheter Urine Culture - Final Culture exhibits no growth. 08/04/24 07:45 Urine Catheter - Erickson Legionella Antigen - Final 08/04/24 07:45 Urine Catheter - Erickson Streptococcus pneumoniae Antigen (M - Final 08/03/24 23:20 Mucosa - Nasopharyngeal Respiratory Panel (PCR) - Final 08/03/24 14:40 Mucosa - Nose SARS-CoV-2, Influenza & RSV (PCR) - Final Physical Exam Narrative Seen and examined. Patient was Airvo in the morning. Currently on high flow oxygen 6 L. Denies chest pain Physical exam General: Alert, Oriented x3, Cooperative HEENT: Atraumatic, PERRLA, EOMI, Normocephalic Oral: Oral mucosa dry Neck: Supple, No JVD, Negative Carotid Bruits Chest wall/Lungs: Air entry diminished in bilateral lung bases. No crepitation/rhonchi Cardiovascular: Regular rate, Regular Rhythm, Normal S1, Normal S2, No M/G/R Abdomen: Bowel Sounds Present, Soft, Non Tender, Non-Distended : Erickson catheter no dysuria. No renal angle tenderness. No suprapubic tenderness. Extremities: Mild 1+ pitting edema, Capillary Refill Less than 3 Seconds Skin: Left upper extremity more swollen than right. Mild tenderness present with mild redness along medial arm side of LUE Musculoskeletal: No Tenderness to Palpation of Joints or Extremities Neurological: Cranial nerves II-XII grossly intact, DTR 2+/4. No acute focal neurological deficit. Psych/Mental Status: Flat affect Assessment & Plan Assessment/Plan (1) Pneumonia: (2) Atrial fibrillation with RVR: (3) Acute hypoxic respiratory failure: PLAN: Plan 1. Septic shock-secondary to haemophilus influenza pneumonia, patient has completed her course of antibiotics She has been on antibiotics since 08/03 with cefepime, vancomycin and Zosyn. ID consulted for further review 08/17: Discussed with ID. He reviewed the chart. Patient is doing well off antibiotic. No further need of antibiotic. Cultures have so far been negative. #2 acute hypoxic respiratory failure-patient is currently on nasal cannula oxygen Chest x-ray and CTA reviewed. Negative for PE. Atelectasis and mild bilateral pleural effusion. Completed antibiotic for pneumonia Echo on 09/17/2024 report Interpretation Summary Normal LV size. Left ventricular systolic function is normal. The left ventricular ejection fraction is 55 %. 08/17: Lasix 40 mg IV given. BP in afternoon 103/89. Continue diuretics as per tolerated by hemodynamics. Mild hypokalemia, potassium replaced. 08/18: BNP elevated. Started on scheduled dose of Lasix 40 mg IV twice daily with holding parameters as patient's blood pressure is 115/51. Patient already on Eliquis. Bilateral cephalic vein superficial thrombophlebitis: Right forearm peripheral IV cannula removed. Compression dressing. #3 atrial fibrillation with RVR-converted to sinus rhythm-patient is currently on a beta-nina and Eliquis 08/18: Heart rate is controlled 66/min. #4 hypothyroidism-patient is currently on Synthroid #5 essential hypertension-patient is on metoprolol #6 acute debility secondary to septic shock and acute hypoxic respiratory failure-PT and OT are seeing patient, I have encouraged her to consider going to a skilled care facility such as TCU. Patient states that she will think about it. Microbiology Past 72 Hours 08/10/24 14:30 Blood Culture (Wb) - Central Line Blood Culture - Final No growth in 5 days. Laboratory Results 08/18/24 06:48: WBC 11.2 H, RBC 3.17 L, Hgb 9.3 L, Hct 29.1 L, MCV 91.8, MCH 29.3, MCHC 32.0, RDW Std Deviation 52.4 H, RDW Coeff of Emmanuel 16.5 H, Plt Count 238, MPV 10.7, Immature Gran % (Auto) 0.600, Neut % (Auto) 72.4 H, Lymph % (Auto) 19.8, [place] % (Auto) 5.0, Eos % (Auto) 1.8, Baso % (Auto) 0.4, Absolute Neuts (auto) 8.1 H, Absolute Lymphs (auto) 2.21, Nucleated RBC % 0, Sodium 141, Potassium 3.4 L, Chloride 104, Carbon Dioxide 33.0 H, Anion Gap 4 L, BUN 26 H, Creatinine 0.74, Estim Creat Clear Calc 83.46, Est GFR (MDRD) Af Amer 102, Est GFR (MDRD) Non-Af 84, BUN/Creatinine Ratio 35.4 H, Glucose 86, Calcium 9.0 Charges/Coding Visit Charges Inpatient E&M: 23818 Subs Hosp L2
--- NOTE | 2024-08-18 15:00 | CASEMGMT ---
TRISHA TELLO in to discuss discharge planning with patient and family. TRISHA TELLO discuss progress with therapy and patient dependent on 2 people to transfer to chair. TRISHA TELLO discuss SNF vs HHC. Patient and family agreeable to TCU if patient would need rehab. Patient and family agreeable to have referral sent to TCU. TRISHA TELLO updated SW.
--- NOTE | 2024-08-18 15:28 | CASEMGMT ---
Per RN CM patient was agreeable to [facility] TCU. Second choice would be [facility]. SW sent a referral to TCU. Heidi MONTIEL
[2024-08-18] MEDS: Furosemide 20 MG/2 ML VIAL 40 MG IV (19:31)
[2024-08-19] VITALS (12 sets, daily range): BP systolic 107–137; BP diastolic 51–70; PULSE 57–69; RESP 18; TEMP 36.2–36.6; O2SAT 85–98; BMI 34.6
[2024-08-19] MEDS: Levothyroxine 100 MCG Tablet PO (04:31)
[2024-08-19 05:16] LABS: Absolute Lymphocyte Count 2.42 X10^3/uL (0.83-4.51); Absolute Neutrophil Count 6.7 X10^3/uL (2.0-7.7); Basophil# 0.03 X10^3/uL; Basophil% 0.3 % (0-1); Hematocrit 30.6 % (37-47); Hemoglobin 9.6 g/dL (12.0-15.0); Lymphocyte # 2.42 X10^3/ul (0.83-4.51); Lymphocyte % 23.9 % (19-41); Mean Corp Hgb Conc 31.4 g/dL (32-36); Mean Corpuscular Hgb 29.1 pg (27.0-32.0); Mean Corpuscular Volume 92.7 fL (81-99); Mean Platelet Vol. 10.9 fl (6.2-12.0); Monocyte# 0.63 X10^3/uL; Monocyte% 6.2 % (0-10); NRBC Flagged by Analyzer 0 % (0-5); Neutrophil % 66.2 % (47-70); Platelet Count 252 K/mm3 (150-450); RBC Distribution Width CV 16.7 % (11.6-14.6); RBC Distribution Width SD 53.6 fl (35.1-43.9); White Blood Count 10.1 K/mm3 (4.4-11.0)
[2024-08-19 05:32] LABS: Anion Gap 6 (5-15); BUN 25 mg/dL (7-18); BUN/Creat Ratio 35.2 RATIO (10-20); Calcium,Total 9.3 mg/dL (8.5-10.1); Chloride 104 mmol/L (98-107); Creatinine, Serum 0.71 mg/dL (0.55-1.02); EST Glomerular Filtration Rate 88 mL/min (>60); Est Glom Filt Rate - Afr Amer 106 mL/min (>60); Estimated Creatinine Clearance 83.46 ml/min; Glucose 87 mg/dL (74-106); Potassium 3.6 mmol/L (3.5-5.1); Sodium Level 144 mmol/L (136-145)
[2024-08-19] MEDS: Furosemide 20 MG/2 ML VIAL 40 MG IV ×2 (10:57→17:12)
[2024-08-19] MEDS: 0.9% Saline Lock 10 ML Syringe IV ×2 (10:58→17:11)
[2024-08-19] MEDS: APIXABAN 5 MG TABLET PO ×2 (10:59→20:32)
[2024-08-19] MEDS: Potassium Chloride Oral Tablet 20 MEQ 40 MEQ PO ×2 (10:59→17:12)
[2024-08-19] MEDS: Metoprolol Tartrate 100 MG Tablet PO ×2 (10:59→20:33)
[2024-08-19] MEDS: Estradiol 1 MG Tablet 2 MG PO (10:59)
[2024-08-19] MEDS: guaiFENesin 1,200 MG Tablet 1200 MG PO ×2 (10:59→20:58)
[2024-08-19] MEDS: Ensure Plus High Protein 120 ML LIQUID PO ×3 (11:05→17:11)
--- NOTE | 2024-08-19 11:11 | CASEMGMT ---
[facility] TCU can take patient. SW notified patient, her daughter, and . Patient was tearful as she was so thankful. SW told patient she has done a great job by continuing to work with therapy. SW encouraged patient to keep it up as refusing therapy could change things and it is frowned upon. Patient verbalized understanding. Patient's daughter spoke up and said she is not refusing because she wants to get home. They thanked SW again. Plan: d/c to [facility] TCU. Heidi MONTIEL
--- NOTE | 2024-08-19 12:49 | PCM.PN.HOSP ---
Reason for Visit Reason for Visit: Diagnoses Hypothyroidism, unspecified (08/03/24) Unspecified atrial fibrillation (08/03/24) Pneumonia, unspecified organism (08/03/24) Acute respiratory failure with hypoxia (08/03/24) Objective Data Objective Data Vital Signs: Vital Signs Temp Pulse Resp BP Pulse Ox O2 Del Method O2 Flow Rate 97.9 F 69 18 137/70 H 96 High Flow 4 08/19/24 10:30 08/19/24 10:59 08/19/24 10:30 08/19/24 10:59 08/19/24 10:30 08/19/24 10:40 08/19/24 10:40 FiO2 45 08/18/24 09:00 Oxygen Flow Rate (L/min) 4 Oxygen Delivery Method High Flow Weight: 214 lb 8.156 oz Body Mass Index (BMI) 34.6 Intake & Output: Intake and Output for Last 24 Hours 08/17/24 08/18/24 08/19/24 23:59 23:59 23:59 Intake Total 290 / 290 480 / 480 240 / 240 Output Total 2650 / 2650 1100 / 1100 900 / 900 Balance -2360 / -2360 -620 / -620 -660 / -660 Lab / Micro Data 08/19/24 04:55 08/19/24 04:55 Labs: Laboratory Results - last 24 hr 08/19/24 04:55: WBC 10.1, RBC 3.30 L, Hgb 9.6 L, Hct 30.6 L, MCV 92.7, MCH 29.1, MCHC 31.4 L, RDW Std Deviation 53.6 H, RDW Coeff of Emmanuel 16.7 H, Plt Count 252, MPV 10.9, Immature Gran % (Auto) 0.400, Neut % (Auto) 66.2, Lymph % (Auto) 23.9, Wilkin % (Auto) 6.2, Eos % (Auto) 3.0, Baso % (Auto) 0.3, Absolute Neuts (auto) 6.7, Absolute Lymphs (auto) 2.42, Nucleated RBC % 0, Sodium 144, Potassium 3.6, Chloride 104, Carbon Dioxide 34.0 H, Anion Gap 6, BUN 25 H, Creatinine 0.71, Estim Creat Clear Calc 83.46, Est GFR (MDRD) Af Amer 106, Est GFR (MDRD) Non-Af 88, BUN/Creatinine Ratio 35.2 H, Glucose 87, Calcium 9.3 Micro: Microbiology 08/10/24 14:30 Blood Culture (Wb) - Central Line Blood Culture - Final No growth in 5 days. 08/03/24 15:30 Blood Culture (Wb) - Anticubital Right Blood Culture - Final No growth in 5 days. 08/03/24 14:35 Blood Culture (Wb) - Right Forearm Blood Culture - Final No growth in 5 days. 08/03/24 22:43 Sputum, Induced/Lukens Gram Stain - Final 08/03/24 22:43 Sputum, Induced/Lukens Respiratory Culture - Final Haemophilus influenzae 08/03/24 15:48 Urine Catheter - Catheter Urine Culture - Final Culture exhibits no growth. 08/04/24 07:45 Urine Catheter - Erickson Legionella Antigen - Final 08/04/24 07:45 Urine Catheter - Erickson Streptococcus pneumoniae Antigen (M - Final 08/03/24 23:20 Mucosa - Nasopharyngeal Respiratory Panel (PCR) - Final 08/03/24 14:40 Mucosa - Nose SARS-CoV-2, Influenza & RSV (PCR) - Final Physical Exam Narrative Seen and examined. Currently on high flow oxygen 4 L. Denies chest pain Physical exam General: Alert, Oriented x3, Cooperative HEENT: Atraumatic, PERRLA, EOMI, Normocephalic Oral: Oral mucosa dry Neck: Supple, No JVD, Negative Carotid Bruits Chest wall/Lungs: Air entry diminished in bilateral lung bases. No crepitation/rhonchi Cardiovascular: Regular rate, Regular Rhythm, Normal S1, Normal S2, No M/G/R Abdomen: Bowel Sounds Present, Soft, Non Tender, Non-Distended : Erickson catheter no dysuria. No renal angle tenderness. No suprapubic tenderness. Extremities: Mild 1+ pitting edema, Capillary Refill Less than 3 Seconds Skin: Left upper extremity more swollen than right. Mild tenderness present with mild redness along medial arm side of LUE. Some maculopapular atypical rash of lower extremity and upper extremity suspected allergic. Musculoskeletal: No Tenderness to Palpation of Joints or Extremities Neurological: Cranial nerves II-XII grossly intact, DTR 2+/4. No acute focal neurological deficit. Psych/Mental Status: Flat affect Assessment & Plan Assessment/Plan (1) Pneumonia: (2) Atrial fibrillation with RVR: (3) Acute hypoxic respiratory failure: PLAN: Plan 1. Septic shock-secondary to haemophilus influenza pneumonia, patient has completed her course of antibiotics She has been on antibiotics since 08/03 with cefepime, vancomycin and Zosyn. ID consulted for further review 08/17: Discussed with ID. He reviewed the chart. Patient is doing well off antibiotic. No further need of antibiotic. Cultures have so far been negative. #2 acute hypoxic respiratory failure-patient is currently on nasal cannula oxygen Chest x-ray and CTA reviewed. Negative for PE. Atelectasis and mild bilateral pleural effusion. Completed antibiotic for pneumonia Echo on 09/17/2024 report Interpretation Summary Normal LV size. Left ventricular systolic function is normal. The left ventricular ejection fraction is 55 %. 08/17: Lasix 40 mg IV given. BP in afternoon 103/89. Continue diuretics as per tolerated by hemodynamics. Mild hypokalemia, potassium replaced. 08/18: BNP elevated. Started on scheduled dose of Lasix 40 mg IV twice daily with holding parameters as patient's blood pressure is 115/51. Patient already on Eliquis. 08/19: Patient on 4 L of oxygen. offshoring manager told me that patient daughter wanted TCU and waiting for bed. Possible on Saturday. Bilateral cephalic vein superficial thrombophlebitis: Right forearm peripheral IV cannula removed. Compression dressing. 08/19: Was concerned about the rash on the lower legs seems allergic rash therefore started on hydrocortisone topical cream. #3 atrial fibrillation with RVR-converted to sinus rhythm-patient is currently on a beta-nina and Eliquis 08/18: Heart rate is controlled 66/min. #4 hypothyroidism-patient is currently on Synthroid #5 essential hypertension-patient is on metoprolol #6 acute debility secondary to septic shock and acute hypoxic respiratory failure-PT and OT are seeing patient, I have encouraged her to consider going to a skilled care facility such as TCU. Patient states that she will think about it. Microbiology Past 72 Hours 08/10/24 14:30 Blood Culture (Wb) - Central Line Blood Culture - Final No growth in 5 days. Laboratory Results 08/18/24 06:48: WBC 11.2 H, RBC 3.17 L, Hgb 9.3 L, Hct 29.1 L, MCV 91.8, MCH 29.3, MCHC 32.0, RDW Std Deviation 52.4 H, RDW Coeff of Emmanuel 16.5 H, Plt Count 238, MPV 10.7, Immature Gran % (Auto) 0.600, Neut % (Auto) 72.4 H, Lymph % (Auto) 19.8, Wilkin % (Auto) 5.0, Eos % (Auto) 1.8, Baso % (Auto) 0.4, Absolute Neuts (auto) 8.1 H, Absolute Lymphs (auto) 2.21, Nucleated RBC % 0, Sodium 141, Potassium 3.4 L, Chloride 104, Carbon Dioxide 33.0 H, Anion Gap 4 L, BUN 26 H, Creatinine 0.74, Estim Creat Clear Calc 83.46, Est GFR (MDRD) Af Amer 102, Est GFR (MDRD) Non-Af 84, BUN/Creatinine Ratio 35.4 H, Glucose 86, Calcium 9.0 Charges/Coding Visit Charges Inpatient E&M: 18385 Subs Hosp L2
[2024-08-19] MEDS: Hydrocortisone 2.5% Ointment 20 gm tube 1 APPLIC TOPICAL ×2 (14:58→20:33)
[2024-08-20] VITALS (7 sets, daily range): BP systolic 126–130; BP diastolic 59–85; PULSE 60–70; RESP 18–20; TEMP 36.7–36.9; O2SAT 87–95; BMI 34.5
[2024-08-20] MEDS: Levothyroxine 100 MCG Tablet PO (05:41)
[2024-08-20 08:26] LABS: Absolute Lymphocyte Count 2.76 X10^3/uL (0.83-4.51); Absolute Neutrophil Count 5.3 X10^3/uL (2.0-7.7); Basophil# 0.03 X10^3/uL; Basophil% 0.3 % (0-1); Eosinophils% 3.3 % (0-5); Hematocrit 30.5 % (37-47); Hemoglobin 9.9 g/dL (12.0-15.0); Lymphocyte # 2.76 X10^3/ul (0.83-4.51); Lymphocyte % 30.8 % (19-41); Mean Corp Hgb Conc 32.5 g/dL (32-36); Mean Corpuscular Hgb 29.8 pg (27.0-32.0); Mean Corpuscular Volume 91.9 fL (81-99); Mean Platelet Vol. 10.5 fl (6.2-12.0); Monocyte# 0.55 X10^3/uL; Monocyte% 6.1 % (0-10); NRBC Flagged by Analyzer 0 % (0-5); Neutrophil # 5.29 X10^3/uL (2.7-7.7); Neutrophil % 59.1 % (47-70); Platelet Count 261 K/mm3 (150-450); RBC Distribution Width CV 16.8 % (11.6-14.6); RBC Distribution Width SD 53.5 fl (35.1-43.9); Red Blood Count 3.32 M/mm3 (4.2-5.4)
[2024-08-20 08:47] LABS: Anion Gap 4 (5-15); BUN 21 mg/dL (7-18); BUN/Creat Ratio 27.8 RATIO (10-20); Calcium,Total 9.2 mg/dL (8.5-10.1); Chloride 102 mmol/L (98-107); Creatinine, Serum 0.76 mg/dL (0.55-1.02); EST Glomerular Filtration Rate 82 mL/min (>60); Est Glom Filt Rate - Afr Amer 99 mL/min (>60); Estimated Creatinine Clearance 82.37 ml/min; Glucose 86 mg/dL (74-106); Potassium 4.1 mmol/L (3.5-5.1); Sodium Level 139 mmol/L (136-145)
[2024-08-20] MEDS: Ensure Plus High Protein 120 ML LIQUID PO ×2 (09:43→11:57)
[2024-08-20] MEDS: 0.9% Saline Lock 10 ML Syringe IV (09:44)
[2024-08-20] MEDS: Estradiol 1 MG Tablet 2 MG PO (09:44)
[2024-08-20] MEDS: APIXABAN 5 MG TABLET PO (09:45)
[2024-08-20] MEDS: Metoprolol Tartrate 100 MG Tablet PO (09:45)
[2024-08-20] MEDS: Furosemide 20 MG/2 ML VIAL 40 MG IV (09:45)
[2024-08-20] MEDS: Hydrocortisone 2.5% Ointment 20 gm tube 1 APPLIC TOPICAL (09:46)
[2024-08-20] MEDS: Potassium Chloride Oral Tablet 20 MEQ 40 MEQ PO (09:46)
[2024-08-20] MEDS: guaiFENesin 1,200 MG Tablet 1200 MG PO (09:46)
--- NOTE | 2024-08-20 13:23 | TREXTCAR_ITS ---
Diet Diet Order/Speech Therapy: 08/17/24 08:32 Diet: Regular - General Food consistency:: Soft & Bite Sized Liquid Consistency:: [place]/Mildly Thick Diet Comments: ok for ice chipsLiquids by tsp, alternate bites/sips 1:1 sup, straw ensure Routine Orders/Code Status Suppository Type: Dulcolax 10mg Suppository Frequency: Daily PRN DC O2, CPAP, BIPAP needs Home O2 Discharge instructions: Yes Type of respiratory needs?: Oxygen Oxygen frequency: Continuous Continuous oxygen liters per minute: 2 L/min Therapies Extremity Affected:: Bilateral Lower Physical Therapy: Eval and Treat Occupational Therapy: Eval and Treat Speech Therapy: Eval and Treat Problem/Diagnosis (1) Pneumonia: Status: Acute Code(s): J18.9 - Pneumonia, unspecified organism (2) Atrial fibrillation with RVR: Status: Acute Code(s): I48.91 - Unspecified atrial fibrillation (3) Acute hypoxic respiratory failure: Status: Acute Code(s): J96.01 - Acute respiratory failure with hypoxia Plan 1. Septic shock-secondary to haemophilus influenza pneumonia, patient has completed her course of antibiotics She has been on antibiotics since 08/03 with cefepime, vancomycin and Zosyn. ID consulted for further review 08/17: Discussed with ID. He reviewed the chart. Patient is doing well off antibiotic. No further need of antibiotic. Cultures have so far been negative. #2 acute hypoxic respiratory failure-patient is currently on nasal cannula oxygen Chest x-ray and CTA reviewed. Negative for PE. Atelectasis and mild bilateral pleural effusion. Completed antibiotic for pneumonia Echo on 09/17/2024 report Interpretation Summary Normal LV size. Left ventricular systolic function is normal. The left ventricular ejection fraction is 55 %. 08/17: Lasix 40 mg IV given. BP in afternoon 103/89. Continue diuretics as per tolerated by hemodynamics. Mild hypokalemia, potassium replaced. 08/18: BNP elevated. Started on scheduled dose of Lasix 40 mg IV twice daily with holding parameters as patient's blood pressure is 115/51. Patient already on Eliquis. 08/19: Patient on 4 L of oxygen. agronomy research manager told me that patient daughter wanted TCU and waiting for bed. Possible on Saturday. Bilateral cephalic vein superficial thrombophlebitis: Right forearm peripheral IV cannula removed. Compression dressing. 08/19: Was concerned about the rash on the lower legs seems allergic rash therefore started on hydrocortisone topical cream. #3 atrial fibrillation with RVR-converted to sinus rhythm-patient is currently on a beta-nina and Eliquis 08/18: Heart rate is controlled 66/min. #4 hypothyroidism-patient is currently on Synthroid #5 essential hypertension-patient is on metoprolol #6 acute debility secondary to septic shock and acute hypoxic respiratory failure-PT and OT are seeing patient, I have encouraged her to consider going to a skilled care facility such as TCU. Patient states that she will think about it. Microbiology Past 72 Hours 08/10/24 14:30 Blood Culture (Wb) - Central Line Blood Culture - Final No growth in 5 days. Laboratory Results 08/18/24 06:48: WBC 11.2 H, RBC 3.17 L, Hgb 9.3 L, Hct 29.1 L, MCV 91.8, MCH 29.3, MCHC 32.0, RDW Std Deviation 52.4 H, RDW Coeff of Emmanuel 16.5 H, Plt Count 238, MPV 10.7, Immature Gran % (Auto) 0.600, Neut % (Auto) 72.4 H, Lymph % (Auto) 19.8, [place] % (Auto) 5.0, Eos % (Auto) 1.8, Baso % (Auto) 0.4, Absolute Neuts (auto) 8.1 H, Absolute Lymphs (auto) 2.21, Nucleated RBC % 0, Sodium 141, Potassium 3.4 L, Chloride 104, Carbon Dioxide 33.0 H, Anion Gap 4 L, BUN 26 H, Creatinine 0.74, Estim Creat Clear Calc 83.46, Est GFR (MDRD) Af Amer 102, Est GFR (MDRD) Non-Af 84, BUN/Creatinine Ratio 35.4 H, Glucose 86, Calcium 9.0 Allergies/Procedures Done in Hospital Allergies azithromycin Allergy (Verified 08/03/24 14:47) Vomiting codeine Adverse Reaction (Verified 08/09/24 07:30) Vomiting tramadol Adverse Reaction (Verified 08/09/24 07:30) Vomiting Type of Care/Length of Stay Estimated LOS: Convalescent Care Less Than 30 days Type of Care Needed: Skilled Rehab Potential: Good Prognosis: Good Additional Orders/Day of Discharge Day of Discharge: 08/20/24 Dietary and Speech Recommendations Dietitian Recommendations/Changes: Continue regular diet per HOME THERAPY CLINICIAN consistency/texture recommendations. Will order 120ml ensure plus high protein TID with medpass, prefers strawberry. Will monitor weight trends. Reviewed and approved by Kimberly Poole, HILARIA, LD. Discharge Plan Admission Admit Date/Time: 08/03/24 19:10 Primary Reason for Your Visit: Acute hypoxic respiratory failure. A-fib RVR, CHF exacerbation Attending Provider: Justin Wells Primary Care Provider: Arnel Short Consulting Providers: Katie Knott; Nito Richards; Henri James; Asa Jauregui; Reji Marino; Ciaran Aquino; Nito Wilson; Fuad Medley; Drew Mark; Maria Luisa Granados; Levi Rahman; Jesus Hopkins; Giancarlo Lowe; Sabina Cruz; Murali Bolivar; Lana Moore; Aubrey Valiente; Fredeirck Morrissey; Alton Knapp; Zander Valdivia; George Padilla; Karely Wagner; Shaquille Orona; Chace Moffett; Dao Petit; Jameson Roach; Estephania Laws NP; Shannan Pride; Arnel Santos Discharge Orders/Prescriptions Prescriptions: New acetaminophen 325 mg Tablet 650 mg PO Q6H PRN PRN (Reason: Pain 1-10 Or Fever >100.7) Qty: 0 0RF metoprolol tartrate 100 mg Tablet 100 mg PO BID Qty: 0 0RF sennosides-docusate sodium [Stimulant Laxative Plus] 8.6-50 mg Tablet 2 tab PO BID PRN PRN (Reason: Constipation) Qty: 0 0RF potassium chloride 20 mEq Tablet,Er Particles/Crystals 20 meq PO BIDCM Qty: 0 0RF hydrocortisone 2.5 % Ointment 1 applic topical BID 4 Days Qty: 0 0RF Protocol: *Topical Application Instructions APPLICATION INSTRUCTIONS: On lower legs and upper arm on rash area fluticasone propionate 50 mcg/actuation [place],Suspension 1 spray NASAL BID 7 Days Qty: 0 0RF ipratropium bromide 0.02 % Solution 0.5 mg inhalation Q4H.RT PRN (Reason: SOB) Qty: 0 0RF [place] Nasal 0.65 % Aerosol,[place] 2 spray NASAL TID Qty: 0 0RF guaifenesin [Mucus Relief ER] 1,200 mg Tablet Extended Release 12hr 1,200 mg PO BID 7 Days Qty: 0 0RF Eliquis 5 mg Tablet 5 mg PO BID 30 Days Qty: 0 0RF furosemide [Lasix] 40 mg tablet 40 mg PO BID Qty: 60 0RF Continued cyclobenzaprine 10 mg tablet 10 mg PO TID PRN PRN (Reason: muscle spasms) meclizine 12.5 mg tablet 12.5 mg PO Q6H PRN PRN (Reason: dizziness) levothyroxine 100 mcg tablet 100 mcg PO DAILY estradiol 2 mg tablet 2 mg PO DAILY ergocalciferol (vitamin D2) 1,250 mcg (50,000 unit) capsule 1,250 mcg PO QWEEK Referrals / Follow Up: Ciaran Aquino DO [Med Staff - Active Staff] - Within 2 Weeks Arnel Short MD [Primary Care Provider] - Camden Donnelly MD [Med Staff - Active Staff] - Within 2 Weeks Disposition Disposition (needs filled in before D/C Order can be placed): Care Home Facility
--- NOTE | 2024-08-20 13:32 | PCM.DC.SUM ---
Providers Date of Admission: 08/03/24 Date of Discharge: 08/20/24 Primary Care Physician: Dr. Arnel Short MD Consultations 08/03/24 22:57 Consult: Apprenticeship Training Representative / Pulmonary Medicine Routine Consulting Provider: Pulmonary Medicine dino [place] Reason for Consult: acute hypoxic resp failure EMERGENT Consult: No MD Notified: Yes Date Notified: 08/04/24 Time Notified: 05:20 Method of Notification: Text Reason For Visit: ACUTE HYPOXIC RESPIRATORY FAILURE, AFIB, RVR Diagnosis Discharge Diagnosis (1) Pneumonia: Status: Acute Code(s): J18.9 - Pneumonia, unspecified organism (2) Atrial fibrillation with RVR: Status: Acute Code(s): I48.91 - Unspecified atrial fibrillation (3) Acute hypoxic respiratory failure: Status: Acute Code(s): J96.01 - Acute respiratory failure with hypoxia Plan 1. Septic shock-secondary to haemophilus influenza pneumonia, patient has completed her course of antibiotics She has been on antibiotics since 08/03 with cefepime, vancomycin and Zosyn. ID consulted for further review 08/17: Discussed with ID. He reviewed the chart. Patient is doing well off antibiotic. No further need of antibiotic. Cultures have so far been negative. #2 acute hypoxic respiratory failure-patient is currently on nasal cannula oxygen Chest x-ray and CTA reviewed. Negative for PE. Atelectasis and mild bilateral pleural effusion. Completed antibiotic for pneumonia Echo on 09/17/2024 report Interpretation Summary Normal LV size. Left ventricular systolic function is normal. The left ventricular ejection fraction is 55 %. 08/17: Lasix 40 mg IV given. BP in afternoon 103/89. Continue diuretics as per tolerated by hemodynamics. Mild hypokalemia, potassium replaced. 08/18: BNP elevated. Started on scheduled dose of Lasix 40 mg IV twice daily with holding parameters as patient's blood pressure is 115/51. Patient already on Eliquis. 08/19: Patient on 4 L of oxygen. dock manager told me that patient daughter wanted TCU and waiting for bed. Possible on Saturday. 08/20: Swelling of lower extremities and upper extremities are better. Patient is discharged on furosemide 40 mg twice daily and potassium supplement. Electrolytes are in normal range. Discontinue triple-lumen catheter and right IJ. Bilateral cephalic vein superficial thrombophlebitis: Right forearm peripheral IV cannula removed. Compression dressing. 08/19: Was concerned about the rash on the lower legs seems allergic rash therefore started on hydrocortisone topical cream. 08/20: Swelling has gotten much better. 4 more days of hydrocortisone topical cream. Rash is better. #3 atrial fibrillation with RVR-converted to sinus rhythm-patient is currently on a beta-nina and Eliquis 08/18: Heart rate is controlled 66/min. 08/20: Patient discharged metoprolol and Eliquis. #4 hypothyroidism-patient is currently on Synthroid #5 essential hypertension-patient is on metoprolol #6 acute debility secondary to septic shock and acute hypoxic respiratory failure-PT and OT are seeing patient, I have encouraged her to consider going to a skilled care facility such as TCU. Patient states that she will think about it. Discharge medication reconciliation done. Discharge follow-up instructions completed. Discharge process discussed with the patient and all questions were answered to patient's satisfaction. Follow with PCP in 1 to 2 weeks Total time spent, exact 35 minutes on discharge meds reconciliation, examination, coordination of care with nurses and ancillary staff, review of imaging and blood test and discussion with the patient on follow-up instructions. Microbiology Past 72 Hours 08/10/24 14:30 Blood Culture (Wb) - Central Line Blood Culture - Final No growth in 5 days. Laboratory Results 08/18/24 06:48: WBC 11.2 H, RBC 3.17 L, Hgb 9.3 L, Hct 29.1 L, MCV 91.8, MCH 29.3, MCHC 32.0, RDW Std Deviation 52.4 H, RDW Coeff of Emmanuel 16.5 H, Plt Count 238, MPV 10.7, Immature Gran % (Auto) 0.600, Neut % (Auto) 72.4 H, Lymph % (Auto) 19.8, [place] % (Auto) 5.0, Eos % (Auto) 1.8, Baso % (Auto) 0.4, Absolute Neuts (auto) 8.1 H, Absolute Lymphs (auto) 2.21, Nucleated RBC % 0, Sodium 141, Potassium 3.4 L, Chloride 104, Carbon Dioxide 33.0 H, Anion Gap 4 L, BUN 26 H, Creatinine 0.74, Estim Creat Clear Calc 83.46, Est GFR (MDRD) Af Amer 102, Est GFR (MDRD) Non-Af 84, BUN/Creatinine Ratio 35.4 H, Glucose 86, Calcium 9.0 Medications at Discharge Home Medications cyclobenzaprine 10 mg tablet 10 mg PO TID PRN PRN muscle spasms 08/03/24 ergocalciferol (vitamin D2) 1,250 mcg (50,000 unit) capsule 1,250 mcg PO QWEEK 08/03/24 estradiol 2 mg tablet 2 mg PO DAILY 08/03/24 levothyroxine 100 mcg tablet 100 mcg PO DAILY disorder of thyroid gland 08/03/24 meclizine 12.5 mg tablet 12.5 mg PO Q6H PRN PRN dizziness 08/03/24 acetaminophen 325 mg tablet 650 mg (2 x 325 mg) PO Q6H PRN PRN Pain 1-10 Or Fever >100.7 #0 tabs 08/20/24 apixaban 5 mg tablet (Eliquis) 5 mg PO BID 30 days #0 tabs 08/20/24 fluticasone propionate 50 mcg/actuation nasal spray,suspension 1 spray NASAL BID 7 days #0 grams 08/20/24 furosemide 40 mg tablet (Lasix) 40 mg PO BID #60 tabs 08/20/24 guaifenesin 1,200 mg tablet, extended release 12 hr (Mucus Relief ER) 1,200 mg PO BID 7 days #0 tabs 08/20/24 hydrocortisone 2.5 % topical ointment 1 applic topical BID 4 days #0 grams 08/20/24 ipratropium bromide 0.02 % solution for inhalation 0.5 mg (2.5 mL) inhalation Q4H.RT PRN SOB #0 mL 08/20/24 metoprolol tartrate 100 mg tablet 100 mg PO BID #0 tabs 08/20/24 potassium chloride 20 mEq tablet,extended release(part/cryst) 20 meq PO BIDCM #0 tabs 08/20/24 sennosides 8.6 mg-docusate sodium 50 mg tablet (Stimulant Laxative Plus) 2 tab PO BID PRN PRN Constipation #0 tabs 08/20/24 sodium chloride 0.65 % nasal spray aerosol (Deep Sea Nasal) 2 spray NASAL TID #0 mL 08/20/24 Physical Exam Narrative Seen and examined. Patient on 2 L of oxygen. Shortness of breath is much better. Swelling in upper and lower extremities are also improved. Physical exam General: Alert, Oriented x3, Cooperative HEENT: Atraumatic, PERRLA, EOMI, Normocephalic Oral: Oral mucosa moist Neck: Supple, No JVD, Negative Carotid Bruits Chest wall/Lungs: Air entry diminished in bilateral lung bases. No crepitation/rhonchi Cardiovascular: Regular rate, Regular Rhythm, Normal S1, Normal S2, No M/G/R Abdomen: Bowel Sounds Present, Soft, Non Tender, Non-Distended : Erickson catheter no dysuria. No renal angle tenderness. No suprapubic tenderness. Extremities: Mild 1+ pitting edema, Capillary Refill Less than 3 Seconds Skin: Left upper extremity more swollen than right. Rash, maculopapular is fading. Musculoskeletal: No Tenderness to Palpation of Joints or Extremities Neurological: Cranial nerves II-XII grossly intact, DTR 2+/4. No acute focal neurological deficit. Psych/Mental Status: Flat affect Weight / BMI Weight Weight: 214 lb 1.102 oz Body Mass Index (BMI) 34.5 ABG / Lab / Microbiology Data 08/20/24 08:10 08/20/24 08:10 Laboratory: Laboratory Results - last 24 hr 08/20/24 08:10: WBC 9.0, RBC 3.32 L, Hgb 9.9 L, Hct 30.5 L, MCV 91.9, MCH 29.8, MCHC 32.5, RDW Std Deviation 53.5 H, RDW Coeff of Emmanuel 16.8 H, Plt Count 261, MPV 10.5, Immature Gran % (Auto) 0.400, Neut % (Auto) 59.1, Lymph % (Auto) 30.8, [place] % (Auto) 6.1, Eos % (Auto) 3.3, Baso % (Auto) 0.3, Absolute Neuts (auto) 5.3, Absolute Lymphs (auto) 2.76, Nucleated RBC % 0, Sodium 139, Potassium 4.1, Chloride 102, Carbon Dioxide 34.0 H, Anion Gap 4 L, BUN 21 H, Creatinine 0.76, Estim Creat Clear Calc 82.37, Est GFR (MDRD) Af Amer 99, Est GFR (MDRD) Non-Af 82, BUN/Creatinine Ratio 27.8 H, Glucose 86, Calcium 9.2 Microbiology: Microbiology 08/10/24 14:30 Blood Culture (Wb) - Central Line Blood Culture - Final No growth in 5 days. 08/03/24 15:30 Blood Culture (Wb) - Anticubital Right Blood Culture - Final No growth in 5 days. 08/03/24 14:35 Blood Culture (Wb) - Right Forearm Blood Culture - Final No growth in 5 days. 08/03/24 22:43 Sputum, Induced/Lukens Gram Stain - Final 08/03/24 22:43 Sputum, Induced/Lukens Respiratory Culture - Final Haemophilus influenzae 08/03/24 15:48 Urine Catheter - Catheter Urine Culture - Final Culture exhibits no growth. 08/04/24 07:45 Urine Catheter - Erickson Legionella Antigen - Final 08/04/24 07:45 Urine Catheter - Erickson Streptococcus pneumoniae Antigen (M - Final 08/03/24 23:20 Mucosa - Nasopharyngeal Respiratory Panel (PCR) - Final 08/03/24 14:40 Mucosa - Nose SARS-CoV-2, Influenza & RSV (PCR) - Final D/C Instructions DC O2, CPAP, BIPAP Needs PSN CPAP & BiPAP: BiPAP & CPAP Settings per PSN Mode AIRVO 08/18/24 11:12 Bipap Delivery Device Nasal Pillows 08/17/24 11:01 BiPAP Expiratory Pressure 14 08/15/24 04:50 BiPAP Rate 14 08/15/24 04:50 Fraction of Inspired Oxygen ( 45 08/18/24 09:00 FIO2) Total Flow Rate 60 08/18/24 07:54 Home O2 Discharge instructions: Yes Type of respiratory needs?: Oxygen Oxygen frequency: Continuous Continuous oxygen liters per minute: 2 L/min DC home with Oxygen: Yes Home O2 MD Review: I have reviewed the oxygen testing, and the patient qualifies for home oxygen equipment and portability. The patient is mobile in the home and the community. Meaningful Use Info Meaningful Use Meaningful Use Diagnoses (Choose all that apply): None applicable Ischemic Stroke Statin Dosing Therapy Reference: STATIN DOSE THERAPY REFERENCE: * Patients > 75 years receive moderate or high dose statin therapy. * Patients 75 years or YOUNGER should receive HIGH intensity statin dose unless contraindicated. You will be required to document reason for non-treatment if statin daily dose does not meet guidelines. HIGH DOSE STATIN THERAPY DAILY Atorvastatin > than or = to 40 mg Rosuvastatin > than or = to 20 mg Amlodipine + Atorvastatin > than or = to 2.5/40 mg Ezetimibe + Simvastatin 10/80 mg Simvastatin 80mg Discharge Plan Admission Admit Date/Time: 08/03/24 19:10 Primary Reason for Your Visit: Acute hypoxic respiratory failure. A-fib RVR, CHF exacerbation Attending Provider: Justin Wells Primary Care Provider: Arnel Short Consulting Providers: Katie Knott; Nito Richards; Henri James; Asa Jauregui; Reji Marino; Ciaran Aquino; Nito Wilson; Fuad Medley; Drew Mark; Maria Luisa Granados; Levi Rahman; Jesus Hopkins; Giancarlo Lowe; Sabina Cruz; Murali Bolivar; Lana Moore; Aubrey Valiente; Frederick Morrissey; Alton Knapp; Zander Valdivia; George Padilla; Karely Wagner; Shaquille Orona; Chace Moffett; Dao Petit; Jameson Roach; Estephania Laws NP; Shannan Pride; Arnel Santos Discharge Orders/Prescriptions Prescriptions: New acetaminophen 325 mg Tablet 650 mg PO Q6H PRN PRN (Reason: Pain 1-10 Or Fever >100.7) Qty: 0 0RF metoprolol tartrate 100 mg Tablet 100 mg PO BID Qty: 0 0RF sennosides-docusate sodium [Stimulant Laxative Plus] 8.6-50 mg Tablet 2 tab PO BID PRN PRN (Reason: Constipation) Qty: 0 0RF potassium chloride 20 mEq Tablet,Er Particles/Crystals 20 meq PO BIDCM Qty: 0 0RF hydrocortisone 2.5 % Ointment 1 applic topical BID 4 Days Qty: 0 0RF Protocol: *Topical Application Instructions APPLICATION INSTRUCTIONS: On lower legs and upper arm on rash area fluticasone propionate 50 mcg/actuation [place],Suspension 1 spray NASAL BID 7 Days Qty: 0 0RF ipratropium bromide 0.02 % Solution 0.5 mg inhalation Q4H.RT PRN (Reason: SOB) Qty: 0 0RF Deep Sea Nasal 0.65 % Aerosol,[place] 2 spray NASAL TID Qty: 0 0RF guaifenesin [Mucus Relief ER] 1,200 mg Tablet Extended Release 12hr 1,200 mg PO BID 7 Days Qty: 0 0RF Eliquis 5 mg Tablet 5 mg PO BID 30 Days Qty: 0 0RF furosemide [Lasix] 40 mg tablet 40 mg PO BID Qty: 60 0RF Continued cyclobenzaprine 10 mg tablet 10 mg PO TID PRN PRN (Reason: muscle spasms) meclizine 12.5 mg tablet 12.5 mg PO Q6H PRN PRN (Reason: dizziness) levothyroxine 100 mcg tablet 100 mcg PO DAILY estradiol 2 mg tablet 2 mg PO DAILY ergocalciferol (vitamin D2) 1,250 mcg (50,000 unit) capsule 1,250 mcg PO QWEEK Referrals / Follow Up: Ciaran Aquino DO [Med Staff - Active Staff] - Within 2 Weeks Arnel Short MD [Primary Care Provider] - Camden Donnelly MD [Med Staff - Active Staff] - Within 2 Weeks Disposition Disposition (needs filled in before D/C Order can be placed): Longterm Facility Charges/Coding Visit Charges Inpatient E&M: 51247 Disch Hosp >30min
--- NOTE | 2024-08-20 13:44 | PHA.DC.MR.R ---
Pharmacy [place] Med Reconciliation Pharmacy Service has performed discharge medication reconciliation for this patient upon transfer to TCU The patient's discharge medication list was reviewed for discrepancies and discrepancies were resolved. Medications at Discharge Home Medications cyclobenzaprine 10 mg tablet 10 mg PO TID PRN PRN muscle spasms 08/03/24 ergocalciferol (vitamin D2) 1,250 mcg (50,000 unit) capsule 1,250 mcg PO QWEEK 08/03/24 estradiol 2 mg tablet 2 mg PO DAILY 08/03/24 levothyroxine 100 mcg tablet 100 mcg PO DAILY disorder of thyroid gland 08/03/24 meclizine 12.5 mg tablet 12.5 mg PO Q6H PRN PRN dizziness 08/03/24 acetaminophen 325 mg tablet 650 mg (2 x 325 mg) PO Q6H PRN PRN Pain 1-10 Or Fever >100.7 #0 tabs 08/20/24 apixaban 5 mg tablet (Eliquis) 5 mg PO BID 30 days #0 tabs 08/20/24 fluticasone propionate 50 mcg/actuation nasal spray,suspension 1 spray NASAL BID 7 days #0 grams 08/20/24 furosemide 40 mg tablet (Lasix) 40 mg PO BID #60 tabs 08/20/24 guaifenesin 1,200 mg tablet, extended release 12 hr (Mucus Relief ER) 1,200 mg PO BID 7 days #0 tabs 08/20/24 hydrocortisone 2.5 % topical ointment 1 applic topical BID 4 days #0 grams 08/20/24 ipratropium bromide 0.02 % solution for inhalation 0.5 mg (2.5 mL) inhalation Q4H.RT PRN SOB #0 mL 08/20/24 metoprolol tartrate 100 mg tablet 100 mg PO BID #0 tabs 08/20/24 potassium chloride 20 mEq tablet,extended release(part/cryst) 20 meq PO BIDCM #0 tabs 08/20/24 sennosides 8.6 mg-docusate sodium 50 mg tablet (Stimulant Laxative Plus) 2 tab PO BID PRN PRN Constipation #0 tabs 08/20/24 sodium chloride 0.65 % nasal spray aerosol (Deep Sea Nasal) 2 spray NASAL TID #0 mL 08/20/24
--- NOTE | 2024-08-20 13:54 | CASEMGMT ---
Social Work SW spoke with Gloria in TCU and a room is available today. Per physician pt is medically ready. Precert has been obtained. LEON met with pt and spouse and updated on discharge to TCU today and both are agreeable with dc plan. Discharge orders faxed to TCU. RN notified that pt can be discharged. Disposition: TCU, skilled level of care GITA Wadsworth
--- NOTE | 2024-08-20 14:37 | NURSING ---
Report called to nurse Ewing for pt to be d/c to TCU.
== END 2024-08-20 15:06 | disposition skilled nursing facility (03) | DRG 870 ==
LOC: ED 17:50 → ICU 18:52 → PCU 08-15 15:01
PROVIDERS: Family Medicine; Internal Medicine; Internal Medicine Critical Care Medicine; Admitting Provider Internal Medicine; Emergency Provider Emergency Medicine; PCP Family Medicine; Referring Provider Internal Medicine; Visit Provider Internal Medicine
DX: A41.3 Sepsis due to Hemophilus influenzae (principal); N17.0 Acute kidney failure with tubular necrosis; R65.21 Severe sepsis with septic shock; J96.01 Acute respiratory failure with hypoxia; G93.41 Metabolic encephalopathy; J14 Pneumonia due to Hemophilus influenzae; I48.20 Chronic atrial fibrillation, unspecified; E03.9 Hypothyroidism, unspecified; I10 Essential (primary) hypertension; E66.9 Obesity, unspecified; E87.6 Hypokalemia; J98.4 Other disorders of lung; I80.8 Phlebitis and thrombophlebitis of other sites; F17.200 Nicotine dependence, unspecified, uncomplicated; I49.8 Other specified cardiac arrhythmias; R53.81 Other malaise; Z79.891 Long term (current) use of opiate analgesic; Z79.01 Long term (current) use of anticoagulants; Z79.890 Hormone replacement therapy; Z79.899 Other long term (current) drug therapy; Z68.37 Body mass index [BMI] 37.0-37.9, adult
CPT/HCPCS: 31500; 31720; 36415; 36600; 71045; 71275; 74018; 80048; 80053; 80061; 80076; 80202; 81001; 82550; 82803; 83605; 83735; 83880; 84100; 84439; 84443; 84478; 84481; 84484; 85025; 85379; 85610; 85730; 87040; 87070; 87077; 87086; 87205; 87449; 87631; 87633; 92526; 92610; 92612; 93005; 93306; 93970; 94002; 94003; 94640; 94660; 94668; 94762; 97110; 97112; 97162; 97166; 97530; 97535; 97802; 97803; 99252; 99285; Q9957; Q9967; A4216; G0463; J0696; J1940

== ENCOUNTER 2024-08-20 15:18 | Inpatient (IN) | payer MEDICARE, SELFPAY ==
[2024-08-20 15:31] VITALS: BP 117/63; PULSE 87; RESP 16; TEMP 36.3; O2SAT 2
[2024-08-20 16:14] VITALS: BMI 33.5
[2024-08-20] MEDS: Potassium Chloride Oral Tablet 20 MEQ PO (16:56)
--- NOTE | 2024-08-20 19:10 | HP.PCM_ITS ---
HPI - General General Date of Admission: 08/20/24 Date of Service: 08/20/24 Chief Complaint: Here for rehabilitation. HPI Narrative KOBE ALFARO, is a 64 Female who presents with followin08/03/2024 [facility] ED acute respiratory failure with hypoxia. Atrial fibrillation with rapid ventricular response, Heparin IV given, Cardizem bolus, then drip. Intubation for acute respiratory failure with hypoxia. Urinalysis negative for UTI. CT chest showed pneumonia, treat with Vancomycin, Cefepime. 08/03/2024 Admit to [facility] ICU. Broad spectrum IV antibiotics for multifocal pneumonia. Cardizem drip, oral beta nina, heparin drip for atrial fibrillation with RVR. 08/03/2024 Hypotensive despite 3 liters IV fluid bolus, start Norepinephrine. 08/04/2024 Stop Cardizem drip 08/02 low blood pressure, Start Amiodarone drip. 08/05/2024 Intubated. Vancomycin, Zosyn for pneumonia. Pressors for septic shock. Amiodarone drip for atrial fibrillation with RVR. 08/05/2024 Intubated, Tmax 100.4. WBC increasing. 08/06/2024 Intubated, trial of diuretic therapy. 08/07/2024 Ventilator, off sedation, copious secretions. Good response to diuretics. Sputum culture grew Haemophilus influenza. 08/08/2024 Ventilator, FiO2 increased to 55%. 08/09/2024 Ventilator, FiO2 decreased to 45%. CTA chest to rule out pulmonary embolism. 08/10/2024 Ventilator, failed weaning trial, off pressors. IV antibiotics, stop steroids for H. Flu pneumonia. 08/11/2024 Ventilator, light sedation. Beta nina, add digoxin for atrial fibrillation with RVR. IV antibiotics for H. Flu pneumonia. 08/12/2024 Ventilator, start Cardizem drip for elevated blood pressure, atrial fibrillation with RVR. 08/13/2024 Extubated, on BiPAP. Amiodarone, beta nina, Cardizem for atrial fibrillation with RVR. 08/14/2024 Oxygen 8 liters. Finished IV antibiotics for H. Flu pneumonia. Atrial fibrillation with RVR converted to sinus rhythm. 08/15/2024 Oxygen 6 liters per nasal cannula, ST cleared to have oral intake. 08/16/2024 Oxygen 8 liters per nasal cannula, consider SNF. PT/OT recommended SNF. 08/17/2024 Off antibiotics for septic shock, H. Flu pneumonia. Beta nina, Eliquis for atrial fibrillation. Lasix 40mg iv given. 08/18/2024 Airvo to high flow oxygen at 6 liters. Lasix 40mg ib bid for elevated BNP. PT/OT for SNF. 08/19/2024 Oxygen 4 liters. PT/OT TCU. 08/20/2024 Admit to TCU with debility, here for rehabilitation, strengthening, prior to discharge home with . [facility] Medical History (Updated 08/20/24 @ 19:[address] Declan Ruth MD) Tobacco abuse Menopausal syndrome Vitamin D deficiency Dysphagia Congestive heart failure Septic shock Home Medications ?Medication ?Instructions ?Recorded ?Last Taken ?Type cyclobenzaprine 10 mg tablet 10 mg PO TID PRN PRN musc le spasms 08/03/24 08/01/24 History ergocalciferol (vitamin D2) 1,250 1,250 mcg PO QWEEK S upplement 08/03/24 08/01/24 History mcg (50,000 unit) capsule estradiol 2 mg tablet 2 mg PO DAILY Menopause 09/2208/20/24 09:45 History levothyroxine 100 mcg tablet 100 mcg PO DAILY disorder of 08/03/24 08/20/24 05:40 History thyroid gland meclizine 12.5 mg tablet 12.5 mg PO Q6H PRN PRN dizzi ness 08/03/24 08/01/24 History acetaminophen 325 mg tablet 650 mg (2 x 325 mg) PO Q6H PRN PRN 08/20/24 08/09/24 Rx Pain 1-10 Or Fever >100.7 #0 tabs apixaban 5 mg tablet (Eliquis) 5 mg PO BID Anticoagula nt 30 days 08/20/24 08/20/24 09:45 Rx #0 tabs fluticasone propionate 50 1 spray NASAL BID Allergies 7 days 08/20/24 08/18/24 Rx mcg/actuation nasal #0 grams spray,suspension furosemide 40 mg tablet (Lasix) 40 mg PO BID Edema #60 tabs 08/20/24 Unknown Rx guaifenesin 1,200 mg tablet, 1,200 mg PO BID Mucus Rel ief 7 08/20/24 08/20/24 09:45 Rx extended release 12 hr (Mucus days #0 tabs Relief ER) hydrocortisone 2.5 % topical 1 applic topical BID Rash 4 days 08/20/24 08/20/24 09:45 Rx ointment #0 grams ipratropium bromide 0.02 % 0.5 mg (2.5 mL) inhalation Q4H.RT 08/20/24 08/18/24 Rx solution for inhalation PRN SOB #0 mL metoprolol tartrate 100 mg tablet 100 mg PO BID BP #0 tabs 08/20/24 08/20/24 09:45 Rx potassium chloride 20 mEq 20 meq PO BIDCM Supplement # 0 tabs 08/20/24 08/20/24 09:45 Rx tablet,extended release(part/cryst) sennosides 8.6 mg-docusate sodium 2 tab PO BID PRN PRN Constipation 08/20/24 Unknown Rx 50 mg tablet (Stimulant Laxative #0 tabs Plus) sodium chloride 0.65 % nasal spray 2 spray NASAL TID N thierry Dryness #0 08/20/24 08/18/24 Rx aerosol (Deep Sea Nasal) mL Allergy/AdvReac Type Severity Reaction Status Date / Time azithromycin Allergy Vomiting Verified 08/03/24 14:47 codeine AdvReac Vomiting Verified 08/09/24 07:30 tramadol AdvReac Vomiting Verified 08/09/24 07:30 Surgical History H/O: hysterectomy Social History (Updated 08/20/24 @ 19:[address] Declan Ruth MD) household members: spouse Smoking Status: Heavy Smoker (>10/day) alcohol intake: never substance use type: does not use ROS Constitutional Constitutional: Reports weakness; Denies chills, fever(s) or weight gain ENT HEENT: Denies headache(s), nasal congestion or nasal discharge Cardiovascular Cardiovascular: Denies chest pain or palpitations Respiratory/Chest Respiratory/Chest: Reports chest congestion, dyspnea on exertion, shortness of breath at rest and shortness of breath with exertion; Denies cough or excessive phlegm production Gastrointestinal Gastrointestinal: Denies abdominal pain, nausea or vomiting Genitourinary Genitourinary: Denies dysuria Musculoskeletal Musculoskeletal: Denies joint pain or joint swelling Integumentary Integumentary: Denies rash or wounds Neurologic Neurologic: Denies focal weakness, numbness or tingling Psychiatric Psychiatric: Denies anxiety, auditory hallucinations, depression, homicidal ideation or suicidal ideation Vital Signs Vital Signs Vital Signs: 08/20/24 15:31 08/20/24 15:59 Temperature 97.3 F L Temperature Source Temporal Pulse Rate 87 Pulse Rhythm Regular Pulse Strength Normal (2+) Respiratory Rate 16 Respiratory Effort Normal Non-Labored Respiratory Depth Normal Respiratory Pattern Normal Blood Pressure 117/63 Blood Pressure Mean 81 Blood Pressure Source Monitor Blood Pressure Position Semi-Fowlers Blood Pressure Location Right Arm Pulse Ox 2 Oxygen Delivery Method Nasal Cannula Nasal Cannula Oxygen Flow Rate (L/min) 92 Weight Weight: 94.211 kg Body Mass Index (BMI) 33.5 Physical Exam Const alert General Appearance: cooperative HEENT normocephalic Eyes PERRL and EOMs intact bilaterally Neck supple, no JVD and no carotid bruits Resp normal respiratory effort and normal air movement Auscultation: wheezes expiratory wheezes and throughout Cardio regular rate and regular rhythm GI normal to inspection, nondistended, normoactive bowel sounds, non-tender and non-distended Extremity normal capillary refill General Extremity: Negative for edema Skin no rashes or lesions noted General Skin Exam: no breakdown Psych affect normal Appearance: appropriate Assessment & Plan Assessment/Plan (1) Debility: (2) Acute hypoxic respiratory failure: (3) Haemophilus influenzae pneumonia: (4) Septic shock: (5) Atrial fibrillation with RVR: (6) Congestive heart failure: (7) Hypothyroidism: (8) Dysphagia: (9) Vitamin D deficiency: (10) Menopausal syndrome: (11) Tobacco abuse: PLAN: Plan 64 year old female with below past medical history hospitalized for acute respiratory failure with hypoxia requiring intubation 2/2 Haemophilus influenza pneumonia, complicated by septic shock, atrial fibrillation with rvr, congestive heart failure, dysphagia, admitted to TCU with debility, here for rehabilitation, strengthening, prior to discharge home with . * Debility - PT/OT. * Dysphagia - ST, modified diet, advance as tolerated. * Pain - Tylenol 650mg q6 prn pain (1-10). * Bowel - senna/colace 2 tablets bid prn, Dulcolax 10mg pr daily prn. * Adult immunization - Administer pneumonia vaccine, covid vaccine, flu vaccine as appropriate. * DVT prophylaxis - on Eliquis. * Muscle spasm - Flexeril 10mg tid prn. * Vitamin D deficiency - D 1.25mg per week. * Menopausal syndrome - Estradiol 2mg daily. * Acute HFpEF - Metoprolol 100mg bid, Furosemide 40mg bidlx. * Congestion - Mucinex 1200mg bid thru 08/27/2024. * Rash - HC 2.5% topical bid thru 08/24/2024. * Shortness of breath - Atrovent 0.5mg q4 prn. * Hypothyroidism - Levothyroxine 100mcg daily. * BPPV - Meclizine 12.5mg q6 prn. * Skin irritation - Calmoseptine topical bid. * Atrial fibrillation - Metoprolol 100mg bid, Eliquis 5mg bid. * Tinea Corporis - Nystatin powder topical bid. * Hypokalemia - KCL ER 20meq bid.
[2024-08-20 21:40] VITALS: BP 134/60; PULSE 78
[2024-08-20] MEDS: APIXABAN 5 MG TABLET PO (21:44)
[2024-08-20] MEDS: Hydrocortisone 2.5% Ointment 20 gm tube 1 APPLIC TOPICAL (21:44)
[2024-08-20] MEDS: guaiFENesin 1,200 MG Tablet 1200 MG PO (21:44)
[2024-08-20 21:45] VITALS: BP 134/60; PULSE 78
[2024-08-20] MEDS: Nystatin Powder 15gm Bottle 1 APPLIC TOPICAL (21:45)
[2024-08-20] MEDS: Metoprolol Tartrate 100 MG Tablet PO (21:45)
[2024-08-20] MEDS: Menthol/Lanolin/Calamine/Znox 113 GM Tube 1 APPLIC TOPICAL (21:45)
[2024-08-21] MEDS: Levothyroxine 100 MCG Tablet PO (05:28)
[2024-08-21] MEDS: Furosemide 40 MG Tablet PO ×2 (05:28→13:36)
[2024-08-21 05:53] LABS: Absolute Lymphocyte Count 3.47 X10^3/uL (0.83-4.51); Basophil# 0.04 X10^3/uL; Basophil% 0.4 % (0-1); Eosinophil# 0.31 X10^3/uL; Eosinophils% 3.2 % (0-5); Hematocrit 33.9 % (37-47); Hemoglobin 10.6 g/dL (12.0-15.0); Lymphocyte # 3.47 X10^3/ul (0.83-4.51); Lymphocyte % 36.2 % (19-41); Mean Corp Hgb Conc 31.3 g/dL (32-36); Mean Corpuscular Hgb 28.7 pg (27.0-32.0); Mean Corpuscular Volume 91.9 fL (81-99); Mean Platelet Vol. 10.4 fl (6.2-12.0); Monocyte# 0.72 X10^3/uL; Monocyte% 7.5 % (0-10); NRBC Flagged by Analyzer 0 % (0-5); Neutrophil # 5.01 X10^3/uL (2.7-7.7); Neutrophil % 52.4 % (47-70); Platelet Count 288 K/mm3 (150-450); RBC Distribution Width CV 17.2 % (11.6-14.6); RBC Distribution Width SD 55.9 fl (35.1-43.9); Red Blood Count 3.69 M/mm3 (4.2-5.4); White Blood Count 9.6 K/mm3 (4.4-11.0)
[2024-08-21 08:03] LABS: Anion Gap 8 (5-15); BUN 20 mg/dL (7-18); BUN/Creat Ratio 22.7 RATIO (10-20); Calcium,Total 9.3 mg/dL (8.5-10.1); Chloride 102 mmol/L (98-107); Creatinine, Serum 0.88 mg/dL (0.55-1.02); EST Glomerular Filtration Rate 68 mL/min (>60); Est Glom Filt Rate - Afr Amer 83 mL/min (>60); Estimated Creatinine Clearance 73.72 ml/min; Glucose 91 mg/dL (74-106); Potassium 4.8 mmol/L (3.5-5.1); Sodium Level 139 mmol/L (136-145)
[2024-08-21 08:17] VITALS: BP 128/67; PULSE 73
[2024-08-21] MEDS: Estradiol 1 MG Tablet 2 MG PO (08:17)
[2024-08-21] MEDS: Metoprolol Tartrate 100 MG Tablet PO ×2 (08:17→20:21)
[2024-08-21] MEDS: Potassium Chloride Oral Tablet 20 MEQ PO ×2 (08:17→17:28)
[2024-08-21] MEDS: Hydrocortisone 2.5% Ointment 20 gm tube 1 APPLIC TOPICAL (08:17)
[2024-08-21] MEDS: guaiFENesin 1,200 MG Tablet 1200 MG PO ×2 (08:18→20:21)
[2024-08-21] MEDS: Nystatin Powder 15gm Bottle 1 APPLIC TOPICAL ×2 (08:18→20:24)
[2024-08-21] MEDS: Menthol/Lanolin/Calamine/Znox 113 GM Tube 1 APPLIC TOPICAL ×2 (08:18→20:24)
[2024-08-21] MEDS: APIXABAN 5 MG TABLET PO ×2 (08:18→20:21)
[2024-08-21] MEDS: Tuberculin,Purif.prot.deriv. 50 TU/ML Vial 0.1 ML ID (11:39)
--- NOTE | 2024-08-21 11:40 | NURSING ---
Car Jockey Note; Activity Asset: Porfirio Sr is independent in her choice of daily activities. At this time she prefers in room activities and her will visits daily. She has her phone, tv and will read the paper. Staff gave her word search puzzles, in formed her of sitting room, library and other games and puzzles that are there for her use if she would like. Staff will remind her of weekly activities and respect her right to say no.
[2024-08-21 13:38] VITALS: BP 120/64; PULSE 66; RESP 18; TEMP 36.5; O2SAT 97
--- NOTE | 2024-08-21 14:35 | PCM.PN.DRR ---
TCU RX Drug Regimen Review Subjective/Objective Subjective/Objective Subjective: 64 YOF admitted to TCU 08/20/24 s/p hospitalization at [facility] secondary to respiratory failure/ pneumonia requiring intubation. Hospitalization complicated by septic shock requiring pressors and atrial fibrillation. The patient is admitted to TCU for rehabilitation prior to discharge home where she resides with her . Objective: Allergies azithromycin Allergy (Verified 08/03/24 14:47) Vomiting codeine Adverse Reaction (Verified 08/09/24 07:30) Vomiting tramadol Adverse Reaction (Verified 08/09/24 07:30) Vomiting Current Medications Generic Name Dose Route Start Last Admin Trade Name Freq PRN Reason Stop Dose Admin Acetaminophen 650 mg 08/20/24 15:46 Acetaminophen 325 Mg Tablet PO Q6H PRN PRN Pain 1-10 Or Fever >100.7 Apixaban 5 mg 08/20/24 22:00 08/21/24 08:18 Apixaban 5 Mg Tablet PO 5 mg BID TIMMY Administration Bisacodyl 10 mg 08/20/24 15:55 Bisacodyl 10 Mg Suppository RC DAILY PRN PRN Constipation Calamine/Phenol 1 applic 08/20/24 22:00 08/21/24 08:18 Menthol/Lanolin/Calamine/Znox 113 Gm Tube TOPICAL 1 applic BID TIMMY Administration Protocol Cyclobenzaprine HCl 10 mg 08/20/24 15:46 Cyclobenzaprine Hcl 10 Mg Tablet PO TID PRN PRN muscle spasms Ergocalciferol 1.25 mg 08/22/24 10:00 Ergocalciferol 1.25 Mg (50, 000 Unit) Capsule PO QWEEK TIMMY Estradiol 2 mg 08/21/24 10:00 08/21/24 08:17 Estradiol 1 Mg Tablet PO 2 mg DAILY TIMMY Administration Furosemide 40 mg 08/20/24 18:00 08/21/24 13:36 Furosemide 40 Mg Tablet PO 40 mg BIDLX TIMMY Administration Protocol Guaifenesin 1,200 mg 08/20/24 22:00 08/21/24 08:18 Guaifenesin 1,200 Mg Tablet PO 08/27/24 22:01 1,200 mg BID TIMMY Administration Hydrocortisone 1 applic 08/20/24 22:00 08/21/24 08:17 Hydrocortisone 2.5% Ointment 20 Gm Tube TOPICAL 08/24/24 22:01 1 applic BID TIMMY Administration Protocol Ipratropium Miranda 0.5 mg 08/20/24 15:46 Ipratropium 0.5 Mg/2.5 Ml Solution INHALATION Q4H PRN SHORTNESS OF BREATH Levothyroxine Sodium 100 mcg 08/21/24 06:00 08/21/24 05:28 Levothyroxine 100 Mcg Tablet PO 100 mcg DAILY@0600 [facility] Administration Meclizine HCl 12.5 mg 08/20/24 15:46 Meclizine 12.5 Mg Tablet PO Q6H PRN PRN dizziness Metoprolol Tartrate 100 mg 08/20/24 22:00 08/21/24 08:17 Metoprolol Tartrate 100 Mg Tablet PO 100 mg BID [facility] Administration Protocol Nystatin 1 applic 08/20/24 22:00 08/21/24 08:18 Nystatin Powder 15gm Bottle TOPICAL 1 applic BID [facility] Administration Protocol Potassium Chloride 20 meq 08/20/24 17:00 08/21/24 08:17 Potassium Chloride Oral Tablet 20 Meq PO 20 meq BIDCM [facility] Administration Senna/Docusate Sodium 2 tablet 08/20/24 15:46 Senna/Docusate Sodium 1 Tablet PO BID PRN PRN Constipation Tuberculin PPD 0.1 ml 08/28/24 10:00 Tuberculin,Purif.Prot.Deriv. 50 Tu/Ml Vial ID 08/28/24 10:01 X1 ONE Problem List Tobacco abuse (Acute) Menopausal syndrome (Acute) Vitamin D deficiency (Acute) Dysphagia (Acute) Congestive heart failure (Acute) Septic shock (Acute) Haemophilus influenzae pneumonia (Acute) Debility (Acute) Hypothyroidism (Acute) Atrial fibrillation with RVR (Acute) Acute hypoxic respiratory failure (Acute) Vital Signs Temp Pulse Resp BP Pulse Ox O2 Del Method O2 Flow Rate 97.7 F L 66 18 120/64 97 Nasal Cannula 2 08/21/24 13:38 08/21/24 13:38 08/21/24 13:38 08/21/24 13:38 08/21/24 13:38 08/21/24 13:38 08/21/24 13:38 Oxygen Flow Rate (L/min) 2 Oxygen Delivery Method Nasal Cannula Weight: 94.211 kg Body Mass Index (BMI) 33.5 Sodium 139 mmol/L (136-145) 08/21/24 05:30 Potassium 4.8 mmol/L (3.5-5.1) 08/21/24 05:30 Chloride 102 mmol/L (98-107) 08/21/24 05:30 Carbon Dioxide 29.0 mmol/L (21.0-32.0) 08/21/24 05:30 Anion Gap 8 (5-15) 08/21/24 05:30 BUN 20 mg/dL (7-18) H 08/21/24 05:30 Creatinine 0.88 mg/dL (0.55-1.02) 08/21/24 05:30 Est GFR (MDRD) Af Amer 83 mL/min (>60) 08/21/24 05:30 Est GFR (MDRD) Non-Af 68 mL/min (>60) 08/21/24 05:30 BUN/Creatinine Ratio 22.7 RATIO (10-20) H 08/21/24 05:30 Glucose 91 mg/dL (74-106) 08/21/24 05:30 Assessment/Plan: 1. Pain: Tylenol 650mg PO Q6h PRN Pain 1-10. Please continue to monitor for increased/decreased S/S pain, PRN medication usage. - The patient has not needed any PRN doses of Tylenol to date since admission. 2. Congestion/ Shortness of Breath: Mucinex 1200mg PO BID thru 08/27/24, Ipratropium nebulization Q4h PRN SOB. Please continue to monitor for respiratory congestion/coughing, PRN medication usage, bronchospasm, diarrhea, and headache. 3. CHF/ Atrial fibrillation: Eliquis 5mg PO BID, Lasix 40mg PO BID, Lopressor 100mg PO BID, K-Dur 20mEq PO BID. Please continue to monitor for S/S bleeding/bruising, renal function (SCr 0.88 08/21/24), H/H (Hgb 10.6, Hct 33.9 on 08/21), potassium (K 4.8 on 08/21), BP (last 120/64), pulse (last 66 BPM). 4. Menopausal Syndrome: Estradoil 2mg PO Daily. Please continue to monitor for medication effectiveness, labs as clinically indicated. Note: This is a Beer's Criteria medication which carries carcinogenic potential in older women. Please make sure patient is up to date on all preventative health screening required based on patient's age. 5. Hypothyroidism: Synthroid 100mcg PO daily. Please continue to monitor for S/S hypothyroidism, TSH (0.922 on 08/03/24). 6. Vitamin D Deficiency: Ergocalciferol 50,000 unit PO weekly. Please continue to monitor Vitamin D levels as clinically indicated (last done in 2014). 7. BPPV: Meclizine 12.5mg PO Q6h PRN. Please continue to monitor for oversedation, drowsiness, blurred vision with use, PRN medication usage. -The patient has not needed any PRN doses since admission. 8. Muscle Spasm: Flexeril 10mg PO TID PRN. Please continue to monitor for dizziness, headache, drowsiness. This is a Beer's Criteria medication which can increase the risk of falls and fractures in patients >65 years of age. Note: The patient has not required any doses at this time and is not on multiple medications that can increase the risk of falls. 9. Skin Integrity/ Rash: Hydrocortisone cream topically BID thru 08/24/24, Calmoseptine topically BID, Nystatin powder topically BID. Please continue to monitor for improvement in rash, skin irritation/redness, ulcer formation. 10. Bowel: Senna/ Docusate 2 tab PO BID PRN, Dulcolax 10mg rectally Daily PRN. Please continue to monitor for increased/decreased constipation and/or diarrhea. -The patient's last bowel movement was 08/20/24 per EMR review. Assessment/Plan for indications treated with psychotropic medications: -The patient is not on any psychotropic medications at time of medication list review. Medical chart and medication regimen reviewed. The following medication irregularities or issues were identified: 1. Vitamin D Deficiency: Ergocalciferol 50,000 unit PO weekly. Please consider obtaining a Vitamin D level if clinically indicated. Per EMR review. last level done in 2014, thank you. Date Date of Note: 08/21/24
--- NOTE | 2024-08-21 15:06 | CASEMGMT ---
Social Work SW met with patient to complete initial assessment. Introduced self and role. at bedside and pt granted permission for to remain. Verified contacts. Confirmed code status as full code. Pt does not have advance directives completed, and denied having them completing, stating she intends to have her civil attorney complete them. [facility] and continued stay is not guaranteed with each review. Pt expressed angst in returning prior to that review date. SW acknowledged longing to be home, however, educated pt to medical complexity and weakness, encouraging pt to remain for recommended timeframe from IDT to ensure pt is safe, strong and stable at DC. Pt expressed understanding. SW will continue to follow for DC planning. Carlita Perdmoo ,EXECUTIVE STEWARD ELECTRICAL ASSEMBLER
[2024-08-21 15:14] VITALS: O2SAT 97
[2024-08-21 20:21] VITALS: BP 110/47; PULSE 67
[2024-08-21 20:30] VITALS: PULSE 67; RESP 18; O2SAT 94
[2024-08-22] MEDS: Levothyroxine 100 MCG Tablet PO (05:36)
[2024-08-22] MEDS: Furosemide 40 MG Tablet PO ×2 (05:36→13:37)
[2024-08-22 06:32] VITALS: RESP 16; O2SAT 92
[2024-08-22 09:17] VITALS: BP 136/70; PULSE 87; RESP 18; TEMP 36.5; O2SAT 93
[2024-08-22 09:21] VITALS: PULSE 87
[2024-08-22] MEDS: guaiFENesin 1,200 MG Tablet 1200 MG PO ×2 (09:21→20:19)
[2024-08-22] MEDS: Ergocalciferol 1.25 MG (50, 000 UNIT) Capsule PO (09:21)
[2024-08-22] MEDS: Metoprolol Tartrate 100 MG Tablet PO (09:21)
[2024-08-22] MEDS: APIXABAN 5 MG TABLET PO ×2 (09:21→20:18)
[2024-08-22] MEDS: Potassium Chloride Oral Tablet 20 MEQ PO ×2 (09:21→18:59)
[2024-08-22] MEDS: Estradiol 1 MG Tablet 2 MG PO (09:21)
[2024-08-22] MEDS: Menthol/Lanolin/Calamine/Znox 113 GM Tube 1 APPLIC TOPICAL ×2 (09:22→20:20)
[2024-08-22] MEDS: Nystatin Powder 15gm Bottle 1 APPLIC TOPICAL ×2 (09:22→20:19)
[2024-08-22 12:35] VITALS: O2SAT 97
--- NOTE | 2024-08-22 15:28 | NURSING ---
dr smith notified of pt requesting a light sleeping pill, new order for melatonin 3mgQHS.
[2024-08-22] MEDS: MELATONIN 3 MG TABLET PO (20:18)
[2024-08-22] MEDS: cycloBENZAPRine HCl 10 MG Tablet PO (20:21)
[2024-08-22] MEDS: Hydrocortisone 2.5% Ointment 20 gm tube 1 APPLIC TOPICAL (20:21)
[2024-08-22 20:37] VITALS: BP 103/44; PULSE 73
--- NOTE | 2024-08-22 20:39 | NURSING ---
Dr. Ruth notified of Bp 103/44, HR 73, per Dr. Ruth hold metoprolol 100mg Hs dose x1
[2024-08-23 05:45] VITALS: BP 137/73; PULSE 75; RESP 16
[2024-08-23] MEDS: Levothyroxine 100 MCG Tablet PO (05:49)
[2024-08-23] MEDS: Furosemide 40 MG Tablet PO ×2 (05:49→12:49)
[2024-08-23 06:50] VITALS: O2SAT 91
[2024-08-23 09:18] VITALS: BP 124/69; PULSE 88; RESP 18; TEMP 36.2; O2SAT 91
[2024-08-23 09:21] VITALS: PULSE 88
[2024-08-23] MEDS: APIXABAN 5 MG TABLET PO ×2 (09:21→20:37)
[2024-08-23] MEDS: Potassium Chloride Oral Tablet 20 MEQ PO ×2 (09:21→17:29)
[2024-08-23] MEDS: guaiFENesin 1,200 MG Tablet 1200 MG PO ×2 (09:21→20:38)
[2024-08-23] MEDS: Estradiol 1 MG Tablet 2 MG PO (09:21)
[2024-08-23] MEDS: Metoprolol Tartrate 100 MG Tablet PO ×2 (09:21→20:35)
[2024-08-23] MEDS: Nystatin Powder 15gm Bottle 1 APPLIC TOPICAL (09:25)
[2024-08-23] MEDS: Menthol/Lanolin/Calamine/Znox 113 GM Tube 1 APPLIC TOPICAL (09:25)
--- NOTE | 2024-08-23 17:23 | NURSING ---
pt requesting to go home, message left with GITA Zazueta. here and feels pt doing much better and is confident she will be fine at home.
[2024-08-23 20:35] VITALS: BP 110/60; PULSE 71
[2024-08-23] MEDS: MELATONIN 3 MG TABLET PO (20:38)
[2024-08-23] MEDS: Hydrocortisone 2.5% Ointment 20 gm tube 1 APPLIC TOPICAL (20:38)
[2024-08-23 22:00] VITALS: PULSE 70; RESP 16; O2SAT 92
[2024-08-24 05:29] VITALS: PULSE 75; RESP 18; O2SAT 93
[2024-08-24] MEDS: Levothyroxine 100 MCG Tablet PO (05:52)
[2024-08-24] MEDS: Furosemide 40 MG Tablet PO (05:52)
--- NOTE | 2024-08-24 08:26 | CASEMGMT ---
Addendum entered by Carlita Perdomo 08/24/24 10:52: LEON phoned and Dr. Short's office (pt's PCP) to notify of DC AMA this date and possible request for O2. Nursing confirmed pt has called to inquire. Nursing notify Dr and thanked for information. Original Note: Social Work SW notified by nursing and therapy that pt is adamant about discharging today. LEON reviewed chart with pt's needs and spoke with . and IDT in agreement that if pt elects to DC, it will be AMA. - LEON met with pt. at beside and dtr, Caryn, on speaker phone. SW inquired about wishes to DC. Pt states she IS discharging home today. SW explored further for reasonings to DC. Pt stated the bed is very uncomfortable, having trouble sleeping and she just wants to be home. pt stated, I am actually doing good. SW expressed understanding and appreciates the value of being home. However, educated to pt's needs to remain for nursing and therapy care, citing, mod-max for ADLs, ambulating 15 ft max d/t fatigue, new on O2. Pt interrupted, stating I don't care, I am going home no matter what you say. LEON explained Dr does not agree with pt discharging and if pt does elect to DC home, it would be Against Medical Advice (AMA). Pt accepted. LEON explained this worker and cannot assist with ordering medications, HHC, DME, and most significantly, O2. Pt replied, I don't need the O2. LEON refuted with the evidence from pulse ox readings that pt does need the O2 to maintain proper O2 levels. Pt stated, then where can I get it? SW offered to connect with her PCP for further needs, but that would mean from the time of DC today, to when pt can get services from PCP, pt would be without O2. Pt expressed understanding. LEON direct question to both and dtr separately that they each are understanding of the risks and consequences of pt discharging AMA, without O2. Both confirmed. Pt signed AMA release form. Copy provided to pt. Copy placed on chart. Dr notified and nursing notified. Plan: DC 08/24 AMA Carlita Perdomo SENIOR ADVISORY MEMBERSHIP COORDINATOR
--- NOTE | 2024-08-24 09:35 | DS.PCM_ITS ---
Providers Date of Admission: 08/20/24 Primary Care Physician: Dr. Arnel Short MD Reason For Visit: ACUTEHYPOXIA,RESP FAILURE,AFIB,RVR Diagnosis Discharge Diagnosis (1) Debility: Status: Acute Code(s): R53.81 - Other malaise (2) Acute hypoxic respiratory failure: Status: Acute Code(s): J96.01 - Acute respiratory failure with hypoxia (3) Haemophilus influenzae pneumonia: Status: Acute Code(s): J14 - Pneumonia due to Hemophilus influenzae (4) Septic shock: Status: Acute Code(s): A41.9 - Sepsis, unspecified organism; R65.21 - Severe sepsis with septic shock (5) Atrial fibrillation with RVR: Status: Acute Code(s): I48.91 - Unspecified atrial fibrillation (6) Congestive heart failure: Status: Acute Code(s): I50.9 - Heart failure, unspecified (7) Hypothyroidism: Status: Acute Code(s): E03.9 - Hypothyroidism, unspecified (8) Dysphagia: Status: Acute Code(s): R13.10 - Dysphagia, unspecified (9) Vitamin D deficiency: Status: Acute Code(s): E55.9 - Vitamin D deficiency, unspecified (10) Menopausal syndrome: Status: Acute Code(s): N95.1 - Menopausal and female climacteric states (11) Tobacco abuse: Status: Acute Code(s): Z72.0 - Tobacco use Plan 64 year old female with below past medical history hospitalized for acute respiratory failure with hypoxia requiring intubation 2/2 Haemophilus influenza pneumonia, complicated by septic shock, atrial fibrillation with rvr, congestive heart failure, dysphagia, admitted to TCU with debility, here for rehabilitation, strengthening, prior to discharge home with . * Debility - PT/OT. * Dysphagia - ST, modified diet, advance as tolerated. * Pain - Tylenol 650mg q6 prn pain (1-10). * Bowel - senna/colace 2 tablets bid prn, Dulcolax 10mg pr daily prn. * Adult immunization - Administer pneumonia vaccine, covid vaccine, flu vaccine as appropriate. * DVT prophylaxis - on Eliquis. * Muscle spasm - Flexeril 10mg tid prn. * Vitamin D deficiency - D 1.25mg per week. * Menopausal syndrome - Estradiol 2mg daily. * Acute HFpEF - Metoprolol 100mg bid, Furosemide 40mg bidlx. * Congestion - Mucinex 1200mg bid thru 08/27/2024. * Rash - HC 2.5% topical bid thru 08/24/2024. * Shortness of breath - Atrovent 0.5mg q4 prn. * Hypothyroidism - Levothyroxine 100mcg daily. * BPPV - Meclizine 12.5mg q6 prn. * Skin irritation - Calmoseptine topical bid. * Atrial fibrillation - Metoprolol 100mg bid, Eliquis 5mg bid. * Tinea Corporis - Nystatin powder topical bid. * Hypokalemia - KCL ER 20meq bid. Medications at Discharge Home Medications ergocalciferol (vitamin D2) 1,250 mcg (50,000 unit) capsule 1,250 mcg PO QWEEK Supplement 08/03/24 estradiol 2 mg tablet 2 mg PO DAILY Menopause 08/03/24 levothyroxine 100 mcg tablet 100 mcg PO DAILY disorder of thyroid gland 08/03/24 meclizine 12.5 mg tablet 12.5 mg PO Q6H PRN PRN dizziness 08/03/24 apixaban 5 mg tablet (Eliquis) 5 mg PO BID Anticoagulant 30 days #0 tabs 08/20/24 furosemide 40 mg tablet (Lasix) 40 mg PO BID Edema #60 tabs 08/20/24 guaifenesin 1,200 mg tablet, extended release 12 hr (Mucus Relief ER) 1,200 mg PO BID Mucus Relief 7 days #0 tabs 08/20/24 hydrocortisone 2.5 % topical ointment 1 applic topical BID Rash 4 days #0 grams 08/20/24 ipratropium bromide 0.02 % solution for inhalation 0.5 mg (2.5 mL) inhalation Q4H.RT PRN SOB #0 mL 08/20/24 metoprolol tartrate 100 mg tablet 100 mg PO BID BP #0 tabs 08/20/24 potassium chloride 20 mEq tablet,extended release(part/cryst) 20 meq PO BIDCM Supplement #0 tabs 08/20/24 sennosides 8.6 mg-docusate sodium 50 mg tablet (Stimulant Laxative Plus) 2 tab PO BID PRN PRN Constipation #0 tabs 08/20/24 Hospital Course Operations None Procedures None Summary of Care Provided Minutes Spent on Discharge: 30 Hospital Course: 64 year old female with below past medical history hospitalized for acute respiratory failure with hypoxia requiring intubation 2/2 Haemophilus influenza pneumonia, complicated by septic shock, atrial fibrillation with rvr, congestive heart failure, dysphagia, admitted to TCU with debility, here for rehabilitation, strengthening, prior to discharge home with . Resident requested discharge, I explained if she leaves she is at high risk for readmission, she is requiring oxygen at this time. She signed from to discharge Against Medical Advice, I recommended, she follow up with PCP. Discharge AMA 08/24/2024. Physical Exam Const alert General Appearance: cooperative HEENT normocephalic Eyes PERRL and EOMs intact bilaterally Neck supple, no JVD and no carotid bruits Resp normal respiratory effort, normal air movement and clear to auscultation bilaterally Cardio regular rate and regular rhythm GI normal to inspection, nondistended, normoactive bowel sounds, non-tender and non-distended Extremity normal capillary refill General Extremity: Negative for edema Skin no rashes or lesions noted General Skin Exam: no breakdown Psych affect normal Appearance: appropriate Weight / BMI Weight Weight: 94.211 kg Body Mass Index (BMI) 33.5 ABG / Lab / Microbiology Data 08/21/24 05:30 08/21/24 05:30 D/C Instructions Discharge Diet: No restrictions Discharge Activity: Return to Normal Activity Weight Bearing Status: Weight bearing as tolerated Call your doctor if you observe: Fever of 101 or Higher, Inability to urinate, Inability to have a bowel movement, Shortness of breath, Dizziness, Fainting spells, Swelling in the ankles, Chest pain and Uncontrolled pain DC O2, CPAP, BIPAP Needs Home O2 Discharge instructions: No Additional Instructions: Discharge AMA 08/24/2024. Meaningful Use Info Meaningful Use Meaningful Use Diagnoses (Choose all that apply): None applicable Ischemic Stroke Statin Dosing Therapy Reference: STATIN DOSE THERAPY REFERENCE: * Patients > 75 years receive moderate or high dose statin therapy. * Patients 75 years or YOUNGER should receive HIGH intensity statin dose unless contraindicated. You will be required to document reason for non-treatment if statin daily dose does not meet guidelines. HIGH DOSE STATIN THERAPY DAILY Atorvastatin > than or = to 40 mg Rosuvastatin > than or = to 20 mg Amlodipine + Atorvastatin > than or = to 2.5/40 mg Ezetimibe + Simvastatin 10/80 mg Simvastatin 80mg Discharge Plan Admission Admit Date/Time: 08/20/24 15:18 Primary Reason for Your Visit: Debility. Attending Provider: Declan Ruth Chi Primary Care Provider: Arnel Short Instructions Additional Instructions / Restrictions: Discharge AMA 08/24/2024. Discharge Orders/Prescriptions Prescriptions: Continued meclizine 12.5 mg tablet 12.5 mg PO Q6H PRN PRN (Reason: dizziness) levothyroxine 100 mcg tablet 100 mcg PO DAILY estradiol 2 mg tablet 2 mg PO DAILY ergocalciferol (vitamin D2) 1,250 mcg (50,000 unit) capsule 1,250 mcg PO QWEEK metoprolol tartrate 100 mg Tablet 100 mg PO BID Qty: 0 0RF sennosides-docusate sodium [Stimulant Laxative Plus] 8.6-50 mg Tablet 2 tab PO BID PRN PRN (Reason: Constipation) Qty: 0 0RF potassium chloride 20 mEq Tablet,Er Particles/Crystals 20 meq PO BIDCM Qty: 0 0RF hydrocortisone 2.5 % Ointment 1 applic topical BID 4 Days Qty: 0 0RF Protocol: *Topical Application Instructions APPLICATION INSTRUCTIONS: On lower legs and upper arm on rash area ipratropium bromide 0.02 % Solution 0.5 mg inhalation Q4H.RT PRN (Reason: SOB) Qty: 0 0RF guaifenesin [Mucus Relief ER] 1,200 mg Tablet Extended Release 12hr 1,200 mg PO BID 7 Days Qty: 0 0RF Eliquis 5 mg Tablet 5 mg PO BID 30 Days Qty: 0 0RF furosemide [Lasix] 40 mg tablet 40 mg PO BID Qty: 60 0RF Discontinued cyclobenzaprine 10 mg tablet 10 mg PO TID PRN PRN (Reason: muscle spasms) acetaminophen 325 mg Tablet 650 mg PO Q6H PRN PRN (Reason: Pain 1-10 Or Fever >100.7) Qty: 0 0RF fluticasone propionate 50 mcg/actuation [place],Suspension 1 spray NASAL BID 7 Days Qty: 0 0RF Deep Sea Nasal 0.65 % Aerosol,[place] 2 spray NASAL TID Qty: 0 0RF Referrals / Follow Up: Arnel Short MD [Primary Care Provider] - Disposition Disposition (needs filled in before D/C Order can be placed): Against Medical Advice
[2024-08-24 09:59] VITALS: BP 134/69; PULSE 79
[2024-08-24] MEDS: Metoprolol Tartrate 100 MG Tablet PO (09:59)
[2024-08-24] MEDS: Potassium Chloride Oral Tablet 20 MEQ PO (09:59)
[2024-08-24] MEDS: guaiFENesin 1,200 MG Tablet 1200 MG PO (09:59)
[2024-08-24] MEDS: Estradiol 1 MG Tablet 2 MG PO (09:59)
[2024-08-24] MEDS: APIXABAN 5 MG TABLET PO (09:59)
--- NOTE | 2024-08-24 10:05 | NURSING ---
Correspondence Transcriber Note; MDS for 08/24/2024 Complete
--- NOTE | 2024-08-24 12:16 | CASEMGMT ---
Social Work SW completed BIMS () and PHQ-2 () for MDS assessment. Carlita Perdomo SNAP SHEARER NETWORKS COMPUTER CONSULTANT
--- NOTE | 2024-09-01 09:01 | MDS.RN ---
Information for the MDS was obtained from review of the clinical record, interview of resident, staff, and direct observation of resident?s care.
== END 2024-08-24 12:08 | disposition left against medical advice (07) | DRG 193 ==
PROVIDERS: Admitting Provider Family Medicine Geriatric Medicine; PCP Family Medicine; Visit Provider Family Medicine Geriatric Medicine
DX: J14 Pneumonia due to Hemophilus influenzae (principal); I50.31 Acute diastolic (congestive) heart failure; E03.9 Hypothyroidism, unspecified; R13.10 Dysphagia, unspecified; B35.4 Tinea corporis; F17.200 Nicotine dependence, unspecified, uncomplicated; I48.91 Unspecified atrial fibrillation; E87.6 Hypokalemia; E55.9 Vitamin D deficiency, unspecified; H81.10 Benign paroxysmal vertigo, unspecified ear; Z79.01 Long term (current) use of anticoagulants; Z79.899 Other long term (current) drug therapy; Z79.890 Hormone replacement therapy; Z79.51 Long term (current) use of inhaled steroids
CPT/HCPCS: 36415; 80048; 85025; 92523; 92526; 92610; 97110; 97116; 97162; 97166; 97530; 97535; 99406